=== PATIENT | male | born 1960 | race African-American/Black ===

== ENCOUNTER 2018-10-20 19:57 | Inpatient (IN) | payer MEDICAID ==
[~2018-10-20] VITALS: Ht 185.4 cm; Wt 70.3 kg
--- NOTE | 2018-10-20 20:02 | NUR ---
ED Nurse Note: Patient presents with complaints of left foot pain and swelling. Edema of the left foot apparent, patient reports feeling like he had recent fever. States leg/foot has been swollen for a month. Patient was BIBA from the streets, has no place to stay.
[2018-10-20 20:03] VITALS: BP 122/70
[2018-10-20] MEDS ORDERED: Morphine Sulfate 4mg/ml Inj (IV USE ONLY) IVP ONE (20:15)
[2018-10-20] MEDS ORDERED: Piperacillin/Tazobactam 3.375 GM in NS 110 ML IVPB ONE (20:15)
[2018-10-20] MEDS ORDERED: Vancomycin 1.5 GM in NS 275 ML IVPB ONE (20:15)
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
[2018-10-20 20:41] LABS: HEMATOCRIT 36.6 % (42.0-52.0); HEMOGLOBIN 12.3 G/DL (14.2-18.0); MEAN CORPUSCULAR VOLUME 90 FL (80-99); PLATELET COUNT 191 K/UL (150-450); RED BLOOD COUNT 4.07 M/UL (4.70-6.10); RED CELL DISTRIBUTION WIDTH 11.4 % (11.6-14.8); WHITE BLOOD COUNT 18.8 K/UL (4.8-10.8)
[2018-10-20 20:43] LABS: ANION GAP 11 mmol/L (5-15); BLOOD UREA NITROGEN 17 mg/dL (7-18); CALCIUM 9.1 MG/DL (8.5-10.1); CARBON DIOXIDE 27 MMOL/L (21-32); CHLORIDE 93 MMOL/L (98-107); POTASSIUM 3.1 MMOL/L (3.5-5.1); SODIUM 131 MMOL/L (136-145)
[2018-10-20 20:47] LABS: ALANINE AMINOTRANSFERASE 16 U/L (12-78); ALBUMIN/GLOBULIN RATIO 0.7 (1.0-2.7); ALKALINE PHOSPHATASE 92 U/L (46-116); ASPARTATE AMINO TRANSFERASE 22 U/L (15-37); BILIRUBIN,TOTAL 0.9 MG/DL (0.2-1.0)
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
--- NOTE | 2018-10-20 20:58 | NUR ---
ED Nurse Note: Patient tolerated medication well. 1/2 antibiotics hung post cultures.
[2018-10-20] MEDS ORDERED: Clindamycin 600mg 50 ML IVPB ONE (21:30)
--- NOTE | 2018-10-20 23:20 | NUR ---
ED Nurse Note: called and gave report to Sofía FORREST.
[2018-10-20] MEDS ORDERED: HYDROcodone/Acetamin 5/325 tab ORAL ONE (23:30)
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
[2018-10-21] VITALS: BP 126/73
--- NOTE | 2018-10-21 | NUR ---
NURSE NOTES: RECEIVED PATIENT FROM ER VIA GURNEY. ADM DX CELLULITES OF L FOOT, UNDER PRIMARY DR CAMACHO. A/O X3, ON RA, NO SOB, NO ACUTE DISTRESS. BELONGINGS CHECKED. ORIENTED PATIENT TO SURROUNDINGS. RAC SALINE LOCK IV INTACT, PATENT. BED IN LOWEST POSITION, LOCKED, ALARMS ON. CALL LIGHT IN REACH. LEFT MSG TO DR CAMACHO AND DR MEYERS FOR ADM ORDER.
--- NOTE | 2018-10-21 00:10 | NUR ---
NURSE NOTES: LEFT MSG TO DR CAMACHO'S EXCHANGE. AWAITING FOR CALL BACK.
--- NOTE | 2018-10-21 00:15 | NUR ---
NURSE NOTES: LEFT MSG TO DR MEYERS FOR ADM ORDER, AWAITING FOR CALL BACK.
[2018-10-21 04:00] VITALS: BP 107/70
--- NOTE | 2018-10-21 06:00 | NUR ---
NURSE NOTES: LEFT 2ND MSG TO DR MEYERS FOR ADM ORDER.
--- NOTE | 2018-10-21 06:19 | NUR ---
NURSE NOTES: LEFT MSG TO DR CAMACHO'S EXCHANGE FOR ADM ORDER AGAIN, AWAITING FOR CALL BACK.
--- NOTE | 2018-10-21 06:45 | NUR ---
NURSE NOTES: CHANGE NURSE LEFT MSG TO DR CAMACHO'S EXCHANGE FOR 3RD ATTEMPT REGARDING ADM ORDER.
--- NOTE | 2018-10-21 06:55 | NUR ---
NURSE NOTES: NOTIFIED HALF BACKER REGARDING NO ORDER FOR BREAKFAST.
--- NOTE | 2018-10-21 07:30 | NUR ---
HAND-OFF: Report given to SARAH FORREST. ENDORSE TO AM RN FOR ADM ORDERS.
--- NOTE | 2018-10-21 07:59 | NUR ---
NURSE NOTES: Received report from LON Francois. Pt in bed, awake, talkative, no admission orders for pt, physicians have been called multiple times for orders, RN will contact to follow up. Pt states has pain in left leg, discussed plan of care for pt and need for admission orders. Pt is not in respiratory distress, bed in lowest position, call light within reach.
[2018-10-21 08:00] VITALS: BP 102/65
[2018-10-21] MEDS ORDERED: Albuterol/Ipratropium 3ml neb HHN PRN (08:15)
[2018-10-21] MEDS ORDERED: Nitroglycerin Subl 0.4mg tab SL PRN (08:15)
[2018-10-21] MEDS ORDERED: Miralax 17gm pkt ORAL PRN (08:15)
[2018-10-21] MEDS ORDERED: Dextrose 50% 25ml Syringe IV PRN (08:30)
[2018-10-21] MEDS: Morphine Sulfate 2mg/ml Inj(IV/IM USE ONLY) IVP PRN ×4 (09:38→22:11)
[2018-10-21] MEDS: Heparin 5000 units/ml inj SUBQ SCH ×2 (09:39→20:57)
[2018-10-21] MEDS: Cefepime HCl 2 GM in D5W 110 ML IV SCH (09:39)
--- NOTE | 2018-10-21 10:07 | NUR ---
NURSE NOTES: Dr. Gu evaluated pt, notified MD regarding WBC 18.[address] Dumont ordered Cefepime and Vanco IV. Dr. Gu ordered MRI of foot, ankle, and leg, WCx and Wound care. Orders entered and carried out. WC: NS and Xeroform RN performed WCx and WC according to order.
--- NOTE | 2018-10-21 10:30 | NUR ---
NURSE NOTES: Notified Dr. Tim Martinez 131, K3.1, Cl 93, CRP 61.1, Lactic acid 2.50. asked about replacing K
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
[2018-10-21 12:00] VITALS: BP 101/69
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
--- NOTE | 2018-10-21 14:15 | History and Physical Report ---
DATE OF ADMISSION: 10/20/2018 TIME SEEN: At 9 a.m. CONSULTANTS: 1. Alberto Dumont M.D. 2. Nic Woody D.P.M. 3. Bernardino Wallace M.D. CHIEF COMPLAINT: Left foot cellulitis, sepsis, leukocytosis. BRIEF HISTORY: This is a 58-year-old male, who lives at home, presents with three days of increased left foot cellulitis and he had a wound on the dorsum of his left foot about three days ago and it got worse and redness, swelling occurred. The patient came to [place], diagnosed with the above, and leukocytosis of 18, admitted to medical floor for further treatment. Currently, calm in bed, slight general pain. No complaint otherwise. REVIEW OF SYSTEMS: No chest pain. No shortness of breath. No nausea, vomiting, or diarrhea. PAST MEDICAL HISTORY: Nothing. PAST SURGICAL HISTORY: Left hip. MEDICATIONS: Include vancomycin, cefepime, IV fluid, nitroglycerin, temazepam, Zofran, morphine, albuterol, Tylenol, and clindamycin. ALLERGIES: Denies. SOCIAL HISTORY: Positive smoking. Positive alcohol. No intravenous drug abuse. FAMILY HISTORY: Noncontributory. PHYSICAL EXAMINATION: GENERAL: Calm in bed, oriented x3, no acute distress. VITAL SIGNS: Temperature is 99, pulse 95, respirations 18, blood pressure 102/65. CARDIOVASCULAR: No murmur. LUNGS: Distant and clear. ABDOMEN: Bowel sounds positive. Soft, nontender, nondistended. EXTREMITIES: No cyanosis, clubbing. A 1+ edema left foot dorsum, slight calf swelling up to mid sagastume, redness noted, slightly warm. NEUROLOGIC: The patient moves all extremities, slightly weak. LABORATORY AND DIAGNOSTIC DATA: White count 18, hemoglobin and hematocrit 12/36, platelets 191. Sodium 131, potassium 3.1, chloride 93, glucose 128. Lactic acid 2.9. Albumin 3.0. INR is 1.0, PTT is 36. ASSESSMENT: Left foot cellulitis, edema, leukocytosis, anemia, malnutrition, hyponatremia, and hypokalemia. PLAN: 1. Wound care. 2. Antibiotic per Infectious Disease. 3. Blood pressure and pain control. 4. Dietary followup. 5. Nephrology evaluation. 6. Podiatry evaluation. 7. CBC and BMP in the morning. Shaun Trejo D.O. DR: TANIA JOB#: [id number] CC:
--- NOTE | 2018-10-21 14:30 | Diagnostic Imaging Report ---
Indication: Foot pain Comparison: None Findings: 3 views of the left foot were obtained. There is no acute fracture identified. There is truncation of the distal phalangeal tuft of the hallux which may be postsurgical defect. There is generalized soft tissue swelling present. There is loss of the plantar arch. There is slight diastases of the talonavicular joint. There is arthrosis of the first MTP joint. IMPRESSION: No acute injury identified. Soft tissue swelling. Multiple incidental findings as described
[2018-10-21] MEDS ORDERED: Tubing IV Secondary IV ONE (15:05)
[2018-10-21] MEDS ORDERED: NS 500ML ONE (15:05)
[2018-10-21 15:21] LABS: APPEARANCE,URINE CLEAR; BILIRUBIN, URINE NEGATIVE (NEGATIVE); GLUCOSE, URINE (UA) NEGATIVE (NEGATIVE); KETONES,URINE NEGATIVE (NEGATIVE); LEUKOCYTE ESTERASE ,URINE NEGATIVE (NEGATIVE); NITRITE,URINE NEGATIVE (NEGATIVE); PH,URINE 7 (4.5-8.0); PROTEIN,URINE 2+ (NEGATIVE); UROBILINOGEN,URINE 12 MG/DL (0.0-1.0)
[2018-10-21 15:30] LABS: COLOR,URINE YELLOW
--- NOTE | 2018-10-21 15:42 | NUR ---
NURSE NOTES: Paged Dr. Conde regarding Drug Screen positive for Opiates and Amphetamines Addendum: 10/21/18 at 1647 by SARAH CAPONE RN NURSE NOTES: Left message for Dr. Conde regarding drug screen results
[2018-10-21 16:00] VITALS: BP 109/70
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
[2018-10-21] MEDS: Docusate 100mg cap ORAL SCH (17:36)
--- NOTE | 2018-10-21 19:09 | NUR ---
HAND-OFF: Report given to LON Gore and LON Fox.
--- NOTE | 2018-10-21 19:15 | NUR ---
NURSE NOTES: Received report from LON Guzman. Patient alert, awake, and verbally responsive to let his needs known. Patient is breathing unlabored and evenly without signs of distress, discomfort, or SOB noted at this time. Patient verbalized mild pain on the left calf and food after the pain medication given on the previous shift at 1737. Patient was provided non-pharmacological measures such as rest, repositioning, elevating left leg, and distraction to alleviate the pain at this time. Patient's swollen left leg noted and left leg cellulitis noted. Patient's 20g IV on the RAC noted running fluid as ordered. Bed is placed at the lowest with brakes on and side rails up x 2 for safety measures. Call light placed within reach. Will continue to monitor for pain management and provide care as ordered.
[2018-10-21 20:00] VITALS: BP 129/76
[2018-10-21] MEDS: Vancomycin 1 GM in D5W 275 ML IVPB SCH (20:48)
[2018-10-22] VITALS: BP 130/77
[2018-10-22] MEDS: Morphine Sulfate 2mg/ml Inj(IV/IM USE ONLY) IVP PRN ×5 (02:16→20:13)
--- NOTE | 2018-10-22 02:58 | NUR ---
NURSE NOTES: Patient had mild fever of 100.6 at midnight vitals. Tylenol was given at 0052 and cooling measures been applied such as light blanket, encouraging hydration, and ice packs. Patient's temperature at 0122 was 100.1. Patient's current temperature at 0258 is 98.6. Will continue to monitor and provide care as ordered.
--- NOTE | 2018-10-22 03:04 | NUR ---
NURSE NOTES: Provided dressing change on the left leg as ordered due to previous dressing being soiled. Cleansed with NS and placed a xerofoam. Patient explained procedure before and during performance. Patient verbalized understanding. Patient tolerated the procedure well. Will continue to monitor.
[2018-10-22 04:00] VITALS: BP 112/75
[2018-10-22 06:34] LABS: BASOPHILS % (AUTO) 0.5 % (0.0-2.0); EOSINOPHILS % (AUTO) 0.1 % (0.0-3.0); HEMATOCRIT 35.5 % (42.0-52.0); HEMOGLOBIN 11.6 G/DL (14.2-18.0); LYMPHOCYTES % (AUTO) 12.5 % (20.0-45.0); MEAN CORPUSCULAR VOLUME 93 FL (80-99); MONOCYTES % (AUTO) 14.3 % (1.0-10.0); NEUTROPHILS % (AUTO) 72.7 % (45.0-75.0); PLATELET COUNT 204 K/UL (150-450); RED BLOOD COUNT 3.84 M/UL (4.70-6.10); RED CELL DISTRIBUTION WIDTH 12.2 % (11.6-14.8); WHITE BLOOD COUNT 12.6 K/UL (4.8-10.8)
[2018-10-22 07:02] LABS: ALANINE AMINOTRANSFERASE 15 U/L (12-78); ALBUMIN 2.2 G/DL (3.4-5.0); ALBUMIN/GLOBULIN RATIO 0.6 (1.0-2.7); ALKALINE PHOSPHATASE 80 U/L (46-116); ANION GAP 7 mmol/L (5-15); ASPARTATE AMINO TRANSFERASE 23 U/L (15-37); BILIRUBIN,TOTAL 0.7 MG/DL (0.2-1.0); BLOOD UREA NITROGEN 9 mg/dL (7-18); CALCIUM 8.7 MG/DL (8.5-10.1); CARBON DIOXIDE 28 MMOL/L (21-32); CHLORIDE 101 MMOL/L (98-107); CHOLESTEROL 78 MG/DL (< 200); CREATININE 0.9 MG/DL (0.55-1.30); HDL CHOLESTEROL 12 MG/DL (40-60); POTASSIUM 3.6 MMOL/L (3.5-5.1); SODIUM 136 MMOL/L (136-145); TRIGLYCERIDES 80 MG/DL (30-150)
--- NOTE | 2018-10-22 07:38 | NUR ---
HAND-OFF: Report given to LON Clemente. Patient in stable condition, eating breakfast.
[2018-10-22 07:41] LABS: % IRON SATURATION 19 % (15-50); IRON 25 ug/dL (50-175); TOTAL IRON BINDING CAPACITY 135 ug/dL (250-450)
--- NOTE | 2018-10-22 07:41 | NUR ---
NURSE NOTES: Pt resting in bed. Denies pain, no SOB. Dressing LLE , swelling, redness, elevated on pillow. call light within reach, bed in low position, fall precaution maintained. Will continue to monitor.
[2018-10-22 08:00] VITALS: BP 104/67
[2018-10-22] MEDS: Docusate 100mg cap ORAL SCH ×3 (08:29→17:15)
[2018-10-22] MEDS: Heparin 5000 units/ml inj SUBQ SCH ×2 (08:30→19:57)
--- NOTE | 2018-10-22 09:11 | General Progress Note ---
Assessment/Plan Problem List: (1) Sepsis ICD Codes: A41.9 - Sepsis, unspecified organism SNOMED: 04546764 (2) Cellulitis of left foot ICD Codes: L03.116 - Cellulitis of left lower limb SNOMED: 578475732 Status: stable, progressing Assessment/Plan: wound care abx pain control cbc bmp am Subjective Constitutional: Reports: weakness Allergies: Coded Allergies: No Known Allergies (Unverified , 10/20/18) All Systems: reviewed and negative except above Subjective sleepy calm Objective Last 24 Hour Vital Signs Date Time Temp Pulse Resp B/P (MAP) Pulse Ox O2 Delivery O2 Flow Rate FiO2 10/22/18 09:00 Room Air 10/22/18 08:00 98.1 93 19 104/67 (79) 98 10/22/18 07:30 83 17 93 Room Air 21 10/22/18 04:00 99.4 79 19 112/75 (87) 97 10/22/18 01:22 100.1 10/22/18 00:00 100.6 96 19 130/77 (94) 96 10/21/18 21:00 Room Air 10/21/18 20:00 100.8 104 19 129/76 (93) 96 10/21/18 16:00 98.6 17 109/70 (83) 96 10/21/18 14:16 98.2 10/21/18 12:00 98.2 93 26 101/69 (80) 98 Intake and Output 10/21/18 10/22/18 19:00 07:00 Intake Total 1630 ml 2395.0 ml Output Total 1200 ml 1300 ml Balance 430 ml 1095.0 ml Intake Oral 1520 ml 1520 ml IV Total 110 ml 875.0 ml Output Urine Total 1200 ml 1300 ml # Voids 5 2 Laboratory Tests 10/21/18 15:00: Urine Color Yellow, Urine Appearance Clear, Urine pH 7, Urine Specific [place] 1.015, Urine Protein 2+H, Urine Glucose (UA) Negative, Urine Ketones Negative, Urine Blood Negative, Urine Nitrite Negative, Urine Bilirubin Negative, Urine Urobilinogen 12H, Urine Leukocyte Esterase Negative, Urine RBC 0-2H, Urine WBC 0 -2, Urine Squamous Epithelial Cells None, Urine Bacteria Occasional, Urine Opiates Screen PositiveH, Urine Barbiturates Screen Negative, Phencyclidine (PCP ) Screen Negative, Urine Amphetamines Screen PositiveH, Urine Benzodiazepines Screen Negative, Urine Cocaine Screen Negative, Urine Marijuana (THC) Screen Negative 10/22/18 05:40: White Blood Count 12.6H, Red Blood Count 3.84L, Hemoglobin 11.6L, Hematocrit 35.5L, Mean Corpuscular Volume 93, Mean Corpuscular Hemoglobin 30.3, Mean Corpuscular Hemoglobin Concent 32.7, Red Cell Distribution Width 12.2, Platelet Count 204, Mean Platelet Volume 5.6L, Neutrophils (%) (Auto) 72.7, Lymphocytes ( %) (Auto) 12.5L, Monocytes (%) (Auto) 14.3H, Eosinophils (%) (Auto) 0.1, Basophils (%) (Auto) 0.5, Sodium Level 136, Potassium Level 3.6, Chloride Level 101, Carbon Dioxide Level 28, Anion Gap 7, Blood Urea Nitrogen 9, Creatinine 0.9 , Estimat Glomerular Filtration Rate > 60, Glucose Level 95, Hemoglobin A1c 6.4H , Uric Acid 3.5, Calcium Level 8.7, Phosphorus Level 3.0, Magnesium Level 2.0, Iron Level 25L, Total Iron Binding Capacity 135L, Percent Iron Saturation 19, Unsaturated Iron Binding 110L, Ferritin 324, Total Bilirubin 0.7, Aspartate Amino Transf (AST/SGOT) 23, Alanine Aminotransferase (ALT/SGPT) 15, Alkaline Phosphatase 80, Ammonia 39H, C-Reactive Protein, Quantitative 19.3H, Pro-B-Type Natriuretic Peptide 773H, Total Protein 6.2L, Albumin 2.2L, Globulin 4.0, Albumin/Globulin Ratio 0.6L, Triglycerides Level 80, Cholesterol Level 78, LDL Cholesterol 47, HDL Cholesterol 12L, Cholesterol/HDL Ratio 6.5H, Vitamin B12 Level 427, Folate 8.4L, Thyroid Stimulating Hormone (TSH) 0.516 Height (Feet): 6 Height (Inches): 1.00 Weight (Pounds): 98 General Appearance: lethargic EENT: normal ENT inspection Neck: normal alignment Cardiovascular: normal peripheral pulses, normal rate, regular rhythm Respiratory/Chest: chest wall non-tender, lungs clear, normal breath sounds Abdomen: normal bowel sounds, non tender, soft Extremities: normal inspection Edema: 1+ Arm (L), 1+ Arm (R), 1+ Leg (L), 1+ Leg (R), 1+ Pedal (L), 1+ Pedal ( R), 1+ Generalized Neurologic: motor weakness Skin: normal pigmentation, warm/dry Shaun Trejo DO Oct 22, 2018 09:11
[2018-10-22] MEDS: Cefepime HCl 2 GM in D5W 110 ML IV SCH (09:42)
--- NOTE | 2018-10-22 11:00 | NUR ---
Social Service Note SW met with patient to assess for homelessness. Patient is alert, oriented and verbally responsive. Patient states he has been homeless for about two years. Patient states he is able to live on the side of a friend's apartment located at [address] [place] [address] as long as he keeps it clean and he is quite at night. Patient states he receives SSI of almost a $1,000 a month. Patient states he has poor money management and usually owe people money by the following month which makes housing options difficult. Patient states he is out of money for the month. Patient admits to substance abuse use, opiates and meth. Patient states he only smokes meth a few times a month when he is cold and in pain. Patient states he had a prescription for pain medication. Patient last since at his clinic [facility], [address] [place] [address], [id number], January 2018. Pending MRI to rule out Osteo. If patient requires IV antibiotics he will require SNF placement. Patient is open to sober/independent living however states he can't commit to paying each month. Patient denies mental health disorder. Patient provided his brother Keyshanw Zuniga [phone] as an emergency contact. Will continue to monitor and assess patient needs upon discharge.
[2018-10-22 12:00] VITALS: BP 109/72
--- NOTE | 2018-10-22 12:42 | Consultation ---
History of Present Illness General Date patient seen: Oct 22, 2018 Chief Complaint: Skin Rash/Abscess Reason for Consultation: cellulitis Present Illness HPI 58 year old male, homeless, no major medical problems presented to [place] ER with selling and redness of his left foot. he was diagnosed to have cellulitis and sepsis and admitted for further management. Allergies: Coded Allergies: No Known Allergies (Unverified , 10/20/18) Patient History Healthcare decision maker Resuscitation status Full Code Advanced Directive on File Review of Systems All Other Systems: negative except mentioned in HPI Physical Exam General Appearance: no apparent distress, alert Lines, tubes and drains: peripheral HEENT: normocephalic, atraumatic Neck: non-tender, normal alignment Respiratory/Chest: chest wall non-tender Cardiovascular/Chest: normal peripheral pulses, normal rate Abdomen: normal bowel sounds Genitourinary/Rectal: normal genital exam Skin Exam: rash Last 24 Hour Vital Signs Date Time Temp Pulse Resp B/P (MAP) Pulse Ox O2 Delivery O2 Flow Rate FiO2 10/22/18 12:00 98.1 64 19 109/72 (84) 97 10/22/18 09:00 Room Air 10/22/18 08:00 98.1 93 19 104/67 (79) 98 10/22/18 07:30 83 17 93 Room Air 21 10/22/18 04:00 99.4 79 19 112/75 (87) 97 10/22/18 01:22 100.1 10/22/18 00:00 100.6 96 19 130/77 (94) 96 10/21/18 21:00 Room Air 10/21/18 20:00 100.8 104 19 129/76 (93) 96 10/21/18 16:00 98.6 17 109/70 (83) 96 10/21/18 14:16 98.2 Intake and Output 10/21/18 10/22/18 18:59 06:59 Intake Total 1630 ml 2395.0 ml Output Total 1200 ml 1300 ml Balance 430 ml 1095.0 ml Intake Oral 1520 ml 1520 ml IV Total 110 ml 875.0 ml Output Urine Total 1200 ml 1300 ml # Voids 5 2 Laboratory Tests Test 10/21/18 15:00 10/22/18 05:40 Urine Color Yellow Urine Appearance Clear Urine pH 7 (4.5-8.0) Urine Specific [place] 1.015 (1.005-1.035) Urine Protein 2+ (NEGATIVE) H Urine Glucose (UA) Negative (NEGATIVE) Urine Ketones Negative (NEGATIVE) Urine Blood Negative (NEGATIVE) Urine Nitrite Negative (NEGATIVE) Urine Bilirubin Negative (NEGATIVE) Urine Urobilinogen 12 MG/DL (0.0-1.0) H Urine Leukocyte Esterase Negative (NEGATIVE) Urine RBC 0-2 /HPF (0 - 0) H Urine WBC 0-2 /HPF (0 - 0) Urine Squamous Epithelial Cells None /LPF (NONE/OCC) Urine Bacteria Occasional /HPF (NONE) Urine Opiates Screen Positive (NEGATIVE) H Urine Barbiturates Screen Negative (NEGATIVE) Phencyclidine (PCP) Screen Negative (NEGATIVE) Urine Amphetamines Screen Positive (NEGATIVE) H Urine Benzodiazepines Screen Negative (NEGATIVE) Urine Cocaine Screen Negative (NEGATIVE) Urine Marijuana (THC) Screen Negative (NEGATIVE) White Blood Count 12.6 K/UL (4.8-10.8) H Red Blood Count 3.84 M/UL (4.70-6.10) L Hemoglobin 11.6 G/DL (14.2-18.0) L Hematocrit 35.5 % (42.0-52.0) L Mean Corpuscular Volume 93 FL (80-99) Mean Corpuscular Hemoglobin 30.3 PG (27.0-31.0) Mean Corpuscular Hemoglobin Concent 32.7 G/DL (32.0-36.0) Red Cell Distribution Width 12.2 % (11.6-14.8) Platelet Count 204 K/UL (150-450) Mean Platelet Volume 5.6 FL (6.5-10.1) L Neutrophils (%) (Auto) 72.7 % (45.0-75.0) Lymphocytes (%) (Auto) 12.5 % (20.0-45.0) L Monocytes (%) (Auto) 14.3 % (1.0-10.0) H Eosinophils (%) (Auto) 0.1 % (0.0-3.0) Basophils (%) (Auto) 0.5 % (0.0-2.0) Sodium Level 136 MMOL/L (136-145) Potassium Level 3.6 MMOL/L (3.5-5.1) Chloride Level 101 MMOL/L (98-107) Carbon Dioxide Level 28 MMOL/L (21-32) Anion Gap 7 mmol/L (5-15) Blood Urea Nitrogen 9 mg/dL (7-18) Creatinine 0.9 MG/DL (0.55-1.30) Estimat Glomerular Filtration Rate > 60 mL/min (>60) Glucose Level 95 MG/DL (74-106) Hemoglobin A1c 6.4 % (4.3-6.0) H Uric Acid 3.5 MG/DL (2.6-7.2) Calcium Level 8.7 MG/DL (8.5-10.1) Phosphorus Level 3.0 MG/DL (2.5-4.9) Magnesium Level 2.0 MG/DL (1.8-2.4) Iron Level 25 ug/dL (50-175) L Total Iron Binding Capacity 135 ug/dL (250-450) L Percent Iron Saturation 19 % (15-50) Unsaturated Iron Binding 110 ug/dL (112-346) L Ferritin 324 NG/ML (8-388) Total Bilirubin 0.7 MG/DL (0.2-1.0) Aspartate Amino Transf (AST/SGOT) 23 U/L (15-37) Alanine Aminotransferase (ALT/SGPT) 15 U/L (12-78) Alkaline Phosphatase 80 U/L (46-116) Ammonia 39 umol/L (11-32) H C-Reactive Protein, Quantitative 19.3 mg/dL (0.00-0.90) H Pro-B-Type Natriuretic Peptide 773 pg/mL (0-125) H Total Protein 6.2 G/DL (6.4-8.2) L Albumin 2.2 G/DL (3.4-5.0) L Globulin 4.0 g/dL Albumin/Globulin Ratio 0.6 (1.0-2.7) L Triglycerides Level 80 MG/DL (30-150) Cholesterol Level 78 MG/DL (< 200) LDL Cholesterol 47 mg/dL (<100) HDL Cholesterol 12 MG/DL (40-60) L Cholesterol/HDL Ratio 6.5 (3.3-4.4) H Vitamin B12 Level 427 PG/ML (193-986) Folate 8.4 NG/ML (8.6-58.9) L Thyroid Stimulating Hormone (TSH) 0.516 uiU/mL (0.358-3.740) Height (Feet): 6 Height (Inches): 1.00 Weight (Pounds): 98 Medications Current Medications Medications (Trade) Dose Ordered Sig/Juan Route PRN Reason Start Time Stop Time Status Last Admin Dose Admin Acetaminophen (Tylenol) 650 mg Q4H PRN ORAL fever 10/21/18 08:15 11/20/18 08:14 10/22/18 00:52 Albuterol/ Ipratropium (Albuterol/ Ipratropium) 3 ml Q4H PRN HHN Shortness of Breath 10/21/18 08:15 10/26/18 08:14 Cefepime HCl 2 gm/ Dextrose 110 ml @ 220 mls/hr Q24H IV 10/21/18 10:00 10/28/18 09:59 10/22/18 09:42 Dextrose (Dextrose 50%) 25 ml Q30M PRN IV Hypoglycemia 10/21/18 08:30 11/20/18 08:16 Dextrose (Dextrose 50%) 50 ml Q30M PRN IV hypoglycemia 10/21/18 08:30 11/20/18 08:29 Dextrose/ Electrolytes 1,000 ml @ 50 mls/hr Q20H IV 10/22/18 10:00 11/20/18 09:59 10/22/18 09:39 Docusate Sodium (Colace) 100 mg THREE TIMES A DAY ORAL 10/21/18 18:00 11/20/18 17:59 10/22/18 12:09 Folic Acid (Folate) 3 mg DAILY ORAL 10/22/18 09:15 11/21/18 09:14 10/22/18 09:41 Heparin Sodium (Porcine) (Heparin 5000 units/ml) 5,000 units EVERY 12 HOURS SUBQ 10/21/18 09:00 11/20/18 08:59 10/22/18 08:30 Morphine Sulfate (Morphine Sulfate) 2 mg Q4H PRN IVP Moderate Pain (Pain Scale 4-6) 10/21/18 08:15 10/28/18 08:14 10/22/18 12:09 Nitroglycerin (Ntg) 0.4 mg Q5M PRN SL Prn Chest Pain 10/21/18 08:15 11/20/18 08:14 Ondansetron HCl (Zofran) 4 mg Q6H PRN IVP Nausea & Vomiting 10/21/18 08:15 11/20/18 08:14 Pantoprazole (Protonix) 40 mg EVERY 12 HOURS ORAL 10/21/18 21:00 11/20/18 20:59 10/22/18 08:29 Polyethylene Glycol (Miralax) 17 gm DAILYPRN PRN ORAL Constipation 10/21/18 08:15 11/20/18 08:14 10/21/18 11:32 Temazepam (Restoril) 15 mg HSPRN PRN ORAL Insomnia 10/21/18 08:15 10/28/18 08:14 Vancomycin HCl (Vanco rx to dose) 1 ea DAILY PRN MISC . 10/21/18 08:30 11/20/18 08:29 Vancomycin HCl 1 gm/Dextrose 275 ml @ 183.3 mls/ hr Q24H IVPB 10/21/18 20:00 10/26/18 19:59 10/21/18 20:48 Assessment/Plan Problem List: (1) Sepsis ICD Codes: A41.9 - Sepsis, unspecified organism SNOMED: 21310928 (2) Cellulitis of left foot ICD Codes: L03.116 - Cellulitis of left lower limb SNOMED: 143684096 Assessment/Plan: iv abx wound care dvt prophylaxis symptomatic treatment. Alberto Dumont MD Oct 22, 2018 12:42
--- NOTE | 2018-10-22 12:44 | Nephrology Progress Note ---
Assessment/Plan Problem List: (1) Cellulitis of left foot (2) Sepsis (3) Hyponatremia (4) Hypoalbuminemia Assessment Left foot cellulitis / Leukocytosis / No fever Low Na Low K Anemia High Lactic Low Albumin Plan recheck BMI Isotonic solution K supplement monitor lytes avoid nephrotoxics urine tox screen positive for Amphetamines and Opiates per orders Objective Objective Last 24 Hour Vital Signs Date Time Temp Pulse Resp B/P (MAP) Pulse Ox O2 Delivery O2 Flow Rate FiO2 10/22/18 12:00 98.1 64 19 109/72 (84) 97 10/22/18 09:00 Room Air 10/22/18 08:00 98.1 93 19 104/67 (79) 98 10/22/18 07:30 83 17 93 Room Air 21 10/22/18 04:00 99.4 79 19 112/75 (87) 97 10/22/18 01:22 100.1 10/22/18 00:00 100.6 96 19 130/77 (94) 96 10/21/18 21:00 Room Air 10/21/18 20:00 100.8 104 19 129/76 (93) 96 10/21/18 16:00 98.6 17 109/70 (83) 96 10/21/18 14:16 98.2 Intake and Output 10/21/18 10/22/18 18:59 06:59 Intake Total 1630 ml 2395.0 ml Output Total 1200 ml 1300 ml Balance 430 ml 1095.0 ml Intake Oral 1520 ml 1520 ml IV Total 110 ml 875.0 ml Output Urine Total 1200 ml 1300 ml # Voids 5 2 Laboratory Tests 10/21/18 15:00: Urine Color Yellow, Urine Appearance Clear, Urine pH 7, Urine Specific [place] 1.015, Urine Protein 2+H, Urine Glucose (UA) Negative, Urine Ketones Negative, Urine Blood Negative, Urine Nitrite Negative, Urine Bilirubin Negative, Urine Urobilinogen 12H, Urine Leukocyte Esterase Negative, Urine RBC 0-2H, Urine WBC 0 -2, Urine Squamous Epithelial Cells None, Urine Bacteria Occasional, Urine Opiates Screen PositiveH, Urine Barbiturates Screen Negative, Phencyclidine (PCP ) Screen Negative, Urine Amphetamines Screen PositiveH, Urine Benzodiazepines Screen Negative, Urine Cocaine Screen Negative, Urine Marijuana (THC) Screen Negative 10/22/18 05:40: White Blood Count 12.6H, Red Blood Count 3.84L, Hemoglobin 11.6L, Hematocrit 35.5L, Mean Corpuscular Volume 93, Mean Corpuscular Hemoglobin 30.3, Mean Corpuscular Hemoglobin Concent 32.7, Red Cell Distribution Width 12.2, Platelet Count 204, Mean Platelet Volume 5.6L, Neutrophils (%) (Auto) 72.7, Lymphocytes ( %) (Auto) 12.5L, Monocytes (%) (Auto) 14.3H, Eosinophils (%) (Auto) 0.1, Basophils (%) (Auto) 0.5, Sodium Level 136, Potassium Level 3.6, Chloride Level 101, Carbon Dioxide Level 28, Anion Gap 7, Blood Urea Nitrogen 9, Creatinine 0.9 , Estimat Glomerular Filtration Rate > 60, Glucose Level 95, Hemoglobin A1c 6.4H , Uric Acid 3.5, Calcium Level 8.7, Phosphorus Level 3.0, Magnesium Level 2.0, Iron Level 25L, Total Iron Binding Capacity 135L, Percent Iron Saturation 19, Unsaturated Iron Binding 110L, Ferritin 324, Total Bilirubin 0.7, Aspartate Amino Transf (AST/SGOT) 23, Alanine Aminotransferase (ALT/SGPT) 15, Alkaline Phosphatase 80, Ammonia 39H, C-Reactive Protein, Quantitative 19.3H, Pro-B-Type Natriuretic Peptide 773H, Total Protein 6.2L, Albumin 2.2L, Globulin 4.0, Albumin/Globulin Ratio 0.6L, Triglycerides Level 80, Cholesterol Level 78, LDL Cholesterol 47, HDL Cholesterol 12L, Cholesterol/HDL Ratio 6.5H, Vitamin B12 Level 427, Folate 8.4L, Thyroid Stimulating Hormone (TSH) 0.516 Height (Feet): 6 Height (Inches): 1.00 Weight (Pounds): 98 Levar Conde MD Oct 22, 2018 12:44
--- NOTE | 2018-10-22 13:04 | NUR ---
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 ABSCESS SI:LEFT FOOT CELLULITIS . SEPSIS VS: BP 122/70, P 99, T 98.6, RR 18, SpO2 96 WBC 18.8, RBC 4.07, H&H 12.3/36.6, Na 131, K 3.1, Glucose 128 IS:NORCO 5/325 1tab NS x1L IV CLINDAMYCIN 50ml IVPB MORPHINE 4mg IVP ZOSYN 110ml IVPB VANCOMYCIN 275ml IVPB ZOFRAN 4mg IVP ADMITTED TO MED/SURG DCP: TO BE DETERMINED BASED ON CARE NEEDED Addendum: 10/22/18 at 1500 by Susan Mauricio CM INTERQUAL MET
[2018-10-22] MEDS ORDERED: Iron Sucrose 200 MG in NS 110 ML IV ONE (14:00)
[2018-10-22 16:00] VITALS: BP 112/74
--- NOTE | 2018-10-22 18:31 | Infectious Diseases Prog Note ---
Assessment/Plan Assessment/Plan Assessment/Plan: 58 yo male who presnted to the ED on 10/19/18 with left leg cellulitis. Left foot cellulitis Leukocytosis ;improving Low grade fevers -Foot xray: No acute injury identified. Soft tissue swelling. Multiple incidental findings as described PLAN: - Continue Cefepime #2 and Vancomycin #2 - f/u wound cx - Monitor CBC and Temps - f/u MRI to R/O OM Thank you for this consult. We will continue to follow the patient during this hospitalization. Subjective Allergies: Coded Allergies: No Known Allergies (Unverified , 10/20/18) Subjective Tm 100.8 WBC improving BCx NTD Objective Vital Signs Last 24 Hour Vital Signs Date Time Temp Pulse Resp B/P (MAP) Pulse Ox O2 Delivery O2 Flow Rate FiO2 10/22/18 16:37 98.1 10/22/18 16:00 98.5 76 19 112/74 (87) 96 10/22/18 12:00 98.1 64 19 109/72 (84) 97 10/22/18 09:00 Room Air 10/22/18 08:00 98.1 93 19 104/67 (79) 98 10/22/18 07:30 83 17 93 Room Air 21 10/22/18 04:00 99.4 79 19 112/75 (87) 97 10/22/18 01:22 100.1 10/22/18 00:00 100.6 96 19 130/77 (94) 96 10/21/18 21:00 Room Air 10/21/18 20:00 100.8 104 19 129/76 (93) 96 Height (Feet): 6 Height (Inches): 1.00 Weight (Pounds): 98 Objective Gen: NAD HEENT: NCAT, MMM, EOMI, PERRL, No Oral lesion, no scleral icterus NECK: full range of motion, supple, no meningismus, No LAD, No JVD LUNGS: CTAB, No W/C, No Accessory muscle use CARDS: RRR, S1, S2, No M/R/G, ABD: Soft, NT, ND, No R/G, + BS, No HSM, No Masses : Deferred Ext: C/C/E, Pulses 2+ B/L (DP, Rad): LLE swelling with erythema and pain, Ulceration present with purulence. NEURO: A/O x 4, Strength and Sensation Grossly intact PSYCH: Normal mood and affect SKIN: Warm/dry, No rashes Microbiology Date/Time Source Procedure Growth Status 10/20/18 20:27 Blood Blood Culture - Preliminary NO GROWTH AFTER 24 HOURS Resulted 10/20/18 20:19 Blood Blood Culture - Preliminary NO GROWTH AFTER 24 HOURS Resulted 10/21/18 11:30 Leg Left Gram Stain - Final Resulted 10/21/18 11:30 Leg Left Wound Culture Pending Resulted 10/20/18 20:25 Rectum Received Laboratory Tests Test 10/22/18 05:40 White Blood Count 12.6 K/UL (4.8-10.8) H Red Blood Count 3.84 M/UL (4.70-6.10) L Hemoglobin 11.6 G/DL (14.2-18.0) L Hematocrit 35.5 % (42.0-52.0) L Mean Corpuscular Volume 93 FL (80-99) Mean Corpuscular Hemoglobin 30.3 PG (27.0-31.0) Mean Corpuscular Hemoglobin Concent 32.7 G/DL (32.0-36.0) Red Cell Distribution Width 12.2 % (11.6-14.8) Platelet Count 204 K/UL (150-450) Mean Platelet Volume 5.6 FL (6.5-10.1) L Neutrophils (%) (Auto) 72.7 % (45.0-75.0) Lymphocytes (%) (Auto) 12.5 % (20.0-45.0) L Monocytes (%) (Auto) 14.3 % (1.0-10.0) H Eosinophils (%) (Auto) 0.1 % (0.0-3.0) Basophils (%) (Auto) 0.5 % (0.0-2.0) Sodium Level 136 MMOL/L (136-145) Potassium Level 3.6 MMOL/L (3.5-5.1) Chloride Level 101 MMOL/L (98-107) Carbon Dioxide Level 28 MMOL/L (21-32) Anion Gap 7 mmol/L (5-15) Blood Urea Nitrogen 9 mg/dL (7-18) Creatinine 0.9 MG/DL (0.55-1.30) Estimat Glomerular Filtration Rate > 60 mL/min (>60) Glucose Level 95 MG/DL (74-106) Hemoglobin A1c 6.4 % (4.3-6.0) H Uric Acid 3.5 MG/DL (2.6-7.2) Calcium Level 8.7 MG/DL (8.5-10.1) Phosphorus Level 3.0 MG/DL (2.5-4.9) Magnesium Level 2.0 MG/DL (1.8-2.4) Iron Level 25 ug/dL (50-175) L Total Iron Binding Capacity 135 ug/dL (250-450) L Percent Iron Saturation 19 % (15-50) Unsaturated Iron Binding 110 ug/dL (112-346) L Ferritin 324 NG/ML (8-388) Total Bilirubin 0.7 MG/DL (0.2-1.0) Aspartate Amino Transf (AST/SGOT) 23 U/L (15-37) Alanine Aminotransferase (ALT/SGPT) 15 U/L (12-78) Alkaline Phosphatase 80 U/L (46-116) Ammonia 39 umol/L (11-32) H C-Reactive Protein, Quantitative 19.3 mg/dL (0.00-0.90) H Pro-B-Type Natriuretic Peptide 773 pg/mL (0-125) H Total Protein 6.2 G/DL (6.4-8.2) L Albumin 2.2 G/DL (3.4-5.0) L Globulin 4.0 g/dL Albumin/Globulin Ratio 0.6 (1.0-2.7) L Triglycerides Level 80 MG/DL (30-150) Cholesterol Level 78 MG/DL (< 200) LDL Cholesterol 47 mg/dL (<100) HDL Cholesterol 12 MG/DL (40-60) L Cholesterol/HDL Ratio 6.5 (3.3-4.4) H Vitamin B12 Level 427 PG/ML (193-986) Folate 8.4 NG/ML (8.6-58.9) L Thyroid Stimulating Hormone (TSH) 0.516 uiU/mL (0.358-3.740) Current Medications Medications (Trade) Dose Ordered Sig/Juan Route PRN Reason Start Time Stop Time Status Last Admin Dose Admin Acetaminophen (Tylenol) 650 mg Q4H PRN ORAL fever 10/21/18 08:15 11/20/18 08:14 10/22/18 00:52 Albuterol/ Ipratropium (Albuterol/ Ipratropium) 3 ml Q4H PRN HHN Shortness of Breath 10/21/18 08:15 10/26/18 08:14 Cefepime HCl 1 gm/ Dextrose 55 ml @ 110 mls/hr EVERY 12 HOURS IVPB 10/23/18 09:00 10/28/18 10:00 Dextrose (Dextrose 50%) 25 ml Q30M PRN IV Hypoglycemia 10/21/18 08:30 11/20/18 08:16 Dextrose (Dextrose 50%) 50 ml Q30M PRN IV hypoglycemia 10/21/18 08:30 11/20/18 08:29 Dextrose/ Electrolytes 1,000 ml @ 50 mls/hr Q20H IV 10/22/18 10:00 11/20/18 09:59 10/22/18 09:39 Docusate Sodium (Colace) 100 mg THREE TIMES A DAY ORAL 10/21/18 18:00 11/20/18 17:59 10/22/18 12:09 Folic Acid (Folate) 3 mg DAILY ORAL 10/22/18 09:15 11/21/18 09:14 10/22/18 09:41 Heparin Sodium (Porcine) (Heparin 5000 units/ml) 5,000 units EVERY 12 HOURS SUBQ 10/21/18 09:00 11/20/18 08:59 10/22/18 08:30 Morphine Sulfate (Morphine Sulfate) 2 mg Q4H PRN IVP Moderate Pain (Pain Scale 4-6) 10/21/18 08:15 10/28/18 08:14 10/22/18 16:07 Nitroglycerin (Ntg) 0.4 mg Q5M PRN SL Prn Chest Pain 10/21/18 08:15 11/20/18 08:14 Ondansetron HCl (Zofran) 4 mg Q6H PRN IVP Nausea & Vomiting 10/21/18 08:15 11/20/18 08:14 Pantoprazole (Protonix) 40 mg EVERY 12 HOURS ORAL 10/21/18 21:00 11/20/18 20:59 10/22/18 08:29 Polyethylene Glycol (Miralax) 17 gm DAILYPRN PRN ORAL Constipation 10/21/18 08:15 11/20/18 08:14 10/21/18 11:32 Temazepam (Restoril) 15 mg HSPRN PRN ORAL Insomnia 10/21/18 08:15 10/28/18 08:14 Vancomycin HCl (Vanco rx to dose) 1 ea DAILY PRN MISC . 10/21/18 08:30 11/20/18 08:29 Vancomycin HCl 1 gm/Dextrose 275 ml @ 183.3 mls/ hr Q24H IVPB 10/21/18 20:00 10/26/18 19:59 10/21/18 20:48 Fernanda Davison M.D. Oct 22, 2018 18:30
--- NOTE | 2018-10-22 19:42 | NUR ---
NURSE NOTES: Received patient comfortable,asleep,left lower extremity elevated.
[2018-10-22] MEDS: Vancomycin 1 GM in D5W 275 ML IVPB SCH (19:56)
[2018-10-22 20:00] VITALS: BP 117/71
[2018-10-23] VITALS: BP 141/82
[2018-10-23] MEDS: HYDROmorphone 1mg/ml Carpuject IVP PRN ×6 (00:07→21:33)
[2018-10-23 04:00] VITALS: BP 123/77
[2018-10-23] MEDS ORDERED: Tubing IV Secondary IV ONE (06:51)
[2018-10-23 07:05] LABS: BASOPHILS % (AUTO) 0.8 % (0.0-2.0); EOSINOPHILS % (AUTO) 0.2 % (0.0-3.0); HEMATOCRIT 34.8 % (42.0-52.0); HEMOGLOBIN 11.5 G/DL (14.2-18.0); LYMPHOCYTES % (AUTO) 13.1 % (20.0-45.0); MEAN CORPUSCULAR VOLUME 92 FL (80-99); MONOCYTES % (AUTO) 14.9 % (1.0-10.0); NEUTROPHILS % (AUTO) 70.9 % (45.0-75.0); PLATELET COUNT 255 K/UL (150-450); RED BLOOD COUNT 3.78 M/UL (4.70-6.10); WHITE BLOOD COUNT 12.4 K/UL (4.8-10.8)
[2018-10-23 07:06] LABS: PHOSPHORUS 3.2 MG/DL (2.5-4.9)
[2018-10-23 07:08] LABS: ALANINE AMINOTRANSFERASE 20 U/L (12-78); ALBUMIN 2.2 G/DL (3.4-5.0); ALBUMIN/GLOBULIN RATIO 0.5 (1.0-2.7); ALKALINE PHOSPHATASE 88 U/L (46-116); ANION GAP 7 mmol/L (5-15); ASPARTATE AMINO TRANSFERASE 30 U/L (15-37); BILIRUBIN,TOTAL 0.5 MG/DL (0.2-1.0); BLOOD UREA NITROGEN 8 mg/dL (7-18); CALCIUM 8.6 MG/DL (8.5-10.1); CARBON DIOXIDE 28 MMOL/L (21-32); CHLORIDE 98 MMOL/L (98-107); POTASSIUM 3.5 MMOL/L (3.5-5.1); SODIUM 133 MMOL/L (136-145)
--- NOTE | 2018-10-23 07:18 | NUR ---
HAND-OFF: Report given to Aline Faye RN.
--- NOTE | 2018-10-23 07:20 | NUR ---
NURSE NOTES: received patient resting in bed.patient awake, alert oriented, no sign of distress, denies pain, dressing on LLE dry and intact, elevated on pillow. call light within reach, on fall precaution, bed in low position, Will continue to monitor. kaitlin reynolds
[2018-10-23 07:40] LABS: CREATININE 0.7 MG/DL (0.55-1.30)
[2018-10-23 08:00] VITALS: BP_SYST 129; BP_DIAS 75; BP_DIAS 76
[2018-10-23] MEDS: Heparin 5000 units/ml inj SUBQ SCH ×2 (08:58→21:05)
[2018-10-23] MEDS: Docusate 100mg cap ORAL SCH ×3 (08:58→17:11)
[2018-10-23] MEDS: Cefepime 1gm in D5W 55ml IVPB SCH ×2 (08:59→21:06)
--- NOTE | 2018-10-23 10:56 | NUR ---
MRI left ankle completed
--- NOTE | 2018-10-23 11:13 | Diagnostic Imaging Report ---
Indication: Dorsal left foot ulcer/blister, with cellulitis Technique: Sagittal, coronal, and axial T1 FSE and FSE STIR images of the left forefoot Comparison: Foot radiograph dated 10/20/2018 Findings: . Superficial fluid collection in the dorsum of the right foot likely relates to stated clinical history of a blister. Multiple other similar areas are noted throughout the dorsum of the right foot. There is diffuse edema of the subcutaneous fat, particularly dorsally and extending into the digits circumferentially. There is also some deep compartment edema as well. No discrete collection to suggest abscess demonstrated. No marrow signal abnormality to suggest acute osteomyelitis is demonstrated Impression: Extensive soft tissue edema, as described. This is in keeping with stated clinical history of cellulitis. No findings to suggest abscess Very superficial fluid collections likely relate to stated clinical history of dorsal blisters. No marrow abnormality to suggest acute osteomyelitis demonstrated.
[2018-10-23 12:00] VITALS: BP 129/82
--- NOTE | 2018-10-23 13:09 | Nephrology Progress Note ---
Assessment/Plan Problem List: (1) Cellulitis of left foot (2) Sepsis (3) Hyponatremia (4) Hypoalbuminemia Assessment Left foot cellulitis / Leukocytosis / No fever Low Na Low K Anemia High Lactic Low Albumin Plan recheck BMI Isotonic solution K supplement monitor lytes avoid nephrotoxics urine tox screen positive for Amphetamines and Opiates per orders Subjective ROS Limited/Unobtainable: No Constitutional: Reports: malaise Objective Objective Last 24 Hour Vital Signs Date Time Temp Pulse Resp B/P (MAP) Pulse Ox O2 Delivery O2 Flow Rate FiO2 10/23/18 12:00 97.4 53 19 129/82 (98) 98 10/23/18 09:00 Room Air 10/23/18 08:00 99.0 90 18 129/75 (93) 98 10/23/18 07:05 86 15 95 Room Air 21 10/23/18 05:05 98.1 10/23/18 04:00 99.1 89 20 123/77 (92) 95 10/23/18 00:00 98.6 80 20 141/82 (101) 95 10/22/18 20:55 Room Air 10/22/18 20:47 90 16 96 Room Air 21 10/22/18 20:43 98.1 10/22/18 20:00 99.0 91 20 117/71 (86) 96 10/22/18 16:00 98.5 76 19 112/74 (87) 96 Intake and Output 10/22/18 10/23/18 19:00 07:00 Intake Total 650 ml 1195.0 ml Output Total 2500 ml Balance 650 ml -1305.0 ml Intake Oral 420 ml IV Total 50 ml 775.0 ml Other 600 ml Output Urine Total 2500 ml # Voids 4 Laboratory Tests 10/23/18 05:35: White Blood Count 12.4H, Red Blood Count 3.78L, Hemoglobin 11.5L, Hematocrit 34.8L, Mean Corpuscular Volume 92, Mean Corpuscular Hemoglobin 30.4, Mean Corpuscular Hemoglobin Concent 33.0, Red Cell Distribution Width 12.0, Platelet Count 255, Mean Platelet Volume 5.5L, Neutrophils (%) (Auto) 70.9, Lymphocytes ( %) (Auto) 13.1L, Monocytes (%) (Auto) 14.9H, Eosinophils (%) (Auto) 0.2, Basophils (%) (Auto) 0.8, Erythrocyte Sedimentation Rate 47H, Sodium Level 133L , Potassium Level 3.5, Chloride Level 98, Carbon Dioxide Level 28, Anion Gap 7, Blood Urea Nitrogen 8, Creatinine 0.7, Estimat Glomerular Filtration Rate > 60, Glucose Level 96, Uric Acid 3.2, Calcium Level 8.6, Phosphorus Level 3.2, Magnesium Level 1.9, Total Bilirubin 0.5, Aspartate Amino Transf (AST/SGOT) 30, Alanine Aminotransferase (ALT/SGPT) 20, Alkaline Phosphatase 88, C-Reactive Protein, Quantitative 16.4H, Total Protein 6.6, Albumin 2.2L, Globulin 4.4, Albumin/Globulin Ratio 0.5L Height (Feet): 6 Height (Inches): 1.00 Weight (Pounds): 98 General Appearance: no apparent distress Cardiovascular: normal rate Respiratory/Chest: lungs clear Abdomen: soft Extremities: other - unchanged Objective no change Levar Conde MD Oct 23, 2018 13:09
--- NOTE | 2018-10-23 13:36 | Pulmonology Progress Note ---
Assessment/Plan Problems: (1) Sepsis (2) Cellulitis of left foot Assessment/Plan on abx check cultures wound care dvt prophylaxis. Subjective ROS Limited/Unobtainable: No Constitutional: Reports: no symptoms HEENT: Repors: no symptoms Allergies: Coded Allergies: No Known Allergies (Unverified , 10/20/18) Objective Last 24 Hour Vital Signs Date Time Temp Pulse Resp B/P (MAP) Pulse Ox O2 Delivery O2 Flow Rate FiO2 10/23/18 12:00 97.4 53 19 129/82 (98) 98 10/23/18 09:00 Room Air 10/23/18 08:00 99.0 90 18 129/75 (93) 98 10/23/18 07:05 86 15 95 Room Air 21 10/23/18 05:05 98.1 10/23/18 04:00 99.1 89 20 123/77 (92) 95 10/23/18 00:00 98.6 80 20 141/82 (101) 95 10/22/18 20:55 Room Air 10/22/18 20:47 90 16 96 Room Air 21 10/22/18 20:43 98.1 10/22/18 20:00 99.0 91 20 117/71 (86) 96 10/22/18 16:00 98.5 76 19 112/74 (87) 96 Intake and Output 10/22/18 10/23/18 19:00 07:00 Intake Total 650 ml 1195.0 ml Output Total 2500 ml Balance 650 ml -1305.0 ml Intake Oral 420 ml IV Total 50 ml 775.0 ml Other 600 ml Output Urine Total 2500 ml # Voids 4 General Appearance: WD/WN HEENT: normocephalic Respiratory/Chest: chest wall non-tender, normal breath sounds Cardiovascular: normal rate Abdomen: normal bowel sounds, no organomegaly Extremities: no cyanosis Microbiology Date/Time Source Procedure Growth Status 10/20/18 20:27 Blood Blood Culture - Preliminary NO GROWTH AFTER 48 HOURS Resulted 10/20/18 20:19 Blood Blood Culture - Preliminary NO GROWTH AFTER 48 HOURS Resulted 10/21/18 11:30 Leg Left Gram Stain - Final Resulted 10/21/18 11:30 Wound Culture - Preliminary Gram Negative Bart Resulted 10/20/18 20:25 Rectum VRE Culture - Final NO VANCOMYCIN RESISTANT ENTEROCOCCUS ... Complete 10/20/18 20:25 Rectum Received Laboratory Tests 10/23/18 05:35: White Blood Count 12.4H, Red Blood Count 3.78L, Hemoglobin 11.5L, Hematocrit 34.8L, Mean Corpuscular Volume 92, Mean Corpuscular Hemoglobin 30.4, Mean Corpuscular Hemoglobin Concent 33.0, Red Cell Distribution Width 12.0, Platelet Count 255, Mean Platelet Volume 5.5L, Neutrophils (%) (Auto) 70.9, Lymphocytes ( %) (Auto) 13.1L, Monocytes (%) (Auto) 14.9H, Eosinophils (%) (Auto) 0.2, Basophils (%) (Auto) 0.8, Erythrocyte Sedimentation Rate 47H, Sodium Level 133L , Potassium Level 3.5, Chloride Level 98, Carbon Dioxide Level 28, Anion Gap 7, Blood Urea Nitrogen 8, Creatinine 0.7, Estimat Glomerular Filtration Rate > 60, Glucose Level 96, Uric Acid 3.2, Calcium Level 8.6, Phosphorus Level 3.2, Magnesium Level 1.9, Total Bilirubin 0.5, Aspartate Amino Transf (AST/SGOT) 30, Alanine Aminotransferase (ALT/SGPT) 20, Alkaline Phosphatase 88, C-Reactive Protein, Quantitative 16.4H, Total Protein 6.6, Albumin 2.2L, Globulin 4.4, Albumin/Globulin Ratio 0.5L Current Medications Medications (Trade) Dose Ordered Sig/Juan Route PRN Reason Start Time Stop Time Status Last Admin Dose Admin Acetaminophen (Tylenol) 650 mg Q4H PRN ORAL fever 10/21/18 08:15 11/20/18 08:14 10/22/18 00:52 Albuterol/ Ipratropium (Albuterol/ Ipratropium) 3 ml Q4H PRN HHN Shortness of Breath 10/21/18 08:15 10/26/18 08:14 Cefepime HCl 1 gm/ Dextrose 55 ml @ 110 mls/hr EVERY 12 HOURS IVPB 10/23/18 09:00 10/28/18 10:00 10/23/18 08:59 Dextrose (Dextrose 50%) 25 ml Q30M PRN IV Hypoglycemia 10/21/18 08:30 11/20/18 08:16 Dextrose (Dextrose 50%) 50 ml Q30M PRN IV hypoglycemia 10/21/18 08:30 11/20/18 08:29 Dextrose/ Electrolytes 1,000 ml @ 50 mls/hr Q20H IV 10/22/18 10:00 11/20/18 09:59 10/22/18 09:39 Docusate Sodium (Colace) 100 mg THREE TIMES A DAY ORAL 10/21/18 18:00 11/20/18 17:59 10/23/18 13:09 Folic Acid (Folate) 3 mg DAILY ORAL 10/22/18 09:15 11/21/18 09:14 10/23/18 08:58 Heparin Sodium (Porcine) (Heparin 5000 units/ml) 5,000 units EVERY 12 HOURS SUBQ 10/21/18 09:00 11/20/18 08:59 10/23/18 08:58 Hydromorphone HCl (Dilaudid) 1 mg Q4H PRN IVP Severe Pain (Pain Scale 7-10) 10/22/18 22:15 10/29/18 22:14 10/23/18 13:09 Nitroglycerin (Ntg) 0.4 mg Q5M PRN SL Prn Chest Pain 10/21/18 08:15 11/20/18 08:14 Ondansetron HCl (Zofran) 4 mg Q6H PRN IVP Nausea & Vomiting 10/21/18 08:15 11/20/18 08:14 Pantoprazole (Protonix) 40 mg EVERY 12 HOURS ORAL 10/21/18 21:00 11/20/18 20:59 10/23/18 08:58 Polyethylene Glycol (Miralax) 17 gm DAILYPRN PRN ORAL Constipation 10/21/18 08:15 11/20/18 08:14 10/21/18 11:32 Temazepam (Restoril) 15 mg HSPRN PRN ORAL Insomnia 10/21/18 08:15 10/28/18 08:14 Vancomycin HCl (Vanco rx to dose) 1 ea DAILY PRN MISC . 10/21/18 08:30 11/20/18 08:29 Vancomycin HCl 1 gm/Dextrose 275 ml @ 183.3 mls/ hr Q24H IVPB 10/21/18 20:00 10/26/18 19:59 10/22/18 19:56 Alberto Dumont MD Oct 23, 2018 13:36
--- NOTE | 2018-10-23 14:25 | General Progress Note ---
Assessment/Plan Problem List: (1) Sepsis ICD Codes: A41.9 - Sepsis, unspecified organism SNOMED: 02812695 (2) Cellulitis of left foot ICD Codes: L03.116 - Cellulitis of left lower limb SNOMED: 237298628 Status: stable, progressing Assessment/Plan: wound care abx pain control cbc bmp am Subjective Constitutional: Reports: weakness Allergies: Coded Allergies: No Known Allergies (Unverified , 10/20/18) All Systems: reviewed and negative except above Subjective sleepy calm Objective Last 24 Hour Vital Signs Date Time Temp Pulse Resp B/P (MAP) Pulse Ox O2 Delivery O2 Flow Rate FiO2 10/23/18 12:00 97.4 53 19 129/82 (98) 98 10/23/18 09:00 Room Air 10/23/18 08:00 99.0 90 18 129/75 (93) 98 10/23/18 07:05 86 15 95 Room Air 21 10/23/18 05:05 98.1 10/23/18 04:00 99.1 89 20 123/77 (92) 95 10/23/18 00:00 98.6 80 20 141/82 (101) 95 10/22/18 20:55 Room Air 10/22/18 20:47 90 16 96 Room Air 21 10/22/18 20:43 98.1 10/22/18 20:00 99.0 91 20 117/71 (86) 96 10/22/18 16:00 98.5 76 19 112/74 (87) 96 Intake and Output 10/22/18 10/23/18 19:00 07:00 Intake Total 650 ml 1195.0 ml Output Total 2500 ml Balance 650 ml -1305.0 ml Intake Oral 420 ml IV Total 50 ml 775.0 ml Other 600 ml Output Urine Total 2500 ml # Voids 4 Laboratory Tests 10/23/18 05:35: White Blood Count 12.4H, Red Blood Count 3.78L, Hemoglobin 11.5L, Hematocrit 34.8L, Mean Corpuscular Volume 92, Mean Corpuscular Hemoglobin 30.4, Mean Corpuscular Hemoglobin Concent 33.0, Red Cell Distribution Width 12.0, Platelet Count 255, Mean Platelet Volume 5.5L, Neutrophils (%) (Auto) 70.9, Lymphocytes ( %) (Auto) 13.1L, Monocytes (%) (Auto) 14.9H, Eosinophils (%) (Auto) 0.2, Basophils (%) (Auto) 0.8, Erythrocyte Sedimentation Rate 47H, Sodium Level 133L , Potassium Level 3.5, Chloride Level 98, Carbon Dioxide Level 28, Anion Gap 7, Blood Urea Nitrogen 8, Creatinine 0.7, Estimat Glomerular Filtration Rate > 60, Glucose Level 96, Uric Acid 3.2, Calcium Level 8.6, Phosphorus Level 3.2, Magnesium Level 1.9, Total Bilirubin 0.5, Aspartate Amino Transf (AST/SGOT) 30, Alanine Aminotransferase (ALT/SGPT) 20, Alkaline Phosphatase 88, C-Reactive Protein, Quantitative 16.4H, Total Protein 6.6, Albumin 2.2L, Globulin 4.4, Albumin/Globulin Ratio 0.5L Height (Feet): 6 Height (Inches): 1.00 Weight (Pounds): 169 General Appearance: lethargic EENT: normal ENT inspection Neck: normal alignment Cardiovascular: normal peripheral pulses, normal rate, regular rhythm Respiratory/Chest: chest wall non-tender, lungs clear, normal breath sounds Abdomen: normal bowel sounds, non tender, soft Extremities: normal inspection Edema: 1+ Arm (L), 1+ Arm (R), 1+ Leg (L), 1+ Leg (R), 1+ Pedal (L), 1+ Pedal ( R), 1+ Generalized Neurologic: responsive, motor weakness Skin: normal pigmentation, warm/dry Objective l foor sl red and swollen up to ankle Shaun Trejo DO Oct 23, 2018 14:25
--- NOTE | 2018-10-23 14:59 | NUR ---
[employer] SI:SEPSIS . CELLULITIS OF LEFT FOOT VS: BP 129/82, P 53, T 97.4, RR 19, SpO2 98 WBC 12.4, RBC 3.78, H&H 11.5/34.8, Na 133 IS:DILAUDID 1mg IVP CEFEPIME 55ml IVPB HEPARIN SUBQ PROTONIX 40mg FOLATE 3mg PLAN: WOUND CARE ABX DVT PROPHYLAXIS MED/SURG STATUS
--- NOTE | 2018-10-23 15:46 | Diagnostic Imaging Report ---
Indication: Wound on left leg, with discharge, redness and swelling around the ankle, pain Technique: Sagittal, coronal, and axial T1 FSE and FSE STIR images of the distal leg Comparison: none Findings: A marker barrett an ulcer located anteromedial to the tibial shaft. At the marker, there is some slight superficial edema of the skin surface and slight surface irregularity, but the edema in this location is not extensive. There is more extensive edema of the subcutaneous fat anteriorly and anterolaterally, becoming more circumferential approaching the ankle. No abnormal bone marrow signal is demonstrated. No localized fluid collection to suggest abscess is demonstrated. The calcaneus tendon is intact. Impression: Negative for evidence of osteomyelitis Evidence of superficial soft tissue ulcer, marked by a marker at the anteromedial sagastume region Considerable subcutaneous fat edema. Given stated clinical history, probably on the basis of cellulitis. Correlate with clinical findings. No evidence of drainable abscess.
--- NOTE | 2018-10-23 15:51 | NUR ---
INSURANCE UPDATED CLINICALS and REVIEW HAVE BEEN FAXED TO: PLEASE FAX THE REVIEW AND CLINICAL TO F/S FAXED TO [facility]: BRANT P- [phone] X [phone] F [phone]............REVIEW/CLINICAL
--- NOTE | 2018-10-23 15:54 | Diagnostic Imaging Report ---
Indication: Left ankle cellulitis Technique: Sagittal, axial, and coronal T1 FSE and FSE STIR images obtained of the ankle and hindfoot Comparison: none Findings: Patchy areas of increased STIR and decreased T1 signal are seen within the anterior talus, anterior calcaneus, posterior navicular bones, with minimal involvement of the cuboid. The cuneiforms appear unremarkable. There is considerable edema of the fat of the dorsum of the foot and circumferentially surrounding the ankle. No definite discrete fluid collection demonstrated. Impression: Patchy areas of marrow edema, as described. Periarticular distribution of this is suggestive of arthropathy which may be degenerative, inflammatory, or, most likely, on the basis of Charcot-type changes. Per technologist, there are no ulcers in the area so osteomyelitis is deemed much less likely. Extensive edema of the subcutaneous fat. Given stated clinical history of cellulitis, most likely on the basis of such. Correlate with clinical findings. No drainable abscess collection demonstrated.
[2018-10-23 16:13] VITALS: BP 137/84
--- NOTE | 2018-10-23 18:16 | Infectious Diseases Prog Note ---
Assessment/Plan Assessment/Plan Assessment/Plan: 58 yo male who presnted to the ED on 10/19/18 with left leg cellulitis. Left foot cellulitis Leukocytosis ;improving Low grade fevers -Tibia/fibula MRI: Negative for evidence of osteomyelitis. Evidence of superficial soft tissue ulcer, marked by a marker at the anteromedial sagastume region.Considerable subcutaneous fat edema. Given stated clinical history, probably on the basis of cellulitis. Correlate with clinical findings. No evidence of drainable abscess. -foot MRI: Extensive soft tissue edema, as described. This is in keeping with stated clinical history of cellulitis. No findings to suggest abscess Very superficial fluid collections likely relate to stated clinical history of dorsal blisters. No marrow abnormality to suggest acute osteomyelitis demonstrated. -ANkle MRI: Patchy areas of marrow edema, as described. Periarticular distribution of this is suggestive of arthropathy which may be degenerative, inflammatory, or, most likely, on the basis of Charcot-type changes. Per technologist, there are no ulcers in the area so osteomyelitis is deemed much less likely. Extensive edema of the subcutaneous fat. Given stated clinical history of cellulitis most likely on the basis of such. Correlate with clinical findings. No drainable abscess collection demonstrated. -Foot xray: No acute injury identified. Soft tissue swelling. Multiple incidental findings as described PLAN: - Continue Cefepime #3 and Vancomycin #3 - f/u wound cx - Monitor CBC and Temps -Podiatry f/u Thank you for this consult. We will continue to follow the patient during this hospitalization. Subjective Allergies: Coded Allergies: No Known Allergies (Unverified , 10/20/18) Subjective Tm 100.8 WBC improving BCx NTD Objective Vital Signs Last 24 Hour Vital Signs Date Time Temp Pulse Resp B/P (MAP) Pulse Ox O2 Delivery O2 Flow Rate FiO2 10/23/18 16:13 100.9 90 19 137/84 (101) 98 10/23/18 12:00 97.4 53 19 129/82 (98) 98 10/23/18 09:00 Room Air 10/23/18 08:00 99.0 90 18 129/75 (93) 98 10/23/18 07:05 86 15 95 Room Air 21 10/23/18 05:05 98.1 10/23/18 04:00 99.1 89 20 123/77 (92) 95 10/23/18 00:00 98.6 80 20 141/82 (101) 95 10/22/18 20:55 Room Air 10/22/18 20:47 90 16 96 Room Air 21 10/22/18 20:43 98.1 10/22/18 20:00 99.0 91 20 117/71 (86) 96 Height (Feet): 6 Height (Inches): 1.00 Weight (Pounds): 169 Objective Gen: NAD HEENT: NCAT, MMM, EOMI, PERRL, No Oral lesion, no scleral icterus NECK: full range of motion, supple, no meningismus, No LAD, No JVD LUNGS: CTAB, No W/C, No Accessory muscle use CARDS: RRR, S1, S2, No M/R/G, ABD: Soft, NT, ND, No R/G, + BS, No HSM, No Masses : Deferred Ext: C/C/E, Pulses 2+ B/L (DP, Rad): LLE swelling with erythema and pain, Ulceration present with purulence. NEURO: A/O x 4, Strength and Sensation Grossly intact PSYCH: Normal mood and affect SKIN: Warm/dry, No rashes Microbiology Date/Time Source Procedure Growth Status 10/20/18 20:27 Blood Blood Culture - Preliminary NO GROWTH AFTER 48 HOURS Resulted 10/20/18 20:19 Blood Blood Culture - Preliminary NO GROWTH AFTER 48 HOURS Resulted 10/21/18 11:30 Leg Left Gram Stain - Final Resulted 10/21/18 11:30 Wound Culture - Preliminary Gram Negative Bart Resulted 10/20/18 20:25 Rectum VRE Culture - Final NO VANCOMYCIN RESISTANT ENTEROCOCCUS ... Complete 10/20/18 20:25 Rectum Received Laboratory Tests Test 10/23/18 05:35 White Blood Count 12.4 K/UL (4.8-10.8) H Red Blood Count 3.78 M/UL (4.70-6.10) L Hemoglobin 11.5 G/DL (14.2-18.0) L Hematocrit 34.8 % (42.0-52.0) L Mean Corpuscular Volume 92 FL (80-99) Mean Corpuscular Hemoglobin 30.4 PG (27.0-31.0) Mean Corpuscular Hemoglobin Concent 33.0 G/DL (32.0-36.0) Red Cell Distribution Width 12.0 % (11.6-14.8) Platelet Count 255 K/UL (150-450) Mean Platelet Volume 5.5 FL (6.5-10.1) L Neutrophils (%) (Auto) 70.9 % (45.0-75.0) Lymphocytes (%) (Auto) 13.1 % (20.0-45.0) L Monocytes (%) (Auto) 14.9 % (1.0-10.0) H Eosinophils (%) (Auto) 0.2 % (0.0-3.0) Basophils (%) (Auto) 0.8 % (0.0-2.0) Erythrocyte Sedimentation Rate 47 MM/HR (0-20) H Sodium Level 133 MMOL/L (136-145) L Potassium Level 3.5 MMOL/L (3.5-5.1) Chloride Level 98 MMOL/L (98-107) Carbon Dioxide Level 28 MMOL/L (21-32) Anion Gap 7 mmol/L (5-15) Blood Urea Nitrogen 8 mg/dL (7-18) Creatinine 0.7 MG/DL (0.55-1.30) Estimat Glomerular Filtration Rate > 60 mL/min (>60) Glucose Level 96 MG/DL (74-106) Uric Acid 3.2 MG/DL (2.6-7.2) Calcium Level 8.6 MG/DL (8.5-10.1) Phosphorus Level 3.2 MG/DL (2.5-4.9) Magnesium Level 1.9 MG/DL (1.8-2.4) Total Bilirubin 0.5 MG/DL (0.2-1.0) Aspartate Amino Transf (AST/SGOT) 30 U/L (15-37) Alanine Aminotransferase (ALT/SGPT) 20 U/L (12-78) Alkaline Phosphatase 88 U/L (46-116) C-Reactive Protein, Quantitative 16.4 mg/dL (0.00-0.90) H Total Protein 6.6 G/DL (6.4-8.2) Albumin 2.2 G/DL (3.4-5.0) L Globulin 4.4 g/dL Albumin/Globulin Ratio 0.5 (1.0-2.7) L Current Medications Medications (Trade) Dose Ordered Sig/Juan Route PRN Reason Start Time Stop Time Status Last Admin Dose Admin Acetaminophen (Tylenol) 650 mg Q4H PRN ORAL fever 10/21/18 08:15 11/20/18 08:14 10/22/18 00:52 Albuterol/ Ipratropium (Albuterol/ Ipratropium) 3 ml Q4H PRN HHN Shortness of Breath 10/21/18 08:15 10/26/18 08:14 Cefepime HCl 1 gm/ Dextrose 55 ml @ 110 mls/hr EVERY 12 HOURS IVPB 10/23/18 09:00 10/28/18 10:00 10/23/18 08:59 Dextrose (Dextrose 50%) 25 ml Q30M PRN IV Hypoglycemia 10/21/18 08:30 11/20/18 08:16 Dextrose (Dextrose 50%) 50 ml Q30M PRN IV hypoglycemia 10/21/18 08:30 11/20/18 08:29 Dextrose/ Electrolytes 1,000 ml @ 50 mls/hr Q20H IV 10/22/18 10:00 11/20/18 09:59 10/22/18 09:39 Docusate Sodium (Colace) 100 mg THREE TIMES A DAY ORAL 10/21/18 18:00 11/20/18 17:59 10/23/18 17:11 Folic Acid (Folate) 3 mg DAILY ORAL 10/22/18 09:15 11/21/18 09:14 10/23/18 08:58 Heparin Sodium (Porcine) (Heparin 5000 units/ml) 5,000 units EVERY 12 HOURS SUBQ 10/21/18 09:00 11/20/18 08:59 10/23/18 08:58 Hydromorphone HCl (Dilaudid) 1 mg Q4H PRN IVP Severe Pain (Pain Scale 7-10) 10/22/18 22:15 10/29/18 22:14 10/23/18 17:12 Nitroglycerin (Ntg) 0.4 mg Q5M PRN SL Prn Chest Pain 10/21/18 08:15 11/20/18 08:14 Ondansetron HCl (Zofran) 4 mg Q6H PRN IVP Nausea & Vomiting 10/21/18 08:15 11/20/18 08:14 Pantoprazole (Protonix) 40 mg EVERY 12 HOURS ORAL 10/21/18 21:00 11/20/18 20:59 10/23/18 08:58 Polyethylene Glycol (Miralax) 17 gm DAILYPRN PRN ORAL Constipation 10/21/18 08:15 11/20/18 08:14 10/21/18 11:32 Temazepam (Restoril) 15 mg HSPRN PRN ORAL Insomnia 10/21/18 08:15 10/28/18 08:14 Vancomycin HCl (Vanco rx to dose) 1 ea DAILY PRN MISC . 10/21/18 08:30 11/20/18 08:29 Vancomycin HCl 1 gm/Dextrose 275 ml @ 183.3 mls/ hr Q24H IVPB 10/21/18 20:00 10/26/18 19:59 10/22/18 19:56 Fernanda Davison M.D. Oct 23, 2018 18:16
--- NOTE | 2018-10-23 19:21 | NUR ---
NURSE NOTES:Patient received from MARGE Pearce. Patient denies any pain at this time . no s/s of distress rac g#20 ivf infusing well . left foot dressing C/D/I/and elevated with two pillows . call light within reach . bed in low position at all times .will continue to monitor .
--- NOTE | 2018-10-23 19:24 | NUR ---
HAND-OFF: Report given to Ms Mary RN patient resting comfortably no sign of distress kaitlin reynolds
[2018-10-23 20:00] VITALS: BP 146/93
[2018-10-23] MEDS: Vancomycin 1 GM in D5W 275 ML IVPB SCH ×2 (20:00→21:56)
[2018-10-24] VITALS: BP 139/85
[2018-10-24] MEDS: HYDROmorphone 1mg/ml Carpuject IVP PRN ×5 (01:34→20:22)
[2018-10-24 04:00] VITALS: BP 124/52
[2018-10-24] MEDS: Vancomycin 1 GM in D5W 275 ML IVPB SCH ×3 (05:32→22:17)
[2018-10-24 06:54] LABS: ALANINE AMINOTRANSFERASE 19 U/L (12-78); ALBUMIN 2.1 G/DL (3.4-5.0); ALBUMIN/GLOBULIN RATIO 0.5 (1.0-2.7); ALKALINE PHOSPHATASE 89 U/L (46-116); ANION GAP 6 mmol/L (5-15); ASPARTATE AMINO TRANSFERASE 28 U/L (15-37); BILIRUBIN,TOTAL 0.5 MG/DL (0.2-1.0); BLOOD UREA NITROGEN 8 mg/dL (7-18); CALCIUM 8.7 MG/DL (8.5-10.1); CARBON DIOXIDE 28 MMOL/L (21-32); CHLORIDE 99 MMOL/L (98-107); CREATININE 0.8 MG/DL (0.55-1.30); PHOSPHORUS 3.3 MG/DL (2.5-4.9); POTASSIUM 3.5 MMOL/L (3.5-5.1); SODIUM 133 MMOL/L (136-145)
[2018-10-24 06:59] LABS: BASOPHILS % (AUTO) 0.6 % (0.0-2.0); EOSINOPHILS % (AUTO) 0.5 % (0.0-3.0); HEMATOCRIT 34.8 % (42.0-52.0); HEMOGLOBIN 11.6 G/DL (14.2-18.0); LYMPHOCYTES % (AUTO) 18.3 % (20.0-45.0); MEAN CORPUSCULAR VOLUME 92 FL (80-99); NEUTROPHILS % (AUTO) 65.6 % (45.0-75.0); PLATELET COUNT 296 K/UL (150-450); RED BLOOD COUNT 3.79 M/UL (4.70-6.10); RED CELL DISTRIBUTION WIDTH 12.3 % (11.6-14.8); WHITE BLOOD COUNT 11.4 K/UL (4.8-10.8)
--- NOTE | 2018-10-24 07:02 | General Progress Note ---
Assessment/Plan Problem List: (1) Sepsis ICD Codes: A41.9 - Sepsis, unspecified organism SNOMED: 73476582 (2) Cellulitis of left foot ICD Codes: L03.116 - Cellulitis of left lower limb SNOMED: 207025417 Status: stable, progressing Assessment/Plan: wound care abx pain control cbc bmp am dc plan snf Subjective Constitutional: Reports: weakness Allergies: Coded Allergies: No Known Allergies (Unverified , 10/20/18) All Systems: reviewed and negative except above Subjective sleepy calm Objective Last 24 Hour Vital Signs Date Time Temp Pulse Resp B/P (MAP) Pulse Ox O2 Delivery O2 Flow Rate FiO2 10/24/18 06:04 98.2 10/24/18 00:00 98.2 95 17 139/85 (103) 97 10/23/18 21:00 Room Air 10/23/18 20:03 88 18 97 Room Air 21 10/23/18 20:00 98.3 96 17 146/93 (110) 97 10/23/18 16:13 100.9 90 19 137/84 (101) 98 10/23/18 12:00 97.4 53 19 129/82 (98) 98 10/23/18 09:00 Room Air 10/23/18 08:00 99.0 90 18 129/75 (93) 98 10/23/18 07:05 86 15 95 Room Air 21 Intake and Output 10/23/18 10/24/18 19:00 07:00 Intake Total 1177 ml 1530.0 ml Output Total 900 ml 600 ml Balance 277 ml 930.0 ml Intake Oral 772 ml 1100 ml IV Total 405 ml 430.0 ml Output Urine Total 900 ml 600 ml # Voids 3 7 # Bowel Movements 1 2 Laboratory Tests 10/23/18 19:15: Vancomycin Level Trough 0.8L 10/24/18 04:40: White Blood Count 11.4H, Red Blood Count 3.79L, Hemoglobin 11.6L, Hematocrit 34.8L, Mean Corpuscular Volume 92, Mean Corpuscular Hemoglobin 30.5, Mean Corpuscular Hemoglobin Concent 33.3, Red Cell Distribution Width 12.3, Platelet Count 296, Mean Platelet Volume 5.1L, Neutrophils (%) (Auto) 65.6, Lymphocytes ( %) (Auto) 18.3L, Monocytes (%) (Auto) 15.0H, Eosinophils (%) (Auto) 0.5, Basophils (%) (Auto) 0.6, Sodium Level 133L, Potassium Level 3.5, Chloride Level 99, Carbon Dioxide Level 28, Anion Gap 6, Blood Urea Nitrogen 8, Creatinine 0.8, Estimat Glomerular Filtration Rate > 60, Glucose Level 103, Calcium Level 8.7, Phosphorus Level 3.3, Magnesium Level 1.9, Total Bilirubin 0.5, Aspartate Amino Transf (AST/SGOT) 28, Alanine Aminotransferase (ALT/SGPT) 19, Alkaline Phosphatase 89, C-Reactive Protein, Quantitative 12.6H, Pro-B-Type Natriuretic Peptide 742H, Total Protein 6.6, Albumin 2.1L, Globulin 4.5, Albumin /Globulin Ratio 0.5L Height (Feet): 6 Height (Inches): 1.00 Weight (Pounds): 169 General Appearance: lethargic EENT: normal ENT inspection Neck: non-tender Cardiovascular: normal peripheral pulses, normal rate, regular rhythm Respiratory/Chest: chest wall non-tender, lungs clear, normal breath sounds Abdomen: normal bowel sounds, non tender, soft Extremities: normal inspection Edema: no edema noted Arm (L), no edema noted Arm (R), no edema noted Leg (L), no edema noted Leg (R), no edema noted Pedal (L), no edema noted Pedal (R), no edema noted Generalized Neurologic: motor weakness Skin: normal pigmentation, warm/dry Objective l foor sl red and swollen up to ankle Shaun Trejo DO Oct 24, 2018 07:02
--- NOTE | 2018-10-24 07:25 | NUR ---
NURSE NOTES:HAND-OFF: Report given to ESTEBAN Pearce
--- NOTE | 2018-10-24 07:25 | NUR ---
NURSE NOTES: Pt resting in bed. A/O x 4, calm, pain level 3/10 on left ankle. LLE elevated on pillows, dressing on, no drainage, redness and swelling noted, able to move toes, N/V intact. Voiding. IVF infusing. call light within reach, bed in low position, bed alarm on . fall precaution maintained. will continue to monitor.
[2018-10-24 08:00] VITALS: BP 134/77
[2018-10-24] MEDS: Cefepime 1gm in D5W 55ml IVPB SCH ×2 (08:26→20:22)
[2018-10-24] MEDS: Docusate 100mg cap ORAL SCH ×3 (08:26→17:11)
[2018-10-24] MEDS: Heparin 5000 units/ml inj SUBQ SCH ×2 (08:32→20:28)
[2018-10-24 11:51] VITALS: BP 127/79
--- NOTE | 2018-10-24 12:25 | Pulmonology Progress Note ---
Assessment/Plan Problems: (1) Sepsis (2) Cellulitis of left foot Assessment/Plan improving MRI of ankle reviewed on abx check cultures wound care dvt prophylaxis. Subjective ROS Limited/Unobtainable: No Constitutional: Reports: no symptoms HEENT: Repors: no symptoms Respiratory: Reports: no symptoms Allergies: Coded Allergies: No Known Allergies (Unverified , 10/20/18) Objective Last 24 Hour Vital Signs Date Time Temp Pulse Resp B/P (MAP) Pulse Ox O2 Delivery O2 Flow Rate FiO2 10/24/18 11:51 98.4 83 18 127/79 (95) 96 10/24/18 11:10 97.9 10/24/18 09:00 Room Air 10/24/18 08:00 97.9 89 18 134/77 (96) 97 10/24/18 04:00 98.5 83 18 124/52 (76) 97 10/24/18 00:00 98.2 95 17 139/85 (103) 97 10/23/18 21:00 Room Air 10/23/18 20:03 88 18 97 Room Air 21 10/23/18 20:00 98.3 96 17 146/93 (110) 97 10/23/18 16:13 100.9 90 19 137/84 (101) 98 Intake and Output 10/23/18 10/24/18 19:00 07:00 Intake Total 1177 ml 1913.0 ml Output Total 900 ml 600 ml Balance 277 ml 1313.0 ml Intake Oral 772 ml 1100 ml IV Total 405 ml 813.0 ml Output Urine Total 900 ml 600 ml # Voids 3 7 # Bowel Movements 1 2 General Appearance: WD/WN HEENT: normocephalic, anicteric Respiratory/Chest: lungs clear, no accessory muscle use Cardiovascular: normal rate, regular rhythm Abdomen: soft, non tender, no organomegaly Extremities: no cyanosis Skin: other - getting better Laboratory Tests 10/23/18 19:15: Vancomycin Level Trough 0.8L 10/24/18 04:40: White Blood Count 11.4H, Red Blood Count 3.79L, Hemoglobin 11.6L, Hematocrit 34.8L, Mean Corpuscular Volume 92, Mean Corpuscular Hemoglobin 30.5, Mean Corpuscular Hemoglobin Concent 33.3, Red Cell Distribution Width 12.3, Platelet Count 296, Mean Platelet Volume 5.1L, Neutrophils (%) (Auto) 65.6, Lymphocytes ( %) (Auto) 18.3L, Monocytes (%) (Auto) 15.0H, Eosinophils (%) (Auto) 0.5, Basophils (%) (Auto) 0.6, Sodium Level 133L, Potassium Level 3.5, Chloride Level 99, Carbon Dioxide Level 28, Anion Gap 6, Blood Urea Nitrogen 8, Creatinine 0.8, Estimat Glomerular Filtration Rate > 60, Glucose Level 103, Calcium Level 8.7, Phosphorus Level 3.3, Magnesium Level 1.9, Total Bilirubin 0.5, Aspartate Amino Transf (AST/SGOT) 28, Alanine Aminotransferase (ALT/SGPT) 19, Alkaline Phosphatase 89, C-Reactive Protein, Quantitative 12.6H, Pro-B-Type Natriuretic Peptide 742H, Total Protein 6.6, Albumin 2.1L, Globulin 4.5, Albumin /Globulin Ratio 0.5L Current Medications Medications (Trade) Dose Ordered Sig/Juan Route PRN Reason Start Time Stop Time Status Last Admin Dose Admin Acetaminophen (Tylenol) 650 mg Q4H PRN ORAL fever 10/21/18 08:15 11/20/18 08:14 10/22/18 00:52 Albuterol/ Ipratropium (Albuterol/ Ipratropium) 3 ml Q4H PRN HHN Shortness of Breath 10/21/18 08:15 10/26/18 08:14 Cefepime HCl 1 gm/ Dextrose 55 ml @ 110 mls/hr EVERY 12 HOURS IVPB 10/23/18 09:00 10/28/18 10:00 10/24/18 08:26 Dextrose (Dextrose 50%) 25 ml Q30M PRN IV Hypoglycemia 10/21/18 08:30 11/20/18 08:16 Dextrose (Dextrose 50%) 50 ml Q30M PRN IV hypoglycemia 10/21/18 08:30 11/20/18 08:29 Dextrose/ Electrolytes 1,000 ml @ 50 mls/hr Q20H IV 10/22/18 10:00 11/20/18 09:59 10/24/18 01:23 Docusate Sodium (Colace) 100 mg THREE TIMES A DAY ORAL 10/21/18 18:00 11/20/18 17:59 10/24/18 12:19 Folic Acid (Folate) 3 mg DAILY ORAL 10/22/18 09:15 11/21/18 09:14 10/24/18 08:27 Heparin Sodium (Porcine) (Heparin 5000 units/ml) 5,000 units EVERY 12 HOURS SUBQ 10/21/18 09:00 11/20/18 08:59 10/24/18 08:32 Hydromorphone HCl (Dilaudid) 1 mg Q4H PRN IVP Severe Pain (Pain Scale 7-10) 10/22/18 22:15 10/29/18 22:14 10/24/18 10:40 Nitroglycerin (Ntg) 0.4 mg Q5M PRN SL Prn Chest Pain 10/21/18 08:15 11/20/18 08:14 Ondansetron HCl (Zofran) 4 mg Q6H PRN IVP Nausea & Vomiting 10/21/18 08:15 11/20/18 08:14 Pantoprazole (Protonix) 40 mg EVERY 12 HOURS ORAL 10/21/18 21:00 11/20/18 20:59 10/24/18 08:26 Polyethylene Glycol (Miralax) 17 gm DAILYPRN PRN ORAL Constipation 10/21/18 08:15 11/20/18 08:14 10/21/18 11:32 Temazepam (Restoril) 15 mg HSPRN PRN ORAL Insomnia 10/21/18 08:15 10/28/18 08:14 Vancomycin HCl (Vanco rx to dose) 1 ea DAILY PRN MISC . 10/21/18 08:30 11/20/18 08:29 Vancomycin HCl 1 gm/Dextrose 275 ml @ 183.3 mls/ hr Q8H IVPB 10/23/18 21:00 10/28/18 20:59 10/24/18 12:17 Alberto Dumont MD Oct 24, 2018 12:25
--- NOTE | 2018-10-24 13:20 | NUR ---
NURSE NOTES: left msg for dr Davison re ID dc clearance, per md she will review first
--- NOTE | 2018-10-24 13:26 | Podiatric Progress Note ---
Assessment/Plan Patient Bhavik Tran is a 58 year old male who was admitted on Oct 20, 2018 at 22: 56 with Assessment/Plan A/ 1) Cellulitis LLE 2) Chronic pain P/ 1) MRI reviewed, no surgical indication. Leukocytosis improved and trending down. Cont abx per ID. Agree with SNF placement for continued care and abx management. 2) Patient wishes to have his pain management help him with his chronic pain when he is sent to SNF 3) Clear to d/c from my standpoint 4) Started Ibuprofen 600mg TID with food to help with pain Subjective Allergies: Coded Allergies: No Known Allergies (Unverified , 10/20/18) Subjective Patient states that pain is improved but does have pain that prevents him from walking. He denies f/c/n/v. He needs to get in touch with his pain management doctor to help with managing his chronic pain in his back and right LE Objective Exam Last 24 Hour Vital Signs Date Time Temp Pulse Resp B/P (MAP) Pulse Ox O2 Delivery O2 Flow Rate FiO2 10/24/18 11:51 98.4 83 18 127/79 (95) 96 10/24/18 11:10 97.9 10/24/18 09:00 Room Air 10/24/18 08:00 97.9 89 18 134/77 (96) 97 10/24/18 04:00 98.5 83 18 124/52 (76) 97 10/24/18 00:00 98.2 95 17 139/85 (103) 97 10/23/18 21:00 Room Air 10/23/18 20:03 88 18 97 Room Air 21 10/23/18 20:00 98.3 96 17 146/93 (110) 97 10/23/18 16:13 100.9 90 19 137/84 (101) 98 Laboratory Tests Test 10/23/18 19:15 10/24/18 04:40 Vancomycin Level Trough 0.8 ug/mL (5.0-12.0) L White Blood Count 11.4 K/UL (4.8-10.8) H Red Blood Count 3.79 M/UL (4.70-6.10) L Hemoglobin 11.6 G/DL (14.2-18.0) L Hematocrit 34.8 % (42.0-52.0) L Mean Corpuscular Volume 92 FL (80-99) Mean Corpuscular Hemoglobin 30.5 PG (27.0-31.0) Mean Corpuscular Hemoglobin Concent 33.3 G/DL (32.0-36.0) Red Cell Distribution Width 12.3 % (11.6-14.8) Platelet Count 296 K/UL (150-450) Mean Platelet Volume 5.1 FL (6.5-10.1) L Neutrophils (%) (Auto) 65.6 % (45.0-75.0) Lymphocytes (%) (Auto) 18.3 % (20.0-45.0) L Monocytes (%) (Auto) 15.0 % (1.0-10.0) H Eosinophils (%) (Auto) 0.5 % (0.0-3.0) Basophils (%) (Auto) 0.6 % (0.0-2.0) Sodium Level 133 MMOL/L (136-145) L Potassium Level 3.5 MMOL/L (3.5-5.1) Chloride Level 99 MMOL/L (98-107) Carbon Dioxide Level 28 MMOL/L (21-32) Anion Gap 6 mmol/L (5-15) Blood Urea Nitrogen 8 mg/dL (7-18) Creatinine 0.8 MG/DL (0.55-1.30) Estimat Glomerular Filtration Rate > 60 mL/min (>60) Glucose Level 103 MG/DL (74-106) Calcium Level 8.7 MG/DL (8.5-10.1) Phosphorus Level 3.3 MG/DL (2.5-4.9) Magnesium Level 1.9 MG/DL (1.8-2.4) Total Bilirubin 0.5 MG/DL (0.2-1.0) Aspartate Amino Transf (AST/SGOT) 28 U/L (15-37) Alanine Aminotransferase (ALT/SGPT) 19 U/L (12-78) Alkaline Phosphatase 89 U/L (46-116) C-Reactive Protein, Quantitative 12.6 mg/dL (0.00-0.90) H Pro-B-Type Natriuretic Peptide 742 pg/mL (0-125) H Total Protein 6.6 G/DL (6.4-8.2) Albumin 2.1 G/DL (3.4-5.0) L Globulin 4.5 g/dL Albumin/Globulin Ratio 0.5 (1.0-2.7) L Microbiology Date/Time Source Procedure Growth Status 10/20/18 20:27 Blood Blood Culture - Preliminary NO GROWTH AFTER 72 HOURS Resulted 10/20/18 20:25 Nasal Nares MRSA Culture - Final NO METHICILLIN RESISTANT STAPH AUREUS... Complete 10/21/18 11:30 Leg Left Gram Stain - Final Resulted 10/21/18 11:30 Wound Culture - Preliminary Klebsiella Oxytoca Citrobacter Freundii Proteus Mirabilis Streptococcus Group A Staphylococcus Aureus Resulted Dermatological Dermatological Narrative Right foot unremarkable for wounds or signs of acute bacterial infection Left foot dry scab noted on dorsal left foot, no drainage, edema resolving and skin lines apparent. Much improved as compared to admission pictures. No fluctuance appreciated Nic Woody DPM Oct 24, 2018 13:26
--- NOTE | 2018-10-24 14:35 | NUR ---
RD ASSESSMENT & RECOMMENDATIONS SEE CARE ACTIVITY FOR COMPLETE ASSESSMENT DAILY ESTIMATED NEEDS: Needs based on Wound/ 75.5kg 25-30 kcals/kg 8670-6542 total kcals 1.25-1.5 g protein/kg 95-113 g total protein 25-30 mL/kg 3257-3904 total fluid mLs NUTRITION DIAGNOSIS: Increased protein intake needs R/T wound healing as evidenced by pt admitted w/ traumatic ulceration to the left sagastume. CURRENT DIET:CCHO MED PO DIET RECOMMENDATIONS: Maintain CCHO Med diet ADDITIONAL RECOMMENDATIONS: * Standing wt for accurate CBW * Wound healing: add MVI x 1, Vit C 250mg QD : add Martin 1pkt BID * Monitor BGs closely, need for hypoglycemics: A1C of 6.4 -> maintain carb controlled diet
--- NOTE | 2018-10-24 14:47 | Infectious Diseases Prog Note ---
Assessment/Plan Assessment/Plan Assessment/Plan: 58 yo male who presnted to the ED on 10/19/18 with left leg cellulitis. Left foot cellulitis -wound cx: S. aureus (sensi p), GAS, P. mirabilsi (Bassett S), C. freundi (R ancef, otherwise S), K. oxytoca (R amp, otherwise S) Leukocytosis ;improving Low grade fevers; improving -Tibia/fibula MRI: Negative for evidence of osteomyelitis. Evidence of superficial soft tissue ulcer, marked by a marker at the anteromedial sagastume region.Considerable subcutaneous fat edema. Given stated clinical history, probably on the basis of cellulitis. Correlate with clinical findings. No evidence of drainable abscess. -foot MRI: Extensive soft tissue edema, as described. This is in keeping with stated clinical history of cellulitis. No findings to suggest abscess Very superficial fluid collections likely relate to stated clinical history of dorsal blisters. No marrow abnormality to suggest acute osteomyelitis demonstrated. -ANkle MRI: Patchy areas of marrow edema, as described. Periarticular distribution of this is suggestive of arthropathy which may be degenerative, inflammatory, or, most likely, on the basis of Charcot-type changes. Per technologist, there are no ulcers in the area so osteomyelitis is deemed much less likely. Extensive edema of the subcutaneous fat. Given stated clinical history of cellulitis most likely on the basis of such. Correlate with clinical findings. No drainable abscess collection demonstrated. -Foot xray: No acute injury identified. Soft tissue swelling. Multiple incidental findings as described PLAN: - Continue Cefepime #4 and Vancomycin #4 -ok to discharge on PO Bactrim DS 1 tab bid and Augmentin 875/125mg PO bid for 10 more days - f/u wound cx - Monitor CBC and Temps -Podiatry f/u Thank you for this consult. We will continue to follow the patient during this hospitalization. Subjective Allergies: Coded Allergies: No Known Allergies (Unverified , 10/20/18) Subjective Tm 100.8 WBC improving BCx NTD Objective Vital Signs Last 24 Hour Vital Signs Date Time Temp Pulse Resp B/P (MAP) Pulse Ox O2 Delivery O2 Flow Rate FiO2 10/24/18 11:51 98.4 83 18 127/79 (95) 96 10/24/18 11:10 97.9 10/24/18 09:00 Room Air 10/24/18 08:00 97.9 89 18 134/77 (96) 97 10/24/18 04:00 98.5 83 18 124/52 (76) 97 10/24/18 00:00 98.2 95 17 139/85 (103) 97 10/23/18 21:00 Room Air 10/23/18 20:03 88 18 97 Room Air 21 10/23/18 20:00 98.3 96 17 146/93 (110) 97 10/23/18 16:13 100.9 90 19 137/84 (101) 98 Height (Feet): 6 Height (Inches): 1.00 Weight (Pounds): 169 Objective Gen: NAD HEENT: NCAT, MMM, EOMI, PERRL, No Oral lesion, no scleral icterus NECK: full range of motion, supple, no meningismus, No LAD, No JVD LUNGS: CTAB, No W/C, No Accessory muscle use CARDS: RRR, S1, S2, No M/R/G, ABD: Soft, NT, ND, No R/G, + BS, No HSM, No Masses : Deferred Ext: C/C/E, Pulses 2+ B/L (DP, Rad): LLE swelling with erythema and pain, Ulceration present with purulence. NEURO: A/O x 4, Strength and Sensation Grossly intact PSYCH: Normal mood and affect SKIN: Warm/dry, No rashes Laboratory Tests Test 10/23/18 19:15 10/24/18 04:40 Vancomycin Level Trough 0.8 ug/mL (5.0-12.0) L White Blood Count 11.4 K/UL (4.8-10.8) H Red Blood Count 3.79 M/UL (4.70-6.10) L Hemoglobin 11.6 G/DL (14.2-18.0) L Hematocrit 34.8 % (42.0-52.0) L Mean Corpuscular Volume 92 FL (80-99) Mean Corpuscular Hemoglobin 30.5 PG (27.0-31.0) Mean Corpuscular Hemoglobin Concent 33.3 G/DL (32.0-36.0) Red Cell Distribution Width 12.3 % (11.6-14.8) Platelet Count 296 K/UL (150-450) Mean Platelet Volume 5.1 FL (6.5-10.1) L Neutrophils (%) (Auto) 65.6 % (45.0-75.0) Lymphocytes (%) (Auto) 18.3 % (20.0-45.0) L Monocytes (%) (Auto) 15.0 % (1.0-10.0) H Eosinophils (%) (Auto) 0.5 % (0.0-3.0) Basophils (%) (Auto) 0.6 % (0.0-2.0) Sodium Level 133 MMOL/L (136-145) L Potassium Level 3.5 MMOL/L (3.5-5.1) Chloride Level 99 MMOL/L (98-107) Carbon Dioxide Level 28 MMOL/L (21-32) Anion Gap 6 mmol/L (5-15) Blood Urea Nitrogen 8 mg/dL (7-18) Creatinine 0.8 MG/DL (0.55-1.30) Estimat Glomerular Filtration Rate > 60 mL/min (>60) Glucose Level 103 MG/DL (74-106) Calcium Level 8.7 MG/DL (8.5-10.1) Phosphorus Level 3.3 MG/DL (2.5-4.9) Magnesium Level 1.9 MG/DL (1.8-2.4) Total Bilirubin 0.5 MG/DL (0.2-1.0) Aspartate Amino Transf (AST/SGOT) 28 U/L (15-37) Alanine Aminotransferase (ALT/SGPT) 19 U/L (12-78) Alkaline Phosphatase 89 U/L (46-116) C-Reactive Protein, Quantitative 12.6 mg/dL (0.00-0.90) H Pro-B-Type Natriuretic Peptide 742 pg/mL (0-125) H Total Protein 6.6 G/DL (6.4-8.2) Albumin 2.1 G/DL (3.4-5.0) L Globulin 4.5 g/dL Albumin/Globulin Ratio 0.5 (1.0-2.7) L Current Medications Medications (Trade) Dose Ordered Sig/Juan Route PRN Reason Start Time Stop Time Status Last Admin Dose Admin Acetaminophen (Tylenol) 650 mg Q4H PRN ORAL fever 10/21/18 08:15 11/20/18 08:14 10/22/18 00:52 Albuterol/ Ipratropium (Albuterol/ Ipratropium) 3 ml Q4H PRN HHN Shortness of Breath 10/21/18 08:15 10/26/18 08:14 Cefepime HCl 1 gm/ Dextrose 55 ml @ 110 mls/hr EVERY 12 HOURS IVPB 10/23/18 09:00 10/28/18 10:00 10/24/18 08:26 Dextrose (Dextrose 50%) 25 ml Q30M PRN IV Hypoglycemia 10/21/18 08:30 11/20/18 08:16 Dextrose (Dextrose 50%) 50 ml Q30M PRN IV hypoglycemia 10/21/18 08:30 11/20/18 08:29 Docusate Sodium (Colace) 100 mg THREE TIMES A DAY ORAL 10/21/18 18:00 11/20/18 17:59 10/24/18 12:19 Folic Acid (Folate) 3 mg DAILY ORAL 10/22/18 09:15 11/21/18 09:14 10/24/18 08:27 Heparin Sodium (Porcine) (Heparin 5000 units/ml) 5,000 units EVERY 12 HOURS SUBQ 10/21/18 09:00 11/20/18 08:59 10/24/18 08:32 Hydromorphone HCl (Dilaudid) 1 mg Q4H PRN IVP Severe Pain (Pain Scale 7-10) 10/22/18 22:15 10/29/18 22:14 10/24/18 10:40 Ibuprofen (Motrin) 600 mg ONCE ORAL 10/24/18 13:42 10/24/18 15:00 10/24/18 13:51 Ibuprofen (Motrin) 600 mg TID ORAL 10/24/18 18:00 11/23/18 17:59 Nitroglycerin (Ntg) 0.4 mg Q5M PRN SL Prn Chest Pain 10/21/18 08:15 11/20/18 08:14 Ondansetron HCl (Zofran) 4 mg Q6H PRN IVP Nausea & Vomiting 10/21/18 08:15 11/20/18 08:14 Pantoprazole (Protonix) 40 mg EVERY 12 HOURS ORAL 10/21/18 21:00 11/20/18 20:59 10/24/18 08:26 Polyethylene Glycol (Miralax) 17 gm DAILYPRN PRN ORAL Constipation 10/21/18 08:15 11/20/18 08:14 10/21/18 11:32 Potassium Chloride (K-Dur) 40 meq DAILY ORAL 10/25/18 09:00 11/24/18 08:59 Temazepam (Restoril) 15 mg HSPRN PRN ORAL Insomnia 10/21/18 08:15 10/28/18 08:14 Vancomycin HCl (Vanco rx to dose) 1 ea DAILY PRN MISC . 10/21/18 08:30 11/20/18 08:29 Vancomycin HCl 1 gm/Dextrose 275 ml @ 183.3 mls/ hr Q8H IVPB 10/23/18 21:00 10/28/18 20:59 10/24/18 12:17 Fernanda Davison M.D. Oct 24, 2018 14:47
--- NOTE | 2018-10-24 14:55 | NUR ---
HOMELESS COORDINATOR HC spoke with patient and patient is alert and oriented. Patient does not have a contact number. Patient states he is chronically homeless and does want resources for fdc. Patient contributes his homelessness to his mail being mixed up and unable to pay rent. Patient states he has been homeless for 2 years. Patient has a contact center rep, Keyshawn (cousin) [phone]. Patient states his cousin is aware of his whereabouts and there's no need to contact him. Patient states he receives 1,000 in SSI a month. patient states he is not using any Substance Abuse but tested positive for meth. patient refuses resources for Substance Abuse. Patient denied any mental health disorders and refuses resources. Patient does state he suffers from depression and is currently only taking medication for back pain. Patient states he does not want to return to pervious living condition. HC will try to find placement options and provided fdc resources. Patient is scheduled for an appointment Nov 13 @ 10:45 [facility] Address: [address] [place] [address] [address], [id number] Patient continues to require medical intervention. Will continue to monitor and assist as needed.
--- NOTE | 2018-10-24 15:27 | NUR ---
*-* INSURANCE *-* ALL CLINICALS AND REVIEWS HAVE BEEN FAXED TO: ROEB MARREROM: BRANT P- [phone]............REVIEW/CLINICAL
[2018-10-24 15:39] VITALS: BP 120/72
--- NOTE | 2018-10-24 16:42 | NUR ---
BUS ESCORTEVENT SET UP SPECIALIST SI:LEFT FOOT CELLULITIS VS: BP 134/77, P 80, T 98.0, RR 18, SpO2 96 WBC 11.4, RBC 3.79, H&H 11.6/34.8, Na 133 IS:DILAUDID 1mg IVP MOTRIN 600mg VANCOMYCIN 275ml IVPB HEPARIN SUBQ CEFEPIME 55ml IVPB D5/ELECTROLYTES x1L IV PLAN: CONT. CEFEPIME & VANCO MED/SURG STATUS
--- NOTE | 2018-10-24 19:27 | NUR ---
HAND-OFF: Report given to Lux CHILDS.
[2018-10-24 20:00] VITALS: BP 105/68
--- NOTE | 2018-10-24 21:00 | NUR ---
NURSE NOTES: Pt is in bed, awake and verbal. No acute distress noted. Left foot appears swollen and red. Vitals stable. Pain medication given as ordered PRN. Bed locked low in position side rails up and call light within reach. Pt will be monitored.
[2018-10-25] VITALS: BP 117/72
[2018-10-25] MEDS: HYDROmorphone 1mg/ml Carpuject IVP PRN ×5 (00:52→20:46)
[2018-10-25 04:00] VITALS: BP 122/76
--- NOTE | 2018-10-25 04:22 | NUR ---
NURSE NOTES: Pt is in bed awake. Microbiology lab called to inform that pt is positive for MRSA wounds. Pi is in contact isolation now.
[2018-10-25 05:01] LABS: BASOPHILS % (AUTO) 0.8 % (0.0-2.0); EOSINOPHILS % (AUTO) 1.5 % (0.0-3.0); HEMATOCRIT 37.3 % (42.0-52.0); HEMOGLOBIN 12.1 G/DL (14.2-18.0); LYMPHOCYTES % (AUTO) 21.6 % (20.0-45.0); MEAN CORPUSCULAR VOLUME 94 FL (80-99); MONOCYTES % (AUTO) 14.6 % (1.0-10.0); NEUTROPHILS % (AUTO) 61.6 % (45.0-75.0); PLATELET COUNT 369 K/UL (150-450); RED BLOOD COUNT 3.98 M/UL (4.70-6.10); RED CELL DISTRIBUTION WIDTH 12.5 % (11.6-14.8); WHITE BLOOD COUNT 8.3 K/UL (4.8-10.8)
[2018-10-25 05:03] LABS: ANION GAP 6 mmol/L (5-15); BLOOD UREA NITROGEN 13 mg/dL (7-18); CALCIUM 8.8 MG/DL (8.5-10.1); CARBON DIOXIDE 32 MMOL/L (21-32); CHLORIDE 103 MMOL/L (98-107); CREATININE 0.8 MG/DL (0.55-1.30); SODIUM 140 MMOL/L (136-145)
[2018-10-25] MEDS: Vancomycin 1 GM in D5W 275 ML IVPB SCH ×3 (06:13→23:34)
--- NOTE | 2018-10-25 07:15 | NUR ---
NURSE NOTES: Dr. Davison's office is callewd left message with foster to inform that pt is positive for MRSA wound.
--- NOTE | 2018-10-25 07:16 | NUR ---
HAND-OFF: Report given to LON becker.
--- NOTE | 2018-10-25 07:18 | NUR ---
NURSE NOTES: pts awake, A/O x 4, calm, denies pain at this time. no SOB noted. redness/swelling left foot, dressing CDI. call light within reach, bed alarm on . will continue to monitor.
[2018-10-25 07:39] VITALS: BP 114/73
[2018-10-25] MEDS: Docusate 100mg cap ORAL SCH ×3 (08:00→17:07)
[2018-10-25] MEDS: Heparin 5000 units/ml inj SUBQ SCH ×2 (08:02→20:56)
[2018-10-25] MEDS: Cefepime 1gm in D5W 55ml IVPB SCH ×2 (08:10→20:45)
[2018-10-25 12:00] VITALS: BP 114/69
--- NOTE | 2018-10-25 12:27 | Infectious Diseases Prog Note ---
Assessment/Plan Assessment/Plan Assessment/Plan: 58 yo male who presnted to the ED on 10/19/18 with left leg cellulitis. Left foot cellulitis -wound cx: MRSA, GAS, P. mirabilsi ([place] S), C. freundi (R ancef, otherwise S), K. oxytoca (R amp, otherwise S) Leukocytosis ;SP Low grade fevers; improving -Tibia/fibula MRI: Negative for evidence of osteomyelitis. Evidence of superficial soft tissue ulcer, marked by a marker at the anteromedial sagastume region.Considerable subcutaneous fat edema. Given stated clinical history, probably on the basis of cellulitis. Correlate with clinical findings. No evidence of drainable abscess. -foot MRI: Extensive soft tissue edema, as described. This is in keeping with stated clinical history of cellulitis. No findings to suggest abscess Very superficial fluid collections likely relate to stated clinical history of dorsal blisters. No marrow abnormality to suggest acute osteomyelitis demonstrated. -ANkle MRI: Patchy areas of marrow edema, as described. Periarticular distribution of this is suggestive of arthropathy which may be degenerative, inflammatory, or, most likely, on the basis of Charcot-type changes. Per technologist, there are no ulcers in the area so osteomyelitis is deemed much less likely. Extensive edema of the subcutaneous fat. Given stated clinical history of cellulitis most likely on the basis of such. Correlate with clinical findings. No drainable abscess collection demonstrated. -Foot xray: No acute injury identified. Soft tissue swelling. Multiple incidental findings as described PLAN: - Continue Cefepime #5and Vancomycin #5 -ok to discharge on PO Bactrim DS 1 tab bid and Augmentin 875/125mg PO bid for 9 more days - f/u wound cx - Monitor CBC and Temps -Podiatry f/u Thank you for this consult. We will continue to follow the patient during this hospitalization. Subjective Allergies: Coded Allergies: No Known Allergies (Unverified , 10/20/18) Subjective afebrile >36hrs WBC improving BCx NTD Objective Vital Signs Last 24 Hour Vital Signs Date Time Temp Pulse Resp B/P (MAP) Pulse Ox O2 Delivery O2 Flow Rate FiO2 10/25/18 12:00 98.0 80 18 114/69 (84) 98 10/25/18 10:59 98.1 10/25/18 09:00 Room Air 10/25/18 08:30 98.1 10/25/18 07:39 98.1 81 18 114/73 (87) 99 10/25/18 04:00 98.2 82 18 122/76 (91) 98 10/25/18 00:00 98.1 82 18 117/72 (87) 98 10/24/18 21:00 Room Air 10/24/18 20:00 97.9 79 18 105/68 (80) 98 10/24/18 20:00 80 18 95 Room Air 21 10/24/18 15:39 98.0 80 18 120/72 (88) 96 10/24/18 14:21 98.4 Height (Feet): 6 Height (Inches): 1.00 Weight (Pounds): 169 Objective Gen: NAD HEENT: NCAT, MMM, EOMI, PERRL, No Oral lesion, no scleral icterus NECK: full range of motion, supple, no meningismus, No LAD, No JVD LUNGS: CTAB, No W/C, No Accessory muscle use CARDS: RRR, S1, S2, No M/R/G, ABD: Soft, NT, ND, No R/G, + BS, No HSM, No Masses : Deferred Ext: C/C/E, Pulses 2+ B/L (DP, Rad): LLE swelling with erythema and pain, Ulceration present with purulence. NEURO: A/O x 4, Strength and Sensation Grossly intact PSYCH: Normal mood and affect SKIN: Warm/dry, No rashes Laboratory Tests Test 10/25/18 04:02 White Blood Count 8.3 K/UL (4.8-10.8) Red Blood Count 3.98 M/UL (4.70-6.10) L Hemoglobin 12.1 G/DL (14.2-18.0) L Hematocrit 37.3 % (42.0-52.0) L Mean Corpuscular Volume 94 FL (80-99) Mean Corpuscular Hemoglobin 30.5 PG (27.0-31.0) Mean Corpuscular Hemoglobin Concent 32.6 G/DL (32.0-36.0) Red Cell Distribution Width 12.5 % (11.6-14.8) Platelet Count 369 K/UL (150-450) Mean Platelet Volume 5.6 FL (6.5-10.1) L Neutrophils (%) (Auto) 61.6 % (45.0-75.0) Lymphocytes (%) (Auto) 21.6 % (20.0-45.0) Monocytes (%) (Auto) 14.6 % (1.0-10.0) H Eosinophils (%) (Auto) 1.5 % (0.0-3.0) Basophils (%) (Auto) 0.8 % (0.0-2.0) Sodium Level 140 MMOL/L (136-145) Potassium Level 4.0 MMOL/L (3.5-5.1) Chloride Level 103 MMOL/L (98-107) Carbon Dioxide Level 32 MMOL/L (21-32) Anion Gap 6 mmol/L (5-15) Blood Urea Nitrogen 13 mg/dL (7-18) Creatinine 0.8 MG/DL (0.55-1.30) Estimat Glomerular Filtration Rate > 60 mL/min (>60) Glucose Level 81 MG/DL (74-106) Calcium Level 8.8 MG/DL (8.5-10.1) Vancomycin Level Trough 12.2 ug/mL (5.0-12.0) H Current Medications Medications (Trade) Dose Ordered Sig/Juan Route PRN Reason Start Time Stop Time Status Last Admin Dose Admin Acetaminophen (Tylenol) 650 mg Q4H PRN ORAL fever 10/21/18 08:15 11/20/18 08:14 10/22/18 00:52 Albuterol/ Ipratropium (Albuterol/ Ipratropium) 3 ml Q4H PRN HHN Shortness of Breath 10/21/18 08:15 10/26/18 08:14 Cefepime HCl 1 gm/ Dextrose 55 ml @ 110 mls/hr EVERY 12 HOURS IVPB 10/23/18 09:00 10/28/18 10:00 10/25/18 08:10 Dextrose (Dextrose 50%) 25 ml Q30M PRN IV Hypoglycemia 10/21/18 08:30 11/20/18 08:16 Dextrose (Dextrose 50%) 50 ml Q30M PRN IV hypoglycemia 10/21/18 08:30 11/20/18 08:29 Docusate Sodium (Colace) 100 mg THREE TIMES A DAY ORAL 10/21/18 18:00 11/20/18 17:59 10/25/18 12:13 Folic Acid (Folate) 3 mg DAILY ORAL 10/22/18 09:15 11/21/18 09:14 10/25/18 08:01 Heparin Sodium (Porcine) (Heparin 5000 units/ml) 5,000 units EVERY 12 HOURS SUBQ 10/21/18 09:00 11/20/18 08:59 10/25/18 08:02 Hydromorphone HCl (Dilaudid) 1 mg Q4H PRN IVP Severe Pain (Pain Scale 7-10) 10/22/18 22:15 10/29/18 22:14 10/25/18 10:29 Ibuprofen (Motrin) 600 mg TID ORAL 10/24/18 18:00 11/23/18 17:59 10/25/18 12:13 Nitroglycerin (Ntg) 0.4 mg Q5M PRN SL Prn Chest Pain 10/21/18 08:15 11/20/18 08:14 Ondansetron HCl (Zofran) 4 mg Q6H PRN IVP Nausea & Vomiting 10/21/18 08:15 11/20/18 08:14 Pantoprazole (Protonix) 40 mg EVERY 12 HOURS ORAL 10/21/18 21:00 11/20/18 20:59 10/25/18 08:00 Polyethylene Glycol (Miralax) 17 gm DAILYPRN PRN ORAL Constipation 10/21/18 08:15 11/20/18 08:14 10/21/18 11:32 Potassium Chloride (K-Dur) 40 meq DAILY ORAL 10/25/18 09:00 11/24/18 08:59 10/25/18 08:13 Temazepam (Restoril) 15 mg HSPRN PRN ORAL Insomnia 10/21/18 08:15 10/28/18 08:14 10/24/18 20:21 Vancomycin HCl (Vanco rx to dose) 1 ea DAILY PRN MISC . 10/21/18 08:30 11/20/18 08:29 Vancomycin HCl 1 gm/Dextrose 275 ml @ 183.3 mls/ hr Q8H IVPB 10/23/18 21:00 10/28/18 20:59 10/25/18 12:15 Fernanda Davison M.D. Oct 25, 2018 12:27
--- NOTE | 2018-10-25 14:27 | General Progress Note ---
Assessment/Plan Problem List: (1) Sepsis ICD Codes: A41.9 - Sepsis, unspecified organism SNOMED: 85993423 (2) Cellulitis of left foot ICD Codes: L03.116 - Cellulitis of left lower limb SNOMED: 512841109 Status: stable, progressing Assessment/Plan: wound care abx pain control cbc bmp am dc plan snf Subjective Constitutional: Reports: weakness Allergies: Coded Allergies: No Known Allergies (Unverified , 10/20/18) All Systems: reviewed and negative except above Subjective sleepy calm Objective Last 24 Hour Vital Signs Date Time Temp Pulse Resp B/P (MAP) Pulse Ox O2 Delivery O2 Flow Rate FiO2 10/25/18 13:56 84 18 96 Room Air 21 10/25/18 12:43 98.1 10/25/18 12:00 98.0 80 18 114/69 (84) 98 10/25/18 10:59 98.1 10/25/18 09:00 Room Air 10/25/18 07:39 98.1 81 18 114/73 (87) 99 10/25/18 04:00 98.2 82 18 122/76 (91) 98 10/25/18 00:00 98.1 82 18 117/72 (87) 98 10/24/18 21:00 Room Air 10/24/18 20:00 97.9 79 18 105/68 (80) 98 10/24/18 20:00 80 18 95 Room Air 21 10/24/18 15:39 98.0 80 18 120/72 (88) 96 Intake and Output 10/24/18 10/25/18 19:00 07:00 Intake Total 662.00 ml 1130.0 ml Output Total 500 ml 1000 ml Balance 162.00 ml 130.0 ml Intake Oral 240 ml 800 ml IV Total 422.00 ml 330.0 ml Output Urine Total 500 ml 1000 ml # Voids 2 3 Laboratory Tests 10/25/18 04:02: White Blood Count 8.3, Red Blood Count 3.98L, Hemoglobin 12.1L, Hematocrit 37.3L , Mean Corpuscular Volume 94, Mean Corpuscular Hemoglobin 30.5, Mean Corpuscular Hemoglobin Concent 32.6, Red Cell Distribution Width 12.5, Platelet Count 369, Mean Platelet Volume 5.6L, Neutrophils (%) (Auto) 61.6, Lymphocytes ( %) (Auto) 21.6, Monocytes (%) (Auto) 14.6H, Eosinophils (%) (Auto) 1.5, Basophils (%) (Auto) 0.8, Sodium Level 140, Potassium Level 4.0, Chloride Level 103, Carbon Dioxide Level 32, Anion Gap 6, Blood Urea Nitrogen 13, Creatinine 0.8, Estimat Glomerular Filtration Rate > 60, Glucose Level 81, Calcium Level 8.8, Vancomycin Level Trough 12.2H Height (Feet): 6 Height (Inches): 1.00 Weight (Pounds): 169 General Appearance: lethargic EENT: normal ENT inspection Neck: normal alignment Cardiovascular: normal peripheral pulses, normal rate, regular rhythm Respiratory/Chest: chest wall non-tender, lungs clear, normal breath sounds Abdomen: normal bowel sounds, non tender, soft Extremities: normal inspection Edema: no edema noted Arm (L), no edema noted Arm (R), no edema noted Leg (L), no edema noted Leg (R), no edema noted Pedal (L), no edema noted Pedal (R), no edema noted Generalized Neurologic: motor weakness Skin: normal pigmentation, warm/dry Objective l foor sl red and swollen up to ankle Shaun Trejo DO Oct 25, 2018 14:27
--- NOTE | 2018-10-25 15:30 | Nephrology Progress Note ---
Assessment/Plan Problem List: (1) Cellulitis of left foot (2) Sepsis (3) Hyponatremia (4) Hypoalbuminemia Assessment Left foot cellulitis / Leukocytosis / No fever Low Na Low K Anemia High Lactic Low Albumin Plan recheck BMI now 22.03 Isotonic solution K supplement DC IV fluids monitor lytes avoid nephrotoxics urine tox screen positive for Amphetamines and Opiates per orders stable from renal stand if discharged Subjective ROS Limited/Unobtainable: No Objective Objective Last 24 Hour Vital Signs Date Time Temp Pulse Resp B/P (MAP) Pulse Ox O2 Delivery O2 Flow Rate FiO2 10/25/18 15:18 98.1 10/25/18 13:56 84 18 96 Room Air 21 10/25/18 12:43 98.1 10/25/18 12:00 98.0 80 18 114/69 (84) 98 10/25/18 09:00 Room Air 10/25/18 07:39 98.1 81 18 114/73 (87) 99 10/25/18 04:00 98.2 82 18 122/76 (91) 98 10/25/18 00:00 98.1 82 18 117/72 (87) 98 10/24/18 21:00 Room Air 10/24/18 20:00 97.9 79 18 105/68 (80) 98 10/24/18 20:00 80 18 95 Room Air 21 10/24/18 15:39 98.0 80 18 120/72 (88) 96 Intake and Output 10/24/18 10/25/18 19:00 07:00 Intake Total 662.00 ml 1130.0 ml Output Total 500 ml 1000 ml Balance 162.00 ml 130.0 ml Intake Oral 240 ml 800 ml IV Total 422.00 ml 330.0 ml Output Urine Total 500 ml 1000 ml # Voids 2 3 Laboratory Tests 10/25/18 04:02: White Blood Count 8.3, Red Blood Count 3.98L, Hemoglobin 12.1L, Hematocrit 37.3L , Mean Corpuscular Volume 94, Mean Corpuscular Hemoglobin 30.5, Mean Corpuscular Hemoglobin Concent 32.6, Red Cell Distribution Width 12.5, Platelet Count 369, Mean Platelet Volume 5.6L, Neutrophils (%) (Auto) 61.6, Lymphocytes ( %) (Auto) 21.6, Monocytes (%) (Auto) 14.6H, Eosinophils (%) (Auto) 1.5, Basophils (%) (Auto) 0.8, Sodium Level 140, Potassium Level 4.0, Chloride Level 103, Carbon Dioxide Level 32, Anion Gap 6, Blood Urea Nitrogen 13, Creatinine 0.8, Estimat Glomerular Filtration Rate > 60, Glucose Level 81, Calcium Level 8.8, Vancomycin Level Trough 12.2H Height (Feet): 6 Height (Inches): 1.00 Weight (Pounds): 169 General Appearance: no apparent distress Objective no change Levar Conde MD Oct 25, 2018 15:30
--- NOTE | 2018-10-25 15:49 | NUR ---
*-* INSURANCE *-* ALL CLINICALS AND REVIEWS HAVE BEEN FAXED TO: [facility]: [facility]ANT P- [phone] X [phone] F [phone]............REVIEW/CLINICAL
[2018-10-25 16:00] VITALS: BP 120/70
--- NOTE | 2018-10-25 16:54 | Pulmonology Progress Note ---
Assessment/Plan Problems: (1) Sepsis (2) Cellulitis of left foot Assessment/Plan improving MRI of ankle reviewed on abx check cultures wound care dvt prophylaxis. Subjective ROS Limited/Unobtainable: No Allergies: Coded Allergies: No Known Allergies (Unverified , 10/20/18) Objective Last 24 Hour Vital Signs Date Time Temp Pulse Resp B/P (MAP) Pulse Ox O2 Delivery O2 Flow Rate FiO2 10/25/18 16:00 98.2 78 18 120/70 (87) 96 10/25/18 15:18 98.1 10/25/18 13:56 84 18 96 Room Air 21 10/25/18 12:43 98.1 10/25/18 12:00 98.0 80 18 114/69 (84) 98 10/25/18 09:00 Room Air 10/25/18 07:39 98.1 81 18 114/73 (87) 99 10/25/18 04:00 98.2 82 18 122/76 (91) 98 10/25/18 00:00 98.1 82 18 117/72 (87) 98 10/24/18 21:00 Room Air 10/24/18 20:00 97.9 79 18 105/68 (80) 98 10/24/18 20:00 80 18 95 Room Air 21 Intake and Output 10/24/18 10/25/18 19:00 07:00 Intake Total 662.00 ml 1130.0 ml Output Total 500 ml 1000 ml Balance 162.00 ml 130.0 ml Intake Oral 240 ml 800 ml IV Total 422.00 ml 330.0 ml Output Urine Total 500 ml 1000 ml # Voids 2 3 Objective General Appearance: WD/WN HEENT: normocephalic, atraumatic Respiratory/Chest: chest wall non-tender, lungs clear, normal breath sounds Breasts: no masses Cardiovascular: normal peripheral pulses, normal rate Abdomen: normal bowel sounds, soft, non tender Genitourinary: normal external genitalia Extremities: no cyanosis, less edema Laboratory Tests 10/25/18 04:02: White Blood Count 8.3, Red Blood Count 3.98L, Hemoglobin 12.1L, Hematocrit 37.3L , Mean Corpuscular Volume 94, Mean Corpuscular Hemoglobin 30.5, Mean Corpuscular Hemoglobin Concent 32.6, Red Cell Distribution Width 12.5, Platelet Count 369, Mean Platelet Volume 5.6L, Neutrophils (%) (Auto) 61.6, Lymphocytes ( %) (Auto) 21.6, Monocytes (%) (Auto) 14.6H, Eosinophils (%) (Auto) 1.5, Basophils (%) (Auto) 0.8, Sodium Level 140, Potassium Level 4.0, Chloride Level 103, Carbon Dioxide Level 32, Anion Gap 6, Blood Urea Nitrogen 13, Creatinine 0.8, Estimat Glomerular Filtration Rate > 60, Glucose Level 81, Calcium Level 8.8, Vancomycin Level Trough 12.2H Current Medications Medications (Trade) Dose Ordered Sig/Juan Route PRN Reason Start Time Stop Time Status Last Admin Dose Admin Acetaminophen (Tylenol) 650 mg Q4H PRN ORAL fever 10/21/18 08:15 11/20/18 08:14 10/22/18 00:52 Albuterol/ Ipratropium (Albuterol/ Ipratropium) 3 ml Q4H PRN HHN Shortness of Breath 10/21/18 08:15 10/26/18 08:14 Cefepime HCl 1 gm/ Dextrose 55 ml @ 110 mls/hr EVERY 12 HOURS IVPB 10/23/18 09:00 10/28/18 10:00 10/25/18 08:10 Dextrose (Dextrose 50%) 25 ml Q30M PRN IV Hypoglycemia 10/21/18 08:30 11/20/18 08:16 Dextrose (Dextrose 50%) 50 ml Q30M PRN IV hypoglycemia 10/21/18 08:30 11/20/18 08:29 Docusate Sodium (Colace) 100 mg THREE TIMES A DAY ORAL 10/21/18 18:00 11/20/18 17:59 10/25/18 12:13 Folic Acid (Folate) 3 mg DAILY ORAL 10/22/18 09:15 11/21/18 09:14 10/25/18 08:01 Heparin Sodium (Porcine) (Heparin 5000 units/ml) 5,000 units EVERY 12 HOURS SUBQ 10/21/18 09:00 11/20/18 08:59 10/25/18 08:02 Hydromorphone HCl (Dilaudid) 1 mg Q4H PRN IVP Severe Pain (Pain Scale 7-10) 10/22/18 22:15 10/29/18 22:14 10/25/18 14:48 Ibuprofen (Motrin) 600 mg TID ORAL 10/24/18 18:00 11/23/18 17:59 10/25/18 12:13 Nitroglycerin (Ntg) 0.4 mg Q5M PRN SL Prn Chest Pain 10/21/18 08:15 11/20/18 08:14 Ondansetron HCl (Zofran) 4 mg Q6H PRN IVP Nausea & Vomiting 10/21/18 08:15 11/20/18 08:14 Pantoprazole (Protonix) 40 mg EVERY 12 HOURS ORAL 10/21/18 21:00 11/20/18 20:59 10/25/18 08:00 Polyethylene Glycol (Miralax) 17 gm DAILYPRN PRN ORAL Constipation 10/21/18 08:15 11/20/18 08:14 10/21/18 11:32 Potassium Chloride (K-Dur) 40 meq DAILY ORAL 10/25/18 09:00 11/24/18 08:59 10/25/18 08:13 Temazepam (Restoril) 15 mg HSPRN PRN ORAL Insomnia 10/21/18 08:15 10/28/18 08:14 10/24/18 20:21 Vancomycin HCl (Vanco rx to dose) 1 ea DAILY PRN MISC . 10/21/18 08:30 11/20/18 08:29 Vancomycin HCl 1 gm/Dextrose 275 ml @ 183.3 mls/ hr Q8H IVPB 10/23/18 21:00 10/28/18 20:59 10/25/18 12:15 Alberto Dumont MD Oct 25, 2018 16:54
--- NOTE | 2018-10-25 17:10 | NUR ---
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 CELLULITIS VS: BP 120/70, P 96, T 98.2, RR 18, SpO2 96 RBC 3.98, H&H 12.1/37.3, IS:K-DUR 40meq MOTRIN 600mg VANCOMYCIN 275ml IVPB CEFEPIME 55ml IVPB DILAUDID 1mg IVP HEPARIN SUBQ MED/SURG STATUS
[2018-10-25 20:00] VITALS: BP 105/63
--- NOTE | 2018-10-25 20:30 | NUR ---
NURSE NOTES: Pt is in bed, awake and verbal. No acute distress noted. Left foot appears swollen and red. Dressing changed.Vitals stable. Pain medication given as ordered PRN. Bed locked low in position side rails up and call light within reach. Pt will be monitored.
[2018-10-26] VITALS: BP 103/64
--- NOTE | 2018-10-26 00:18 | NUR ---
NURSE NOTES: Pt's wound dressing changed. Pt tolerated well.
[2018-10-26] MEDS: HYDROmorphone 1mg/ml Carpuject IVP PRN ×6 (00:42→21:53)
[2018-10-26 04:00] VITALS: BP 117/76
[2018-10-26] MEDS: Vancomycin 1 GM in D5W 275 ML IVPB SCH ×3 (05:24→21:56)
[2018-10-26 06:56] LABS: BASOPHILS % (AUTO) 0.6 % (0.0-2.0); EOSINOPHILS % (AUTO) 1.4 % (0.0-3.0); HEMATOCRIT 37.3 % (42.0-52.0); HEMOGLOBIN 11.9 G/DL (14.2-18.0); LYMPHOCYTES % (AUTO) 16.9 % (20.0-45.0); MEAN CORPUSCULAR VOLUME 94 FL (80-99); MONOCYTES % (AUTO) 9.9 % (1.0-10.0); NEUTROPHILS % (AUTO) 71.1 % (45.0-75.0); PLATELET COUNT 423 K/UL (150-450); RED BLOOD COUNT 3.97 M/UL (4.70-6.10); RED CELL DISTRIBUTION WIDTH 12.7 % (11.6-14.8); WHITE BLOOD COUNT 10.3 K/UL (4.8-10.8)
[2018-10-26 07:17] LABS: ANION GAP 5 mmol/L (5-15); BLOOD UREA NITROGEN 14 mg/dL (7-18); CALCIUM 8.6 MG/DL (8.5-10.1); CARBON DIOXIDE 30 MMOL/L (21-32); CHLORIDE 103 MMOL/L (98-107); CREATININE 0.8 MG/DL (0.55-1.30); POTASSIUM 3.9 MMOL/L (3.5-5.1); SODIUM 138 MMOL/L (136-145)
[2018-10-26 08:00] VITALS: BP 109/68
--- NOTE | 2018-10-26 08:25 | General Progress Note ---
Assessment/Plan Problem List: (1) Sepsis ICD Codes: A41.9 - Sepsis, unspecified organism SNOMED: 73857190 (2) Cellulitis of left foot ICD Codes: L03.116 - Cellulitis of left lower limb SNOMED: 460878560 Status: stable, progressing Assessment/Plan: wound care abx pain control cbc bmp am dc snf if clear Subjective Constitutional: Reports: weakness Allergies: Coded Allergies: No Known Allergies (Unverified , 10/20/18) All Systems: reviewed and negative except above Subjective sleepy calm Objective Last 24 Hour Vital Signs Date Time Temp Pulse Resp B/P (MAP) Pulse Ox O2 Delivery O2 Flow Rate FiO2 10/26/18 08:18 80 16 96 Nasal Cannula 28 10/26/18 04:00 97.8 78 18 117/76 (90) 100 10/26/18 00:00 98.4 63 17 103/64 (77) 98 10/25/18 21:00 Room Air 10/25/18 20:50 83 18 95 Room Air 21 10/25/18 20:00 97.7 83 18 105/63 (77) 98 10/25/18 17:38 98.2 10/25/18 16:00 98.2 78 18 120/70 (87) 96 10/25/18 15:18 98.1 10/25/18 13:56 84 18 96 Room Air 21 10/25/18 12:00 98.0 80 18 114/69 (84) 98 10/25/18 09:00 Room Air Intake and Output 10/25/18 10/26/18 19:00 07:00 Intake Total 903.3 ml 275.0 ml Output Total 1300 ml 450 ml Balance -396.7 ml -175.0 ml Intake Oral 720 ml IV Total 183.3 ml 275.0 ml Output Urine Total 1300 ml 450 ml # Voids 3 Laboratory Tests 10/26/18 05:10: White Blood Count 10.3, Red Blood Count 3.97L, Hemoglobin 11.9L, Hematocrit 37.3L, Mean Corpuscular Volume 94, Mean Corpuscular Hemoglobin 30.1, Mean Corpuscular Hemoglobin Concent 32.0, Red Cell Distribution Width 12.7, Platelet Count 423, Mean Platelet Volume 4.8L, Neutrophils (%) (Auto) 71.1, Lymphocytes ( %) (Auto) 16.9L, Monocytes (%) (Auto) 9.9, Eosinophils (%) (Auto) 1.4, Basophils (%) (Auto) 0.6, Sodium Level 138, Potassium Level 3.9, Chloride Level 103, Carbon Dioxide Level 30, Anion Gap 5, Blood Urea Nitrogen 14, Creatinine 0.8, Estimat Glomerular Filtration Rate > 60, Glucose Level 98, Calcium Level 8.6 Height (Feet): 6 Height (Inches): 1.00 Weight (Pounds): 169 General Appearance: lethargic EENT: normal ENT inspection Neck: normal alignment Cardiovascular: normal peripheral pulses, normal rate, regular rhythm Respiratory/Chest: chest wall non-tender, lungs clear, normal breath sounds Abdomen: normal bowel sounds, non tender, soft Extremities: normal inspection Edema: 1+ Arm (L), 1+ Arm (R), 1+ Leg (L), 1+ Leg (R), 1+ Pedal (L), 1+ Pedal ( R), 1+ Generalized Edema: trace edema Neurologic: motor weakness Skin: normal pigmentation, warm/dry Objective l foor sl red and swollen up to ankle Shaun Trejo DO Oct 26, 2018 08:25
[2018-10-26] MEDS: Docusate 100mg cap ORAL SCH ×3 (08:41→17:48)
[2018-10-26] MEDS: Cefepime 1gm in D5W 55ml IVPB SCH ×2 (08:41→20:57)
[2018-10-26] MEDS: Heparin 5000 units/ml inj SUBQ SCH ×2 (08:44→20:59)
--- NOTE | 2018-10-26 09:40 | NUR ---
*-* INSURANCE *-* ALL CLINICALS AND REVIEWS HAVE BEEN FAXED TO: [facility]: [facility] P- [phone] X [phone] F [phone]............REVIEW/CLINICAL
--- NOTE | 2018-10-26 11:07 | Nephrology Progress Note ---
Assessment/Plan Problem List: (1) Cellulitis of left foot (2) Sepsis (3) Hyponatremia (4) Hypoalbuminemia Assessment Left foot cellulitis / Leukocytosis / No fever Low Na Low K Anemia High Lactic Low Albumin Plan recheck BMI now 22.03 Isotonic solution K supplement DC IV fluids monitor lytes avoid nephrotoxics urine tox screen positive for Amphetamines and Opiates per orders stable from renal stand if discharged Subjective ROS Limited/Unobtainable: No Constitutional: Reports: malaise Objective Objective Last 24 Hour Vital Signs Date Time Temp Pulse Resp B/P (MAP) Pulse Ox O2 Delivery O2 Flow Rate FiO2 10/26/18 10:11 97.8 10/26/18 09:11 97.8 10/26/18 09:00 Room Air 10/26/18 08:18 80 16 96 Nasal Cannula 28 10/26/18 08:00 98.0 75 19 109/68 (82) 100 10/26/18 04:00 97.8 78 18 117/76 (90) 100 10/26/18 00:00 98.4 63 17 103/64 (77) 98 10/25/18 21:00 Room Air 10/25/18 20:50 83 18 95 Room Air 21 10/25/18 20:00 97.7 83 18 105/63 (77) 98 10/25/18 16:00 98.2 78 18 120/70 (87) 96 10/25/18 13:56 84 18 96 Room Air 21 10/25/18 12:00 98.0 80 18 114/69 (84) 98 Intake and Output 10/25/18 10/26/18 19:00 07:00 Intake Total 903.3 ml 275.0 ml Output Total 1300 ml 450 ml Balance -396.7 ml -175.0 ml Intake Oral 720 ml IV Total 183.3 ml 275.0 ml Output Urine Total 1300 ml 450 ml # Voids 3 Current Medications Medications (Trade) Dose Ordered Sig/Juan Route PRN Reason Start Time Stop Time Status Last Admin Dose Admin Acetaminophen (Tylenol) 650 mg Q4H PRN ORAL fever 10/21/18 08:15 11/20/18 08:14 10/22/18 00:52 Cefepime HCl 1 gm/ Dextrose 55 ml @ 110 mls/hr EVERY 12 HOURS IVPB 10/23/18 09:00 10/28/18 10:00 7/19/19 08:41 Dextrose (Dextrose 50%) 25 ml Q30M PRN IV Hypoglycemia 10/21/18 08:30 11/20/18 08:16 Dextrose (Dextrose 50%) 50 ml Q30M PRN IV hypoglycemia 10/21/18 08:30 11/20/18 08:29 Docusate Sodium (Colace) 100 mg THREE TIMES A DAY ORAL 10/21/18 18:00 11/20/18 17:59 10/26/18 08:41 Folic Acid (Folate) 3 mg DAILY ORAL 10/22/18 09:15 11/21/18 09:14 10/26/18 08:40 Heparin Sodium (Porcine) (Heparin 5000 units/ml) 5,000 units EVERY 12 HOURS SUBQ 10/21/18 09:00 11/20/18 08:59 10/26/18 08:44 Hydromorphone HCl (Dilaudid) 1 mg Q4H PRN IVP Severe Pain (Pain Scale 7-10) 10/22/18 22:15 10/29/18 22:14 10/26/18 09:41 Ibuprofen (Motrin) 600 mg TID ORAL 10/24/18 18:00 11/23/18 17:59 10/26/18 08:41 Nitroglycerin (Ntg) 0.4 mg Q5M PRN SL Prn Chest Pain 10/21/18 08:15 11/20/18 08:14 Ondansetron HCl (Zofran) 4 mg Q6H PRN IVP Nausea & Vomiting 10/21/18 08:15 11/20/18 08:14 Pantoprazole (Protonix) 40 mg EVERY 12 HOURS ORAL 10/21/18 21:00 11/20/18 20:59 10/26/18 08:41 Polyethylene Glycol (Miralax) 17 gm DAILYPRN PRN ORAL Constipation 10/21/18 08:15 11/20/18 08:14 10/21/18 11:32 Potassium Chloride (K-Dur) 40 meq DAILY ORAL 10/25/18 09:00 11/24/18 08:59 10/26/18 08:40 Temazepam (Restoril) 15 mg HSPRN PRN ORAL Insomnia 10/21/18 08:15 10/28/18 08:14 10/25/18 20:45 Vancomycin HCl (Vanco rx to dose) 1 ea DAILY PRN MISC . 10/21/18 08:30 11/20/18 08:29 Vancomycin HCl 1 gm/Dextrose 275 ml @ 183.3 mls/ hr Q8H IVPB 10/23/18 21:00 10/28/18 20:59 10/26/18 05:24 Laboratory Tests 10/26/18 05:10: White Blood Count 10.3, Red Blood Count 3.97L, Hemoglobin 11.9L, Hematocrit 37.3L, Mean Corpuscular Volume 94, Mean Corpuscular Hemoglobin 30.1, Mean Corpuscular Hemoglobin Concent 32.0, Red Cell Distribution Width 12.7, Platelet Count 423, Mean Platelet Volume 4.8L, Neutrophils (%) (Auto) 71.1, Lymphocytes ( %) (Auto) 16.9L, Monocytes (%) (Auto) 9.9, Eosinophils (%) (Auto) 1.4, Basophils (%) (Auto) 0.6, Sodium Level 138, Potassium Level 3.9, Chloride Level 103, Carbon Dioxide Level 30, Anion Gap 5, Blood Urea Nitrogen 14, Creatinine 0.8, Estimat Glomerular Filtration Rate > 60, Glucose Level 98, Calcium Level 8.6 Height (Feet): 6 Height (Inches): 1.00 Weight (Pounds): 169 General Appearance: no apparent distress Cardiovascular: normal rate Respiratory/Chest: lungs clear Abdomen: soft Objective no change Levar Conde MD Oct 26, 2018 11:07
--- NOTE | 2018-10-26 11:13 | NUR ---
NURSE NOTES: pt in bed with no sob nor in any form of distress noted. breathing regular and unlabored. prn pain meds given as needed with effectiveness. kept wound clean and dry. will continue to monitor
[2018-10-26 12:00] VITALS: BP 119/79
[2018-10-26] MEDS ORDERED: AUGMENTIN 875-1 EAC1 ORAL (14:08)
[2018-10-26] MEDS ORDERED: BACTRIM-DS1 EA ORAL (14:08)
--- NOTE | 2018-10-26 14:08 | Pulmonology Progress Note ---
Assessment/Plan Problems: (1) Sepsis (2) Cellulitis of left foot Assessment/Plan improving MRI of ankle reviewed on abx check cultures wound care dvt prophylaxis. Subjective ROS Limited/Unobtainable: No Constitutional: Reports: no symptoms HEENT: Repors: no symptoms Allergies: Coded Allergies: No Known Allergies (Unverified , 10/20/18) Objective Last 24 Hour Vital Signs Date Time Temp Pulse Resp B/P (MAP) Pulse Ox O2 Delivery O2 Flow Rate FiO2 10/26/18 12:57 97.8 10/26/18 12:00 97.1 81 18 119/79 (92) 98 10/26/18 10:11 97.8 10/26/18 09:00 Room Air 10/26/18 08:18 80 16 96 Nasal Cannula 28 10/26/18 08:00 98.0 75 19 109/68 (82) 100 10/26/18 04:00 97.8 78 18 117/76 (90) 100 10/26/18 00:00 98.4 63 17 103/64 (77) 98 10/25/18 21:00 Room Air 10/25/18 20:50 83 18 95 Room Air 21 10/25/18 20:00 97.7 83 18 105/63 (77) 98 10/25/18 16:00 98.2 78 18 120/70 (87) 96 Intake and Output 10/25/18 10/26/18 19:00 07:00 Intake Total 903.3 ml 275.0 ml Output Total 1300 ml 450 ml Balance -396.7 ml -175.0 ml Intake Oral 720 ml IV Total 183.3 ml 275.0 ml Output Urine Total 1300 ml 450 ml # Voids 3 Objective General Appearance: WD/WN HEENT: normocephalic, atraumatic Respiratory/Chest: chest wall non-tender, lungs clear, normal breath sounds Breasts: no masses Cardiovascular: normal peripheral pulses, normal rate Abdomen: normal bowel sounds, soft, non tender Genitourinary: normal external genitalia Extremities: no cyanosis, less edema Laboratory Tests 10/26/18 05:10: White Blood Count 10.3, Red Blood Count 3.97L, Hemoglobin 11.9L, Hematocrit 37.3L, Mean Corpuscular Volume 94, Mean Corpuscular Hemoglobin 30.1, Mean Corpuscular Hemoglobin Concent 32.0, Red Cell Distribution Width 12.7, Platelet Count 423, Mean Platelet Volume 4.8L, Neutrophils (%) (Auto) 71.1, Lymphocytes ( %) (Auto) 16.9L, Monocytes (%) (Auto) 9.9, Eosinophils (%) (Auto) 1.4, Basophils (%) (Auto) 0.6, Sodium Level 138, Potassium Level 3.9, Chloride Level 103, Carbon Dioxide Level 30, Anion Gap 5, Blood Urea Nitrogen 14, Creatinine 0.8, Estimat Glomerular Filtration Rate > 60, Glucose Level 98, Calcium Level 8.6 Current Medications Medications (Trade) Dose Ordered Sig/Juan Route PRN Reason Start Time Stop Time Status Last Admin Dose Admin Acetaminophen (Tylenol) 650 mg Q4H PRN ORAL fever 10/21/18 08:15 11/20/18 08:14 10/22/18 00:52 Cefepime HCl 1 gm/ Dextrose 55 ml @ 110 mls/hr EVERY 12 HOURS IVPB 10/23/18 09:00 10/28/18 10:00 10/26/18 08:41 Dextrose (Dextrose 50%) 25 ml Q30M PRN IV Hypoglycemia 10/21/18 08:30 11/20/18 08:16 Dextrose (Dextrose 50%) 50 ml Q30M PRN IV hypoglycemia 10/21/18 08:30 11/20/18 08:29 Docusate Sodium (Colace) 100 mg THREE TIMES A DAY ORAL 10/21/18 18:00 11/20/18 17:59 10/26/18 12:27 Folic Acid (Folate) 3 mg DAILY ORAL 10/22/18 09:15 11/21/18 09:14 10/26/18 08:40 Heparin Sodium (Porcine) (Heparin 5000 units/ml) 5,000 units EVERY 12 HOURS SUBQ 10/21/18 09:00 11/20/18 08:59 10/26/18 08:44 Hydromorphone HCl (Dilaudid) 1 mg Q4H PRN IVP Severe Pain (Pain Scale 7-10) 10/22/18 22:15 10/29/18 22:14 10/26/18 13:51 Ibuprofen (Motrin) 600 mg TID ORAL 10/24/18 18:00 11/23/18 17:59 10/26/18 12:27 Nitroglycerin (Ntg) 0.4 mg Q5M PRN SL Prn Chest Pain 10/21/18 08:15 11/20/18 08:14 Ondansetron HCl (Zofran) 4 mg Q6H PRN IVP Nausea & Vomiting 10/21/18 08:15 11/20/18 08:14 Pantoprazole (Protonix) 40 mg EVERY 12 HOURS ORAL 10/21/18 21:00 11/20/18 20:59 10/26/18 08:41 Polyethylene Glycol (Miralax) 17 gm DAILYPRN PRN ORAL Constipation 10/21/18 08:15 11/20/18 08:14 10/21/18 11:32 Potassium Chloride (K-Dur) 40 meq DAILY ORAL 10/25/18 09:00 11/24/18 08:59 10/26/18 08:40 Temazepam (Restoril) 15 mg HSPRN PRN ORAL Insomnia 10/21/18 08:15 10/28/18 08:14 10/25/18 20:45 Vancomycin HCl (Vanco rx to dose) 1 ea DAILY PRN MISC . 10/21/18 08:30 11/20/18 08:29 Vancomycin HCl 1 gm/Dextrose 275 ml @ 183.3 mls/ hr Q8H IVPB 10/23/18 21:00 10/28/18 20:59 10/26/18 12:27 Alberto Dumont MD Oct 26, 2018 14:08
--- NOTE | 2018-10-26 15:22 | Infectious Diseases Prog Note ---
Assessment/Plan Assessment/Plan Assessment/Plan: 58 yo male who presnted to the ED on 10/19/18 with left leg cellulitis. Left foot cellulitis -wound cx: MRSA, GAS, P. mirabilsi (Bassett S), C. freundi (R ancef, otherwise S), K. oxytoca (R amp, otherwise S) Leukocytosis ;SP Low grade fevers; improving -Tibia/fibula MRI: Negative for evidence of osteomyelitis. Evidence of superficial soft tissue ulcer, marked by a marker at the anteromedial sagastume region.Considerable subcutaneous fat edema. Given stated clinical history, probably on the basis of cellulitis. Correlate with clinical findings. No evidence of drainable abscess. -foot MRI: Extensive soft tissue edema, as described. This is in keeping with stated clinical history of cellulitis. No findings to suggest abscess Very superficial fluid collections likely relate to stated clinical history of dorsal blisters. No marrow abnormality to suggest acute osteomyelitis demonstrated. -ANkle MRI: Patchy areas of marrow edema, as described. Periarticular distribution of this is suggestive of arthropathy which may be degenerative, inflammatory, or, most likely, on the basis of Charcot-type changes. Per technologist, there are no ulcers in the area so osteomyelitis is deemed much less likely. Extensive edema of the subcutaneous fat. Given stated clinical history of cellulitis most likely on the basis of such. Correlate with clinical findings. No drainable abscess collection demonstrated. -Foot xray: No acute injury identified. Soft tissue swelling. Multiple incidental findings as described PLAN: - Continue Cefepime #6 and Vancomycin #6 -ok to discharge on PO Bactrim DS 1 tab bid and Augmentin 875/125mg PO bid for 8 more days - f/u wound cx - Monitor CBC and Temps -Podiatry f/u Thank you for this consult. We will continue to follow the patient during this hospitalization. Subjective Allergies: Coded Allergies: No Known Allergies (Unverified , 10/20/18) Subjective afebrile >48hrs leukocytosis resolved BCx NTD Objective Vital Signs Last 24 Hour Vital Signs Date Time Temp Pulse Resp B/P (MAP) Pulse Ox O2 Delivery O2 Flow Rate FiO2 10/26/18 14:21 97.8 10/26/18 12:57 97.8 10/26/18 12:00 97.1 81 18 119/79 (92) 98 10/26/18 09:00 Room Air 10/26/18 08:18 80 16 96 Nasal Cannula 28 10/26/18 08:00 98.0 75 19 109/68 (82) 100 10/26/18 04:00 97.8 78 18 117/76 (90) 100 10/26/18 00:00 98.4 63 17 103/64 (77) 98 10/25/18 21:00 Room Air 10/25/18 20:50 83 18 95 Room Air 21 10/25/18 20:00 97.7 83 18 105/63 (77) 98 10/25/18 16:00 98.2 78 18 120/70 (87) 96 Height (Feet): 6 Height (Inches): 1.00 Weight (Pounds): 169 Objective Gen: NAD HEENT: NCAT, MMM, EOMI, PERRL, No Oral lesion, no scleral icterus NECK: full range of motion, supple, no meningismus, No LAD, No JVD LUNGS: CTAB, No W/C, No Accessory muscle use CARDS: RRR, S1, S2, No M/R/G, ABD: Soft, NT, ND, No R/G, + BS, No HSM, No Masses : Deferred Ext: C/C/E, Pulses 2+ B/L (DP, Rad): LLE swelling with erythema and pain, Ulceration present with purulence. NEURO: A/O x 4, Strength and Sensation Grossly intact PSYCH: Normal mood and affect SKIN: Warm/dry, No rashes Laboratory Tests Test 10/26/18 05:10 White Blood Count 10.3 K/UL (4.8-10.8) Red Blood Count 3.97 M/UL (4.70-6.10) L Hemoglobin 11.9 G/DL (14.2-18.0) L Hematocrit 37.3 % (42.0-52.0) L Mean Corpuscular Volume 94 FL (80-99) Mean Corpuscular Hemoglobin 30.1 PG (27.0-31.0) Mean Corpuscular Hemoglobin Concent 32.0 G/DL (32.0-36.0) Red Cell Distribution Width 12.7 % (11.6-14.8) Platelet Count 423 K/UL (150-450) Mean Platelet Volume 4.8 FL (6.5-10.1) L Neutrophils (%) (Auto) 71.1 % (45.0-75.0) Lymphocytes (%) (Auto) 16.9 % (20.0-45.0) L Monocytes (%) (Auto) 9.9 % (1.0-10.0) Eosinophils (%) (Auto) 1.4 % (0.0-3.0) Basophils (%) (Auto) 0.6 % (0.0-2.0) Sodium Level 138 MMOL/L (136-145) Potassium Level 3.9 MMOL/L (3.5-5.1) Chloride Level 103 MMOL/L (98-107) Carbon Dioxide Level 30 MMOL/L (21-32) Anion Gap 5 mmol/L (5-15) Blood Urea Nitrogen 14 mg/dL (7-18) Creatinine 0.8 MG/DL (0.55-1.30) Estimat Glomerular Filtration Rate > 60 mL/min (>60) Glucose Level 98 MG/DL (74-106) Calcium Level 8.6 MG/DL (8.5-10.1) Current Medications Medications (Trade) Dose Ordered Sig/Juan Route PRN Reason Start Time Stop Time Status Last Admin Dose Admin Acetaminophen (Tylenol) 650 mg Q4H PRN ORAL fever 10/21/18 08:15 11/20/18 08:14 10/22/18 00:52 Cefepime HCl 1 gm/ Dextrose 55 ml @ 110 mls/hr EVERY 12 HOURS IVPB 10/23/18 09:00 10/28/18 10:00 10/26/18 08:41 Dextrose (Dextrose 50%) 25 ml Q30M PRN IV Hypoglycemia 10/21/18 08:30 11/20/18 08:16 Dextrose (Dextrose 50%) 50 ml Q30M PRN IV hypoglycemia 10/21/18 08:30 11/20/18 08:29 Docusate Sodium (Colace) 100 mg THREE TIMES A DAY ORAL 10/21/18 18:00 11/20/18 17:59 10/26/18 12:27 Folic Acid (Folate) 3 mg DAILY ORAL 10/22/18 09:15 11/21/18 09:14 10/26/18 08:40 Heparin Sodium (Porcine) (Heparin 5000 units/ml) 5,000 units EVERY 12 HOURS SUBQ 10/21/18 09:00 11/20/18 08:59 10/26/18 08:44 Hydromorphone HCl (Dilaudid) 1 mg Q4H PRN IVP Severe Pain (Pain Scale 7-10) 10/22/18 22:15 10/29/18 22:14 10/26/18 13:51 Ibuprofen (Motrin) 600 mg TID ORAL 10/24/18 18:00 11/23/18 17:59 10/26/18 12:27 Nitroglycerin (Ntg) 0.4 mg Q5M PRN SL Prn Chest Pain 10/21/18 08:15 11/20/18 08:14 Ondansetron HCl (Zofran) 4 mg Q6H PRN IVP Nausea & Vomiting 10/21/18 08:15 11/20/18 08:14 Pantoprazole (Protonix) 40 mg EVERY 12 HOURS ORAL 10/21/18 21:00 11/20/18 20:59 10/26/18 08:41 Polyethylene Glycol (Miralax) 17 gm DAILYPRN PRN ORAL Constipation 10/21/18 08:15 11/20/18 08:14 10/21/18 11:32 Potassium Chloride (K-Dur) 40 meq DAILY ORAL 10/25/18 09:00 11/24/18 08:59 10/26/18 08:40 Temazepam (Restoril) 15 mg HSPRN PRN ORAL Insomnia 10/21/18 08:15 10/28/18 08:14 10/25/18 20:45 Vancomycin HCl (Vanco rx to dose) 1 ea DAILY PRN MISC . 10/21/18 08:30 11/20/18 08:29 Vancomycin HCl 1 gm/Dextrose 275 ml @ 183.3 mls/ hr Q8H IVPB 10/23/18 21:00 10/28/18 20:59 10/26/18 12:27 Fernanda Davison M.D. Oct 26, 2018 15:22
[2018-10-26 16:00] VITALS: BP 124/75
--- NOTE | 2018-10-26 16:21 | NUR ---
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 CELLULITIS VS: BP 119/79, P 81, T 97.1, RR 18, SpO2 95 RBC 3.94, H&H 11.9/36.4, IS: VANCOMYCIN 275ml IVPB K-DUR 40meq MOTRIN 600mg CEFEPIME 55ml IVPB HEPARIN SUBQ MED/SURG STATUS
--- NOTE | 2018-10-26 17:35 | NUR ---
HAND-OFF: Report given to LON Saenz.
--- NOTE | 2018-10-26 18:00 | NUR ---
NURSE NOTES: PT AXOX4, CALM, RESTING IN BED. IN NO APPARENT DISTRESS AT THIS TIME. PT EDUCATED ON PRN SCHEDULE OF DILAUDID. PT VERBALIZED UNDERSTANDING. CALL LIGHT WITHIN REACH. WILL CONTINUE TO MONITOR.
--- NOTE | 2018-10-26 19:20 | NUR ---
NURSE NOTES: Received patient resting in bed. AAO x 4. On room air. Dressing is intact on L foot. IV on R FA is intact. No acute distress noted at this time. Bed locked, lowest position, side rails up x 2, bed alarm on, call light within reach. Will continue to monitor.
--- NOTE | 2018-10-26 19:29 | NUR ---
HAND-OFF: Report given to Renee LLANES RN.
[2018-10-26 20:00] VITALS: BP 111/73
[2018-10-27] VITALS: BP 119/70
[2018-10-27] MEDS: HYDROmorphone 1mg/ml Carpuject IVP PRN ×5 (01:58→21:21)
[2018-10-27 04:00] VITALS: BP 109/71
[2018-10-27] MEDS: Vancomycin 1 GM in D5W 275 ML IVPB SCH ×3 (05:53→20:49)
[2018-10-27 06:23] LABS: BASOPHILS % (AUTO) 0.7 % (0.0-2.0); EOSINOPHILS % (AUTO) 1.3 % (0.0-3.0); HEMATOCRIT 36.4 % (42.0-52.0); HEMOGLOBIN 11.9 G/DL (14.2-18.0); MEAN CORPUSCULAR VOLUME 93 FL (80-99); MONOCYTES % (AUTO) 9.1 % (1.0-10.0); NEUTROPHILS % (AUTO) 74.9 % (45.0-75.0); PLATELET COUNT 486 K/UL (150-450); RED BLOOD COUNT 3.94 M/UL (4.70-6.10); RED CELL DISTRIBUTION WIDTH 12.3 % (11.6-14.8); WHITE BLOOD COUNT 10.2 K/UL (4.8-10.8)
[2018-10-27 06:51] LABS: ANION GAP 4 mmol/L (5-15); BLOOD UREA NITROGEN 16 mg/dL (7-18); CALCIUM 9.1 MG/DL (8.5-10.1); CARBON DIOXIDE 30 MMOL/L (21-32); CHLORIDE 101 MMOL/L (98-107); CREATININE 0.8 MG/DL (0.55-1.30); POTASSIUM 4.5 MMOL/L (3.5-5.1); SODIUM 135 MMOL/L (136-145)
--- NOTE | 2018-10-27 07:20 | NUR ---
HAND-OFF: Report given to LON Restrepo.
[2018-10-27 08:00] VITALS: BP 119/74
--- NOTE | 2018-10-27 08:14 | NUR ---
NURSE NOTES: received pt in bed, in room air, complains of 8/10 level of pain, medication given. Patient left lower leg dressing is dry and intact. Bed locked at the lowest position possible, call light within easy reach, siderails up x2. Will continue to monitor patient and follow up with the plan of care.
[2018-10-27] MEDS: Docusate 100mg cap ORAL SCH ×3 (08:59→17:03)
[2018-10-27] MEDS: Cefepime 1gm in D5W 55ml IVPB SCH ×2 (09:00→23:38)
[2018-10-27] MEDS: Heparin 5000 units/ml inj SUBQ SCH ×2 (09:01→20:57)
[2018-10-27 12:00] VITALS: BP 117/80
--- NOTE | 2018-10-27 12:18 | General Progress Note ---
Assessment/Plan Problem List: (1) Sepsis ICD Codes: A41.9 - Sepsis, unspecified organism SNOMED: 73682856 (2) Cellulitis of left foot ICD Codes: L03.116 - Cellulitis of left lower limb SNOMED: 219500511 Status: stable, progressing Assessment/Plan: wound care abx pain control cbc bmp am dc snf if clear Subjective Constitutional: Reports: weakness Allergies: Coded Allergies: No Known Allergies (Unverified , 10/20/18) All Systems: reviewed and negative except above Subjective sleepy calm Objective Last 24 Hour Vital Signs Date Time Temp Pulse Resp B/P (MAP) Pulse Ox O2 Delivery O2 Flow Rate FiO2 10/27/18 09:29 96.5 10/27/18 08:48 96.5 10/27/18 08:00 97.8 83 19 119/74 (89) 98 10/27/18 04:00 96.5 83 19 109/71 (84) 99 10/27/18 00:00 97.8 82 19 119/70 (86) 97 10/26/18 21:00 Room Air 10/26/18 20:00 97.9 85 20 111/73 (86) 97 10/26/18 16:00 97.9 73 20 124/75 (91) 95 Intake and Output 10/26/18 10/27/18 19:00 07:00 Intake Total 1530.0 ml 2130 ml Output Total 950 ml Balance 1530.0 ml 1180 ml Intake Oral 1200 ml 1200 ml IV Total 330.0 ml 330 ml Other 600 ml Output Urine Total 950 ml # Voids 4 2 # Bowel Movements 1 Laboratory Tests 10/27/18 06:12: White Blood Count 10.2, Red Blood Count 3.94L, Hemoglobin 11.9L, Hematocrit 36.4L, Mean Corpuscular Volume 93, Mean Corpuscular Hemoglobin 30.3, Mean Corpuscular Hemoglobin Concent 32.7, Red Cell Distribution Width 12.3, Platelet Count 486H, Mean Platelet Volume 4.9L, Neutrophils (%) (Auto) 74.9, Lymphocytes (%) (Auto) 14.0L, Monocytes (%) (Auto) 9.1, Eosinophils (%) (Auto) 1.3, Basophils (%) (Auto) 0.7, Sodium Level 135L, Potassium Level 4.5, Chloride Level 101, Carbon Dioxide Level 30, Anion Gap 4L, Blood Urea Nitrogen 16, Creatinine 0.8, Estimat Glomerular Filtration Rate > 60, Glucose Level 107H, Calcium Level 9.1 Height (Feet): 6 Height (Inches): 1.00 Weight (Pounds): 169 General Appearance: lethargic EENT: normal ENT inspection Neck: normal alignment Cardiovascular: normal peripheral pulses, normal rate, regular rhythm Respiratory/Chest: chest wall non-tender, lungs clear, normal breath sounds Abdomen: normal bowel sounds, non tender, soft Extremities: normal inspection Edema: no edema noted Arm (L), no edema noted Arm (R), no edema noted Leg (L), no edema noted Leg (R), no edema noted Pedal (L), no edema noted Pedal (R), no edema noted Generalized Neurologic: motor weakness Skin: normal pigmentation, warm/dry Objective l foor sl red and swollen up to ankle Shaun Trejo DO Oct 27, 2018 12:18
--- NOTE | 2018-10-27 15:38 | Nephrology Progress Note ---
Assessment/Plan Problem List: (1) Cellulitis of left foot (2) Sepsis (3) Hyponatremia (4) Hypoalbuminemia Assessment Left foot cellulitis / Leukocytosis / No fever Low Na Low K Anemia High Lactic Low Albumin Plan recheck BMI now 22.03 Isotonic solution K supplement DC IV fluids monitor lytes avoid nephrotoxics urine tox screen positive for Amphetamines and Opiates per orders stable from renal stand if discharged Subjective ROS Limited/Unobtainable: No Objective Objective Last 24 Hour Vital Signs Date Time Temp Pulse Resp B/P (MAP) Pulse Ox O2 Delivery O2 Flow Rate FiO2 10/27/18 12:00 97.4 72 22 117/80 (92) 99 10/27/18 09:29 96.5 10/27/18 09:00 Room Air 10/27/18 08:48 96.5 10/27/18 08:00 97.8 83 19 119/74 (89) 98 10/27/18 04:00 96.5 83 19 109/71 (84) 99 10/27/18 00:00 97.8 82 19 119/70 (86) 97 10/26/18 21:00 Room Air 10/26/18 20:00 97.9 85 20 111/73 (86) 97 10/26/18 16:00 97.9 73 20 124/75 (91) 95 Intake and Output 10/26/18 10/27/18 19:00 07:00 Intake Total 1530.0 ml 2130 ml Output Total 950 ml Balance 1530.0 ml 1180 ml Intake Oral 1200 ml 1200 ml IV Total 330.0 ml 330 ml Other 600 ml Output Urine Total 950 ml # Voids 4 2 # Bowel Movements 1 Laboratory Tests 10/27/18 06:12: White Blood Count 10.2, Red Blood Count 3.94L, Hemoglobin 11.9L, Hematocrit 36.4L, Mean Corpuscular Volume 93, Mean Corpuscular Hemoglobin 30.3, Mean Corpuscular Hemoglobin Concent 32.7, Red Cell Distribution Width 12.3, Platelet Count 486H, Mean Platelet Volume 4.9L, Neutrophils (%) (Auto) 74.9, Lymphocytes (%) (Auto) 14.0L, Monocytes (%) (Auto) 9.1, Eosinophils (%) (Auto) 1.3, Basophils (%) (Auto) 0.7, Sodium Level 135L, Potassium Level 4.5, Chloride Level 101, Carbon Dioxide Level 30, Anion Gap 4L, Blood Urea Nitrogen 16, Creatinine 0.8, Estimat Glomerular Filtration Rate > 60, Glucose Level 107H, Calcium Level 9.1 Height (Feet): 6 Height (Inches): 1.00 Weight (Pounds): 169 General Appearance: no apparent distress Objective no change Levar Conde MD Oct 27, 2018 15:38
[2018-10-27 16:00] VITALS: BP 109/71
--- NOTE | 2018-10-27 16:33 | NUR ---
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 CELLULITIS VS: BP 122/63, P 115, T 100.1, RR 20, SpO2 96 RBC 3.94, H&H 11.9/36.4, Na 135 IS:VANCOMYCIN 275ml IVPB K-DUR 40meq FOLATE 3mg HEPARIN SUBQ MOTRIN 600mg DILAUDID 1mg IVP MED/SURG STATUS
--- NOTE | 2018-10-27 18:00 | NUR ---
NURSE NOTES: changed left lower leg wound: cleansed with NS, applied therahoney, secured with Optifoam.
--- NOTE | 2018-10-27 19:16 | NUR ---
6HAND-OFF: Report given to LON Gaspar.
[2018-10-27 20:00] VITALS: BP 106/64
--- NOTE | 2018-10-27 22:15 | Infectious Diseases Prog Note ---
Assessment/Plan Assessment/Plan Assessment/Plan: 58 yo male who presnted to the ED on 10/19/18 with left leg cellulitis. Left foot cellulitis -wound cx: MRSA, GAS, P. mirabilsi (Bassett S), C. freundi (R ancef, otherwise S), K. oxytoca (R amp, otherwise S) Leukocytosis ;SP Low grade fevers; SP -Tibia/fibula MRI: Negative for evidence of osteomyelitis. Evidence of superficial soft tissue ulcer, marked by a marker at the anteromedial sagastume region.Considerable subcutaneous fat edema. Given stated clinical history, probably on the basis of cellulitis. Correlate with clinical findings. No evidence of drainable abscess. -foot MRI: Extensive soft tissue edema, as described. This is in keeping with stated clinical history of cellulitis. No findings to suggest abscess Very superficial fluid collections likely relate to stated clinical history of dorsal blisters. No marrow abnormality to suggest acute osteomyelitis demonstrated. -ANkle MRI: Patchy areas of marrow edema, as described. Periarticular distribution of this is suggestive of arthropathy which may be degenerative, inflammatory, or, most likely, on the basis of Charcot-type changes. Per technologist, there are no ulcers in the area so osteomyelitis is deemed much less likely. Extensive edema of the subcutaneous fat. Given stated clinical history of cellulitis most likely on the basis of such. Correlate with clinical findings. No drainable abscess collection demonstrated. -Foot xray: No acute injury identified. Soft tissue swelling. Multiple incidental findings as described PLAN: - Continue Cefepime #7 and Vancomycin #7 -ok to discharge on PO Bactrim DS 1 tab bid and Augmentin 875/125mg PO bid for 7 more days - f/u wound cx - Monitor CBC and Temps -Podiatry f/u Thank you for this consult. We will continue to follow the patient during this hospitalization. Subjective Allergies: Coded Allergies: No Known Allergies (Unverified , 10/20/18) Subjective afebrile leukocytosis resolved BCx Neg Objective Vital Signs Last 24 Hour Vital Signs Date Time Temp Pulse Resp B/P (MAP) Pulse Ox O2 Delivery O2 Flow Rate FiO2 10/27/18 20:00 97.9 75 20 106/64 (78) 98 10/27/18 17:33 97.3 10/27/18 17:33 97.3 10/27/18 16:00 97.3 99 20 109/71 (84) 97 10/27/18 12:00 97.4 72 22 117/80 (92) 99 10/27/18 09:00 Room Air 10/27/18 08:00 97.8 83 19 119/74 (89) 98 10/27/18 04:00 96.5 83 19 109/71 (84) 99 10/27/18 00:00 97.8 82 19 119/70 (86) 97 Height (Feet): 6 Height (Inches): 1.00 Weight (Pounds): 169 Objective Gen: NAD HEENT: NCAT, MMM, EOMI, PERRL, No Oral lesion, no scleral icterus NECK: full range of motion, supple, no meningismus, No LAD, No JVD LUNGS: CTAB, No W/C, No Accessory muscle use CARDS: RRR, S1, S2, No M/R/G, ABD: Soft, NT, ND, No R/G, + BS, No HSM, No Masses : Deferred Ext: C/C/E, Pulses 2+ B/L (DP, Rad): LLE swelling with erythema and pain, Ulceration present with purulence. NEURO: A/O x 4, Strength and Sensation Grossly intact PSYCH: Normal mood and affect SKIN: Warm/dry, No rashes Laboratory Tests Test 10/27/18 06:12 White Blood Count 10.2 K/UL (4.8-10.8) Red Blood Count 3.94 M/UL (4.70-6.10) L Hemoglobin 11.9 G/DL (14.2-18.0) L Hematocrit 36.4 % (42.0-52.0) L Mean Corpuscular Volume 93 FL (80-99) Mean Corpuscular Hemoglobin 30.3 PG (27.0-31.0) Mean Corpuscular Hemoglobin Concent 32.7 G/DL (32.0-36.0) Red Cell Distribution Width 12.3 % (11.6-14.8) Platelet Count 486 K/UL (150-450) H Mean Platelet Volume 4.9 FL (6.5-10.1) L Neutrophils (%) (Auto) 74.9 % (45.0-75.0) Lymphocytes (%) (Auto) 14.0 % (20.0-45.0) L Monocytes (%) (Auto) 9.1 % (1.0-10.0) Eosinophils (%) (Auto) 1.3 % (0.0-3.0) Basophils (%) (Auto) 0.7 % (0.0-2.0) Sodium Level 135 MMOL/L (136-145) L Potassium Level 4.5 MMOL/L (3.5-5.1) Chloride Level 101 MMOL/L (98-107) Carbon Dioxide Level 30 MMOL/L (21-32) Anion Gap 4 mmol/L (5-15) L Blood Urea Nitrogen 16 mg/dL (7-18) Creatinine 0.8 MG/DL (0.55-1.30) Estimat Glomerular Filtration Rate > 60 mL/min (>60) Glucose Level 107 MG/DL (74-106) H Calcium Level 9.1 MG/DL (8.5-10.1) Current Medications Medications (Trade) Dose Ordered Sig/Juan Route PRN Reason Start Time Stop Time Status Last Admin Dose Admin Acetaminophen (Tylenol) 650 mg Q4H PRN ORAL fever 10/21/18 08:15 11/20/18 08:14 10/22/18 00:52 Cefepime HCl 1 gm/ Dextrose 55 ml @ 110 mls/hr EVERY 12 HOURS IVPB 10/23/18 09:00 10/28/18 10:00 10/27/18 09:00 Dextrose (Dextrose 50%) 25 ml Q30M PRN IV Hypoglycemia 10/21/18 08:30 11/20/18 08:16 Dextrose (Dextrose 50%) 50 ml Q30M PRN IV hypoglycemia 10/21/18 08:30 11/20/18 08:29 Docusate Sodium (Colace) 100 mg THREE TIMES A DAY ORAL 10/21/18 18:00 11/20/18 17:59 10/27/18 17:03 Folic Acid (Folate) 3 mg DAILY ORAL 10/22/18 09:15 11/21/18 09:14 10/27/18 09:00 Heparin Sodium (Porcine) (Heparin 5000 units/ml) 5,000 units EVERY 12 HOURS SUBQ 10/21/18 09:00 11/20/18 08:59 10/27/18 20:57 Hydromorphone HCl (Dilaudid) 1 mg Q4H PRN IVP Severe Pain (Pain Scale 7-10) 10/22/18 22:15 10/29/18 22:14 10/27/18 21:21 Ibuprofen (Motrin) 600 mg TID ORAL 10/24/18 18:00 11/23/18 17:59 10/27/18 17:03 Nitroglycerin (Ntg) 0.4 mg Q5M PRN SL Prn Chest Pain 10/21/18 08:15 11/20/18 08:14 Ondansetron HCl (Zofran) 4 mg Q6H PRN IVP Nausea & Vomiting 10/21/18 08:15 11/20/18 08:14 Pantoprazole (Protonix) 40 mg EVERY 12 HOURS ORAL 10/21/18 21:00 11/20/18 20:59 10/27/18 20:48 Polyethylene Glycol (Miralax) 17 gm DAILYPRN PRN ORAL Constipation 10/21/18 08:15 11/20/18 08:14 10/21/18 11:32 Potassium Chloride (K-Dur) 40 meq DAILY ORAL 10/25/18 09:00 11/24/18 08:59 10/27/18 08:59 Temazepam (Restoril) 15 mg HSPRN PRN ORAL Insomnia 10/21/18 08:15 10/28/18 08:14 10/25/18 20:45 Vancomycin HCl (Vanco rx to dose) 1 ea DAILY PRN MISC . 10/21/18 08:30 11/20/18 08:29 Vancomycin HCl 1 gm/Dextrose 275 ml @ 183.3 mls/ hr Q8H IVPB 10/23/18 21:00 10/28/18 20:59 10/27/18 20:49 Fernanda Davison M.D. Oct 27, 2018 22:15
[2018-10-28] VITALS: BP 116/80
[2018-10-28] MEDS: HYDROmorphone 1mg/ml Carpuject IVP PRN ×5 (01:50→20:18)
[2018-10-28 04:00] VITALS: BP 104/64
[2018-10-28] MEDS: Vancomycin 1 GM in D5W 275 ML IVPB SCH ×2 (04:26→12:08)
[2018-10-28 06:23] LABS: BASOPHILS % (AUTO) 0.5 % (0.0-2.0); EOSINOPHILS % (AUTO) 0.4 % (0.0-3.0); HEMATOCRIT 39.1 % (42.0-52.0); HEMOGLOBIN 12.5 G/DL (14.2-18.0); LYMPHOCYTES % (AUTO) 14.3 % (20.0-45.0); MEAN CORPUSCULAR VOLUME 94 FL (80-99); MONOCYTES % (AUTO) 4.9 % (1.0-10.0); NEUTROPHILS % (AUTO) 80.1 % (45.0-75.0); PLATELET COUNT 548 K/UL (150-450); RED BLOOD COUNT 4.17 M/UL (4.70-6.10); RED CELL DISTRIBUTION WIDTH 12.4 % (11.6-14.8); WHITE BLOOD COUNT 12.6 K/UL (4.8-10.8)
[2018-10-28 07:07] LABS: ANION GAP 6 mmol/L (5-15); BLOOD UREA NITROGEN 12 mg/dL (7-18); CALCIUM 9.5 MG/DL (8.5-10.1); CARBON DIOXIDE 31 MMOL/L (21-32); CHLORIDE 100 MMOL/L (98-107); CREATININE 0.9 MG/DL (0.55-1.30); POTASSIUM 4.3 MMOL/L (3.5-5.1); SODIUM 136 MMOL/L (136-145)
[2018-10-28 07:10] LABS: ALANINE AMINOTRANSFERASE 30 U/L (12-78); ALBUMIN 2.6 G/DL (3.4-5.0); ALKALINE PHOSPHATASE 100 U/L (46-116); ASPARTATE AMINO TRANSFERASE 25 U/L (15-37); BILIRUBIN,DIRECT < 0.1 MG/DL (0.0-0.3); BILIRUBIN,TOTAL 0.4 MG/DL (0.2-1.0); GAMMA GLUTAMYL TRANSPEPTIDASE 36 U/L (5-85); PHOSPHORUS 4.1 MG/DL (2.5-4.9)
--- NOTE | 2018-10-28 07:30 | NUR ---
NURSE NOTES: received patient resting in bed.patient awake, alert oriented, no sign of distress, denies pain, left foot elevated on pillow. call light within reach, on fall precaution, bed in low position, Will continue to monitor. kaitlin reynolds
--- NOTE | 2018-10-28 07:31 | NUR ---
HAND-OFF: Report given to LON Kamara.
[2018-10-28 08:00] VITALS: BP 122/63
[2018-10-28] MEDS: Docusate 100mg cap ORAL SCH ×3 (08:11→17:18)
[2018-10-28] MEDS: Cefepime 1gm in D5W 55ml IVPB SCH (08:15)
[2018-10-28] MEDS: Heparin 5000 units/ml inj SUBQ SCH ×2 (08:15→20:26)
--- NOTE | 2018-10-28 09:05 | General Progress Note ---
Assessment/Plan Problem List: (1) Sepsis ICD Codes: A41.9 - Sepsis, unspecified organism SNOMED: 69850790 (2) Cellulitis of left foot ICD Codes: L03.116 - Cellulitis of left lower limb SNOMED: 536967072 Status: stable, progressing Assessment/Plan: wound care abx pain control cbc bmp am dc snf if clear Subjective Constitutional: Reports: weakness Allergies: Coded Allergies: No Known Allergies (Unverified , 10/20/18) All Systems: reviewed and negative except above Subjective sleepy calm Objective Last 24 Hour Vital Signs Date Time Temp Pulse Resp B/P (MAP) Pulse Ox O2 Delivery O2 Flow Rate FiO2 10/28/18 08:00 97.7 115 16 122/63 (82) 96 10/28/18 05:49 97.7 10/28/18 04:00 100.1 98 18 104/64 (77) 96 10/28/18 00:00 99.3 100 20 116/80 (92) 96 10/27/18 21:00 Room Air 10/27/18 20:00 97.9 75 20 106/64 (78) 98 10/27/18 17:33 97.3 10/27/18 17:33 97.3 10/27/18 16:00 97.3 99 20 109/71 (84) 97 10/27/18 12:00 97.4 72 22 117/80 (92) 99 Intake and Output 10/27/18 10/28/18 18:59 06:59 Intake Total 1000 ml 1905.0 ml Output Total 1600 ml Balance 1000 ml 305.0 ml Intake Oral 1000 ml 1300 ml IV Total 605.0 ml Output Urine Total 1600 ml # Voids 4 5 Laboratory Tests 10/28/18 04:51: White Blood Count 12.6H, Red Blood Count 4.17L, Hemoglobin 12.5L, Hematocrit 39.1L, Mean Corpuscular Volume 94, Mean Corpuscular Hemoglobin 30.1, Mean Corpuscular Hemoglobin Concent 32.1, Red Cell Distribution Width 12.4, Platelet Count 548H, Mean Platelet Volume 4.5L, Neutrophils (%) (Auto) 80.1H, Lymphocytes (%) (Auto) 14.3L, Monocytes (%) (Auto) 4.9, Eosinophils (%) (Auto) 0.4, Basophils (%) (Auto) 0.5, Sodium Level 136, Potassium Level 4.3, Chloride Level 100, Carbon Dioxide Level 31, Anion Gap 6, Blood Urea Nitrogen 12, Creatinine 0.9, Estimat Glomerular Filtration Rate > 60, Glucose Level 115H, Calcium Level 9.5, Phosphorus Level 4.1, Magnesium Level 2.1, Total Bilirubin 0.4, Direct Bilirubin < 0.1, Gamma Glutamyl Transpeptidase 36, Aspartate Amino Transf (AST/SGOT) 25, Alanine Aminotransferase (ALT/SGPT) 30, Alkaline Phosphatase 100, Total Protein 7.5, Albumin 2.6L Height (Feet): 6 Height (Inches): 1.00 Weight (Pounds): 169 General Appearance: lethargic EENT: normal ENT inspection Neck: normal alignment Cardiovascular: normal peripheral pulses, normal rate, regular rhythm Respiratory/Chest: chest wall non-tender, lungs clear, normal breath sounds Abdomen: normal bowel sounds, non tender, soft Extremities: normal inspection Edema: 1+ Arm (L), 1+ Arm (R), 1+ Leg (L), 1+ Leg (R), 1+ Pedal (L), 1+ Pedal ( R), 1+ Generalized Edema: trace edema Neurologic: motor weakness Skin: normal pigmentation, warm/dry Objective l foor sl red and swollen up to ankle Shaun Trejo DO Oct 28, 2018 09:05
[2018-10-28 12:02] VITALS: BP 120/63
--- NOTE | 2018-10-28 12:33 | Cardiology Report ---
APPROVED REPORT EXAM: Two-dimensional and M-mode echocardiogram with Doppler and color Doppler. INDICATION Congestive Heart Failure M-Mode DIMENSIONS IVSd1.2 (0.7-1.1cm)Left Atrium (MM)3.2 (1.6-4.0cm) LVDd4.4 (3.5-5.6cm)Aortic Root3.4 (2.0-3.7cm) PWd1.1 (0.7-1.1cm)Aortic Cusp Exc.2.0 (1.5-2.0cm) LVDs2.9 (2.5-4.0cm) PWs1.8 cm Normal left ventricular chamber size, systolic function and wall motion. Left ventricular ejection fraction estimated to be 55 %. Mild left ventricular hypertrophy. No evidence of pericardial effusion. All other cardiac chamber sizes are within normal limits. Focal aortic valve sclerosis with adequate cusp excursion. Thickened mitral valve leaflets with normal excursion. Mild mitral annulus and aortic root calcification. Pulmonic valve not well visualized. Normal tricuspid valve structure. IVC dilated at 2.7 cm with physiological collapse, suggestive of increased RA pressure. A color flow and spectral Doppler study was performed and revealed: No aortic insufficiency. No mitral regurgitation. Mitral diastolic velocities suggest moderate left ventricular diastolic dysfunction (Grade II)- pseudonormal LV physiology. Mild tricuspid regurgitation. Tricuspid systolic velocities suggests peak right ventricular systolic pressure of 47 mmHg, consistent with moderate pulmonary hypertension. No pulmonic regurgitation present.
[2018-10-28 16:11] VITALS: BP 110/60
--- NOTE | 2018-10-28 16:39 | NUR ---
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 CELLULITIS VS: BP 120/63, P 115, T 97.0, RR 19, SpO2 96 WBC 12.6, RBC 4.17, H&h 12.5/39.1 IS:TYLENOL 650mg VANCOMYCIN 275ml IVPB K-DUR AUGMENTIN 875mg BACTRIM DS 1tab MOTRIN 600mg DILAUDID 1mg IVP MED/SURG STATUS
--- NOTE | 2018-10-28 17:21 | Nephrology Progress Note ---
Assessment/Plan Problem List: (1) Cellulitis of left foot (2) Sepsis (3) Hyponatremia (4) Hypoalbuminemia Assessment Left foot cellulitis / Leukocytosis / No fever Low Na Low K Anemia High Lactic Low Albumin Plan recheck BMI now 22.03 Isotonic solution K supplement DC IV fluids monitor lytes avoid nephrotoxics urine tox screen positive for Amphetamines and Opiates per orders stable from renal stand if discharged Subjective ROS Limited/Unobtainable: No Constitutional: Reports: malaise Objective Objective Last 24 Hour Vital Signs Date Time Temp Pulse Resp B/P (MAP) Pulse Ox O2 Delivery O2 Flow Rate FiO2 10/28/18 16:11 99.0 103 19 110/60 (77) 96 10/28/18 12:02 98.8 115 19 120/63 (82) 96 10/28/18 08:50 Room Air 10/28/18 08:00 97.7 115 16 122/63 (82) 96 10/28/18 05:49 97.7 10/28/18 04:00 100.1 98 18 104/64 (77) 96 10/28/18 00:00 99.3 100 20 116/80 (92) 96 10/27/18 21:00 Room Air 10/27/18 20:00 97.9 75 20 106/64 (78) 98 10/27/18 17:33 97.3 10/27/18 17:33 97.3 Intake and Output 10/27/18 10/28/18 19:00 07:00 Intake Total 1000 ml 1905.0 ml Output Total 1600 ml Balance 1000 ml 305.0 ml Intake Oral 1000 ml 1300 ml IV Total 605.0 ml Output Urine Total 1600 ml # Voids 4 5 Laboratory Tests 10/28/18 04:51: White Blood Count 12.6H, Red Blood Count 4.17L, Hemoglobin 12.5L, Hematocrit 39.1L, Mean Corpuscular Volume 94, Mean Corpuscular Hemoglobin 30.1, Mean Corpuscular Hemoglobin Concent 32.1, Red Cell Distribution Width 12.4, Platelet Count 548H, Mean Platelet Volume 4.5L, Neutrophils (%) (Auto) 80.1H, Lymphocytes (%) (Auto) 14.3L, Monocytes (%) (Auto) 4.9, Eosinophils (%) (Auto) 0.4, Basophils (%) (Auto) 0.5, Sodium Level 136, Potassium Level 4.3, Chloride Level 100, Carbon Dioxide Level 31, Anion Gap 6, Blood Urea Nitrogen 12, Creatinine 0.9, Estimat Glomerular Filtration Rate > 60, Glucose Level 115H, Calcium Level 9.5, Phosphorus Level 4.1, Magnesium Level 2.1, Total Bilirubin 0.4, Direct Bilirubin < 0.1, Gamma Glutamyl Transpeptidase 36, Aspartate Amino Transf (AST/SGOT) 25, Alanine Aminotransferase (ALT/SGPT) 30, Alkaline Phosphatase 100, Total Protein 7.5, Albumin 2.6L Height (Feet): 6 Height (Inches): 1.00 Weight (Pounds): 169 General Appearance: no apparent distress Objective no change Levar Conde MD Oct 28, 2018 17:21
--- NOTE | 2018-10-28 19:28 | NUR ---
HAND-OFF: Report given to LON Selby Resting comfortably in bed, patient stable and free from injury lon reynolds.
[2018-10-28 20:00] VITALS: BP 109/64
--- NOTE | 2018-10-28 20:00 | NUR ---
NURSE NOTES: Patient received in bed, awake and alert. Left leg with optifoam, elevated on pillow. IV site intact and patent. Call light and urinal within reach. C/o of pain, will medicate as prescribed. Will continue plan of care.
[2018-10-28] MEDS: Bactrim-DS 1 tab ORAL SCH (20:16)
[2018-10-28] MEDS: Augmentin 875mg Tab ORAL SCH (20:16)
[2018-10-29 00:11] VITALS: BP 112/68
[2018-10-29] MEDS: HYDROmorphone 1mg/ml Carpuject IVP PRN ×6 (00:18→22:02)
--- NOTE | 2018-10-29 00:42 | NUR ---
NURSE NOTES: Left leg wound is cleaned with NS and covered with optifoam. No slough noted. Wound is clean and red. Patient tolerated dressing change.
[2018-10-29 04:00] VITALS: BP 104/63
[2018-10-29 06:36] LABS: BASOPHILS % (AUTO) 0.6 % (0.0-2.0); EOSINOPHILS % (AUTO) 1.2 % (0.0-3.0); HEMATOCRIT 37.3 % (42.0-52.0); MEAN CORPUSCULAR VOLUME 94 FL (80-99); MONOCYTES % (AUTO) 9.9 % (1.0-10.0); NEUTROPHILS % (AUTO) 65.2 % (45.0-75.0); PLATELET COUNT 561 K/UL (150-450); RED BLOOD COUNT 3.99 M/UL (4.70-6.10); RED CELL DISTRIBUTION WIDTH 12.4 % (11.6-14.8); WHITE BLOOD COUNT 9.5 K/UL (4.8-10.8)
[2018-10-29 07:07] LABS: ANION GAP 7 mmol/L (5-15); BLOOD UREA NITROGEN 18 mg/dL (7-18); CALCIUM 9.2 MG/DL (8.5-10.1); CARBON DIOXIDE 28 MMOL/L (21-32); CHLORIDE 100 MMOL/L (98-107); POTASSIUM 4.5 MMOL/L (3.5-5.1); SODIUM 135 MMOL/L (136-145)
--- NOTE | 2018-10-29 07:30 | NUR ---
NURSE NOTES: Received pt from RN RAN. Pt is alert and orient x4. pt is in RA, No SOB or acute respiratory distress noted. pt has intact iv access LFA 20G SL. Pt is eating breakfast independently. all needs attended, bed is locked and is in the lowest position. call light within easy reach. will continue to monitor.
--- NOTE | 2018-10-29 07:37 | NUR ---
HAND-OFF: Report given to Phan FORREST.
[2018-10-29 08:00] VITALS: BP 111/69
--- NOTE | 2018-10-29 09:17 | General Progress Note ---
Assessment/Plan Problem List: (1) Sepsis ICD Codes: A41.9 - Sepsis, unspecified organism SNOMED: 18844968 (2) Cellulitis of left foot ICD Codes: L03.116 - Cellulitis of left lower limb SNOMED: 488343688 Status: stable, progressing Assessment/Plan: wound care abx pain control cbc bmp am dc snf if clear Subjective Constitutional: Reports: weakness Allergies: Coded Allergies: No Known Allergies (Unverified , 10/20/18) All Systems: reviewed and negative except above Subjective sleepy calm Objective Last 24 Hour Vital Signs Date Time Temp Pulse Resp B/P (MAP) Pulse Ox O2 Delivery O2 Flow Rate FiO2 10/29/18 04:00 97.8 83 19 104/63 (77) 97 10/29/18 00:48 97.8 10/29/18 00:11 97.8 86 19 112/68 (83) 97 10/28/18 21:00 Room Air 10/28/18 20:00 97.0 83 19 109/64 (79) 97 10/28/18 16:11 99.0 103 19 110/60 (77) 96 10/28/18 12:02 98.8 115 19 120/63 (82) 96 Intake and Output 10/28/18 10/29/18 19:00 07:00 Intake Total 1630.0 ml 600 ml Output Total 1200 ml 1700 ml Balance 430.0 ml -1100 ml Intake Oral 1300 ml 600 ml IV Total 330.0 ml Output Urine Total 1200 ml 1700 ml # Voids 4 Laboratory Tests 10/29/18 05:15: White Blood Count 9.5, Red Blood Count 3.99L, Hemoglobin 12.0L, Hematocrit 37.3L , Mean Corpuscular Volume 94, Mean Corpuscular Hemoglobin 30.0, Mean Corpuscular Hemoglobin Concent 32.1, Red Cell Distribution Width 12.4, Platelet Count 561H, Mean Platelet Volume 4.7L, Neutrophils (%) (Auto) 65.2, Lymphocytes (%) (Auto) 23.0, Monocytes (%) (Auto) 9.9, Eosinophils (%) (Auto) 1.2, Basophils (%) (Auto) 0.6, Sodium Level 135L, Potassium Level 4.5, Chloride Level 100, Carbon Dioxide Level 28, Anion Gap 7, Blood Urea Nitrogen 18, Creatinine 1.0, Estimat Glomerular Filtration Rate > 60, Glucose Level 115H, Calcium Level 9.2 Height (Feet): 6 Height (Inches): 1.00 Weight (Pounds): 169 General Appearance: lethargic EENT: normal ENT inspection Neck: normal alignment Cardiovascular: normal peripheral pulses, normal rate, regular rhythm Respiratory/Chest: chest wall non-tender, lungs clear, normal breath sounds Abdomen: normal bowel sounds, non tender, soft Extremities: normal inspection Edema: no edema noted Arm (L), no edema noted Arm (R), no edema noted Leg (L), no edema noted Leg (R), no edema noted Pedal (L), no edema noted Pedal (R), no edema noted Generalized Neurologic: motor weakness Skin: normal pigmentation, warm/dry Objective l foor sl red and swollen up to ankle Shaun Trejo DO Oct 29, 2018 09:17
[2018-10-29] MEDS: Docusate 100mg cap ORAL SCH ×3 (09:32→17:50)
[2018-10-29] MEDS: Augmentin 875mg Tab ORAL SCH ×2 (09:33→20:57)
[2018-10-29] MEDS: Bactrim-DS 1 tab ORAL SCH ×2 (09:33→17:50)
[2018-10-29] MEDS: Heparin 5000 units/ml inj SUBQ SCH ×2 (09:40→20:57)
[2018-10-29 12:00] VITALS: BP 101/67
--- NOTE | 2018-10-29 12:40 | Nephrology Progress Note ---
Assessment/Plan Problem List: (1) Cellulitis of left foot (2) Sepsis (3) Hyponatremia (4) Hypoalbuminemia Assessment Left foot cellulitis / Leukocytosis / No fever Low Na Low K Anemia High Lactic Low Albumin Plan Isotonic solution K supplement DC IV fluids monitor lytes avoid nephrotoxics urine tox screen positive for Amphetamines and Opiates per orders stable from renal stand if discharged Subjective ROS Limited/Unobtainable: No Constitutional: Reports: malaise Objective Objective Last 24 Hour Vital Signs Date Time Temp Pulse Resp B/P (MAP) Pulse Ox O2 Delivery O2 Flow Rate FiO2 10/29/18 12:00 97.0 75 18 101/67 (78) 98 10/29/18 10:02 97.8 10/29/18 09:59 97.8 10/29/18 08:00 97.8 73 18 111/69 (83) 100 10/29/18 04:00 97.8 83 19 104/63 (77) 97 10/29/18 00:11 97.8 86 19 112/68 (83) 97 10/28/18 21:00 Room Air 10/28/18 20:00 97.0 83 19 109/64 (79) 97 10/28/18 16:11 99.0 103 19 110/60 (77) 96 Intake and Output 10/28/18 10/29/18 19:00 07:00 Intake Total 1630.0 ml 600 ml Output Total 1200 ml 1700 ml Balance 430.0 ml -1100 ml Intake Oral 1300 ml 600 ml IV Total 330.0 ml Output Urine Total 1200 ml 1700 ml # Voids 4 Laboratory Tests 10/29/18 05:15: White Blood Count 9.5, Red Blood Count 3.99L, Hemoglobin 12.0L, Hematocrit 37.3L , Mean Corpuscular Volume 94, Mean Corpuscular Hemoglobin 30.0, Mean Corpuscular Hemoglobin Concent 32.1, Red Cell Distribution Width 12.4, Platelet Count 561H, Mean Platelet Volume 4.7L, Neutrophils (%) (Auto) 65.2, Lymphocytes (%) (Auto) 23.0, Monocytes (%) (Auto) 9.9, Eosinophils (%) (Auto) 1.2, Basophils (%) (Auto) 0.6, Sodium Level 135L, Potassium Level 4.5, Chloride Level 100, Carbon Dioxide Level 28, Anion Gap 7, Blood Urea Nitrogen 18, Creatinine 1.0, Estimat Glomerular Filtration Rate > 60, Glucose Level 115H, Calcium Level 9.2 Height (Feet): 6 Height (Inches): 1.00 Weight (Pounds): 169 General Appearance: no apparent distress Objective no change Levar Conde MD Oct 29, 2018 12:40
--- NOTE | 2018-10-29 12:58 | Infectious Diseases Prog Note ---
Assessment/Plan Assessment/Plan Assessment/Plan: 58 yo male who presnted to the ED on 10/19/18 with left leg cellulitis. Left foot cellulitis -wound cx: MRSA, GAS, P. mirabilsi ([place] S), C. freundi (R ancef, otherwise S), K. oxytoca (R amp, otherwise S) Leukocytosis ;SP Low grade fevers; SP -Tibia/fibula MRI: Negative for evidence of osteomyelitis. Evidence of superficial soft tissue ulcer, marked by a marker at the anteromedial sagastume region.Considerable subcutaneous fat edema. Given stated clinical history, probably on the basis of cellulitis. Correlate with clinical findings. No evidence of drainable abscess. -foot MRI: Extensive soft tissue edema, as described. This is in keeping with stated clinical history of cellulitis. No findings to suggest abscess Very superficial fluid collections likely relate to stated clinical history of dorsal blisters. No marrow abnormality to suggest acute osteomyelitis demonstrated. -ANkle MRI: Patchy areas of marrow edema, as described. Periarticular distribution of this is suggestive of arthropathy which may be degenerative, inflammatory, or, most likely, on the basis of Charcot-type changes. Per technologist, there are no ulcers in the area so osteomyelitis is deemed much less likely. Extensive edema of the subcutaneous fat. Given stated clinical history of cellulitis most likely on the basis of such. Correlate with clinical findings. No drainable abscess collection demonstrated. -Foot xray: No acute injury identified. Soft tissue swelling. Multiple incidental findings as described PLAN: - Continue PO Bactrim DS 1 tab bid and Augmentin 875/125mg PO bid #2 (abx d # ) --ok to discharge on above regimen -10/28 SP Cefepime #8, IV Vancomycin #8 - f/u wound cx - Monitor CBC and Temps -Podiatry f/u Thank you for this consult. We will continue to follow the patient during this hospitalization. Subjective Allergies: Coded Allergies: No Known Allergies (Unverified , 10/20/18) Subjective afebrile >24hrs leukocytosis resolved BCx Neg Objective Vital Signs Last 24 Hour Vital Signs Date Time Temp Pulse Resp B/P (MAP) Pulse Ox O2 Delivery O2 Flow Rate FiO2 10/29/18 12:49 97.8 10/29/18 12:00 97.0 75 18 101/67 (78) 98 10/29/18 09:59 97.8 10/29/18 09:00 Room Air 10/29/18 08:00 97.8 73 18 111/69 (83) 100 10/29/18 04:00 97.8 83 19 104/63 (77) 97 10/29/18 00:11 97.8 86 19 112/68 (83) 97 10/28/18 21:00 Room Air 10/28/18 20:00 97.0 83 19 109/64 (79) 97 10/28/18 16:11 99.0 103 19 110/60 (77) 96 Height (Feet): 6 Height (Inches): 1.00 Weight (Pounds): 169 Objective Gen: NAD HEENT: NCAT, MMM, EOMI, PERRL, No Oral lesion, no scleral icterus NECK: full range of motion, supple, no meningismus, No LAD, No JVD LUNGS: CTAB, No W/C, No Accessory muscle use CARDS: RRR, S1, S2, No M/R/G, ABD: Soft, NT, ND, No R/G, + BS, No HSM, No Masses : Deferred Ext: C/C/E, Pulses 2+ B/L (DP, Rad): LLE swelling with erythema and pain, Ulceration present with purulence. NEURO: A/O x 4, Strength and Sensation Grossly intact PSYCH: Normal mood and affect SKIN: Warm/dry, No rashes Laboratory Tests Test 10/29/18 05:15 White Blood Count 9.5 K/UL (4.8-10.8) Red Blood Count 3.99 M/UL (4.70-6.10) L Hemoglobin 12.0 G/DL (14.2-18.0) L Hematocrit 37.3 % (42.0-52.0) L Mean Corpuscular Volume 94 FL (80-99) Mean Corpuscular Hemoglobin 30.0 PG (27.0-31.0) Mean Corpuscular Hemoglobin Concent 32.1 G/DL (32.0-36.0) Red Cell Distribution Width 12.4 % (11.6-14.8) Platelet Count 561 K/UL (150-450) H Mean Platelet Volume 4.7 FL (6.5-10.1) L Neutrophils (%) (Auto) 65.2 % (45.0-75.0) Lymphocytes (%) (Auto) 23.0 % (20.0-45.0) Monocytes (%) (Auto) 9.9 % (1.0-10.0) Eosinophils (%) (Auto) 1.2 % (0.0-3.0) Basophils (%) (Auto) 0.6 % (0.0-2.0) Sodium Level 135 MMOL/L (136-145) L Potassium Level 4.5 MMOL/L (3.5-5.1) Chloride Level 100 MMOL/L (98-107) Carbon Dioxide Level 28 MMOL/L (21-32) Anion Gap 7 mmol/L (5-15) Blood Urea Nitrogen 18 mg/dL (7-18) Creatinine 1.0 MG/DL (0.55-1.30) Estimat Glomerular Filtration Rate > 60 mL/min (>60) Glucose Level 115 MG/DL (74-106) H Calcium Level 9.2 MG/DL (8.5-10.1) Current Medications Medications (Trade) Dose Ordered Sig/Juan Route PRN Reason Start Time Stop Time Status Last Admin Dose Admin Acetaminophen (Tylenol) 650 mg Q4H PRN ORAL fever 10/21/18 08:15 11/20/18 08:14 10/28/18 05:19 Amoxicillin/ Clavulanate Potassium (Augmentin) 875 mg EVERY 12 HOURS ORAL 10/28/18 21:00 11/04/18 20:59 10/29/18 09:33 Dextrose (Dextrose 50%) 25 ml Q30M PRN IV Hypoglycemia 10/21/18 08:30 11/20/18 08:16 Dextrose (Dextrose 50%) 50 ml Q30M PRN IV hypoglycemia 10/21/18 08:30 11/20/18 08:29 Docusate Sodium (Colace) 100 mg THREE TIMES A DAY ORAL 10/21/18 18:00 11/20/18 17:59 10/29/18 12:18 Folic Acid (Folate) 3 mg DAILY ORAL 10/22/18 09:15 11/21/18 09:14 10/29/18 09:32 Heparin Sodium (Porcine) (Heparin 5000 units/ml) 5,000 units EVERY 12 HOURS SUBQ 10/21/18 09:00 11/20/18 08:59 10/29/18 09:40 Hydromorphone HCl (Dilaudid) 1 mg Q4H PRN IVP Severe Pain (Pain Scale 7-10) 10/22/18 22:15 10/29/18 22:14 10/29/18 09:29 Ibuprofen (Motrin) 600 mg TID ORAL 10/24/18 18:00 11/23/18 17:59 10/29/18 12:19 Nitroglycerin (Ntg) 0.4 mg Q5M PRN SL Prn Chest Pain 10/21/18 08:15 11/20/18 08:14 Ondansetron HCl (Zofran) 4 mg Q6H PRN IVP Nausea & Vomiting 10/21/18 08:15 11/20/18 08:14 Pantoprazole (Protonix) 40 mg EVERY 12 HOURS ORAL 10/21/18 21:00 11/20/18 20:59 10/29/18 09:33 Polyethylene Glycol (Miralax) 17 gm DAILYPRN PRN ORAL Constipation 10/21/18 08:15 11/20/18 08:14 10/21/18 11:32 Potassium Chloride (K-Dur) 40 meq DAILY ORAL 10/25/18 09:00 11/24/18 08:59 10/29/18 09:32 Trimethoprim/ Sulfamethoxazole (Bactrim-DS) 1 tab TWICE A DAY ORAL 10/28/18 21:00 11/04/18 20:59 10/29/18 09:33 Fernanda Davison M.D. Oct 29, 2018 12:58
--- NOTE | 2018-10-29 14:28 | Pulmonology Progress Note ---
Assessment/Plan Problems: (1) Sepsis (2) Cellulitis of left foot Assessment/Plan improving doing better on abx check cultures wound care dvt prophylaxis. Subjective ROS Limited/Unobtainable: No Constitutional: Reports: no symptoms HEENT: Repors: no symptoms Respiratory: Reports: no symptoms Allergies: Coded Allergies: No Known Allergies (Unverified , 10/20/18) Objective Last 24 Hour Vital Signs Date Time Temp Pulse Resp B/P (MAP) Pulse Ox O2 Delivery O2 Flow Rate FiO2 10/29/18 14:14 97.8 10/29/18 12:49 97.8 10/29/18 12:00 97.0 75 18 101/67 (78) 98 10/29/18 09:00 Room Air 10/29/18 08:00 97.8 73 18 111/69 (83) 100 10/29/18 04:00 97.8 83 19 104/63 (77) 97 10/29/18 00:11 97.8 86 19 112/68 (83) 97 10/28/18 21:00 Room Air 10/28/18 20:00 97.0 83 19 109/64 (79) 97 10/28/18 16:11 99.0 103 19 110/60 (77) 96 Intake and Output 10/28/18 10/29/18 19:00 07:00 Intake Total 1630.0 ml 600 ml Output Total 1200 ml 1700 ml Balance 430.0 ml -1100 ml Intake Oral 1300 ml 600 ml IV Total 330.0 ml Output Urine Total 1200 ml 1700 ml # Voids 4 Objective General Appearance: WD/WN HEENT: normocephalic, atraumatic Respiratory/Chest: chest wall non-tender, lungs clear, normal breath sounds Breasts: no masses Cardiovascular: normal peripheral pulses, normal rate Abdomen: normal bowel sounds, soft, non tender Genitourinary: normal external genitalia Extremities: no cyanosis, less edema Laboratory Tests 10/29/18 05:15: White Blood Count 9.5, Red Blood Count 3.99L, Hemoglobin 12.0L, Hematocrit 37.3L , Mean Corpuscular Volume 94, Mean Corpuscular Hemoglobin 30.0, Mean Corpuscular Hemoglobin Concent 32.1, Red Cell Distribution Width 12.4, Platelet Count 561H, Mean Platelet Volume 4.7L, Neutrophils (%) (Auto) 65.2, Lymphocytes (%) (Auto) 23.0, Monocytes (%) (Auto) 9.9, Eosinophils (%) (Auto) 1.2, Basophils (%) (Auto) 0.6, Sodium Level 135L, Potassium Level 4.5, Chloride Level 100, Carbon Dioxide Level 28, Anion Gap 7, Blood Urea Nitrogen 18, Creatinine 1.0, Estimat Glomerular Filtration Rate > 60, Glucose Level 115H, Calcium Level 9.2 Current Medications Medications (Trade) Dose Ordered Sig/Juan Route PRN Reason Start Time Stop Time Status Last Admin Dose Admin Acetaminophen (Tylenol) 650 mg Q4H PRN ORAL fever 10/21/18 08:15 11/20/18 08:14 10/28/18 05:19 Amoxicillin/ Clavulanate Potassium (Augmentin) 875 mg EVERY 12 HOURS ORAL 10/28/18 21:00 11/04/18 20:59 10/29/18 09:33 Dextrose (Dextrose 50%) 25 ml Q30M PRN IV Hypoglycemia 10/21/18 08:30 11/20/18 08:16 Dextrose (Dextrose 50%) 50 ml Q30M PRN IV hypoglycemia 10/21/18 08:30 11/20/18 08:29 Docusate Sodium (Colace) 100 mg THREE TIMES A DAY ORAL 10/21/18 18:00 11/20/18 17:59 10/29/18 12:18 Folic Acid (Folate) 3 mg DAILY ORAL 10/22/18 09:15 11/21/18 09:14 10/29/18 09:32 Heparin Sodium (Porcine) (Heparin 5000 units/ml) 5,000 units EVERY 12 HOURS SUBQ 10/21/18 09:00 11/20/18 08:59 10/29/18 09:40 Hydromorphone HCl (Dilaudid) 1 mg Q4H PRN IVP Severe Pain (Pain Scale 7-10) 10/22/18 22:15 10/29/18 22:14 10/29/18 13:44 Ibuprofen (Motrin) 600 mg TID ORAL 10/24/18 18:00 11/23/18 17:59 10/29/18 12:19 Nitroglycerin (Ntg) 0.4 mg Q5M PRN SL Prn Chest Pain 10/21/18 08:15 11/20/18 08:14 Ondansetron HCl (Zofran) 4 mg Q6H PRN IVP Nausea & Vomiting 10/21/18 08:15 11/20/18 08:14 Pantoprazole (Protonix) 40 mg EVERY 12 HOURS ORAL 10/21/18 21:00 11/20/18 20:59 10/29/18 09:33 Polyethylene Glycol (Miralax) 17 gm DAILYPRN PRN ORAL Constipation 10/21/18 08:15 11/20/18 08:14 10/21/18 11:32 Potassium Chloride (K-Dur) 40 meq DAILY ORAL 10/25/18 09:00 11/24/18 08:59 10/29/18 09:32 Trimethoprim/ Sulfamethoxazole (Bactrim-DS) 1 tab TWICE A DAY ORAL 10/28/18 21:00 11/04/18 20:59 10/29/18 09:33 Alberto Dumont MD Oct 29, 2018 14:28
[2018-10-29 16:00] VITALS: BP 97/68
--- NOTE | 2018-10-29 16:27 | NUR ---
*-* INSURANCE *-* UPDATED CLINICALS HAVE BEEN FAXED TO: [facility]: [facility]ANT [phone]............REVIEW/CLINICAL
--- NOTE | 2018-10-29 16:45 | NUR ---
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 CELLULITIS VS: BP 97/68, P 78, T 97.5, RR 18, SpO2 100 RBC 3.99, H&h 12.0/37.3, Na 135 IS:DILAUDID 1mg IVP MOTRIN 600mg HEPARIN SUBQ BACTRIM-DS AUGMENTIN 875mg K-DUR 40meq MED/SURG STATUS
--- NOTE | 2018-10-29 19:32 | NUR ---
HAND-OFF: Report given to LON SHANNON.
--- NOTE | 2018-10-29 20:04 | NUR ---
NURSE NOTES: Received patient comfortably sleeping.Wound dressing clean,dry and intact.
[2018-10-29 20:09] VITALS: BP 103/74
--- NOTE | 2018-10-29 20:58 | Cardiology Report ---
APPROVED REPORT EKG Measurement Heart [id number] Sinus tachycardia with premature atrial complexes Biatrial enlargement Abnormal ECG
[2018-10-30] VITALS (8 sets, daily range): BP systolic 102–130; BP diastolic 58–75
[2018-10-30] MEDS: Hydromorphone 0.5mg/0.5ml inj IVP PRN ×6 (02:07→23:41)
[2018-10-30 07:21] LABS: BASOPHILS % (AUTO) 0.5 % (0.0-2.0); EOSINOPHILS % (AUTO) 1.5 % (0.0-3.0); HEMATOCRIT 39.2 % (42.0-52.0); HEMOGLOBIN 12.7 G/DL (14.2-18.0); LYMPHOCYTES % (AUTO) 23.6 % (20.0-45.0); MEAN CORPUSCULAR VOLUME 93 FL (80-99); MONOCYTES % (AUTO) 10.6 % (1.0-10.0); NEUTROPHILS % (AUTO) 63.9 % (45.0-75.0); PLATELET COUNT 577 K/UL (150-450); RED BLOOD COUNT 4.21 M/UL (4.70-6.10); RED CELL DISTRIBUTION WIDTH 12.7 % (11.6-14.8); WHITE BLOOD COUNT 9.2 K/UL (4.8-10.8)
--- NOTE | 2018-10-30 07:22 | NUR ---
HAND-OFF: Report given to Phan Mesa RN.
[2018-10-30 07:24] LABS: ANION GAP 8 mmol/L (5-15); BLOOD UREA NITROGEN 17 mg/dL (7-18); CALCIUM 9.7 MG/DL (8.5-10.1); CARBON DIOXIDE 27 MMOL/L (21-32); CHLORIDE 99 MMOL/L (98-107); POTASSIUM 4.8 MMOL/L (3.5-5.1); SODIUM 134 MMOL/L (136-145)
--- NOTE | 2018-10-30 07:26 | NUR ---
NURSE NOTES: Received pt from LON SHANNON. Pt is alert and orient x4. pt is in RA, No SOB or acute respiratory distress noted. pt has intact iv access LFA 20G SL. Pt is eating breakfast independently. all needs attended, bed is locked and is in the lowest position. call light within easy reach. will continue to monitor.
[2018-10-30] MEDS: Docusate 100mg cap ORAL SCH ×3 (09:51→17:31)
[2018-10-30] MEDS: Augmentin 875mg Tab ORAL SCH ×2 (09:51→20:39)
[2018-10-30] MEDS: Bactrim-DS 1 tab ORAL SCH ×2 (09:52→20:40)
[2018-10-30] MEDS: Heparin 5000 units/ml inj SUBQ SCH ×2 (09:54→20:44)
--- NOTE | 2018-10-30 12:41 | Pulmonology Progress Note ---
Assessment/Plan Problems: (1) Sepsis (2) Cellulitis of left foot Assessment/Plan improving doing better on abx check cultures wound care dvt prophylaxis. dc planning Subjective ROS Limited/Unobtainable: No Constitutional: Reports: no symptoms HEENT: Repors: no symptoms Respiratory: Reports: no symptoms Allergies: Coded Allergies: No Known Allergies (Unverified , 10/20/18) Objective Last 24 Hour Vital Signs Date Time Temp Pulse Resp B/P (MAP) Pulse Ox O2 Delivery O2 Flow Rate FiO2 10/30/18 10:33 97.5 10/30/18 10:22 97.5 10/30/18 09:00 Room Air 10/30/18 08:00 97.5 84 17 116/75 (89) 98 10/30/18 04:08 98.8 80 20 108/73 (85) 98 10/30/18 04:05 98.8 80 20 108/73 (85) 98 10/30/18 00:10 98.0 80 18 112/71 (85) 92 10/29/18 20:17 Room Air 10/29/18 20:09 97.8 80 18 103/74 (84) 98 10/29/18 18:20 97.5 10/29/18 16:00 97.5 78 18 97/68 (78) 97 Intake and Output 10/29/18 10/30/18 19:00 07:00 Intake Total 600 ml 1000 ml Output Total 2000 ml 1900 ml Balance -1400 ml -900 ml Intake Oral 600 ml Other 1000 ml Output Urine Total 2000 ml 1900 ml # Voids 2 Objective General Appearance: WD/WN HEENT: normocephalic, atraumatic Respiratory/Chest: chest wall non-tender, lungs clear, normal breath sounds Breasts: no masses Cardiovascular: normal peripheral pulses, normal rate Abdomen: normal bowel sounds, soft, non tender Genitourinary: normal external genitalia Extremities: no cyanosis, less edema Laboratory Tests 10/30/18 05:29: White Blood Count 9.2, Red Blood Count 4.21L, Hemoglobin 12.7L, Hematocrit 39.2L , Mean Corpuscular Volume 93, Mean Corpuscular Hemoglobin 30.2, Mean Corpuscular Hemoglobin Concent 32.5, Red Cell Distribution Width 12.7, Platelet Count 577H, Mean Platelet Volume 4.6L, Neutrophils (%) (Auto) 63.9, Lymphocytes (%) (Auto) 23.6, Monocytes (%) (Auto) 10.6H, Eosinophils (%) (Auto) 1.5, Basophils (%) (Auto) 0.5, Sodium Level 134L, Potassium Level 4.8, Chloride Level 99, Carbon Dioxide Level 27, Anion Gap 8, Blood Urea Nitrogen 17, Creatinine 1.0, Estimat Glomerular Filtration Rate > 60, Glucose Level 93, Calcium Level 9.7 Current Medications Medications (Trade) Dose Ordered Sig/Juan Route PRN Reason Start Time Stop Time Status Last Admin Dose Admin Acetaminophen (Tylenol) 650 mg Q4H PRN ORAL fever 10/21/18 08:15 11/20/18 08:14 10/28/18 05:19 Amoxicillin/ Clavulanate Potassium (Augmentin) 875 mg EVERY 12 HOURS ORAL 10/28/18 21:00 11/04/18 20:59 10/30/18 09:51 Dextrose (Dextrose 50%) 25 ml Q30M PRN IV Hypoglycemia 10/21/18 08:30 11/20/18 08:16 Dextrose (Dextrose 50%) 50 ml Q30M PRN IV hypoglycemia 10/21/18 08:30 11/20/18 08:29 Docusate Sodium (Colace) 100 mg THREE TIMES A DAY ORAL 10/21/18 18:00 11/20/18 17:59 10/30/18 12:36 Folic Acid (Folate) 3 mg DAILY ORAL 10/22/18 09:15 11/21/18 09:14 10/30/18 09:51 Heparin Sodium (Porcine) (Heparin 5000 units/ml) 5,000 units EVERY 12 HOURS SUBQ 10/21/18 09:00 11/20/18 08:59 10/30/18 09:54 Hydromorphone HCl (Dilaudid) 0.5 mg Q4H PRN IVP For Pain 10/29/18 22:45 11/05/18 22:44 10/30/18 10:03 Ibuprofen (Motrin) 600 mg TID ORAL 10/24/18 18:00 11/23/18 17:59 10/30/18 12:36 Nitroglycerin (Ntg) 0.4 mg Q5M PRN SL Prn Chest Pain 10/21/18 08:15 11/20/18 08:14 Ondansetron HCl (Zofran) 4 mg Q6H PRN IVP Nausea & Vomiting 10/21/18 08:15 11/20/18 08:14 Pantoprazole (Protonix) 40 mg EVERY 12 HOURS ORAL 10/21/18 21:00 11/20/18 20:59 10/30/18 09:51 Polyethylene Glycol (Miralax) 17 gm DAILYPRN PRN ORAL Constipation 10/21/18 08:15 11/20/18 08:14 10/21/18 11:32 Potassium Chloride (K-Dur) 40 meq DAILY ORAL 10/25/18 09:00 11/24/18 08:59 10/30/18 09:52 Trimethoprim/ Sulfamethoxazole (Bactrim-DS) 1 tab TWICE A DAY ORAL 10/28/18 21:00 11/04/18 20:59 10/30/18 09:52 Alberto Dumont MD Oct 30, 2018 12:41
--- NOTE | 2018-10-30 13:10 | Infectious Diseases Prog Note ---
Assessment/Plan Assessment/Plan Assessment/Plan: 58 yo male who presnted to the ED on 10/19/18 with left leg cellulitis. Left foot cellulitis -wound cx: MRSA, GAS, P. mirabilsi ([place] S), C. freundi (R ancef, otherwise S), K. oxytoca (R amp, otherwise S) Leukocytosis ;SP Low grade fevers; SP -Tibia/fibula MRI: Negative for evidence of osteomyelitis. Evidence of superficial soft tissue ulcer, marked by a marker at the anteromedial sagastume region.Considerable subcutaneous fat edema. Given stated clinical history, probably on the basis of cellulitis. Correlate with clinical findings. No evidence of drainable abscess. -foot MRI: Extensive soft tissue edema, as described. This is in keeping with stated clinical history of cellulitis. No findings to suggest abscess Very superficial fluid collections likely relate to stated clinical history of dorsal blisters. No marrow abnormality to suggest acute osteomyelitis demonstrated. -ANkle MRI: Patchy areas of marrow edema, as described. Periarticular distribution of this is suggestive of arthropathy which may be degenerative, inflammatory, or, most likely, on the basis of Charcot-type changes. Per technologist, there are no ulcers in the area so osteomyelitis is deemed much less likely. Extensive edema of the subcutaneous fat. Given stated clinical history of cellulitis most likely on the basis of such. Correlate with clinical findings. No drainable abscess collection demonstrated. -Foot xray: No acute injury identified. Soft tissue swelling. Multiple incidental findings as described PLAN: - Continue PO Bactrim DS 1 tab bid and Augmentin 875/125mg PO bid #3 (abx d # 01/21) --ok to discharge on above regimen -10/28 SP Cefepime #8, IV Vancomycin #8 - f/u wound cx - Monitor CBC and Temps -Podiatry f/u Thank you for this consult. We will continue to follow the patient during this hospitalization. Subjective Allergies: Coded Allergies: No Known Allergies (Unverified , 10/20/18) Subjective afebrile >48hrs no leukocytosis Objective Vital Signs Last 24 Hour Vital Signs Date Time Temp Pulse Resp B/P (MAP) Pulse Ox O2 Delivery O2 Flow Rate FiO2 10/30/18 12:00 98.0 64 17 117/63 (81) 98 10/30/18 10:33 97.5 10/30/18 10:22 97.5 10/30/18 09:00 Room Air 10/30/18 08:00 97.5 84 17 116/75 (89) 98 10/30/18 04:08 98.8 80 20 108/73 (85) 98 10/30/18 04:05 98.8 80 20 108/73 (85) 98 10/30/18 00:10 98.0 80 18 112/71 (85) 92 10/29/18 20:17 Room Air 10/29/18 20:09 97.8 80 18 103/74 (84) 98 10/29/18 18:20 97.5 10/29/18 16:00 97.5 78 18 97/68 (78) 97 Height (Feet): 6 Height (Inches): 1.00 Weight (Pounds): 169 Objective Gen: NAD HEENT: NCAT, MMM, EOMI, PERRL, No Oral lesion, no scleral icterus NECK: full range of motion, supple, no meningismus, No LAD, No JVD LUNGS: CTAB, No W/C, No Accessory muscle use CARDS: RRR, S1, S2, No M/R/G, ABD: Soft, NT, ND, No R/G, + BS, No HSM, No Masses : Deferred Ext: C/C/E, Pulses 2+ B/L (DP, Rad): LLE swelling with erythema and pain, Ulceration present with purulence. NEURO: A/O x 4, Strength and Sensation Grossly intact PSYCH: Normal mood and affect SKIN: Warm/dry, No rashes Laboratory Tests Test 10/30/18 05:29 White Blood Count 9.2 K/UL (4.8-10.8) Red Blood Count 4.21 M/UL (4.70-6.10) L Hemoglobin 12.7 G/DL (14.2-18.0) L Hematocrit 39.2 % (42.0-52.0) L Mean Corpuscular Volume 93 FL (80-99) Mean Corpuscular Hemoglobin 30.2 PG (27.0-31.0) Mean Corpuscular Hemoglobin Concent 32.5 G/DL (32.0-36.0) Red Cell Distribution Width 12.7 % (11.6-14.8) Platelet Count 577 K/UL (150-450) H Mean Platelet Volume 4.6 FL (6.5-10.1) L Neutrophils (%) (Auto) 63.9 % (45.0-75.0) Lymphocytes (%) (Auto) 23.6 % (20.0-45.0) Monocytes (%) (Auto) 10.6 % (1.0-10.0) H Eosinophils (%) (Auto) 1.5 % (0.0-3.0) Basophils (%) (Auto) 0.5 % (0.0-2.0) Sodium Level 134 MMOL/L (136-145) L Potassium Level 4.8 MMOL/L (3.5-5.1) Chloride Level 99 MMOL/L (98-107) Carbon Dioxide Level 27 MMOL/L (21-32) Anion Gap 8 mmol/L (5-15) Blood Urea Nitrogen 17 mg/dL (7-18) Creatinine 1.0 MG/DL (0.55-1.30) Estimat Glomerular Filtration Rate > 60 mL/min (>60) Glucose Level 93 MG/DL (74-106) Calcium Level 9.7 MG/DL (8.5-10.1) Current Medications Medications (Trade) Dose Ordered Sig/Juan Route PRN Reason Start Time Stop Time Status Last Admin Dose Admin Acetaminophen (Tylenol) 650 mg Q4H PRN ORAL fever 10/21/18 08:15 11/20/18 08:14 10/28/18 05:19 Amoxicillin/ Clavulanate Potassium (Augmentin) 875 mg EVERY 12 HOURS ORAL 10/28/18 21:00 11/04/18 20:59 10/30/18 09:51 Dextrose (Dextrose 50%) 25 ml Q30M PRN IV Hypoglycemia 10/21/18 08:30 11/20/18 08:16 Dextrose (Dextrose 50%) 50 ml Q30M PRN IV hypoglycemia 10/21/18 08:30 11/20/18 08:29 Docusate Sodium (Colace) 100 mg THREE TIMES A DAY ORAL 10/21/18 18:00 11/20/18 17:59 10/30/18 12:36 Folic Acid (Folate) 3 mg DAILY ORAL 10/22/18 09:15 11/21/18 09:14 10/30/18 09:51 Heparin Sodium (Porcine) (Heparin 5000 units/ml) 5,000 units EVERY 12 HOURS SUBQ 10/21/18 09:00 11/20/18 08:59 10/30/18 09:54 Hydromorphone HCl (Dilaudid) 0.5 mg Q4H PRN IVP For Pain 10/29/18 22:45 11/05/18 22:44 10/30/18 10:03 Ibuprofen (Motrin) 600 mg TID ORAL 10/24/18 18:00 11/23/18 17:59 10/30/18 12:36 Nitroglycerin (Ntg) 0.4 mg Q5M PRN SL Prn Chest Pain 10/21/18 08:15 11/20/18 08:14 Ondansetron HCl (Zofran) 4 mg Q6H PRN IVP Nausea & Vomiting 10/21/18 08:15 11/20/18 08:14 Pantoprazole (Protonix) 40 mg EVERY 12 HOURS ORAL 10/21/18 21:00 11/20/18 20:59 10/30/18 09:51 Polyethylene Glycol (Miralax) 17 gm DAILYPRN PRN ORAL Constipation 10/21/18 08:15 11/20/18 08:14 10/21/18 11:32 Potassium Chloride (K-Dur) 40 meq DAILY ORAL 10/25/18 09:00 11/24/18 08:59 10/30/18 09:52 Trimethoprim/ Sulfamethoxazole (Bactrim-DS) 1 tab TWICE A DAY ORAL 10/28/18 21:00 11/04/18 20:59 10/30/18 09:52 Fernanda Davison M.D. Oct 30, 2018 13:10
--- NOTE | 2018-10-30 13:17 | Nephrology Progress Note ---
Assessment/Plan Problem List: (1) Cellulitis of left foot (2) Sepsis (3) Hyponatremia (4) Hypoalbuminemia Assessment Left foot cellulitis / Leukocytosis / No fever Low Na Low K Anemia High Lactic Low Albumin Plan Isotonic solution K supplement DC IV fluids monitor lytes avoid nephrotoxics urine tox screen positive for Amphetamines and Opiates per orders stable from renal stand if discharged Subjective ROS Limited/Unobtainable: No Objective Objective Last 24 Hour Vital Signs Date Time Temp Pulse Resp B/P (MAP) Pulse Ox O2 Delivery O2 Flow Rate FiO2 10/30/18 12:00 98.0 64 17 117/63 (81) 98 10/30/18 10:33 97.5 10/30/18 10:22 97.5 10/30/18 09:00 Room Air 10/30/18 08:00 97.5 84 17 116/75 (89) 98 10/30/18 04:08 98.8 80 20 108/73 (85) 98 10/30/18 04:05 98.8 80 20 108/73 (85) 98 10/30/18 00:10 98.0 80 18 112/71 (85) 92 10/29/18 20:17 Room Air 10/29/18 20:09 97.8 80 18 103/74 (84) 98 10/29/18 18:20 97.5 10/29/18 16:00 97.5 78 18 97/68 (78) 97 Intake and Output 10/29/18 10/30/18 19:00 07:00 Intake Total 600 ml 1000 ml Output Total 2000 ml 1900 ml Balance -1400 ml -900 ml Intake Oral 600 ml Other 1000 ml Output Urine Total 2000 ml 1900 ml # Voids 2 Laboratory Tests 10/30/18 05:29: White Blood Count 9.2, Red Blood Count 4.21L, Hemoglobin 12.7L, Hematocrit 39.2L , Mean Corpuscular Volume 93, Mean Corpuscular Hemoglobin 30.2, Mean Corpuscular Hemoglobin Concent 32.5, Red Cell Distribution Width 12.7, Platelet Count 577H, Mean Platelet Volume 4.6L, Neutrophils (%) (Auto) 63.9, Lymphocytes (%) (Auto) 23.6, Monocytes (%) (Auto) 10.6H, Eosinophils (%) (Auto) 1.5, Basophils (%) (Auto) 0.5, Sodium Level 134L, Potassium Level 4.8, Chloride Level 99, Carbon Dioxide Level 27, Anion Gap 8, Blood Urea Nitrogen 17, Creatinine 1.0, Estimat Glomerular Filtration Rate > 60, Glucose Level 93, Calcium Level 9.7 Height (Feet): 6 Height (Inches): 1.00 Weight (Pounds): 169 General Appearance: no apparent distress Cardiovascular: normal rate Respiratory/Chest: decreased breath sounds Abdomen: soft Objective no change Levar Conde MD Oct 30, 2018 13:17
--- NOTE | 2018-10-30 14:52 | NUR ---
*-* INSURANCE *-* UPDATED CLINICALS & Review HAVE BEEN FAXED TO: [facility]: BRANT P- [id number] X [phone] F [phone]............REVIEW/CLINICAL
--- NOTE | 2018-10-30 15:58 | NUR ---
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 CELLULITIS VS: BP 127/65, P 61, T 98.2, RR 18, SpO2 94 RBC 4.21, H&H 12.7/39.2, Na 134 IS:DILAUDID 0.5mg IVP HEPARIN SUBQ K-DUR 40meq AUGMENTIN 875mg BACTRIM-DS 1tab PLAN: DVT PROPHYLAXIS WOUND CARE PENDING PLACEMENT MED/SURG STATUS
--- NOTE | 2018-10-30 16:02 | General Progress Note ---
Assessment/Plan Problem List: (1) Sepsis ICD Codes: A41.9 - Sepsis, unspecified organism SNOMED: 62179767 (2) Cellulitis of left foot ICD Codes: L03.116 - Cellulitis of left lower limb SNOMED: 033552440 Status: stable, progressing Assessment/Plan: wound care abx pain control cbc bmp am dc snf if clear Subjective Constitutional: Reports: weakness Allergies: Coded Allergies: No Known Allergies (Unverified , 10/20/18) All Systems: reviewed and negative except above Subjective sleepy calm Objective Last 24 Hour Vital Signs Date Time Temp Pulse Resp B/P (MAP) Pulse Ox O2 Delivery O2 Flow Rate FiO2 10/30/18 14:59 97.5 10/30/18 13:06 97.5 10/30/18 12:00 98.0 64 17 117/63 (81) 98 10/30/18 09:00 Room Air 10/30/18 08:00 97.5 84 17 116/75 (89) 98 10/30/18 04:08 98.8 80 20 108/73 (85) 98 10/30/18 04:05 98.8 80 20 108/73 (85) 98 10/30/18 00:10 98.0 80 18 112/71 (85) 92 10/29/18 20:17 Room Air 10/29/18 20:09 97.8 80 18 103/74 (84) 98 10/29/18 18:20 97.5 Intake and Output 10/29/18 10/30/18 19:00 07:00 Intake Total 600 ml 1000 ml Output Total 2000 ml 1900 ml Balance -1400 ml -900 ml Intake Oral 600 ml Other 1000 ml Output Urine Total 2000 ml 1900 ml # Voids 2 Laboratory Tests 10/30/18 05:29: White Blood Count 9.2, Red Blood Count 4.21L, Hemoglobin 12.7L, Hematocrit 39.2L , Mean Corpuscular Volume 93, Mean Corpuscular Hemoglobin 30.2, Mean Corpuscular Hemoglobin Concent 32.5, Red Cell Distribution Width 12.7, Platelet Count 577H, Mean Platelet Volume 4.6L, Neutrophils (%) (Auto) 63.9, Lymphocytes (%) (Auto) 23.6, Monocytes (%) (Auto) 10.6H, Eosinophils (%) (Auto) 1.5, Basophils (%) (Auto) 0.5, Sodium Level 134L, Potassium Level 4.8, Chloride Level 99, Carbon Dioxide Level 27, Anion Gap 8, Blood Urea Nitrogen 17, Creatinine 1.0, Estimat Glomerular Filtration Rate > 60, Glucose Level 93, Calcium Level 9.7 Height (Feet): 6 Height (Inches): 1.00 Weight (Pounds): 169 General Appearance: lethargic EENT: normal ENT inspection Neck: normal alignment Cardiovascular: normal peripheral pulses, normal rate, regular rhythm Respiratory/Chest: chest wall non-tender, lungs clear, normal breath sounds Abdomen: normal bowel sounds, non tender, soft Extremities: normal inspection Edema: 1+ Arm (L), 1+ Arm (R), 1+ Leg (L), 1+ Leg (R), 1+ Pedal (L), 1+ Pedal ( R), 1+ Generalized Edema: trace edema Neurologic: motor weakness Skin: normal pigmentation, warm/dry Objective l foor sl red and swollen up to ankle Shaun Trejo DO Oct 30, 2018 16:02
--- NOTE | 2018-10-30 19:34 | NUR ---
HAND-OFF: Report given to LON POSADAS.
--- NOTE | 2018-10-30 20:13 | NUR ---
NURSE NOTES: Patient in bed, awake, alert, verbally responsive. IV in place, patent. Had complaints of pain. Dilaudid 0.5 mg PRN was given as ordered. No s/s distress noted. Bed in lowest position, call light within reach, bed alarm on. Will continue to monitor.
[2018-10-31 00:59] VITALS: BP 127/65
[2018-10-31] MEDS: Hydromorphone 0.5mg/0.5ml inj IVP PRN ×6 (03:44→20:37)
[2018-10-31 04:00] VITALS: BP 113/61
--- NOTE | 2018-10-31 04:03 | NUR ---
NURSE NOTES: WHEN NURSE WAS DOING ROUNDS, PATIENT NOTED TO HAVE NEW OPEN WOUND ON LEFT ANKLE. PATIENT DENIES TOUCHING ANKLE. WOUND BLEEDING. WOUND PHOTO TAKEN AND UPLOADED. CHARGE NURSE AWARE.
--- NOTE | 2018-10-31 04:05 | NUR ---
NURSE NOTES: CHANGE LEFT LOWER LEG WOUND DRESSING, PATIENT TOLERATED.
--- NOTE | 2018-10-31 07:04 | NUR ---
HAND-OFF: Report given to VALENCIA SAUCEDO RN.
--- NOTE | 2018-10-31 07:05 | NUR ---
NURSE NOTES: received report from LON Babin. patient in bed. eating breakfast. A&Ox4. no respiratory distress noted on room air. no c/o pain at this time. cleared by all consults for discharge. planning on for placement. IV on LFA 20 hep lock intact. fall risk. the bed in the lowest position. call light within reach. alarm on. will continue to provide plan of care.
[2018-10-31 07:06] LABS: BASOPHILS % (AUTO) 0.7 % (0.0-2.0); EOSINOPHILS % (AUTO) 1.2 % (0.0-3.0); HEMATOCRIT 39.7 % (42.0-52.0); HEMOGLOBIN 12.7 G/DL (14.2-18.0); LYMPHOCYTES % (AUTO) 21.6 % (20.0-45.0); MEAN CORPUSCULAR VOLUME 93 FL (80-99); MONOCYTES % (AUTO) 12.6 % (1.0-10.0); NEUTROPHILS % (AUTO) 63.9 % (45.0-75.0); PLATELET COUNT 566 K/UL (150-450); RED BLOOD COUNT 4.25 M/UL (4.70-6.10); RED CELL DISTRIBUTION WIDTH 12.8 % (11.6-14.8); WHITE BLOOD COUNT 8.3 K/UL (4.8-10.8)
[2018-10-31 07:14] LABS: ANION GAP 9 mmol/L (5-15); BLOOD UREA NITROGEN 21 mg/dL (7-18); CALCIUM 9.8 MG/DL (8.5-10.1); CARBON DIOXIDE 28 MMOL/L (21-32); CHLORIDE 99 MMOL/L (98-107); CREATININE 1.1 MG/DL (0.55-1.30); POTASSIUM 4.5 MMOL/L (3.5-5.1); SODIUM 136 MMOL/L (136-145)
--- NOTE | 2018-10-31 07:57 | NUR ---
NURSE NOTES: wasted dilaudid 0.5mg d/t broken syringe. got sameera Michel RN, charge nurse.
[2018-10-31 08:00] VITALS: BP 115/69
[2018-10-31] MEDS: Augmentin 875mg Tab ORAL SCH ×2 (08:34→21:20)
[2018-10-31] MEDS: Docusate 100mg cap ORAL SCH ×3 (08:34→17:20)
[2018-10-31] MEDS: Bactrim-DS 1 tab ORAL SCH ×2 (08:34→21:20)
[2018-10-31] MEDS: Heparin 5000 units/ml inj SUBQ SCH ×2 (08:36→21:20)
--- NOTE | 2018-10-31 09:15 | General Progress Note ---
Assessment/Plan Problem List: (1) Sepsis ICD Codes: A41.9 - Sepsis, unspecified organism SNOMED: 14151527 (2) Cellulitis of left foot ICD Codes: L03.116 - Cellulitis of left lower limb SNOMED: 484755320 Status: stable, progressing Assessment/Plan: wound care abx pain control cbc bmp am dc snf if clear Subjective Constitutional: Reports: weakness Allergies: Coded Allergies: No Known Allergies (Unverified , 10/20/18) All Systems: reviewed and negative except above Subjective sleepy calm Objective Last 24 Hour Vital Signs Date Time Temp Pulse Resp B/P (MAP) Pulse Ox O2 Delivery O2 Flow Rate FiO2 10/31/18 04:14 98.1 10/31/18 04:00 98.1 61 18 113/61 (78) 96 10/31/18 00:59 98.1 84 18 127/65 (85) 97 10/30/18 22:18 Room Air 10/30/18 20:00 98.4 83 18 103/58 (73) 98 10/30/18 18:02 98.2 10/30/18 16:00 98.2 79 16 102/69 (80) 96 10/30/18 12:00 98.0 64 17 117/63 (81) 98 Intake and Output 10/30/18 10/31/18 19:00 07:00 Intake Total 600 ml 320 ml Output Total 1500 ml Balance 600 ml -1180 ml Intake Oral 600 ml 320 ml Output Urine Total 1500 ml Laboratory Tests 10/31/18 06:00: White Blood Count 8.3, Red Blood Count 4.25L, Hemoglobin 12.7L, Hematocrit 39.7L , Mean Corpuscular Volume 93, Mean Corpuscular Hemoglobin 29.9, Mean Corpuscular Hemoglobin Concent 32.0, Red Cell Distribution Width 12.8, Platelet Count 566H, Mean Platelet Volume 4.8L, Neutrophils (%) (Auto) 63.9, Lymphocytes (%) (Auto) 21.6, Monocytes (%) (Auto) 12.6H, Eosinophils (%) (Auto) 1.2, Basophils (%) (Auto) 0.7, Sodium Level 136, Potassium Level 4.5, Chloride Level 99, Carbon Dioxide Level 28, Anion Gap 9, Blood Urea Nitrogen 21H, Creatinine 1.1, Estimat Glomerular Filtration Rate > 60, Glucose Level 104, Calcium Level 9.8 Height (Feet): 6 Height (Inches): 1.00 Weight (Pounds): 155 General Appearance: lethargic EENT: normal ENT inspection Neck: normal alignment Cardiovascular: normal peripheral pulses, normal rate, regular rhythm Respiratory/Chest: chest wall non-tender, lungs clear, normal breath sounds Abdomen: normal bowel sounds, non tender, soft Extremities: normal inspection Edema: 1+ Arm (L), 1+ Arm (R), 1+ Leg (L), 1+ Leg (R), 1+ Pedal (L), 1+ Pedal ( R), 1+ Generalized Edema: trace edema Neurologic: motor weakness Skin: normal pigmentation, warm/dry Objective l foor sl red and swollen up to ankle Shaun Trejo DO Oct 31, 2018 09:15
--- NOTE | 2018-10-31 11:31 | Pulmonology Progress Note ---
Assessment/Plan Problems: (1) Sepsis (2) Cellulitis of left foot Assessment/Plan improving doing better on abx check cultures wound care dvt prophylaxis. dc planning Subjective ROS Limited/Unobtainable: No Constitutional: Reports: no symptoms HEENT: Repors: no symptoms Respiratory: Reports: no symptoms Allergies: Coded Allergies: No Known Allergies (Unverified , 10/20/18) Objective Last 24 Hour Vital Signs Date Time Temp Pulse Resp B/P (MAP) Pulse Ox O2 Delivery O2 Flow Rate FiO2 10/31/18 09:00 Room Air 10/31/18 08:00 97.8 89 18 115/69 (84) 94 10/31/18 04:14 98.1 10/31/18 04:00 98.1 61 18 113/61 (78) 96 10/31/18 00:59 98.1 84 18 127/65 (85) 97 10/30/18 22:18 Room Air 10/30/18 20:00 98.4 83 18 103/58 (73) 98 10/30/18 18:02 98.2 10/30/18 16:00 98.2 79 16 102/69 (80) 96 10/30/18 12:00 98.0 64 17 117/63 (81) 98 Intake and Output 10/30/18 10/31/18 19:00 07:00 Intake Total 600 ml 320 ml Output Total 1500 ml Balance 600 ml -1180 ml Intake Oral 600 ml 320 ml Output Urine Total 1500 ml Objective General Appearance: WD/WN HEENT: normocephalic, atraumatic Respiratory/Chest: chest wall non-tender, lungs clear, normal breath sounds Breasts: no masses Cardiovascular: normal peripheral pulses, normal rate Abdomen: normal bowel sounds, soft, non tender Genitourinary: normal external genitalia Extremities: no cyanosis, less edema Laboratory Tests 10/31/18 06:00: White Blood Count 8.3, Red Blood Count 4.25L, Hemoglobin 12.7L, Hematocrit 39.7L , Mean Corpuscular Volume 93, Mean Corpuscular Hemoglobin 29.9, Mean Corpuscular Hemoglobin Concent 32.0, Red Cell Distribution Width 12.8, Platelet Count 566H, Mean Platelet Volume 4.8L, Neutrophils (%) (Auto) 63.9, Lymphocytes (%) (Auto) 21.6, Monocytes (%) (Auto) 12.6H, Eosinophils (%) (Auto) 1.2, Basophils (%) (Auto) 0.7, Sodium Level 136, Potassium Level 4.5, Chloride Level 99, Carbon Dioxide Level 28, Anion Gap 9, Blood Urea Nitrogen 21H, Creatinine 1.1, Estimat Glomerular Filtration Rate > 60, Glucose Level 104, Calcium Level 9.8 Current Medications Medications (Trade) Dose Ordered Sig/Juan Route PRN Reason Start Time Stop Time Status Last Admin Dose Admin Acetaminophen (Tylenol) 650 mg Q4H PRN ORAL fever 10/21/18 08:15 11/20/18 08:14 10/28/18 05:19 Amoxicillin/ Clavulanate Potassium (Augmentin) 875 mg EVERY 12 HOURS ORAL 10/28/18 21:00 11/04/18 20:59 10/31/18 08:34 Dextrose (Dextrose 50%) 25 ml Q30M PRN IV Hypoglycemia 10/21/18 08:30 11/20/18 08:16 Dextrose (Dextrose 50%) 50 ml Q30M PRN IV hypoglycemia 10/21/18 08:30 11/20/18 08:29 Docusate Sodium (Colace) 100 mg THREE TIMES A DAY ORAL 10/21/18 18:00 11/20/18 17:59 10/31/18 08:34 Folic Acid (Folate) 3 mg DAILY ORAL 10/22/18 09:15 11/21/18 09:14 10/31/18 08:34 Heparin Sodium (Porcine) (Heparin 5000 units/ml) 5,000 units EVERY 12 HOURS SUBQ 10/21/18 09:00 11/20/18 08:59 10/31/18 08:36 Hydromorphone HCl (Dilaudid) 0.5 mg Q4H PRN IVP For Pain 10/29/18 22:45 11/05/18 22:44 10/31/18 07:54 Ibuprofen (Motrin) 600 mg TID ORAL 10/24/18 18:00 11/23/18 17:59 10/31/18 08:35 Nitroglycerin (Ntg) 0.4 mg Q5M PRN SL Prn Chest Pain 10/21/18 08:15 11/20/18 08:14 Ondansetron HCl (Zofran) 4 mg Q6H PRN IVP Nausea & Vomiting 10/21/18 08:15 11/20/18 08:14 Pantoprazole (Protonix) 40 mg EVERY 12 HOURS ORAL 10/21/18 21:00 11/20/18 20:59 10/31/18 08:34 Polyethylene Glycol (Miralax) 17 gm DAILYPRN PRN ORAL Constipation 10/21/18 08:15 11/20/18 08:14 10/21/18 11:32 Potassium Chloride (K-Dur) 40 meq DAILY ORAL 10/25/18 09:00 11/24/18 08:59 10/31/18 08:34 Trimethoprim/ Sulfamethoxazole (Bactrim-DS) 1 tab Q12HR ORAL 10/30/18 21:00 11/04/18 20:59 10/31/18 08:34 Alberto Dumont MD Oct 31, 2018 11:31
[2018-10-31 12:00] VITALS: BP 106/71
--- NOTE | 2018-10-31 13:41 | Infectious Diseases Prog Note ---
Assessment/Plan Assessment/Plan Assessment/Plan: 58 yo male who presnted to the ED on 10/19/18 with left leg cellulitis. Left foot cellulitis -wound cx: MRSA, GAS, P. mirabilsi (Bassett S), C. freundi (R ancef, otherwise S), K. oxytoca (R amp, otherwise S) Leukocytosis ;SP Low grade fevers; SP -Tibia/fibula MRI: Negative for evidence of osteomyelitis. Evidence of superficial soft tissue ulcer, marked by a marker at the anteromedial sagastume region.Considerable subcutaneous fat edema. Given stated clinical history, probably on the basis of cellulitis. Correlate with clinical findings. No evidence of drainable abscess. -foot MRI: Extensive soft tissue edema, as described. This is in keeping with stated clinical history of cellulitis. No findings to suggest abscess Very superficial fluid collections likely relate to stated clinical history of dorsal blisters. No marrow abnormality to suggest acute osteomyelitis demonstrated. -ANkle MRI: Patchy areas of marrow edema, as described. Periarticular distribution of this is suggestive of arthropathy which may be degenerative, inflammatory, or, most likely, on the basis of Charcot-type changes. Per technologist, there are no ulcers in the area so osteomyelitis is deemed much less likely. Extensive edema of the subcutaneous fat. Given stated clinical history of cellulitis most likely on the basis of such. Correlate with clinical findings. No drainable abscess collection demonstrated. -Foot xray: No acute injury identified. Soft tissue swelling. Multiple incidental findings as described PLAN: - Continue PO Bactrim DS 1 tab bid and Augmentin 875/125mg PO bid #4 (abx d # 02/21) --ok to discharge on above regimen -10/28 SP Cefepime #8, IV Vancomycin #8 - f/u wound cx - Monitor CBC and Temps -Podiatry f/u Thank you for this consult. We will continue to follow the patient during this hospitalization. Subjective Allergies: Coded Allergies: No Known Allergies (Unverified , 10/20/18) Subjective afebrile >72hrs no leukocytosis Objective Vital Signs Last 24 Hour Vital Signs Date Time Temp Pulse Resp B/P (MAP) Pulse Ox O2 Delivery O2 Flow Rate FiO2 10/31/18 12:00 98.2 78 17 106/71 (83) 97 10/31/18 09:00 Room Air 10/31/18 08:00 97.8 89 18 115/69 (84) 94 10/31/18 04:14 98.1 10/31/18 04:00 98.1 61 18 113/61 (78) 96 10/31/18 00:59 98.1 84 18 127/65 (85) 97 10/30/18 22:18 Room Air 10/30/18 20:00 98.4 83 18 103/58 (73) 98 10/30/18 18:02 98.2 10/30/18 16:00 98.2 79 16 102/69 (80) 96 Height (Feet): 6 Height (Inches): 1.00 Weight (Pounds): 155 Objective Gen: NAD HEENT: NCAT, MMM, EOMI, PERRL, No Oral lesion, no scleral icterus NECK: full range of motion, supple, no meningismus, No LAD, No JVD LUNGS: CTAB, No W/C, No Accessory muscle use CARDS: RRR, S1, S2, No M/R/G, ABD: Soft, NT, ND, No R/G, + BS, No HSM, No Masses : Deferred Ext: C/C/E, Pulses 2+ B/L (DP, Rad): LLE swelling with erythema and pain, Ulceration present with purulence. NEURO: A/O x 4, Strength and Sensation Grossly intact PSYCH: Normal mood and affect SKIN: Warm/dry, No rashes Laboratory Tests Test 10/31/18 06:00 White Blood Count 8.3 K/UL (4.8-10.8) Red Blood Count 4.25 M/UL (4.70-6.10) L Hemoglobin 12.7 G/DL (14.2-18.0) L Hematocrit 39.7 % (42.0-52.0) L Mean Corpuscular Volume 93 FL (80-99) Mean Corpuscular Hemoglobin 29.9 PG (27.0-31.0) Mean Corpuscular Hemoglobin Concent 32.0 G/DL (32.0-36.0) Red Cell Distribution Width 12.8 % (11.6-14.8) Platelet Count 566 K/UL (150-450) H Mean Platelet Volume 4.8 FL (6.5-10.1) L Neutrophils (%) (Auto) 63.9 % (45.0-75.0) Lymphocytes (%) (Auto) 21.6 % (20.0-45.0) Monocytes (%) (Auto) 12.6 % (1.0-10.0) H Eosinophils (%) (Auto) 1.2 % (0.0-3.0) Basophils (%) (Auto) 0.7 % (0.0-2.0) Sodium Level 136 MMOL/L (136-145) Potassium Level 4.5 MMOL/L (3.5-5.1) Chloride Level 99 MMOL/L (98-107) Carbon Dioxide Level 28 MMOL/L (21-32) Anion Gap 9 mmol/L (5-15) Blood Urea Nitrogen 21 mg/dL (7-18) H Creatinine 1.1 MG/DL (0.55-1.30) Estimat Glomerular Filtration Rate > 60 mL/min (>60) Glucose Level 104 MG/DL (74-106) Calcium Level 9.8 MG/DL (8.5-10.1) Current Medications Medications (Trade) Dose Ordered Sig/Juan Route PRN Reason Start Time Stop Time Status Last Admin Dose Admin Acetaminophen (Tylenol) 650 mg Q4H PRN ORAL fever 10/21/18 08:15 11/20/18 08:14 10/28/18 05:19 Amoxicillin/ Clavulanate Potassium (Augmentin) 875 mg EVERY 12 HOURS ORAL 10/28/18 21:00 11/04/18 20:59 10/31/18 08:34 Dextrose (Dextrose 50%) 25 ml Q30M PRN IV Hypoglycemia 10/21/18 08:30 11/20/18 08:16 Dextrose (Dextrose 50%) 50 ml Q30M PRN IV hypoglycemia 10/21/18 08:30 11/20/18 08:29 Docusate Sodium (Colace) 100 mg THREE TIMES A DAY ORAL 10/21/18 18:00 11/20/18 17:59 10/31/18 12:18 Folic Acid (Folate) 3 mg DAILY ORAL 10/22/18 09:15 11/21/18 09:14 10/31/18 08:34 Heparin Sodium (Porcine) (Heparin 5000 units/ml) 5,000 units EVERY 12 HOURS SUBQ 10/21/18 09:00 11/20/18 08:59 10/31/18 08:36 Hydromorphone HCl (Dilaudid) 0.5 mg Q4H PRN IVP For Pain 10/29/18 22:45 11/05/18 22:44 10/31/18 12:19 Ibuprofen (Motrin) 600 mg TID ORAL 10/24/18 18:00 11/23/18 17:59 10/31/18 12:19 Nitroglycerin (Ntg) 0.4 mg Q5M PRN SL Prn Chest Pain 10/21/18 08:15 11/20/18 08:14 Ondansetron HCl (Zofran) 4 mg Q6H PRN IVP Nausea & Vomiting 10/21/18 08:15 11/20/18 08:14 Pantoprazole (Protonix) 40 mg EVERY 12 HOURS ORAL 10/21/18 21:00 11/20/18 20:59 10/31/18 08:34 Polyethylene Glycol (Miralax) 17 gm DAILYPRN PRN ORAL Constipation 10/21/18 08:15 11/20/18 08:14 10/21/18 11:32 Potassium Chloride (K-Dur) 40 meq DAILY ORAL 10/25/18 09:00 11/24/18 08:59 10/31/18 08:34 Trimethoprim/ Sulfamethoxazole (Bactrim-DS) 1 tab Q12HR ORAL 10/30/18 21:00 11/04/18 20:59 10/31/18 08:34 Fernanda Davison M.D. Oct 31, 2018 13:41
--- NOTE | 2018-10-31 14:01 | NUR ---
*-* INSURANCE *-* UPDATED CLINICALS HAVE BEEN FAXED TO: [facility]: BRANT P- [phone] F [phone]............REVIEW/CLINICAL
--- NOTE | 2018-10-31 15:07 | Nephrology Progress Note ---
Assessment/Plan Problem List: (1) Cellulitis of left foot (2) Sepsis (3) Hyponatremia (4) Hypoalbuminemia Assessment Left foot cellulitis / Leukocytosis / No fever Low Na Low K Anemia High Lactic Low Albumin Plan Isotonic solution K supplement DC IV fluids monitor lytes avoid nephrotoxics urine tox screen positive for Amphetamines and Opiates per orders stable from renal stand if discharged Subjective ROS Limited/Unobtainable: No Objective Objective Last 24 Hour Vital Signs Date Time Temp Pulse Resp B/P (MAP) Pulse Ox O2 Delivery O2 Flow Rate FiO2 10/31/18 12:00 98.2 78 17 106/71 (83) 97 10/31/18 09:00 Room Air 10/31/18 08:00 97.8 89 18 115/69 (84) 94 10/31/18 04:14 98.1 10/31/18 04:00 98.1 61 18 113/61 (78) 96 10/31/18 00:59 98.1 84 18 127/65 (85) 97 10/30/18 22:18 Room Air 10/30/18 20:00 98.4 83 18 103/58 (73) 98 10/30/18 18:02 98.2 10/30/18 16:00 98.2 79 16 102/69 (80) 96 Intake and Output 10/30/18 10/31/18 19:00 07:00 Intake Total 600 ml 320 ml Output Total 1500 ml Balance 600 ml -1180 ml Intake Oral 600 ml 320 ml Output Urine Total 1500 ml Laboratory Tests 10/31/18 06:00: White Blood Count 8.3, Red Blood Count 4.25L, Hemoglobin 12.7L, Hematocrit 39.7L , Mean Corpuscular Volume 93, Mean Corpuscular Hemoglobin 29.9, Mean Corpuscular Hemoglobin Concent 32.0, Red Cell Distribution Width 12.8, Platelet Count 566H, Mean Platelet Volume 4.8L, Neutrophils (%) (Auto) 63.9, Lymphocytes (%) (Auto) 21.6, Monocytes (%) (Auto) 12.6H, Eosinophils (%) (Auto) 1.2, Basophils (%) (Auto) 0.7, Sodium Level 136, Potassium Level 4.5, Chloride Level 99, Carbon Dioxide Level 28, Anion Gap 9, Blood Urea Nitrogen 21H, Creatinine 1.1, Estimat Glomerular Filtration Rate > 60, Glucose Level 104, Calcium Level 9.8 Height (Feet): 6 Height (Inches): 1.00 Weight (Pounds): 155 General Appearance: no apparent distress Objective no change Levar Conde MD Oct 31, 2018 15:07
[2018-10-31 16:00] VITALS: BP 131/68
--- NOTE | 2018-10-31 19:26 | NUR ---
HAND-OFF: Report given to [place] Bush.
--- NOTE | 2018-10-31 19:30 | NUR ---
NURSE NOTES: RECEIVED PATIENT LYING IN BED, AWAKE, ALERT/ORIENTED X4, VERBALLY RESPONSIVE, NO SIGNS AND SYMPTOMS OF ACUTE CARDIO RESPIRATORY DISTRESS/SHORTNESS OF BREATH, DENIES CHEST PAIN, NO PERIPHERAL EDEMA NOTED. NO COMPLAINTS OF GI DISCOMFORT, NO N/V/D, CONTINENT OF B/B, URINAL/BSC AT BEDSIDE. DRESSINGS DRY AND INTACT TO LEFT LOWER EXTREMITY. SIDE RAILS UP X3/BED IN LOWEST POSITION FOR SAFETY. ENCOURAGED PATIENT TO UTILIZE CALL LIGHT FOR ASSISTANCE, VERBALIZED UNDERSTANDING. CONTINUE WITH CURRENT PLAN OF CARE. NAD.
[2018-10-31 20:00] VITALS: BP 99/66
--- NOTE | 2018-10-31 22:46 | NUR ---
NURSE NOTES: PATIENT STATED THAT DILAUDID 0.5MG IS NOT EFFECTIVE AFTER 2 HOURS, REQUESTING INCREASE IN DOSE; TELEPHONE CALL PLACED TO DR. Bonita CAMACHO, LEFT MESSAGE WITH [facility] AND BEDDING INSPECTOR, WILL AWAIT RETURN CALL. PATIENT MADE AWARE. NAD.
[2018-11-01] VITALS: BP 100/59
[2018-11-01] MEDS: Hydromorphone 0.5mg/0.5ml inj IVP PRN ×3 (00:45→09:24)
[2018-11-01 04:00] VITALS: BP 102/75
--- NOTE | 2018-11-01 06:29 | NUR ---
NURSE NOTES: NO SIGNIFICANT CHANGE OF CONDITION NOTED THROUGHOUT THE NIGHT. SAFETY MAINTAINED. NAD.
--- NOTE | 2018-11-01 07:15 | NUR ---
NURSE NOTES: received report from LON Bush. patient in bed. alert. oriented. no respiratory distress noted. c/o discomfort on lt lower leg. dressing intact and dry. IV LFA 20 hep lock intact. contact isolation from active mrsa wound. fall risk. bed in the lowest position and locked. call light within reach. alarm on. will continue to provide plan of care.
[2018-11-01 07:19] LABS: BASOPHILS % (AUTO) 0.7 % (0.0-2.0); EOSINOPHILS % (AUTO) 0.9 % (0.0-3.0); HEMATOCRIT 41.7 % (42.0-52.0); HEMOGLOBIN 13.2 G/DL (14.2-18.0); LYMPHOCYTES % (AUTO) 32.8 % (20.0-45.0); MEAN CORPUSCULAR VOLUME 95 FL (80-99); MONOCYTES % (AUTO) 5.6 % (1.0-10.0); PLATELET COUNT 560 K/UL (150-450); RED BLOOD COUNT 4.41 M/UL (4.70-6.10); RED CELL DISTRIBUTION WIDTH 13.3 % (11.6-14.8); WHITE BLOOD COUNT 6.6 K/UL (4.8-10.8)
--- NOTE | 2018-11-01 07:30 | NUR ---
HAND-OFF: Report given to LON SAUCEDO.
[2018-11-01 07:31] LABS: ANION GAP 8 mmol/L (5-15); BLOOD UREA NITROGEN 20 mg/dL (7-18); CALCIUM 9.8 MG/DL (8.5-10.1); CARBON DIOXIDE 29 MMOL/L (21-32); CHLORIDE 100 MMOL/L (98-107); CREATININE 1.1 MG/DL (0.55-1.30); POTASSIUM 4.7 MMOL/L (3.5-5.1); SODIUM 136 MMOL/L (136-145)
[2018-11-01 08:00] VITALS: BP 117/69
[2018-11-01] MEDS: Bactrim-DS 1 tab ORAL SCH ×2 (08:55→20:41)
[2018-11-01] MEDS: Augmentin 875mg Tab ORAL SCH ×2 (08:56→20:40)
[2018-11-01] MEDS: Docusate 100mg cap ORAL SCH ×3 (08:56→17:10)
[2018-11-01] MEDS: Heparin 5000 units/ml inj SUBQ SCH ×2 (08:57→20:44)
--- NOTE | 2018-11-01 09:27 | Nephrology Progress Note ---
Assessment/Plan Problem List: (1) Cellulitis of left foot (2) Sepsis (3) Hyponatremia (4) Hypoalbuminemia Assessment Left foot cellulitis / Leukocytosis / No fever Low Na Low K Anemia High Lactic Low Albumin Plan Isotonic solution K supplement DC IV fluids monitor lytes avoid nephrotoxics urine tox screen positive for Amphetamines and Opiates per orders stable from renal stand if discharged Subjective ROS Limited/Unobtainable: No Objective Objective Last 24 Hour Vital Signs Date Time Temp Pulse Resp B/P (MAP) Pulse Ox O2 Delivery O2 Flow Rate FiO2 11/01/18 08:00 98.5 82 19 117/69 (85) 97 11/01/18 05:52 98.3 11/01/18 04:00 98.3 88 18 102/75 (84) 96 11/01/18 00:00 97.5 77 18 100/59 (73) 98 10/31/18 21:00 Room Air 10/31/18 20:00 97.7 83 18 99/66 (77) 97 10/31/18 16:00 98.5 95 16 131/68 (89) 96 10/31/18 12:00 98.2 78 17 106/71 (83) 97 Intake and Output 10/31/18 11/01/18 19:00 07:00 Intake Total 600 ml Output Total 1200 ml Balance -600 ml Intake Oral 600 ml Output Urine Total 1200 ml Laboratory Tests 11/01/18 05:44: White Blood Count 6.6, Red Blood Count 4.41L, Hemoglobin 13.2L, Hematocrit 41.7L , Mean Corpuscular Volume 95, Mean Corpuscular Hemoglobin 29.9, Mean Corpuscular Hemoglobin Concent 31.7L, Red Cell Distribution Width 13.3, Platelet Count 560H, Mean Platelet Volume 4.7L, Neutrophils (%) (Auto) 60.0, Lymphocytes (%) (Auto) 32.8, Monocytes (%) (Auto) 5.6, Eosinophils (%) (Auto) 0.9, Basophils (%) (Auto) 0.7, Sodium Level 136, Potassium Level 4.7, Chloride Level 100, Carbon Dioxide Level 29, Anion Gap 8, Blood Urea Nitrogen 20H, Creatinine 1.1, Estimat Glomerular Filtration Rate > 60, Glucose Level 98, Calcium Level 9.8 Height (Feet): 6 Height (Inches): 1.00 Weight (Pounds): 155 General Appearance: no apparent distress Objective no change Levar Conde MD Nov 01, 2018 09:27
--- NOTE | 2018-11-01 10:39 | Infectious Diseases Prog Note ---
Assessment/Plan Assessment/Plan Assessment/Plan: 58 yo male who presnted to the ED on 10/19/18 with left leg cellulitis. Left foot cellulitis -wound cx: MRSA, GAS, P. mirabilsi (Bassett S), C. freundi (R ancef, otherwise S), K. oxytoca (R amp, otherwise S) Leukocytosis ;SP Low grade fevers; SP -Tibia/fibula MRI: Negative for evidence of osteomyelitis. Evidence of superficial soft tissue ulcer, marked by a marker at the anteromedial sagastume region.Considerable subcutaneous fat edema. Given stated clinical history, probably on the basis of cellulitis. Correlate with clinical findings. No evidence of drainable abscess. -foot MRI: Extensive soft tissue edema, as described. This is in keeping with stated clinical history of cellulitis. No findings to suggest abscess Very superficial fluid collections likely relate to stated clinical history of dorsal blisters. No marrow abnormality to suggest acute osteomyelitis demonstrated. -ANkle MRI: Patchy areas of marrow edema, as described. Periarticular distribution of this is suggestive of arthropathy which may be degenerative, inflammatory, or, most likely, on the basis of Charcot-type changes. Per technologist, there are no ulcers in the area so osteomyelitis is deemed much less likely. Extensive edema of the subcutaneous fat. Given stated clinical history of cellulitis most likely on the basis of such. Correlate with clinical findings. No drainable abscess collection demonstrated. -Foot xray: No acute injury identified. Soft tissue swelling. Multiple incidental findings as described PLAN: - Continue PO Bactrim DS 1 tab bid and Augmentin 875/125mg PO bid #5 (abx d # 03/23) --ok to discharge on above regimen -10/28 SP Cefepime #8, IV Vancomycin #8 - f/u wound cx - Monitor CBC and Temps -Podiatry f/u Thank you for this consult. We will continue to follow the patient during this hospitalization. Subjective Allergies: Coded Allergies: No Known Allergies (Unverified , 10/20/18) Subjective afebrile no leukocytosis awaiting placement Objective Vital Signs Last 24 Hour Vital Signs Date Time Temp Pulse Resp B/P (MAP) Pulse Ox O2 Delivery O2 Flow Rate FiO2 11/01/18 09:00 Room Air 11/01/18 08:00 98.5 82 19 117/69 (85) 97 11/01/18 05:52 98.3 11/01/18 04:00 98.3 88 18 102/75 (84) 96 11/01/18 00:00 97.5 77 18 100/59 (73) 98 10/31/18 21:00 Room Air 10/31/18 20:00 97.7 83 18 99/66 (77) 97 10/31/18 16:00 98.5 95 16 131/68 (89) 96 10/31/18 12:00 98.2 78 17 106/71 (83) 97 Height (Feet): 6 Height (Inches): 1.00 Weight (Pounds): 155 Objective Gen: NAD HEENT: NCAT, MMM, EOMI, PERRL, No Oral lesion, no scleral icterus NECK: full range of motion, supple, no meningismus, No LAD, No JVD LUNGS: CTAB, No W/C, No Accessory muscle use CARDS: RRR, S1, S2, No M/R/G, ABD: Soft, NT, ND, No R/G, + BS, No HSM, No Masses : Deferred Ext: C/C/E, Pulses 2+ B/L (DP, Rad): LLE swelling with erythema and pain, Ulceration present with purulence. NEURO: A/O x 4, Strength and Sensation Grossly intact PSYCH: Normal mood and affect SKIN: Warm/dry, No rashes Laboratory Tests Test 11/01/18 05:44 White Blood Count 6.6 K/UL (4.8-10.8) Red Blood Count 4.41 M/UL (4.70-6.10) L Hemoglobin 13.2 G/DL (14.2-18.0) L Hematocrit 41.7 % (42.0-52.0) L Mean Corpuscular Volume 95 FL (80-99) Mean Corpuscular Hemoglobin 29.9 PG (27.0-31.0) Mean Corpuscular Hemoglobin Concent 31.7 G/DL (32.0-36.0) L Red Cell Distribution Width 13.3 % (11.6-14.8) Platelet Count 560 K/UL (150-450) H Mean Platelet Volume 4.7 FL (6.5-10.1) L Neutrophils (%) (Auto) 60.0 % (45.0-75.0) Lymphocytes (%) (Auto) 32.8 % (20.0-45.0) Monocytes (%) (Auto) 5.6 % (1.0-10.0) Eosinophils (%) (Auto) 0.9 % (0.0-3.0) Basophils (%) (Auto) 0.7 % (0.0-2.0) Sodium Level 136 MMOL/L (136-145) Potassium Level 4.7 MMOL/L (3.5-5.1) Chloride Level 100 MMOL/L (98-107) Carbon Dioxide Level 29 MMOL/L (21-32) Anion Gap 8 mmol/L (5-15) Blood Urea Nitrogen 20 mg/dL (7-18) H Creatinine 1.1 MG/DL (0.55-1.30) Estimat Glomerular Filtration Rate > 60 mL/min (>60) Glucose Level 98 MG/DL (74-106) Calcium Level 9.8 MG/DL (8.5-10.1) Current Medications Medications (Trade) Dose Ordered Sig/Juan Route PRN Reason Start Time Stop Time Status Last Admin Dose Admin Acetaminophen (Tylenol) 650 mg Q4H PRN ORAL fever 10/21/18 08:15 11/20/18 08:14 10/28/18 05:19 Amoxicillin/ Clavulanate Potassium (Augmentin) 875 mg EVERY 12 HOURS ORAL 10/28/18 21:00 11/04/18 20:59 11/01/18 08:56 Dextrose (Dextrose 50%) 25 ml Q30M PRN IV Hypoglycemia 10/21/18 08:30 11/20/18 08:16 Dextrose (Dextrose 50%) 50 ml Q30M PRN IV hypoglycemia 10/21/18 08:30 11/20/18 08:29 Docusate Sodium (Colace) 100 mg THREE TIMES A DAY ORAL 10/21/18 18:00 11/20/18 17:59 11/01/18 08:56 Folic Acid (Folate) 3 mg DAILY ORAL 10/22/18 09:15 11/21/18 09:14 11/01/18 10:33 Heparin Sodium (Porcine) (Heparin 5000 units/ml) 5,000 units EVERY 12 HOURS SUBQ 10/21/18 09:00 11/20/18 08:59 11/01/18 08:57 Hydromorphone HCl (Dilaudid) 0.5 mg Q4H PRN IVP For Pain 10/29/18 22:45 11/05/18 22:44 11/01/18 09:24 Ibuprofen (Motrin) 600 mg TID ORAL 10/24/18 18:00 11/23/18 17:59 10/31/18 17:20 Nitroglycerin (Ntg) 0.4 mg Q5M PRN SL Prn Chest Pain 10/21/18 08:15 11/20/18 08:14 Ondansetron HCl (Zofran) 4 mg Q6H PRN IVP Nausea & Vomiting 10/21/18 08:15 11/20/18 08:14 Pantoprazole (Protonix) 40 mg EVERY 12 HOURS ORAL 10/21/18 21:00 11/20/18 20:59 11/01/18 08:56 Polyethylene Glycol (Miralax) 17 gm DAILYPRN PRN ORAL Constipation 10/21/18 08:15 11/20/18 08:14 10/21/18 11:32 Potassium Chloride (K-Dur) 40 meq DAILY ORAL 10/25/18 09:00 11/24/18 08:59 11/01/18 08:55 Trimethoprim/ Sulfamethoxazole (Bactrim-DS) 1 tab Q12HR ORAL 10/30/18 21:00 11/04/18 20:59 11/01/18 08:55 Fernanda Davison M.D. Nov 01, 2018 10:39
--- NOTE | 2018-11-01 11:38 | Pulmonology Progress Note ---
Assessment/Plan Problems: (1) Sepsis (2) Cellulitis of left foot Assessment/Plan improving doing better on abx check cultures wound care dvt prophylaxis. dc planning Subjective ROS Limited/Unobtainable: No Constitutional: Reports: no symptoms HEENT: Repors: no symptoms Allergies: Coded Allergies: No Known Allergies (Unverified , 10/20/18) Objective Last 24 Hour Vital Signs Date Time Temp Pulse Resp B/P (MAP) Pulse Ox O2 Delivery O2 Flow Rate FiO2 11/01/18 09:00 Room Air 11/01/18 08:00 98.5 82 19 117/69 (85) 97 11/01/18 05:52 98.3 11/01/18 04:00 98.3 88 18 102/75 (84) 96 11/01/18 00:00 97.5 77 18 100/59 (73) 98 10/31/18 21:00 Room Air 10/31/18 20:00 97.7 83 18 99/66 (77) 97 10/31/18 16:00 98.5 95 16 131/68 (89) 96 10/31/18 12:00 98.2 78 17 106/71 (83) 97 Intake and Output 10/31/18 11/01/18 19:00 07:00 Intake Total 600 ml Output Total 1200 ml Balance -600 ml Intake Oral 600 ml Output Urine Total 1200 ml Objective General Appearance: WD/WN HEENT: normocephalic, atraumatic Respiratory/Chest: chest wall non-tender, lungs clear, normal breath sounds Breasts: no masses Cardiovascular: normal peripheral pulses, normal rate Abdomen: normal bowel sounds, soft, non tender Genitourinary: normal external genitalia Extremities: no cyanosis, less edema Laboratory Tests 11/01/18 05:44: White Blood Count 6.6, Red Blood Count 4.41L, Hemoglobin 13.2L, Hematocrit 41.7L , Mean Corpuscular Volume 95, Mean Corpuscular Hemoglobin 29.9, Mean Corpuscular Hemoglobin Concent 31.7L, Red Cell Distribution Width 13.3, Platelet Count 560H, Mean Platelet Volume 4.7L, Neutrophils (%) (Auto) 60.0, Lymphocytes (%) (Auto) 32.8, Monocytes (%) (Auto) 5.6, Eosinophils (%) (Auto) 0.9, Basophils (%) (Auto) 0.7, Sodium Level 136, Potassium Level 4.7, Chloride Level 100, Carbon Dioxide Level 29, Anion Gap 8, Blood Urea Nitrogen 20H, Creatinine 1.1, Estimat Glomerular Filtration Rate > 60, Glucose Level 98, Calcium Level 9.8 Current Medications Medications (Trade) Dose Ordered Sig/Juan Route PRN Reason Start Time Stop Time Status Last Admin Dose Admin Acetaminophen (Tylenol) 650 mg Q4H PRN ORAL fever 10/21/18 08:15 11/20/18 08:14 10/28/18 05:19 Amoxicillin/ Clavulanate Potassium (Augmentin) 875 mg EVERY 12 HOURS ORAL 10/28/18 21:00 11/04/18 20:59 11/01/18 08:56 Dextrose (Dextrose 50%) 25 ml Q30M PRN IV Hypoglycemia 10/21/18 08:30 11/20/18 08:16 Dextrose (Dextrose 50%) 50 ml Q30M PRN IV hypoglycemia 10/21/18 08:30 11/20/18 08:29 Docusate Sodium (Colace) 100 mg THREE TIMES A DAY ORAL 10/21/18 18:00 11/20/18 17:59 11/01/18 08:56 Folic Acid (Folate) 3 mg DAILY ORAL 10/22/18 09:15 11/21/18 09:14 11/01/18 10:33 Heparin Sodium (Porcine) (Heparin 5000 units/ml) 5,000 units EVERY 12 HOURS SUBQ 10/21/18 09:00 11/20/18 08:59 11/01/18 08:57 Hydromorphone HCl (Dilaudid) 0.5 mg Q4H PRN IVP For Pain 10/29/18 22:45 11/05/18 22:44 11/01/18 09:24 Ibuprofen (Motrin) 600 mg TID ORAL 10/24/18 18:00 11/23/18 17:59 10/31/18 17:20 Nitroglycerin (Ntg) 0.4 mg Q5M PRN SL Prn Chest Pain 10/21/18 08:15 11/20/18 08:14 Ondansetron HCl (Zofran) 4 mg Q6H PRN IVP Nausea & Vomiting 10/21/18 08:15 11/20/18 08:14 Pantoprazole (Protonix) 40 mg EVERY 12 HOURS ORAL 10/21/18 21:00 11/20/18 20:59 11/01/18 08:56 Polyethylene Glycol (Miralax) 17 gm DAILYPRN PRN ORAL Constipation 10/21/18 08:15 11/20/18 08:14 10/21/18 11:32 Potassium Chloride (K-Dur) 40 meq DAILY ORAL 10/25/18 09:00 11/24/18 08:59 11/01/18 08:55 Trimethoprim/ Sulfamethoxazole (Bactrim-DS) 1 tab Q12HR ORAL 10/30/18 21:00 11/04/18 20:59 11/01/18 08:55 Alberto Dumont MD Nov 01, 2018 11:38
[2018-11-01 12:00] VITALS: BP 111/63
--- NOTE | 2018-11-01 13:07 | NUR ---
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 CELLULITIS VS: BP 100/59, P 77, T 97.5, RR 18, SpO2 98 RBC 4.41, H&H 13.2/41.7, BUN 20 IS:FOLATE 3mg DILAUDID 0.5mg HEPARIN SUBQ AMOXICILLIN 875mg K-DUR 40meq BACTRIM-DS 1tab FINDING PLACEMENT FOR PATIENT MED/SURG STATUS
[2018-11-01] MEDS: HYDROcodone/Acetamin 10/325 tab ORAL PRN ×3 (13:26→22:11)
--- NOTE | 2018-11-01 13:31 | NUR ---
Social Service Note SW and Homeless Coordinator met with patient to address impending discharge and placement. Patient has been denied acceptance from multiple SNF. SW discussed correction placement or connecting with family. Patient states he has "people" in [place]. Patient states he will contact his "people" to determine if they will be in agreement for him to go to their home. Patient expressed concern that he isn't able to ambulate. SW will obtain order for PT to evaluate patient and possible DME needs. Patient is in agreement with correction placement. SW and homeless coordinator will continue to monitor and reassess as needed.
--- NOTE | 2018-11-01 13:48 | NUR ---
NURSE NOTES: protective services social worker asked pt eval order for DC to snf. notified DR. rush and received order of PT eval and TX. seen by NINA De La Paz and will evaluate the patient tomorrow morning.
--- NOTE | 2018-11-01 13:54 | NUR ---
*-* INSURANCE *-* UPDATED CLINICALS AND REVIEWS HAVE BEEN FAXED TO: [facility]: BRANT P- [phone]............REVIEW/CLINICAL
--- NOTE | 2018-11-01 14:30 | NUR ---
NURSE NOTES: patient c/o norco 10/325mg did not work for his pain. the patient asked back to IV dilaudid. Dr. stevenson said no more IV dilaudid.
--- NOTE | 2018-11-01 14:44 | General Progress Note ---
Assessment/Plan Status: stable, progressing Assessment/Plan: Problem List: (1) Sepsis ICD Codes: A41.9 - Sepsis, unspecified organism SNOMED: 05809765 (2) Cellulitis of left foot ICD Codes: L03.116 - Cellulitis of left lower limb SNOMED: 432095963 Status: stable, progressing --> seen by id is on bactrim and augmentin Subjective Constitutional: Denies: no symptoms, chills, diaphoresis, fever, malaise, weakness, other HEENT: Denies: no symptoms, eye pain, blurred vision, tearing, double vision, ear pain, ear discharge, nose pain, nose congestion, throat pain, throat swelling, mouth pain, mouth swelling, other Cardiovascular: Denies: no symptoms, chest pain, edema, irregular heart rate, lightheadedness, palpitations, syncope, other Respiratory: Denies: no symptoms, cough, orthopnea, shortness of breath, SOB with excertion, SOB at rest, sputum, stridor, wheezing, other Gastrointestinal/Abdominal: Denies: no symptoms, abdomen distended, abdominal pain, black stools, tarry stools, blood in stool, constipated, diarrhea, difficulty swallowing, nausea, poor appetite, poor fluid intake, rectal bleeding , vomiting, other Genitourinary: Denies: no symptoms, burning, discharge, frequency, flank pain, hematuria, incontinence, pain, urgency, other Neurologic/Psychiatric: Denies: no symptoms, anxiety, depressed, emotional problems, headache, numbness, paresthesia, pre-existing deficit, seizure, tingling, tremors, weakness, other Endocrine: Denies: no symptoms, excessive sweating, flushing, intolerance to cold, intolerance to heat, increased hunger, increased thirst, increased urine, unexplained weight gain, unexplained weight loss, other Hematologic/Lymphatic: Denies: no symptoms, anemia, easy bleeding, easy bruising, other Allergies: Coded Allergies: No Known Allergies (Unverified , 10/20/18) Subjective 11/01: left leg still draining clearish fluid, otherwise no f/c, no night sweats Objective Last 24 Hour Vital Signs Date Time Temp Pulse Resp B/P (MAP) Pulse Ox O2 Delivery O2 Flow Rate FiO2 11/01/18 12:00 98.9 77 18 111/63 (79) 97 11/01/18 09:00 Room Air 11/01/18 08:00 98.5 82 19 117/69 (85) 97 11/01/18 05:52 98.3 11/01/18 04:00 98.3 88 18 102/75 (84) 96 11/01/18 00:00 97.5 77 18 100/59 (73) 98 10/31/18 21:00 Room Air 10/31/18 20:00 97.7 83 18 99/66 (77) 97 10/31/18 16:00 98.5 95 16 131/68 (89) 96 Intake and Output 10/31/18 11/01/18 19:00 07:00 Intake Total 600 ml Output Total 1200 ml Balance -600 ml Intake Oral 600 ml Output Urine Total 1200 ml Laboratory Tests 11/01/18 05:44: White Blood Count 6.6, Red Blood Count 4.41L, Hemoglobin 13.2L, Hematocrit 41.7L , Mean Corpuscular Volume 95, Mean Corpuscular Hemoglobin 29.9, Mean Corpuscular Hemoglobin Concent 31.7L, Red Cell Distribution Width 13.3, Platelet Count 560H, Mean Platelet Volume 4.7L, Neutrophils (%) (Auto) 60.0, Lymphocytes (%) (Auto) 32.8, Monocytes (%) (Auto) 5.6, Eosinophils (%) (Auto) 0.9, Basophils (%) (Auto) 0.7, Sodium Level 136, Potassium Level 4.7, Chloride Level 100, Carbon Dioxide Level 29, Anion Gap 8, Blood Urea Nitrogen 20H, Creatinine 1.1, Estimat Glomerular Filtration Rate > 60, Glucose Level 98, Calcium Level 9.8 Height (Feet): 6 Height (Inches): 1.00 Weight (Pounds): 155 Objective EENT: normal ENT inspection Neck: normal alignment Cardiovascular: normal peripheral pulses, normal rate, regular rhythm Respiratory/Chest: chest wall non-tender, lungs clear, normal breath sounds Abdomen: normal bowel sounds, non tender, soft Extremities: normal inspection Edema: 1+ Arm (L), 1+ Arm (R), 1+ Leg (L), 1+ Leg (R), 1+ Pedal (L), 1+ Pedal ( R), 1+ Generalized Edema: trace edema Neurologic: motor weakness Skin: normal pigmentation, warm/dry, ++l foor sl red and swollen up to ankle Boogie Chirinos MD Nov 01, 2018 14:44
[2018-11-01 16:00] VITALS: BP 132/74
--- NOTE | 2018-11-01 18:36 | NUR ---
NURSE NOTES: reassessed pain noco . patient still c/o pain 10/17. asked IV dilaudid. Dr. stevenson said no more IV dilaudid.
--- NOTE | 2018-11-01 19:07 | NUR ---
HAND-OFF: Report given to [place] Bush.
--- NOTE | 2018-11-01 19:30 | NUR ---
NURSE NOTES: RECEIVED PATIENT LYING IN BED, AWAKE, ALERT/ORIENTED X4, ABLE TO VERBALIZE NEEDS, IV INTACT TO RIGHT FOREARM/GAUGE 22, WRAPPED WITH KERLEX TO PREVENT PATIENT FROM REMOVING DEVICE. NO SIGNS AND SYMPTOMS OF ACUTE CARDIO RESPIRATORY DISTRESS/SHORTNESS OF BREATH, DENIES CHEST PAIN, NO PERIPHERAL EDEMA NOTED. NO REPORT OF GI DISCOMFORT, ABDOMEN SOFT/NON DISTENDED/AUDIBLE BOWEL SOUNDS, NO N/V/D. SIDE RAILS UP X3/BED IN LOWEST POSITION FOR SAFETY. CALL LIGHT WITHIN REACH. FREQUENT ROUNDING FOR SAFETY/NEEDS. NAD.
[2018-11-01 20:00] VITALS: BP 108/58
[2018-11-02] VITALS: BP 111/62
[2018-11-02 04:00] VITALS: BP 115/60
[2018-11-02] MEDS: HYDROcodone/Acetamin 10/325 tab ORAL PRN ×5 (04:13→21:11)
--- NOTE | 2018-11-02 06:09 | NUR ---
NURSE NOTES: RESTED WELL, NO SIGNIFICANT CHANGE OF CONDITION NOTED THROUGHOUT THE NIGHT,. SAFETY MAINTAINED. WOUND CARE TO LEFT LOWER EXTREMITY, TOLERATED WELL. NAD.
--- NOTE | 2018-11-02 07:30 | NUR ---
HAND-OFF: Report given to LON SMITH.
--- NOTE | 2018-11-02 07:48 | NUR ---
NURSE NOTES: Received report from NY Fuller. Pt in bed asleep, respirations unlabored, no apparent distress noted, bed in lowest position, call light within reach.
[2018-11-02 08:00] VITALS: BP 104/61
[2018-11-02] MEDS: Docusate 100mg cap ORAL SCH ×3 (08:24→16:53)
[2018-11-02] MEDS: Bactrim-DS 1 tab ORAL SCH ×2 (08:25→21:05)
[2018-11-02] MEDS: Augmentin 875mg Tab ORAL SCH ×2 (08:26→21:05)
[2018-11-02] MEDS: Heparin 5000 units/ml inj SUBQ SCH ×2 (08:29→21:06)
--- NOTE | 2018-11-02 09:00 | NUR ---
PT EVALUATION NOTE Patient seen for initial evaluation, see complete evaluation for details. Patient presents with impaired balance, safety, transfers and ambulation due to painful L foot. Patient will benefit from skilled inpatient PT intervention to address strength, balance, safety and functional mobility. Recommend discharge to SNF for further rehab to improve level of functional mobility once medically cleared by MD. Patient will benefit from FWW for home use. Addendum: 11/02/18 at 1259 by MARIELA GE PT Amended: Links added.
--- NOTE | 2018-11-02 09:06 | General Progress Note ---
Assessment/Plan Status: stable, progressing Assessment/Plan: Ass/Recs: # Sepsis ICD Codes: A41.9 - Sepsis, unspecified organism # Cellulitis of left foot ICD Codes: L03.116 - Cellulitis of left lower limb Status: stable, progressing --> seen by id is on bactrim and augmentin # Hypokalemia --> KCl repleted Appreciate datastage consultant recs Subjective HEENT: Denies: no symptoms, eye pain, blurred vision, tearing, double vision, ear pain, ear discharge, nose pain, nose congestion, throat pain, throat swelling, mouth pain, mouth swelling, other Cardiovascular: Denies: no symptoms, chest pain, edema, irregular heart rate, lightheadedness, palpitations, syncope, other Respiratory: Denies: no symptoms, cough, orthopnea, shortness of breath, SOB with excertion, SOB at rest, sputum, stridor, wheezing, other Gastrointestinal/Abdominal: Denies: no symptoms, abdomen distended, abdominal pain, black stools, tarry stools, blood in stool, constipated, diarrhea, difficulty swallowing, nausea, poor appetite, poor fluid intake, rectal bleeding , vomiting, other Genitourinary: Denies: no symptoms, burning, discharge, frequency, flank pain, hematuria, incontinence, pain, urgency, other Neurologic/Psychiatric: Denies: no symptoms, anxiety, depressed, emotional problems, headache, numbness, paresthesia, pre-existing deficit, seizure, tingling, tremors, weakness, other Endocrine: Denies: no symptoms, excessive sweating, flushing, intolerance to cold, intolerance to heat, increased hunger, increased thirst, increased urine, unexplained weight gain, unexplained weight loss, other Allergies: Coded Allergies: No Known Allergies (Unverified , 10/20/18) Subjective 11/01: left leg still draining clearish fluid, otherwise no f/c, no night sweats 11/02: no issues reported, no fevers or chills, labs reviewed, lying in bed, a+o x4 Objective Last 24 Hour Vital Signs Date Time Temp Pulse Resp B/P (MAP) Pulse Ox O2 Delivery O2 Flow Rate FiO2 11/02/18 08:00 98.3 88 18 104/61 (75) 100 11/02/18 04:43 98.1 11/02/18 04:00 97.9 84 18 115/60 (78) 98 11/02/18 00:00 98.1 87 19 111/62 (78) 99 11/01/18 21:00 Room Air 11/01/18 20:00 98.9 89 19 108/58 (75) 99 11/01/18 16:00 98.7 84 19 132/74 (93) 97 11/01/18 12:00 98.9 77 18 111/63 (79) 97 Intake and Output 11/01/18 11/02/18 18:59 06:59 Intake Total 920 ml 960 ml Output Total 1300 ml 1600 ml Balance -380 ml -640 ml Intake Oral 920 ml 960 ml Output Urine Total 1300 ml 1600 ml Height (Feet): 6 Height (Inches): 1.00 Weight (Pounds): 155 Objective EENT: normal ENT inspection Neck: normal alignment Cardiovascular: normal peripheral pulses, normal rate, regular rhythm Respiratory/Chest: chest wall non-tender, lungs clear, normal breath sounds Abdomen: normal bowel sounds, non tender, soft Extremities: normal inspection Edema: 1+ Arm (L), 1+ Arm (R), 1+ Leg (L), 1+ Leg (R), 1+ Pedal (L), 1+ Pedal ( R), 1+ Generalized Edema: trace edema Neurologic: motor weakness Skin: normal pigmentation, warm/dry, ++l foor sl red and swollen up to ankle Boogie Chirinos MD Nov 02, 2018 09:06
--- NOTE | 2018-11-02 11:19 | Infectious Diseases Prog Note ---
Assessment/Plan Assessment/Plan Assessment/Plan: 58 yo male who presnted to the ED on 10/19/18 with left leg cellulitis. Left foot cellulitis; improving -wound cx: MRSA, GAS, P. mirabilsi ([place] S), C. freundi (R ancef, otherwise S), K. oxytoca (R amp, otherwise S) Leukocytosis ;SP Low grade fevers; SP -Tibia/fibula MRI: Negative for evidence of osteomyelitis. Evidence of superficial soft tissue ulcer, marked by a marker at the anteromedial sagastume region.Considerable subcutaneous fat edema. Given stated clinical history, probably on the basis of cellulitis. Correlate with clinical findings. No evidence of drainable abscess. -foot MRI: Extensive soft tissue edema, as described. This is in keeping with stated clinical history of cellulitis. No findings to suggest abscess Very superficial fluid collections likely relate to stated clinical history of dorsal blisters. No marrow abnormality to suggest acute osteomyelitis demonstrated. -ANkle MRI: Patchy areas of marrow edema, as described. Periarticular distribution of this is suggestive of arthropathy which may be degenerative, inflammatory, or, most likely, on the basis of Charcot-type changes. Per technologist, there are no ulcers in the area so osteomyelitis is deemed much less likely. Extensive edema of the subcutaneous fat. Given stated clinical history of cellulitis most likely on the basis of such. Correlate with clinical findings. No drainable abscess collection demonstrated. -Foot xray: No acute injury identified. Soft tissue swelling. Multiple incidental findings as described PLAN: - Continue PO Bactrim DS 1 tab bid and Augmentin 875/125mg PO bid #6 (abx d # /) --ok to discharge on above regimen -10/28 SP Cefepime #8, IV Vancomycin #8 - f/u wound cx - Monitor CBC and Temps -Podiatry f/u Thank you for this consult. We will continue to follow the patient during this hospitalization. Subjective Allergies: Coded Allergies: No Known Allergies (Unverified , 10/20/18) Subjective afebrile no leukocytosis awaiting placement Objective Vital Signs Last 24 Hour Vital Signs Date Time Temp Pulse Resp B/P (MAP) Pulse Ox O2 Delivery O2 Flow Rate FiO2 11/02/18 09:00 Room Air 11/02/18 08:57 98.1 11/02/18 08:56 98.1 11/02/18 08:00 98.3 88 18 104/61 (75) 100 11/02/18 04:00 97.9 84 18 115/60 (78) 98 11/02/18 00:00 98.1 87 19 111/62 (78) 99 11/01/18 21:00 Room Air 11/01/18 20:00 98.9 89 19 108/58 (75) 99 11/01/18 16:00 98.7 84 19 132/74 (93) 97 11/01/18 12:00 98.9 77 18 111/63 (79) 97 Height (Feet): 6 Height (Inches): 1.00 Weight (Pounds): 155 Objective Gen: NAD HEENT: NCAT, MMM, EOMI, PERRL, No Oral lesion, no scleral icterus NECK: full range of motion, supple, no meningismus, No LAD, No JVD LUNGS: CTAB, No W/C, No Accessory muscle use CARDS: RRR, S1, S2, No M/R/G, ABD: Soft, NT, ND, No R/G, + BS, No HSM, No Masses : Deferred Ext: C/C/E, Pulses 2+ B/L (DP, Rad): LLE swelling with erythema and pain, Ulceration present with purulence. NEURO: A/O x 4, Strength and Sensation Grossly intact PSYCH: Normal mood and affect SKIN: Warm/dry, No rashes Current Medications Medications (Trade) Dose Ordered Sig/Juan Route PRN Reason Start Time Stop Time Status Last Admin Dose Admin Acetaminophen (Tylenol) 650 mg Q4H PRN ORAL fever 10/21/18 08:15 11/20/18 08:14 10/28/18 05:19 Acetaminophen/ Hydrocodone Bitart ([place] 10/325) 1 tab Q4H PRN ORAL For breakthrough pain 11/01/18 11:45 11/08/18 11:44 11/02/18 08:26 Amoxicillin/ Clavulanate Potassium (Augmentin) 875 mg EVERY 12 HOURS ORAL 10/28/18 21:00 11/04/18 20:59 11/02/18 08:26 Dextrose (Dextrose 50%) 25 ml Q30M PRN IV Hypoglycemia 10/21/18 08:30 11/20/18 08:16 Dextrose (Dextrose 50%) 50 ml Q30M PRN IV hypoglycemia 10/21/18 08:30 11/20/18 08:29 Docusate Sodium (Colace) 100 mg THREE TIMES A DAY ORAL 10/21/18 18:00 11/20/18 17:59 11/02/18 08:24 Folic Acid (Folate) 3 mg DAILY ORAL 11/02/18 09:00 12/02/18 08:59 11/02/18 08:41 Heparin Sodium (Porcine) (Heparin 5000 units/ml) 5,000 units EVERY 12 HOURS SUBQ 10/21/18 09:00 11/20/18 08:59 11/02/18 08:29 Ibuprofen (Motrin) 600 mg TID ORAL 10/24/18 18:00 11/23/18 17:59 11/02/18 08:27 Nitroglycerin (Ntg) 0.4 mg Q5M PRN SL Prn Chest Pain 10/21/18 08:15 11/20/18 08:14 Ondansetron HCl (Zofran) 4 mg Q6H PRN IVP Nausea & Vomiting 10/21/18 08:15 11/20/18 08:14 Pantoprazole (Protonix) 40 mg EVERY 12 HOURS ORAL 10/21/18 21:00 11/20/18 20:59 11/02/18 08:25 Polyethylene Glycol (Miralax) 17 gm DAILYPRN PRN ORAL Constipation 10/21/18 08:15 11/20/18 08:14 10/21/18 11:32 Potassium Chloride (K-Dur) 40 meq DAILY ORAL 10/25/18 09:00 11/24/18 08:59 11/02/18 08:24 Trimethoprim/ Sulfamethoxazole (Bactrim-DS) 1 tab Q12HR ORAL 10/30/18 21:00 11/04/18 20:59 11/02/18 08:25 Fernanda Davison M.D. Nov 02, 2018 11:19
[2018-11-02 12:00] VITALS: BP 134/73
--- NOTE | 2018-11-02 12:10 | NUR ---
NURSE NOTES:WOUND CARE NOTES: Pt seen for multiple ulcerations LLE. Ulcer noted to elvin/medial L tibia. Base of wound is flower with small amt serous exudate. Borders are irregular and macerated. Ulcer noted to dorsal aspect of L foot. scattered dry scabs noted with open area which is flower at base .Small amt serous exudate noted. Small ulcer noted to Lateral L foot inferior to L malleolus. Wound oozing serous exudate.Resolving ulcer noted to medial L tibia inferior to Patella. Pt complained of pain dorsal L foot and lateral malleolus . Primary nurse aware and pt was medicated for pain. Dry peeling skin noted to LLE and L foot. Pt LLE and L foot washed . DRy skin areas moisturized with Lotion. Wounds LLE and L foot cleansed with Saline. Xeroform gauze placed over each wound,then Calcium Alginate,Covered with ABD pads and wrapped with Kerlix from base of toes. Recommendations: Please Follow -Up with Podiatry regarding Tx orders for Wounds. Elevate lower extremities with pillows. Moisturize dry skin daily.
--- NOTE | 2018-11-02 12:17 | Nephrology Progress Note ---
Assessment/Plan Problem List: (1) Cellulitis of left foot (2) Sepsis (3) Hyponatremia (4) Hypoalbuminemia Assessment Left foot cellulitis / Leukocytosis / No fever Low Na Low K Anemia High Lactic Low Albumin Plan Isotonic solution K supplement DC IV fluids monitor lytes avoid nephrotoxics urine tox screen positive for Amphetamines and Opiates per orders stable from renal stand if discharged Subjective ROS Limited/Unobtainable: No Constitutional: Reports: malaise Objective Objective Last 24 Hour Vital Signs Date Time Temp Pulse Resp B/P (MAP) Pulse Ox O2 Delivery O2 Flow Rate FiO2 11/02/18 09:00 Room Air 11/02/18 08:57 98.1 11/02/18 08:56 98.1 11/02/18 08:00 98.3 88 18 104/61 (75) 100 11/02/18 04:00 97.9 84 18 115/60 (78) 98 11/02/18 00:00 98.1 87 19 111/62 (78) 99 11/01/18 21:00 Room Air 11/01/18 20:00 98.9 89 19 108/58 (75) 99 11/01/18 16:00 98.7 84 19 132/74 (93) 97 Intake and Output 11/01/18 11/02/18 19:00 07:00 Intake Total 920 ml 960 ml Output Total 1300 ml 1600 ml Balance -380 ml -640 ml Intake Oral 920 ml 960 ml Output Urine Total 1300 ml 1600 ml Height (Feet): 6 Height (Inches): 1.00 Weight (Pounds): 155 General Appearance: no apparent distress Objective no change Levar Conde MD Nov 02, 2018 12:17
--- NOTE | 2018-11-02 13:47 | NUR ---
NURSE NOTES: Pt seen by Genna, Wound Care Nurse. Genna made recommendations for daily wound care for pt's cellulitis of left foot and leg. Rn notified Dr. Gu at 1302 asking for wound care orders.
--- NOTE | 2018-11-02 14:07 | Pulmonology Progress Note ---
Assessment/Plan Problems: (1) Sepsis (2) Cellulitis of left foot Assessment/Plan improving doing better on abx check cultures wound care dvt prophylaxis. dc planning Subjective ROS Limited/Unobtainable: No Constitutional: Reports: no symptoms HEENT: Repors: no symptoms Allergies: Coded Allergies: No Known Allergies (Unverified , 10/20/18) Objective Last 24 Hour Vital Signs Date Time Temp Pulse Resp B/P (MAP) Pulse Ox O2 Delivery O2 Flow Rate FiO2 11/02/18 13:02 98.1 11/02/18 13:02 98.1 11/02/18 12:00 98.1 87 18 134/73 (93) 100 11/02/18 09:00 Room Air 11/02/18 08:00 98.3 88 18 104/61 (75) 100 11/02/18 04:00 97.9 84 18 115/60 (78) 98 11/02/18 00:00 98.1 87 19 111/62 (78) 99 11/01/18 21:00 Room Air 11/01/18 20:00 98.9 89 19 108/58 (75) 99 11/01/18 16:00 98.7 84 19 132/74 (93) 97 Intake and Output 11/01/18 11/02/18 19:00 07:00 Intake Total 920 ml 960 ml Output Total 1300 ml 1600 ml Balance -380 ml -640 ml Intake Oral 920 ml 960 ml Output Urine Total 1300 ml 1600 ml Objective General Appearance: WD/WN HEENT: normocephalic, atraumatic Respiratory/Chest: chest wall non-tender, lungs clear, normal breath sounds Breasts: no masses Cardiovascular: normal peripheral pulses, normal rate Abdomen: normal bowel sounds, soft, non tender Genitourinary: normal external genitalia Extremities: no cyanosis, less edema Current Medications Medications (Trade) Dose Ordered Sig/Juan Route PRN Reason Start Time Stop Time Status Last Admin Dose Admin Acetaminophen (Tylenol) 650 mg Q4H PRN ORAL fever 10/21/18 08:15 11/20/18 08:14 10/28/18 05:19 Acetaminophen/ Hydrocodone Bitart ([place] 10/325) 1 tab Q4H PRN ORAL For breakthrough pain 11/01/18 11:45 11/08/18 11:44 11/02/18 12:23 Amoxicillin/ Clavulanate Potassium (Augmentin) 875 mg EVERY 12 HOURS ORAL 10/28/18 21:00 11/04/18 20:59 11/02/18 08:26 Dextrose (Dextrose 50%) 25 ml Q30M PRN IV Hypoglycemia 10/21/18 08:30 11/20/18 08:16 Dextrose (Dextrose 50%) 50 ml Q30M PRN IV hypoglycemia 10/21/18 08:30 11/20/18 08:29 Docusate Sodium (Colace) 100 mg THREE TIMES A DAY ORAL 10/21/18 18:00 11/20/18 17:59 11/02/18 12:22 Folic Acid (Folate) 3 mg DAILY ORAL 11/02/18 09:00 12/02/18 08:59 11/02/18 08:41 Heparin Sodium (Porcine) (Heparin 5000 units/ml) 5,000 units EVERY 12 HOURS SUBQ 10/21/18 09:00 11/20/18 08:59 11/02/18 08:29 Ibuprofen (Motrin) 600 mg TID ORAL 10/24/18 18:00 11/23/18 17:59 11/02/18 12:22 Nitroglycerin (Ntg) 0.4 mg Q5M PRN SL Prn Chest Pain 10/21/18 08:15 11/20/18 08:14 Ondansetron HCl (Zofran) 4 mg Q6H PRN IVP Nausea & Vomiting 10/21/18 08:15 11/20/18 08:14 Pantoprazole (Protonix) 40 mg EVERY 12 HOURS ORAL 10/21/18 21:00 11/20/18 20:59 11/02/18 08:25 Polyethylene Glycol (Miralax) 17 gm DAILYPRN PRN ORAL Constipation 10/21/18 08:15 11/20/18 08:14 10/21/18 11:32 Potassium Chloride (K-Dur) 40 meq DAILY ORAL 10/25/18 09:00 11/24/18 08:59 11/02/18 08:24 Trimethoprim/ Sulfamethoxazole (Bactrim-DS) 1 tab Q12HR ORAL 10/30/18 21:00 11/04/18 20:59 11/02/18 08:25 Alberto Dumont MD Nov 02, 2018 14:07
--- NOTE | 2018-11-02 14:50 | NUR ---
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 98.1 HR 88 RR 18 B/P 106/61 RA 98% BUN 20 IS: BACTRIM DS PO AUGMENTIN PO PROTONIX PO HEPARIN SUBC PLACEMENT PENDING MED/SURG STATUS
--- NOTE | 2018-11-02 15:17 | NUR ---
*-* INSURANCE *-* UPDATED CLINICALS AND REVIEWS HAVE BEEN FAXED TO: [facility]: BRANT P- [phone] X [phone] F [phone]............REVIEW/CLINICAL
--- NOTE | 2018-11-02 15:58 | NUR ---
DISCHARGE PLANNING Discharge order noted Patient has been referred: [facility] [phone] [facility] [phone] Await Acceptance and Room Number
[2018-11-02 16:00] VITALS: BP 112/58
--- NOTE | 2018-11-02 16:06 | NUR ---
DISCHARGE PLANNING Discharge order noted Patient has been referred: [facility] [phone] [facility] [phone] Await Acceptance and Room Number Addendum: 11/02/18 at 1715 by FRANKLIN HAMM CM [facility] ~ spoke with RIP system down, will follow-up Monday [facility] ~ spoke with Anh Ans[facility] male beds
[2018-11-02] MEDS ORDERED: Hydrogen Peroxide 473ml Bottle TOPIC SCH (17:15)
[2018-11-02] MEDS: Hydrogen Peroxide 473ml Bottle TOPIC SCH (17:15)
--- NOTE | 2018-11-02 17:15 | NUR ---
DISCHARGE PLANNING Discharge order noted Patient has been referred to; [facility] [phone] Await Acceptance and Room Number
--- NOTE | 2018-11-02 17:19 | Podiatric Progress Note ---
Assessment/Plan Patient Bhavik Tran is a 58 year old male who was admitted on Oct 20, 2018 at 22: 56 with Problems: (1) Foot ulcer due to secondary DM (2) Diabetes mellitus type 2 with neurological manifestations (3) Cellulitis, toe Assessment/Plan Continue oral abx cleanse ulcers with NS/H2O2 qd flush and apply Xeroform with dry dressings. patient will be followed. Subjective Allergies: Coded Allergies: No Known Allergies (Unverified , 10/20/18) Subjective Patient seen by bedside in NAD f/u L ankle cellulitis,. Objective Exam Last 24 Hour Vital Signs Date Time Temp Pulse Resp B/P (MAP) Pulse Ox O2 Delivery O2 Flow Rate FiO2 11/02/18 16:00 98.1 80 18 112/58 (76) 100 11/02/18 13:02 98.1 11/02/18 13:02 98.1 11/02/18 12:00 98.1 87 18 134/73 (93) 100 11/02/18 09:00 Room Air 11/02/18 08:00 98.3 88 18 104/61 (75) 100 11/02/18 04:00 97.9 84 18 115/60 (78) 98 11/02/18 00:00 98.1 87 19 111/62 (78) 99 11/01/18 21:00 Room Air 11/01/18 20:00 98.9 89 19 108/58 (75) 99 Microbiology Date/Time Source Procedure Growth Status 10/20/18 20:27 Blood Blood Culture - Final NO GROWTH AFTER 5 DAYS Complete 10/20/18 20:25 Nasal Nares MRSA Culture - Final NO METHICILLIN RESISTANT STAPH AUREUS... Complete 10/21/18 11:30 Leg Left Gram Stain - Final Complete 10/21/18 11:30 Wound Culture - Final Klebsiella Oxytoca Citrobacter Freundii Proteus Mirabilis Streptococcus Group A Staphylococcus Aureus - Mrsa Complete Dermatological Dermatological Narrative L foot noted healing with decrease edema and swelling. 3 ulcers were identified s/p blistering. 1. ulcer medial proximal leg granulating base, no drainage or discharge no pus no cellulitis. probs to muscle. 2. lateral ankle small ulcer probing to subq no pus or discharge no pus. no odor. no cellulitis. 3. dorsal L foot over the midfoot area. slight drainage noted. no pus no discharge drainage is bloody no odor. probs to tendon undermining distally about 1cm Edgardo Gu DPM Nov 02, 2018 17:18
[2018-11-02] MEDS ORDERED: Lacri-Lube Opth Oint 3.5gm BOTH EYES PRN ×2 (18:15→18:30)
--- NOTE | 2018-11-02 19:11 | NUR ---
HAND-OFF: Report given to NY Fuller.
--- NOTE | 2018-11-02 19:30 | NUR ---
NURSE NOTES: RECEIVED PATIENT LYING IN BED, AWAKE, ALERT/ORIENTED X4, NO SIGNS AND SYMPTOMS OF ACUTE CARDIO RESPIRATORY DISTRESS/SHORTNESS OF BREATH, DENIES CHEST PAIN. NO COMPLAINTS OF GI DISCOMFORT, BOWEL SOUNDS AUDIBLE IN ALL QUADRANTS, NO REPORT OF N/V. DRESSING DRY AND INTACT TO LEFT LOWER EXTREMITY OPEN WOUNDS, CHANGED TODAY BY MD. SIDE RAILS UP X2 FOR MOBILITY, BED IN LOWEST POSITION FOR SAFETY. ENCOURAGED PATIENT TO UTILIZE CALL LIGHT FOR ASSISTANCE, VERBALIZED UNDERSTANDING. CONTINUE WITH CURRENT PLAN OF CARE. NAD.
[2018-11-02 20:00] VITALS: BP 97/62
[2018-11-03] VITALS: BP 112/70
[2018-11-03] MEDS: HYDROcodone/Acetamin 10/325 tab ORAL PRN ×5 (01:57→18:49)
--- NOTE | 2018-11-03 01:57 | NUR ---
HAND-OFF: Report given to LON MOYER.
--- NOTE | 2018-11-03 02:03 | NUR ---
NURSE NOTES: Received report from LON Fuller. Patient alert, awake, and verbally responsive to let his needs known. Breathing unlabored and evenly without distress, discomfort, or SOB. Pain was verbalized, pharmacological measure was provided as ordered. Will reassess. IV site noted on LFA intact and currently saline locked. Left foot dressing noted intact and clean. Will follow wound care order. Bed placed at the lowest with brakes, alarm on, and side rails up x 2 for safety. Call light placed within reach. Will continue to monitor and provide care as ordered.
--- NOTE | 2018-11-03 02:33 | NUR ---
NURSE NOTES: Provided wet cloth to wash face and upper extremities. Patient able to perform independently with some assistance of providing a wet cloth. Encourage patient to take a rest. Will continue to monitor and provide care as ordered.
[2018-11-03 04:00] VITALS: BP 100/54
--- NOTE | 2018-11-03 07:26 | Pulmonology Progress Note ---
Assessment/Plan Problems: (1) Sepsis (2) Cellulitis of left foot Assessment/Plan improving doing better on abx check cultures wound care dvt prophylaxis. dc planning waiting for placement avoid IV narcotics Subjective ROS Limited/Unobtainable: No Constitutional: Reports: no symptoms HEENT: Repors: no symptoms Allergies: Coded Allergies: No Known Allergies (Unverified , 10/20/18) Objective Last 24 Hour Vital Signs Date Time Temp Pulse Resp B/P (MAP) Pulse Ox O2 Delivery O2 Flow Rate FiO2 11/03/18 04:00 96.8 81 19 100/54 (69) 99 11/03/18 00:00 97.8 80 19 112/70 (84) 99 11/02/18 21:41 98.1 11/02/18 21:00 Room Air 11/02/18 20:00 98.1 86 19 97/62 (74) 98 11/02/18 17:23 98.1 11/02/18 16:00 98.1 80 18 112/58 (76) 100 11/02/18 12:00 98.1 87 18 134/73 (93) 100 11/02/18 09:00 Room Air 11/02/18 08:00 98.3 88 18 104/61 (75) 100 Intake and Output 11/02/18 11/03/18 18:59 06:59 Intake Total 840 ml 1480 ml Output Total 1200 ml 1000 ml Balance -360 ml 480 ml Intake Oral 840 ml 480 ml Other 1000 ml Output Urine Total 1200 ml 1000 ml # Voids 2 # Bowel Movements 2 Objective General Appearance: WD/WN HEENT: normocephalic, atraumatic Respiratory/Chest: chest wall non-tender, lungs clear, normal breath sounds Breasts: no masses Cardiovascular: normal peripheral pulses, normal rate Abdomen: normal bowel sounds, soft, non tender Genitourinary: normal external genitalia Extremities: no cyanosis, less edema Current Medications Medications (Trade) Dose Ordered Sig/Juan Route PRN Reason Start Time Stop Time Status Last Admin Dose Admin Acetaminophen (Tylenol) 650 mg Q4H PRN ORAL fever 10/21/18 08:15 11/20/18 08:14 10/28/18 05:19 Acetaminophen/ Hydrocodone Bitart ([place] 10/325) 1 tab Q4H PRN ORAL For breakthrough pain 11/01/18 11:45 8//19 11:44 11/03/18 06:38 Amoxicillin/ Clavulanate Potassium (Augmentin) 875 mg EVERY 12 HOURS ORAL 10/28/18 21:00 11/04/18 20:59 11/02/18 21:05 Artificial Tears (Lacri-Lube) 1 applic QIDPRN PRN BOTH EYES Dry Eyes 11/02/18 18:30 12/02/18 18:14 Dextrose (Dextrose 50%) 25 ml Q30M PRN IV Hypoglycemia 10/21/18 08:30 11/20/18 08:16 Dextrose (Dextrose 50%) 50 ml Q30M PRN IV hypoglycemia 10/21/18 08:30 11/20/18 08:29 Docusate Sodium (Colace) 100 mg THREE TIMES A DAY ORAL 10/21/18 18:00 11/20/18 17:59 11/02/18 16:53 Folic Acid (Folate) 3 mg DAILY ORAL 11/02/18 09:00 12/02/18 08:59 11/02/18 08:41 Heparin Sodium (Porcine) (Heparin 5000 units/ml) 5,000 units EVERY 12 HOURS SUBQ 10/21/18 09:00 11/20/18 08:59 11/02/18 21:06 Hydrogen Peroxide (Hydrogen Peroxide) 1 applic DAILY TOPIC 11/02/18 17:15 12/02/18 17:14 11/02/18 17:15 Ibuprofen (Motrin) 600 mg TID ORAL 10/24/18 18:00 11/23/18 17:59 11/02/18 16:53 Nitroglycerin (Ntg) 0.4 mg Q5M PRN SL Prn Chest Pain 10/21/18 08:15 11/20/18 08:14 Ondansetron HCl (Zofran) 4 mg Q6H PRN IVP Nausea & Vomiting 10/21/18 08:15 11/20/18 08:14 Pantoprazole (Protonix) 40 mg EVERY 12 HOURS ORAL 10/21/18 21:00 11/20/18 20:59 11/02/18 21:05 Polyethylene Glycol (Miralax) 17 gm DAILYPRN PRN ORAL Constipation 10/21/18 08:15 11/20/18 08:14 10/21/18 11:32 Potassium Chloride (K-Dur) 40 meq DAILY ORAL 10/25/18 09:00 11/24/18 08:59 11/02/18 08:24 Trimethoprim/ Sulfamethoxazole (Bactrim-DS) 1 tab Q12HR ORAL 10/30/18 21:00 11/04/18 20:59 11/02/18 21:05 Alberto Dumont MD Nov 03, 2018 07:26
--- NOTE | 2018-11-03 07:38 | NUR ---
HAND-OFF: Report given to LON Allen. Patient in stable condition.
--- NOTE | 2018-11-03 07:40 | NUR ---
NURSE NOTES: Received report from LON Gilliland. Pt in bed, awake, talkative, no apparent respiratory distress noted, pt eating breakfast, pt reassessed for pain by LON Gilliland. Pt states pain is 6/10 after pain medication admin. Pt has schedule medications that can be given at 0800, Rn discussed plan of care with pt, bed in lowest position call light within reach, bed in lowest position, left foot and leg dressing noted intact.
[2018-11-03] MEDS: Augmentin 875mg Tab ORAL SCH (07:59)
[2018-11-03 08:00] VITALS: BP 100/63
[2018-11-03] MEDS: Bactrim-DS 1 tab ORAL SCH (08:01)
[2018-11-03] MEDS: Docusate 100mg cap ORAL SCH ×3 (08:02→17:12)
[2018-11-03] MEDS: Hydrogen Peroxide 473ml Bottle TOPIC SCH (08:04)
[2018-11-03] MEDS: Heparin 5000 units/ml inj SUBQ SCH ×2 (08:04→21:10)
--- NOTE | 2018-11-03 10:50 | Infectious Diseases Prog Note ---
Assessment/Plan Assessment/Plan A: 58 yo male who presnted to the ED on 10/19/18 with left leg cellulitis. Left foot cellulitis; improving -wound cx: MRSA, GAS, P. mirabilsi ([place] S), C. freundi (R ancef, otherwise S), K. oxytoca (R amp, otherwise S) Leukocytosis ;SP Low grade fevers; SP -Tibia/fibula MRI: Negative for evidence of osteomyelitis. Evidence of superficial soft tissue ulcer, marked by a marker at the anteromedial sagastume region.Considerable subcutaneous fat edema. Given stated clinical history, probably on the basis of cellulitis. Correlate with clinical findings. No evidence of drainable abscess. -foot MRI: Extensive soft tissue edema, as described. This is in keeping with stated clinical history of cellulitis. No findings to suggest abscess Very superficial fluid collections likely relate to stated clinical history of dorsal blisters. No marrow abnormality to suggest acute osteomyelitis demonstrated. -ANkle MRI: Patchy areas of marrow edema, as described. Periarticular distribution of this is suggestive of arthropathy which may be degenerative, inflammatory, or, most likely, on the basis of Charcot-type changes. Per technologist, there are no ulcers in the area so osteomyelitis is deemed much less likely. Extensive edema of the subcutaneous fat. Given stated clinical history of cellulitis most likely on the basis of such. Correlate with clinical findings. No drainable abscess collection demonstrated. -Foot xray: No acute injury identified. Soft tissue swelling. Multiple incidental findings as described PLAN: - DC PO Bactrim DS 1 tab bid and Augmentin 875/125mg PO bid #6 (abx d # 14/) -10/28 SP Cefepime #8, IV Vancomycin #8 - Monitor CBC and Temps -Podiatry f/u Subjective Constitutional: Denies: no symptoms, fever, chills, fatigue, anorexia, drenching sweats, other Allergies: Coded Allergies: No Known Allergies (Unverified , 10/20/18) Objective Vital Signs Last 24 Hour Vital Signs Date Time Temp Pulse Resp B/P (MAP) Pulse Ox O2 Delivery O2 Flow Rate FiO2 11/03/18 09:00 Room Air 11/03/18 08:31 96.8 11/03/18 08:00 96.3 78 18 100/63 (75) 98 11/03/18 04:00 96.8 81 19 100/54 (69) 99 11/03/18 00:00 97.8 80 19 112/70 (84) 99 11/02/18 21:41 98.1 11/02/18 21:00 Room Air 11/02/18 20:00 98.1 86 19 97/62 (74) 98 11/02/18 16:00 98.1 80 18 112/58 (76) 100 11/02/18 12:00 98.1 87 18 134/73 (93) 100 Height (Feet): 6 Height (Inches): 1.00 Weight (Pounds): 155 HEENT: anicteric Respiratory/Chest: normal breath sounds Cardiovascular: regular rhythm Abdomen: no organomegaly Current Medications Medications (Trade) Dose Ordered Sig/Juan Route PRN Reason Start Time Stop Time Status Last Admin Dose Admin Acetaminophen (Tylenol) 650 mg Q4H PRN ORAL fever 10/21/18 08:15 11/20/18 08:14 10/28/18 05:19 Acetaminophen/ Hydrocodone Bitart ([place] 10/325) 1 tab Q4H PRN ORAL For breakthrough pain 11/01/18 11:45 11/08/18 11:44 11/03/18 10:44 Amoxicillin/ Clavulanate Potassium (Augmentin) 875 mg EVERY 12 HOURS ORAL 10/28/18 21:00 11/04/18 20:59 11/03/18 07:59 Artificial Tears (Lacri-Lube) 1 applic QIDPRN PRN BOTH EYES Dry Eyes 11/02/18 18:30 12/02/18 18:14 Dextrose (Dextrose 50%) 25 ml Q30M PRN IV Hypoglycemia 10/21/18 08:30 11/20/18 08:16 Dextrose (Dextrose 50%) 50 ml Q30M PRN IV hypoglycemia 10/21/18 08:30 11/20/18 08:29 Docusate Sodium (Colace) 100 mg THREE TIMES A DAY ORAL 10/21/18 18:00 11/20/18 17:59 11/03/18 08:02 Folic Acid (Folate) 3 mg DAILY ORAL 11/02/18 09:00 12/02/18 08:59 11/03/18 08:02 Heparin Sodium (Porcine) (Heparin 5000 units/ml) 5,000 units EVERY 12 HOURS SUBQ 10/21/18 09:00 11/20/18 08:59 11/03/18 08:04 Hydrogen Peroxide (Hydrogen Peroxide) 1 applic DAILY TOPIC 11/02/18 17:15 12/02/18 17:14 11/03/18 08:04 Ibuprofen (Motrin) 600 mg TID ORAL 10/24/18 18:00 11/23/18 17:59 11/03/18 08:01 Nitroglycerin (Ntg) 0.4 mg Q5M PRN SL Prn Chest Pain 10/21/18 08:15 11/20/18 08:14 Ondansetron HCl (Zofran) 4 mg Q6H PRN IVP Nausea & Vomiting 10/21/18 08:15 11/20/18 08:14 Pantoprazole (Protonix) 40 mg EVERY 12 HOURS ORAL 10/21/18 21:00 11/20/18 20:59 11/03/18 08:01 Polyethylene Glycol (Miralax) 17 gm DAILYPRN PRN ORAL Constipation 10/21/18 08:15 11/20/18 08:14 10/21/18 11:32 Potassium Chloride (K-Dur) 40 meq DAILY ORAL 10/25/18 09:00 11/24/18 08:59 11/03/18 08:00 Trimethoprim/ Sulfamethoxazole (Bactrim-DS) 1 tab Q12HR ORAL 10/30/18 21:00 11/04/18 20:59 11/03/18 08:01 Bernardino Wallace MD Nov 03, 2018 10:50
--- NOTE | 2018-11-03 11:16 | Nephrology Progress Note ---
Assessment/Plan Problem List: (1) Cellulitis of left foot (2) Sepsis (3) Hyponatremia (4) Hypoalbuminemia Assessment Left foot cellulitis / Leukocytosis / No fever Low Na Low K Anemia High Lactic Low Albumin Plan Isotonic solution K supplement DC IV fluids monitor lytes avoid nephrotoxics urine tox screen positive for Amphetamines and Opiates per orders stable from renal stand if discharged Subjective ROS Limited/Unobtainable: No Objective Objective Last 24 Hour Vital Signs Date Time Temp Pulse Resp B/P (MAP) Pulse Ox O2 Delivery O2 Flow Rate FiO2 11/03/18 09:00 Room Air 11/03/18 08:31 96.8 11/03/18 08:00 96.3 78 18 100/63 (75) 98 11/03/18 04:00 96.8 81 19 100/54 (69) 99 11/03/18 00:00 97.8 80 19 112/70 (84) 99 11/02/18 21:41 98.1 11/02/18 21:00 Room Air 11/02/18 20:00 98.1 86 19 97/62 (74) 98 11/02/18 16:00 98.1 80 18 112/58 (76) 100 11/02/18 12:00 98.1 87 18 134/73 (93) 100 Intake and Output 11/02/18 11/03/18 18:59 06:59 Intake Total 840 ml 1480 ml Output Total 1200 ml 1000 ml Balance -360 ml 480 ml Intake Oral 840 ml 480 ml Other 1000 ml Output Urine Total 1200 ml 1000 ml # Voids 2 # Bowel Movements 2 Height (Feet): 6 Height (Inches): 1.00 Weight (Pounds): 155 General Appearance: no apparent distress Objective no change Levar Conde MD Nov 03, 2018 11:16
[2018-11-03 11:18] VITALS: BP 106/70
--- NOTE | 2018-11-03 14:45 | NUR ---
CASE MANAGEMENT: REVIEW 11/03/2018 SI:SEPSIS. T 97.8 HR 73 RR 18 B/P 106/70 SATS 97% ON RA NO LABS TODAY IS: PROTONIX PO Q12H K DUR PO QD FOLATE QD MOTRIN PO TID MED/SURG STATUS
[2018-11-03 16:00] VITALS: BP 108/61
--- NOTE | 2018-11-03 19:36 | NUR ---
HAND-OFF: Report given to LON Gaspar. Pt richa.
[2018-11-03 20:00] VITALS: BP 115/66
--- NOTE | 2018-11-03 20:11 | NUR ---
NURSE NOTES: Received patient in bed. AAO x 4. On room air. Dressing on L foot intact and dry. IV on L FA intact and asymptomatic. No acute distress noted at this time. Bed locked, lowest position, alarm on, side rails up x 2, call light within reach. Will continue to monitor.
--- NOTE | 2018-11-03 22:06 | General Progress Note ---
Assessment/Plan Status: stable, progressing Assessment/Plan: Assessment/Recs: # Sepsis with cellulitis of left foot --> on antibiotics --> stable, progressing --> seen by id is on bactrim and augmentin # Hypokalemia --> KCl repleted Appreciate content management consultant recs Subjective Constitutional: Denies: no symptoms, chills, diaphoresis, fever, malaise, weakness, other HEENT: Denies: no symptoms, eye pain, blurred vision, tearing, double vision, ear pain, ear discharge, nose pain, nose congestion, throat pain, throat swelling, mouth pain, mouth swelling, other Cardiovascular: Denies: no symptoms, chest pain, edema, irregular heart rate, lightheadedness, palpitations, syncope, other Respiratory: Denies: no symptoms, cough, orthopnea, shortness of breath, SOB with excertion, SOB at rest, sputum, stridor, wheezing, other Gastrointestinal/Abdominal: Denies: no symptoms, abdomen distended, abdominal pain, black stools, tarry stools, blood in stool, constipated, diarrhea, difficulty swallowing, nausea, poor appetite, poor fluid intake, rectal bleeding , vomiting, other Genitourinary: Denies: no symptoms, burning, discharge, frequency, flank pain, hematuria, incontinence, pain, urgency, other Neurologic/Psychiatric: Denies: no symptoms, anxiety, depressed, emotional problems, headache, numbness, paresthesia, pre-existing deficit, seizure, tingling, tremors, weakness, other Allergies: Coded Allergies: No Known Allergies (Unverified , 10/20/18) Subjective 11/01: left leg still draining clearish fluid, otherwise no f/c, no night sweats 11/02: no issues reported, no fevers or chills, labs reviewed, lying in bed, a+o x4 11/03: no bleeding, no f/c, no night sweats, left diabetic foot with dressing Objective Last 24 Hour Vital Signs Date Time Temp Pulse Resp B/P (MAP) Pulse Ox O2 Delivery O2 Flow Rate FiO2 11/03/18 19:19 98.4 11/03/18 17:42 98.4 11/03/18 16:00 98.4 74 20 108/61 (77) 94 11/03/18 11:18 97.8 73 18 106/70 (82) 97 11/03/18 09:00 Room Air 11/03/18 08:00 96.3 78 18 100/63 (75) 98 11/03/18 04:00 96.8 81 19 100/54 (69) 99 11/03/18 00:00 97.8 80 19 112/70 (84) 99 Intake and Output 11/02/18 11/03/18 19:00 07:00 Intake Total 840 ml 1600 ml Output Total 1200 ml 1000 ml Balance -360 ml 600 ml Intake Oral 840 ml 600 ml Other 1000 ml Output Urine Total 1200 ml 1000 ml # Voids 2 # Bowel Movements 2 Height (Feet): 6 Height (Inches): 1.00 Weight (Pounds): 155 Objective EENT: normal ENT inspection Neck: normal alignment Cardiovascular: normal peripheral pulses, normal rate, regular rhythm Respiratory/Chest: chest wall non-tender, lungs clear, normal breath sounds Abdomen: normal bowel sounds, non tender, soft Extremities: normal inspection Edema: 1+ Arm (L), 1+ Arm (R), 1+ Leg (L), 1+ Leg (R), 1+ Pedal (L), 1+ Pedal ( R), 1+ Generalized Edema: trace edema Neurologic: motor weakness Skin: normal pigmentation, warm/dry, ++l foor sl red and swollen up to ankle Boogie Chirinos MD Nov 03, 2018 22:06
[2018-11-04] VITALS: BP 130/80
[2018-11-04] MEDS: HYDROcodone/Acetamin 10/325 tab ORAL PRN ×6 (00:17→20:18)
[2018-11-04 04:00] VITALS: BP 139/59
[2018-11-04 06:10] LABS: EOSINOPHILS % (AUTO) 1.4 % (0.0-3.0); HEMATOCRIT 38.2 % (42.0-52.0); HEMOGLOBIN 12.3 G/DL (14.2-18.0); LYMPHOCYTES % (AUTO) 33.8 % (20.0-45.0); MEAN CORPUSCULAR VOLUME 93 FL (80-99); MONOCYTES % (AUTO) 14.5 % (1.0-10.0); NEUTROPHILS % (AUTO) 49.3 % (45.0-75.0); PLATELET COUNT 400 K/UL (150-450); RED CELL DISTRIBUTION WIDTH 12.5 % (11.6-14.8); WHITE BLOOD COUNT 4.7 K/UL (4.8-10.8)
[2018-11-04 06:28] LABS: ANION GAP 7 mmol/L (5-15); BLOOD UREA NITROGEN 14 mg/dL (7-18); CALCIUM 9.9 MG/DL (8.5-10.1); CARBON DIOXIDE 27 MMOL/L (21-32); CHLORIDE 101 MMOL/L (98-107); POTASSIUM 4.2 MMOL/L (3.5-5.1); SODIUM 135 MMOL/L (136-145)
--- NOTE | 2018-11-04 07:12 | NUR ---
NURSE NOTES: Report received from LON Gaspar. Pt in bed, awake, talkative, eating breakfast, left leg dressing dry and intact, will be changed today. Pt is A/Ox4, no apparent distress noted, discussed plan of care, bed in lowest position, call light within reach.
--- NOTE | 2018-11-04 07:13 | NUR ---
HAND-OFF: Report given to LON Allen.
--- NOTE | 2018-11-04 07:36 | Pulmonology Progress Note ---
Assessment/Plan Problems: (1) Sepsis (2) Cellulitis of left foot Assessment/Plan improving doing better on abx check cultures wound care dvt prophylaxis. dc planning waiting for placement avoid IV narcotics Subjective ROS Limited/Unobtainable: No Allergies: Coded Allergies: No Known Allergies (Unverified , 10/20/18) Objective Last 24 Hour Vital Signs Date Time Temp Pulse Resp B/P (MAP) Pulse Ox O2 Delivery O2 Flow Rate FiO2 11/04/18 04:00 97.8 84 18 139/59 (85) 97 11/04/18 00:00 98.6 98 20 130/80 (97) 94 11/03/18 21:00 Room Air 11/03/18 20:00 99.8 89 17 115/66 (82) 97 11/03/18 19:19 98.4 11/03/18 17:42 98.4 11/03/18 16:00 98.4 74 20 108/61 (77) 94 11/03/18 11:18 97.8 73 18 106/70 (82) 97 11/03/18 09:00 Room Air 11/03/18 08:00 96.3 78 18 100/63 (75) 98 Intake and Output 11/03/18 11/04/18 19:00 07:00 Intake Total 360 ml Output Total 1000 ml 1100 ml Balance -640 ml -1100 ml Intake Oral 360 ml Output Urine Total 1000 ml 1100 ml Objective General Appearance: WD/WN HEENT: normocephalic, atraumatic Respiratory/Chest: chest wall non-tender, lungs clear, normal breath sounds Breasts: no masses Cardiovascular: normal peripheral pulses, normal rate Abdomen: normal bowel sounds, soft, non tender Genitourinary: normal external genitalia Extremities: no cyanosis, less edema Laboratory Tests 11/04/18 05:30: White Blood Count 4.7L, Red Blood Count 4.10L, Hemoglobin 12.3L, Hematocrit 38.2L, Mean Corpuscular Volume 93, Mean Corpuscular Hemoglobin 30.1, Mean Corpuscular Hemoglobin Concent 32.3, Red Cell Distribution Width 12.5, Platelet Count 400, Mean Platelet Volume 5.0L, Neutrophils (%) (Auto) 49.3, Lymphocytes ( %) (Auto) 33.8, Monocytes (%) (Auto) 14.5H, Eosinophils (%) (Auto) 1.4, Basophils (%) (Auto) 1.0, Sodium Level 135L, Potassium Level 4.2, Chloride Level 101, Carbon Dioxide Level 27, Anion Gap 7, Blood Urea Nitrogen 14, Creatinine 1.0, Estimat Glomerular Filtration Rate > 60, Glucose Level 91, Calcium Level 9.9 Current Medications Medications (Trade) Dose Ordered Sig/Juan Route PRN Reason Start Time Stop Time Status Last Admin Dose Admin Acetaminophen (Tylenol) 650 mg Q4H PRN ORAL fever 10/21/18 08:15 11/20/18 08:14 10/28/18 05:19 Acetaminophen/ Hydrocodone Bitart ([place] 10/325) 1 tab Q4H PRN ORAL For breakthrough pain 11/01/18 11:45 11/08/18 11:44 11/04/18 04:17 Artificial Tears (Lacri-Lube) 1 applic QIDPRN PRN BOTH EYES Dry Eyes 11/02/18 18:30 12/02/18 18:14 Dextrose (Dextrose 50%) 25 ml Q30M PRN IV Hypoglycemia 10/21/18 08:30 11/20/18 08:16 Dextrose (Dextrose 50%) 50 ml Q30M PRN IV hypoglycemia 10/21/18 08:30 11/20/18 08:29 Docusate Sodium (Colace) 100 mg THREE TIMES A DAY ORAL 10/21/18 18:00 11/20/18 17:59 11/03/18 17:12 Folic Acid (Folate) 3 mg DAILY ORAL 11/02/18 09:00 12/02/18 08:59 11/03/18 08:02 Heparin Sodium (Porcine) (Heparin 5000 units/ml) 5,000 units EVERY 12 HOURS SUBQ 10/21/18 09:00 11/20/18 08:59 11/03/18 21:10 Hydrogen Peroxide (Hydrogen Peroxide) 1 applic DAILY TOPIC 11/02/18 17:15 12/02/18 17:14 11/03/18 08:04 Ibuprofen (Motrin) 600 mg TID ORAL 10/24/18 18:00 11/23/18 17:59 11/03/18 17:12 Nitroglycerin (Ntg) 0.4 mg Q5M PRN SL Prn Chest Pain 10/21/18 08:15 11/20/18 08:14 Ondansetron HCl (Zofran) 4 mg Q6H PRN IVP Nausea & Vomiting 10/21/18 08:15 11/20/18 08:14 Pantoprazole (Protonix) 40 mg EVERY 12 HOURS ORAL 10/21/18 21:00 11/20/18 20:59 11/03/18 21:09 Polyethylene Glycol (Miralax) 17 gm DAILYPRN PRN ORAL Constipation 10/21/18 08:15 11/20/18 08:14 10/21/18 11:32 Potassium Chloride (K-Dur) 40 meq DAILY ORAL 10/25/18 09:00 11/24/18 08:59 11/03/18 08:00 Alberto Dumont MD Nov 04, 2018 07:36
[2018-11-04 08:00] VITALS: BP 108/74
[2018-11-04] MEDS: Docusate 100mg cap ORAL SCH ×3 (08:17→17:03)
[2018-11-04] MEDS: Heparin 5000 units/ml inj SUBQ SCH ×2 (08:21→20:19)
[2018-11-04] MEDS: Hydrogen Peroxide 473ml Bottle TOPIC SCH (09:00)
[2018-11-04 11:37] VITALS: BP 129/87
--- NOTE | 2018-11-04 15:06 | Nephrology Progress Note ---
Assessment/Plan Problem List: (1) Cellulitis of left foot (2) Sepsis (3) Hyponatremia (4) Hypoalbuminemia Assessment Left foot cellulitis / Leukocytosis / No fever Low Na Low K Anemia High Lactic Low Albumin Plan Isotonic solution K supplement DC IV fluids monitor lytes avoid nephrotoxics urine tox screen positive for Amphetamines and Opiates per orders stable from renal stand if discharged Subjective ROS Limited/Unobtainable: No Objective Objective Last 24 Hour Vital Signs Date Time Temp Pulse Resp B/P (MAP) Pulse Ox O2 Delivery O2 Flow Rate FiO2 11/04/18 12:37 97.7 11/04/18 12:36 97.7 11/04/18 11:37 97.7 86 18 129/87 (101) 99 11/04/18 09:00 Room Air 11/04/18 08:00 97.8 83 20 108/74 (85) 98 11/04/18 04:00 97.8 84 18 139/59 (85) 97 11/04/18 00:00 98.6 98 20 130/80 (97) 94 11/03/18 21:00 Room Air 11/03/18 20:00 99.8 89 17 115/66 (82) 97 11/03/18 16:00 98.4 74 20 108/61 (77) 94 Intake and Output 11/03/18 11/04/18 18:59 06:59 Intake Total 480 ml Output Total 1000 ml 1100 ml Balance -520 ml -1100 ml Intake Oral 480 ml Output Urine Total 1000 ml 1100 ml Laboratory Tests 11/04/18 05:30: White Blood Count 4.7L, Red Blood Count 4.10L, Hemoglobin 12.3L, Hematocrit 38.2L, Mean Corpuscular Volume 93, Mean Corpuscular Hemoglobin 30.1, Mean Corpuscular Hemoglobin Concent 32.3, Red Cell Distribution Width 12.5, Platelet Count 400, Mean Platelet Volume 5.0L, Neutrophils (%) (Auto) 49.3, Lymphocytes ( %) (Auto) 33.8, Monocytes (%) (Auto) 14.5H, Eosinophils (%) (Auto) 1.4, Basophils (%) (Auto) 1.0, Sodium Level 135L, Potassium Level 4.2, Chloride Level 101, Carbon Dioxide Level 27, Anion Gap 7, Blood Urea Nitrogen 14, Creatinine 1.0, Estimat Glomerular Filtration Rate > 60, Glucose Level 91, Calcium Level 9.9 Height (Feet): 6 Height (Inches): 1.00 Weight (Pounds): 155 General Appearance: no apparent distress Objective no change Levar Conde MD Nov 04, 2018 15:06
[2018-11-04 15:41] VITALS: BP 110/74
--- NOTE | 2018-11-04 17:17 | NUR ---
CASE MANAGEMENT: REVIEW 11/04/2018 SI:SEPSIS. T 97.8 HR 83 RR 20 B/P 108/74 SATS 98% ON RA WBC 4.7 NA 135 IS: PROTONIX PO Q12H K DUR PO QD FOLATE QD MOTRIN PO TID MED/SURG STATUS
--- NOTE | 2018-11-04 19:12 | NUR ---
HAND-OFF: Report given to LON Gaspar.
--- NOTE | 2018-11-04 19:19 | NUR ---
NURSE NOTES: Received report from LON Allen. Patient is in bed. AAO x 4. On room air. Dressing on L foot intact and dry. IV on L FA intact and asymptomatic. No acute distress noted at this time. Bed locked, lowest position, alarm on, side rails up x 2, call light within reach. Will continue to monitor.
[2018-11-04 20:00] VITALS: BP 132/69
--- NOTE | 2018-11-04 20:31 | General Progress Note ---
Assessment/Plan Status: stable, progressing Assessment/Plan: Assessment/Recs: # Sepsis with cellulitis of left foot --> on antibiotics --> stable, progressing --> seen by id is on bactrim and augmentin # Hypokalemia --> KCl repleted # Hyponatremia --> ivf as needed --> per renal # IVDU --> recommend cessation Appreciate delivery consultant recs Subjective Constitutional: Denies: no symptoms, chills, diaphoresis, fever, malaise, weakness, other HEENT: Denies: no symptoms, eye pain, blurred vision, tearing, double vision, ear pain, ear discharge, nose pain, nose congestion, throat pain, throat swelling, mouth pain, mouth swelling, other Respiratory: Denies: no symptoms, cough, orthopnea, shortness of breath, SOB with excertion, SOB at rest, sputum, stridor, wheezing, other Gastrointestinal/Abdominal: Denies: no symptoms, abdomen distended, abdominal pain, black stools, tarry stools, blood in stool, constipated, diarrhea, difficulty swallowing, nausea, poor appetite, poor fluid intake, rectal bleeding , vomiting, other Neurologic/Psychiatric: Denies: no symptoms, anxiety, depressed, emotional problems, headache, numbness, paresthesia, pre-existing deficit, seizure, tingling, tremors, weakness, other Allergies: Coded Allergies: No Known Allergies (Unverified , 10/20/18) Subjective 11/01: left leg still draining clearish fluid, otherwise no f/c, no night sweats 11/02: no issues reported, no fevers or chills, labs reviewed, lying in bed, a+o x4 11/03: no bleeding, no f/c, no night sweats, left diabetic foot with dressing 11/04: Dressing on L foot intact and dry. asymptomatic, no events Objective Last 24 Hour Vital Signs Date Time Temp Pulse Resp B/P (MAP) Pulse Ox O2 Delivery O2 Flow Rate FiO2 11/04/18 17:33 98.4 11/04/18 16:43 98.4 11/04/18 15:41 98.4 86 16 110/74 (86) 96 11/04/18 11:37 97.7 86 18 129/87 (101) 99 11/04/18 09:00 Room Air 11/04/18 08:00 97.8 83 20 108/74 (85) 98 11/04/18 04:00 97.8 84 18 139/59 (85) 97 11/04/18 00:00 98.6 98 20 130/80 (97) 94 11/03/18 21:00 Room Air Intake and Output 11/03/18 11/04/18 19:00 07:00 Intake Total 360 ml Output Total 1000 ml 1100 ml Balance -640 ml -1100 ml Intake Oral 360 ml Output Urine Total 1000 ml 1100 ml Laboratory Tests 11/04/18 05:30: White Blood Count 4.7L, Red Blood Count 4.10L, Hemoglobin 12.3L, Hematocrit 38.2L, Mean Corpuscular Volume 93, Mean Corpuscular Hemoglobin 30.1, Mean Corpuscular Hemoglobin Concent 32.3, Red Cell Distribution Width 12.5, Platelet Count 400, Mean Platelet Volume 5.0L, Neutrophils (%) (Auto) 49.3, Lymphocytes ( %) (Auto) 33.8, Monocytes (%) (Auto) 14.5H, Eosinophils (%) (Auto) 1.4, Basophils (%) (Auto) 1.0, Sodium Level 135L, Potassium Level 4.2, Chloride Level 101, Carbon Dioxide Level 27, Anion Gap 7, Blood Urea Nitrogen 14, Creatinine 1.0, Estimat Glomerular Filtration Rate > 60, Glucose Level 91, Calcium Level 9.9 Height (Feet): 6 Height (Inches): 1.00 Weight (Pounds): 155 Objective EENT: normal ENT inspection Neck: normal alignment Cardiovascular: normal peripheral pulses, normal rate, regular rhythm Respiratory/Chest: chest wall non-tender, lungs clear, normal breath sounds Abdomen: normal bowel sounds, non tender, soft Extremities: normal inspection Edema: 1+ Arm (L), 1+ Arm (R), 1+ Leg (L), 1+ Leg (R), 1+ Pedal (L), 1+ Pedal ( R), 1+ Generalized Edema: trace edema Neurologic: motor weakness Skin: normal pigmentation, warm/dry, ++l foor sl red and swollen up to ankle Boogie Chirinos MD Nov 04, 2018 20:31
[2018-11-05] VITALS: BP 122/72
[2018-11-05] MEDS: HYDROcodone/Acetamin 10/325 tab ORAL PRN ×6 (00:21→20:50)
[2018-11-05 04:00] VITALS: BP 113/76
--- NOTE | 2018-11-05 07:03 | NUR ---
HAND-OFF: Report given to LON Kamara.
--- NOTE | 2018-11-05 07:05 | NUR ---
NURSE NOTES: Received patient in bed, patient awake,alert.no sign of distress, HL patent, on fall precaution , discussed plan of care with pt, bed in lowest position call light within reach, bed in lowest position, left foot and leg dressing noted intact, elevate foot on pillow, kept clean and comfortable in bed, kaitlin reynolds
[2018-11-05 07:10] LABS: EOSINOPHILS % (AUTO) 1.9 % (0.0-3.0); HEMATOCRIT 37.4 % (42.0-52.0); HEMOGLOBIN 12.1 G/DL (14.2-18.0); LYMPHOCYTES % (AUTO) 42.2 % (20.0-45.0); MEAN CORPUSCULAR VOLUME 93 FL (80-99); MONOCYTES % (AUTO) 12.1 % (1.0-10.0); NEUTROPHILS % (AUTO) 42.8 % (45.0-75.0); PLATELET COUNT 365 K/UL (150-450); RED BLOOD COUNT 4.01 M/UL (4.70-6.10); RED CELL DISTRIBUTION WIDTH 12.9 % (11.6-14.8)
[2018-11-05 07:27] LABS: ANION GAP 5 mmol/L (5-15); BLOOD UREA NITROGEN 18 mg/dL (7-18); CALCIUM 9.4 MG/DL (8.5-10.1); CARBON DIOXIDE 30 MMOL/L (21-32); CHLORIDE 102 MMOL/L (98-107); CREATININE 1.1 MG/DL (0.55-1.30); POTASSIUM 4.5 MMOL/L (3.5-5.1); SODIUM 137 MMOL/L (136-145)
[2018-11-05 08:10] VITALS: BP 128/75
[2018-11-05] MEDS: Docusate 100mg cap ORAL SCH ×3 (08:33→17:10)
[2018-11-05] MEDS: Heparin 5000 units/ml inj SUBQ SCH ×2 (08:36→20:55)
[2018-11-05] MEDS: Hydrogen Peroxide 473ml Bottle TOPIC SCH (08:43)
--- NOTE | 2018-11-05 09:15 | General Progress Note ---
Assessment/Plan Status: stable, progressing Assessment/Plan: Assessment/Recs: # Sepsis with cellulitis of left foot --> on antibiotics --> stable, progressing --> seen by id is on bactrim and augmentin --> slowly improving # Hypokalemia --> KCl repleted # Hyponatremia --> ivf as needed --> per renal # IVDU --> recommend cessation Appreciate oracle ascp consultant recs Subjective Constitutional: Denies: no symptoms, chills, diaphoresis, fever, malaise, weakness, other HEENT: Denies: no symptoms, eye pain, blurred vision, tearing, double vision, ear pain, ear discharge, nose pain, nose congestion, throat pain, throat swelling, mouth pain, mouth swelling, other Cardiovascular: Denies: no symptoms, chest pain, edema, irregular heart rate, lightheadedness, palpitations, syncope, other Respiratory: Denies: no symptoms, cough, orthopnea, shortness of breath, SOB with excertion, SOB at rest, sputum, stridor, wheezing, other Gastrointestinal/Abdominal: Denies: no symptoms, abdomen distended, abdominal pain, black stools, tarry stools, blood in stool, constipated, diarrhea, difficulty swallowing, nausea, poor appetite, poor fluid intake, rectal bleeding , vomiting, other Genitourinary: Denies: no symptoms, burning, discharge, frequency, flank pain, hematuria, incontinence, pain, urgency, other Neurologic/Psychiatric: Denies: no symptoms, anxiety, depressed, emotional problems, headache, numbness, paresthesia, pre-existing deficit, seizure, tingling, tremors, weakness, other Endocrine: Denies: no symptoms, excessive sweating, flushing, intolerance to cold, intolerance to heat, increased hunger, increased thirst, increased urine, unexplained weight gain, unexplained weight loss, other Hematologic/Lymphatic: Denies: no symptoms, anemia, easy bleeding, easy bruising, other Allergies: Coded Allergies: No Known Allergies (Unverified , 10/20/18) Subjective 11/01: left leg still draining clearish fluid, otherwise no f/c, no night sweats 11/02: no issues reported, no fevers or chills, labs reviewed, lying in bed, a+o x4 11/03: no bleeding, no f/c, no night sweats, left diabetic foot with dressing 11/04: Dressing on L foot intact and dry. asymptomatic, no events 11/05: no fevers or chills, on heparin sq, no bleeding noted Objective Last 24 Hour Vital Signs Date Time Temp Pulse Resp B/P (MAP) Pulse Ox O2 Delivery O2 Flow Rate FiO2 11/05/18 08:16 Room Air 11/05/18 08:10 98.0 73 18 128/75 (92) 98 11/05/18 04:00 97.5 70 18 113/76 (88) 100 11/05/18 00:00 97.9 71 18 122/72 (89) 98 11/04/18 21:00 Room Air 11/04/18 20:00 97.9 84 20 132/69 (90) 96 11/04/18 17:33 98.4 11/04/18 16:43 98.4 11/04/18 15:41 98.4 86 16 110/74 (86) 96 11/04/18 11:37 97.7 86 18 129/87 (101) 99 Intake and Output 11/04/18 11/05/18 19:00 07:00 Output Total 1400 ml 1200 ml Balance -1400 ml -1200 ml Output Urine Total 1400 ml 1200 ml Laboratory Tests 11/05/18 05:20: White Blood Count 5.0, Red Blood Count 4.01L, Hemoglobin 12.1L, Hematocrit 37.4L , Mean Corpuscular Volume 93, Mean Corpuscular Hemoglobin 30.2, Mean Corpuscular Hemoglobin Concent 32.4, Red Cell Distribution Width 12.9, Platelet Count 365, Mean Platelet Volume 5.2L, Neutrophils (%) (Auto) 42.8L, Lymphocytes (%) (Auto) 42.2, Monocytes (%) (Auto) 12.1H, Eosinophils (%) (Auto) 1.9, Basophils (%) (Auto) 1.0, Sodium Level 137, Potassium Level 4.5, Chloride Level 102, Carbon Dioxide Level 30, Anion Gap 5, Blood Urea Nitrogen 18, Creatinine 1.1, Estimat Glomerular Filtration Rate > 60, Glucose Level 105, Calcium Level 9.4 Height (Feet): 6 Height (Inches): 1.00 Weight (Pounds): 155 Objective EENT: normal ENT inspection Neck: normal alignment Cardiovascular: normal peripheral pulses, normal rate, regular rhythm Respiratory/Chest: chest wall non-tender, lungs clear, normal breath sounds Abdomen: normal bowel sounds, non tender, soft Extremities: normal inspection Edema: trace edema Neurologic: motor weakness Skin: normal pigmentation, warm/dry, ++l foor sl red and swollen up to ankle Boogie Chirinos MD Nov 05, 2018 09:15
--- NOTE | 2018-11-05 10:13 | Nephrology Progress Note ---
Assessment/Plan Problem List: (1) Cellulitis of left foot (2) Sepsis (3) Hyponatremia (4) Hypoalbuminemia Assessment Left foot cellulitis / Leukocytosis / No fever Low Na Low K Anemia High Lactic Low Albumin Plan Isotonic solution K supplement DC IV fluids monitor lytes avoid nephrotoxics urine tox screen positive for Amphetamines and Opiates per orders stable from renal stand if discharged Subjective ROS Limited/Unobtainable: No Objective Objective Last 24 Hour Vital Signs Date Time Temp Pulse Resp B/P (MAP) Pulse Ox O2 Delivery O2 Flow Rate FiO2 11/05/18 08:16 Room Air 11/05/18 08:10 98.0 73 18 128/75 (92) 98 11/05/18 04:00 97.5 70 18 113/76 (88) 100 11/05/18 00:00 97.9 71 18 122/72 (89) 98 11/04/18 21:00 Room Air 11/04/18 20:00 97.9 84 20 132/69 (90) 96 11/04/18 17:33 98.4 11/04/18 16:43 98.4 11/04/18 15:41 98.4 86 16 110/74 (86) 96 11/04/18 11:37 97.7 86 18 129/87 (101) 99 Intake and Output 11/04/18 11/05/18 19:00 07:00 Output Total 1400 ml 1200 ml Balance -1400 ml -1200 ml Output Urine Total 1400 ml 1200 ml Laboratory Tests 11/05/18 05:20: White Blood Count 5.0, Red Blood Count 4.01L, Hemoglobin 12.1L, Hematocrit 37.4L , Mean Corpuscular Volume 93, Mean Corpuscular Hemoglobin 30.2, Mean Corpuscular Hemoglobin Concent 32.4, Red Cell Distribution Width 12.9, Platelet Count 365, Mean Platelet Volume 5.2L, Neutrophils (%) (Auto) 42.8L, Lymphocytes (%) (Auto) 42.2, Monocytes (%) (Auto) 12.1H, Eosinophils (%) (Auto) 1.9, Basophils (%) (Auto) 1.0, Sodium Level 137, Potassium Level 4.5, Chloride Level 102, Carbon Dioxide Level 30, Anion Gap 5, Blood Urea Nitrogen 18, Creatinine 1.1, Estimat Glomerular Filtration Rate > 60, Glucose Level 105, Calcium Level 9.4 Height (Feet): 6 Height (Inches): 1.00 Weight (Pounds): 155 General Appearance: no apparent distress Objective no change Levar Conde MD Nov 05, 2018 10:13
--- NOTE | 2018-11-05 10:47 | Podiatric Progress Note ---
Assessment/Plan Patient Bhavik Tran is a 58 year old male who was admitted on Oct 20, 2018 at 22: 56 with Problems: (1) Diabetes mellitus type 2 with neurological manifestations (2) Foot ulcer due to secondary DM (3) Cellulitis of left foot Assessment/Plan Continue Xerform to the L leg and Lateral foot ulcer. Santyl to L dorsal foot ulcer. Subjective Allergies: Coded Allergies: No Known Allergies (Unverified , 10/20/18) Subjective patient seen by bedside in Nad f/u L foot ulcer Objective Exam Last 24 Hour Vital Signs Date Time Temp Pulse Resp B/P (MAP) Pulse Ox O2 Delivery O2 Flow Rate FiO2 11/05/18 08:16 Room Air 11/05/18 08:10 98.0 73 18 128/75 (92) 98 11/05/18 04:00 97.5 70 18 113/76 (88) 100 11/05/18 00:00 97.9 71 18 122/72 (89) 98 11/04/18 21:00 Room Air 11/04/18 20:00 97.9 84 20 132/69 (90) 96 11/04/18 17:33 98.4 11/04/18 16:43 98.4 11/04/18 15:41 98.4 86 16 110/74 (86) 96 11/04/18 11:37 97.7 86 18 129/87 (101) 99 Laboratory Tests Test 11/05/18 05:20 White Blood Count 5.0 K/UL (4.8-10.8) Red Blood Count 4.01 M/UL (4.70-6.10) L Hemoglobin 12.1 G/DL (14.2-18.0) L Hematocrit 37.4 % (42.0-52.0) L Mean Corpuscular Volume 93 FL (80-99) Mean Corpuscular Hemoglobin 30.2 PG (27.0-31.0) Mean Corpuscular Hemoglobin Concent 32.4 G/DL (32.0-36.0) Red Cell Distribution Width 12.9 % (11.6-14.8) Platelet Count 365 K/UL (150-450) Mean Platelet Volume 5.2 FL (6.5-10.1) L Neutrophils (%) (Auto) 42.8 % (45.0-75.0) L Lymphocytes (%) (Auto) 42.2 % (20.0-45.0) Monocytes (%) (Auto) 12.1 % (1.0-10.0) H Eosinophils (%) (Auto) 1.9 % (0.0-3.0) Basophils (%) (Auto) 1.0 % (0.0-2.0) Sodium Level 137 MMOL/L (136-145) Potassium Level 4.5 MMOL/L (3.5-5.1) Chloride Level 102 MMOL/L (98-107) Carbon Dioxide Level 30 MMOL/L (21-32) Anion Gap 5 mmol/L (5-15) Blood Urea Nitrogen 18 mg/dL (7-18) Creatinine 1.1 MG/DL (0.55-1.30) Estimat Glomerular Filtration Rate > 60 mL/min (>60) Glucose Level 105 MG/DL (74-106) Calcium Level 9.4 MG/DL (8.5-10.1) Microbiology Date/Time Source Procedure Growth Status 10/20/18 20:27 Blood Blood Culture - Final NO GROWTH AFTER 5 DAYS Complete 10/20/18 20:25 Nasal Nares MRSA Culture - Final NO METHICILLIN RESISTANT STAPH AUREUS... Complete 10/21/18 11:30 Leg Left Gram Stain - Final Complete 10/21/18 11:30 Wound Culture - Final Klebsiella Oxytoca Citrobacter Freundii Proteus Mirabilis Streptococcus Group A Staphylococcus Aureus - Mrsa Complete Dermatological Dermatological Narrative swelling is down to the left leg and foot. L lateral leg ulcer in granulating and clear of necrotic tissue. no drainage no discharge no pus no cellulitis. probs to subq/ tendon level. Left lateral ankle ulcer is healing. ulcer is smaller and closing. no discharge no pus. probs to subq. L dorsal foot ulcer is probing to tendon level + fibrotic base + clear drainage no pus no cellulites Edgardo Gu DPM Nov 05, 2018 10:47
--- NOTE | 2018-11-05 11:56 | Pulmonology Progress Note ---
Assessment/Plan Problems: (1) Sepsis (2) Cellulitis of left foot Assessment/Plan improving doing better on abx check cultures wound care dvt prophylaxis. dc planning waiting for placement avoid IV narcotics Subjective ROS Limited/Unobtainable: No Constitutional: Reports: no symptoms HEENT: Repors: no symptoms Allergies: Coded Allergies: No Known Allergies (Unverified , 10/20/18) Objective Last 24 Hour Vital Signs Date Time Temp Pulse Resp B/P (MAP) Pulse Ox O2 Delivery O2 Flow Rate FiO2 11/05/18 08:16 Room Air 11/05/18 08:10 98.0 73 18 128/75 (92) 98 11/05/18 04:00 97.5 70 18 113/76 (88) 100 11/05/18 00:00 97.9 71 18 122/72 (89) 98 11/04/18 21:00 Room Air 11/04/18 20:00 97.9 84 20 132/69 (90) 96 11/04/18 17:33 98.4 11/04/18 16:43 98.4 11/04/18 15:41 98.4 86 16 110/74 (86) 96 Intake and Output 11/04/18 11/05/18 18:59 06:59 Output Total 1400 ml 1200 ml Balance -1400 ml -1200 ml Output Urine Total 1400 ml 1200 ml Objective General Appearance: WD/WN HEENT: normocephalic, atraumatic Respiratory/Chest: chest wall non-tender, lungs clear, normal breath sounds Breasts: no masses Cardiovascular: normal peripheral pulses, normal rate Abdomen: normal bowel sounds, soft, non tender Genitourinary: normal external genitalia Extremities: no cyanosis, less edema Laboratory Tests 11/05/18 05:20: White Blood Count 5.0, Red Blood Count 4.01L, Hemoglobin 12.1L, Hematocrit 37.4L , Mean Corpuscular Volume 93, Mean Corpuscular Hemoglobin 30.2, Mean Corpuscular Hemoglobin Concent 32.4, Red Cell Distribution Width 12.9, Platelet Count 365, Mean Platelet Volume 5.2L, Neutrophils (%) (Auto) 42.8L, Lymphocytes (%) (Auto) 42.2, Monocytes (%) (Auto) 12.1H, Eosinophils (%) (Auto) 1.9, Basophils (%) (Auto) 1.0, Sodium Level 137, Potassium Level 4.5, Chloride Level 102, Carbon Dioxide Level 30, Anion Gap 5, Blood Urea Nitrogen 18, Creatinine 1.1, Estimat Glomerular Filtration Rate > 60, Glucose Level 105, Calcium Level 9.4 Current Medications Medications (Trade) Dose Ordered Sig/Juan Route PRN Reason Start Time Stop Time Status Last Admin Dose Admin Acetaminophen (Tylenol) 650 mg Q4H PRN ORAL fever 10/21/18 08:15 11/20/18 08:14 10/28/18 05:19 Acetaminophen/ Hydrocodone Bitart ([place] 10/325) 1 tab Q4H PRN ORAL For breakthrough pain 11/01/18 11:45 11/08/18 11:44 11/05/18 08:33 Artificial Tears (Lacri-Lube) 1 applic QIDPRN PRN BOTH EYES Dry Eyes 11/02/18 18:30 12/02/18 18:14 Dextrose (Dextrose 50%) 25 ml Q30M PRN IV Hypoglycemia 10/21/18 08:30 11/20/18 08:16 Dextrose (Dextrose 50%) 50 ml Q30M PRN IV hypoglycemia 10/21/18 08:30 11/20/18 08:29 Docusate Sodium (Colace) 100 mg THREE TIMES A DAY ORAL 10/21/18 18:00 11/20/18 17:59 11/05/18 08:33 Folic Acid (Folate) 3 mg DAILY ORAL 11/02/18 09:00 12/02/18 08:59 11/05/18 08:33 Heparin Sodium (Porcine) (Heparin 5000 units/ml) 5,000 units EVERY 12 HOURS SUBQ 10/21/18 09:00 11/20/18 08:59 11/05/18 08:36 Hydrogen Peroxide (Hydrogen Peroxide) 1 applic DAILY TOPIC 11/02/18 17:15 12/02/18 17:14 11/05/18 08:43 Ibuprofen (Motrin) 600 mg TID ORAL 10/24/18 18:00 11/23/18 17:59 11/05/18 08:32 Nitroglycerin (Ntg) 0.4 mg Q5M PRN SL Prn Chest Pain 10/21/18 08:15 11/20/18 08:14 Ondansetron HCl (Zofran) 4 mg Q6H PRN IVP Nausea & Vomiting 10/21/18 08:15 11/20/18 08:14 Pantoprazole (Protonix) 40 mg EVERY 12 HOURS ORAL 10/21/18 21:00 11/20/18 20:59 11/05/18 08:32 Polyethylene Glycol (Miralax) 17 gm DAILYPRN PRN ORAL Constipation 10/21/18 08:15 11/20/18 08:14 10/21/18 11:32 Potassium Chloride (K-Dur) 40 meq DAILY ORAL 10/25/18 09:00 11/24/18 08:59 11/05/18 08:33 Alberto Dumont MD Nov 05, 2018 11:56
[2018-11-05 12:05] VITALS: BP 105/64
--- NOTE | 2018-11-05 13:22 | NUR ---
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 97.9 HR 70 RR 18 B/P 105/64 RA 98% IS: PROTONIX PO HEPARIN SUBC K-DUR PO PLACEMENT PENDING MED/SURG STATUS
--- NOTE | 2018-11-05 13:24 | NUR ---
RD ASSESSMENT & RECOMMENDATIONS SEE CARE ACTIVITY FOR COMPLETE ASSESSMENT DAILY ESTIMATED NEEDS: Needs based on Wound/ 75.5kg 25-30 kcals/kg 4136-9893 total kcals 1.25-1.5 g protein/kg 95-113 g total protein 25-30 mL/kg 2231-4335 total fluid mLs NUTRITION DIAGNOSIS: * Increased protein intake needs R/T wound healing as evidenced by pt admitted w/ traumatic ulceration to the left sagastume. * Altered nutrition related lab values R/T pre-diabetes as evidenced by A1C of 6.4. CURRENT DIET: Now Regular PO DIET RECOMMEND[facility]: [facility] ADDITIONAL RECOMMENDATIONS: * Standing wt for accurate CBW / or calibrated bed scale * Wound healing: add MVI x 1, Vit C 250mg QD - add Martin 1pkt BID * Monitor BGs closely, need for hypoglycemics: A1C of 6.4 -> Rec carb controlled diet
--- NOTE | 2018-11-05 13:31 | Infectious Diseases Prog Note ---
Assessment/Plan Assessment/Plan A: 58 yo male who presnted to the ED on 10/19/18 with left leg cellulitis. Left foot cellulitis; improving -wound cx: MRSA, GAS, P. mirabilsi (Bassett S), C. freundi (R ancef, otherwise S), K. oxytoca (R amp, otherwise S) Leukocytosis ;SP Low grade fevers; SP -Tibia/fibula MRI: Negative for evidence of osteomyelitis. Evidence of superficial soft tissue ulcer, marked by a marker at the anteromedial sagastume region.Considerable subcutaneous fat edema. Given stated clinical history, probably on the basis of cellulitis. Correlate with clinical findings. No evidence of drainable abscess. -foot MRI: Extensive soft tissue edema, as described. This is in keeping with stated clinical history of cellulitis. No findings to suggest abscess Very superficial fluid collections likely relate to stated clinical history of dorsal blisters. No marrow abnormality to suggest acute osteomyelitis demonstrated. -ANkle MRI: Patchy areas of marrow edema, as described. Periarticular distribution of this is suggestive of arthropathy which may be degenerative, inflammatory, or, most likely, on the basis of Charcot-type changes. Per technologist, there are no ulcers in the area so osteomyelitis is deemed much less likely. Extensive edema of the subcutaneous fat. Given stated clinical history of cellulitis most likely on the basis of such. Correlate with clinical findings. No drainable abscess collection demonstrated. -Foot xray: No acute injury identified. Soft tissue swelling. Multiple incidental findings as described PLAN: - Continue to monitor off abx -11/04 SP Bactrim and Augmentin #6 -10/28 SP Cefepime #8, IV Vancomycin #8 - Monitor CBC and Temps -Podiatry f/u Subjective Allergies: Coded Allergies: No Known Allergies (Unverified , 10/20/18) Subjective afebrile no leukocytosis awaiting placement now off abx Objective Vital Signs Last 24 Hour Vital Signs Date Time Temp Pulse Resp B/P (MAP) Pulse Ox O2 Delivery O2 Flow Rate FiO2 11/05/18 12:05 97.9 70 18 105/64 (78) 98 11/05/18 08:16 Room Air 11/05/18 08:10 98.0 73 18 128/75 (92) 98 11/05/18 04:00 97.5 70 18 113/76 (88) 100 11/05/18 00:00 97.9 71 18 122/72 (89) 98 11/04/18 21:00 Room Air 11/04/18 20:00 97.9 84 20 132/69 (90) 96 11/04/18 17:33 98.4 11/04/18 16:43 98.4 11/04/18 15:41 98.4 86 16 110/74 (86) 96 Height (Feet): 6 Height (Inches): 1.00 Weight (Pounds): 155 Objective Gen: NAD HEENT: NCAT, MMM, EOMI, PERRL, No Oral lesion, no scleral icterus NECK: full range of motion, supple, no meningismus, No LAD, No JVD LUNGS: CTAB, No W/C, No Accessory muscle use CARDS: RRR, S1, S2, No M/R/G, ABD: Soft, NT, ND, No R/G, + BS, No HSM, No Masses : Deferred Ext: C/C/E, Pulses 2+ B/L (DP, Rad): LLE swelling with erythema and pain, Ulceration present with purulence. NEURO: A/O x 4, Strength and Sensation Grossly intact PSYCH: Normal mood and affect SKIN: Warm/dry, No rashes Laboratory Tests Test 11/05/18 05:20 White Blood Count 5.0 K/UL (4.8-10.8) Red Blood Count 4.01 M/UL (4.70-6.10) L Hemoglobin 12.1 G/DL (14.2-18.0) L Hematocrit 37.4 % (42.0-52.0) L Mean Corpuscular Volume 93 FL (80-99) Mean Corpuscular Hemoglobin 30.2 PG (27.0-31.0) Mean Corpuscular Hemoglobin Concent 32.4 G/DL (32.0-36.0) Red Cell Distribution Width 12.9 % (11.6-14.8) Platelet Count 365 K/UL (150-450) Mean Platelet Volume 5.2 FL (6.5-10.1) L Neutrophils (%) (Auto) 42.8 % (45.0-75.0) L Lymphocytes (%) (Auto) 42.2 % (20.0-45.0) Monocytes (%) (Auto) 12.1 % (1.0-10.0) H Eosinophils (%) (Auto) 1.9 % (0.0-3.0) Basophils (%) (Auto) 1.0 % (0.0-2.0) Sodium Level 137 MMOL/L (136-145) Potassium Level 4.5 MMOL/L (3.5-5.1) Chloride Level 102 MMOL/L (98-107) Carbon Dioxide Level 30 MMOL/L (21-32) Anion Gap 5 mmol/L (5-15) Blood Urea Nitrogen 18 mg/dL (7-18) Creatinine 1.1 MG/DL (0.55-1.30) Estimat Glomerular Filtration Rate > 60 mL/min (>60) Glucose Level 105 MG/DL (74-106) Calcium Level 9.4 MG/DL (8.5-10.1) Current Medications Medications (Trade) Dose Ordered Sig/Juan Route PRN Reason Start Time Stop Time Status Last Admin Dose Admin Acetaminophen (Tylenol) 650 mg Q4H PRN ORAL fever 10/21/18 08:15 11/20/18 08:14 10/28/18 05:19 Acetaminophen/ Hydrocodone Bitart ([place] 10/325) 1 tab Q4H PRN ORAL For breakthrough pain 11/01/18 11:45 11/08/18 11:44 11/05/18 12:26 Artificial Tears (Lacri-Lube) 1 applic QIDPRN PRN BOTH EYES Dry Eyes 11/02/18 18:30 12/02/18 18:14 Dextrose (Dextrose 50%) 25 ml Q30M PRN IV Hypoglycemia 10/21/18 08:30 11/20/18 08:16 Dextrose (Dextrose 50%) 50 ml Q30M PRN IV hypoglycemia 10/21/18 08:30 11/20/18 08:29 Docusate Sodium (Colace) 100 mg THREE TIMES A DAY ORAL 10/21/18 18:00 11/20/18 17:59 11/05/18 12:25 Folic Acid (Folate) 3 mg DAILY ORAL 11/02/18 09:00 12/02/18 08:59 11/05/18 08:33 Heparin Sodium (Porcine) (Heparin 5000 units/ml) 5,000 units EVERY 12 HOURS SUBQ 10/21/18 09:00 11/20/18 08:59 11/05/18 08:36 Hydrogen Peroxide (Hydrogen Peroxide) 1 applic DAILY TOPIC 11/02/18 17:15 12/02/18 17:14 11/05/18 08:43 Ibuprofen (Motrin) 600 mg TID ORAL 10/24/18 18:00 11/23/18 17:59 11/05/18 12:26 Nitroglycerin (Ntg) 0.4 mg Q5M PRN SL Prn Chest Pain 10/21/18 08:15 11/20/18 08:14 Ondansetron HCl (Zofran) 4 mg Q6H PRN IVP Nausea & Vomiting 10/21/18 08:15 11/20/18 08:14 Pantoprazole (Protonix) 40 mg EVERY 12 HOURS ORAL 10/21/18 21:00 11/20/18 20:59 11/05/18 08:32 Polyethylene Glycol (Miralax) 17 gm DAILYPRN PRN ORAL Constipation 10/21/18 08:15 11/20/18 08:14 10/21/18 11:32 Potassium Chloride (K-Dur) 40 meq DAILY ORAL 10/25/18 09:00 11/24/18 08:59 11/05/18 08:33 Fernanda Davison M.D. Nov 05, 2018 13:31
--- NOTE | 2018-11-05 13:31 | NUR ---
Social Service Note SW left a message for insurance advisor Sharon [phone] to address placement. Referred to the following facilities: Kathy santiago in-take for [facility] [phone]) [phone] (f) Anita at [place] [phone] (p) declined based on insurance Oliverio at [facility] [phone] (p) [phone] (f) Mati at [place] [phone] (p) [phone] (f) Iris at [place] [phone] (p) [phone] (f) Yesinia at [facility] [phone] (p) [phone] (f) Peaches at [facility] [phone] (p) [phone] (f) Moni at [facility] [phone]) [phone] (f) Betzy at [place] [phone] (p) Julisa at [facility] [phone] (p) [phone] (f)
--- NOTE | 2018-11-05 15:09 | NUR ---
*-* INSURANCE *-* UPDATED CLINICALS AND REVIEWS HAVE BEEN FAXED TO: [facility]: BRANT P- [phone]............REVIEW/CLINICAL
[2018-11-05 16:00] VITALS: BP 93/60
--- NOTE | 2018-11-05 19:19 | NUR ---
HAND-OFF: Report given to LON Mcnally., resting comfortably in bed, patient free from pain and injury lon reynolds
--- NOTE | 2018-11-05 19:28 | NUR ---
NURSE NOTES: Pt is in bed, awake and verbal. No acute distress noted. Vitas stable. Left leg dressing is dry and intact. Pain medication will be given as ordered PRN. Bed locked low in position,side rails up and call light within reach.
[2018-11-05 20:00] VITALS: BP 94/55
[2018-11-06] VITALS: BP 103/63
[2018-11-06] MEDS: HYDROcodone/Acetamin 10/325 tab ORAL PRN ×2 (02:22→06:31)
--- NOTE | 2018-11-06 05:33 | NUR ---
NURSE NOTES: Pt is in bed, asleep. No acute distress noted.
--- NOTE | 2018-11-06 07:10 | NUR ---
HAND-OFF: Report given to Aline Gentile RN.
--- NOTE | 2018-11-06 07:15 | NUR ---
NURSE NOTES: Received patient in bed, patient awake,alert x4,no sign of distress, HL patent, on fall precaution , discussed plan of care with pt, bed in lowest position call light within reach, bed in lowest position, left foot and leg dressing noted intact, elevate foot on pillow, kept clean and comfortable in bed, kaitlin reynolds
[2018-11-06 07:23] LABS: BASOPHILS % (AUTO) 0.8 % (0.0-2.0); HEMOGLOBIN 12.6 G/DL (14.2-18.0); LYMPHOCYTES % (AUTO) 41.2 % (20.0-45.0); MEAN CORPUSCULAR VOLUME 93 FL (80-99); MONOCYTES % (AUTO) 10.3 % (1.0-10.0); NEUTROPHILS % (AUTO) 45.7 % (45.0-75.0); PLATELET COUNT 334 K/UL (150-450); RED BLOOD COUNT 4.19 M/UL (4.70-6.10); RED CELL DISTRIBUTION WIDTH 12.6 % (11.6-14.8); WHITE BLOOD COUNT 4.4 K/UL (4.8-10.8)
[2018-11-06 07:33] LABS: ANION GAP 6 mmol/L (5-15); BLOOD UREA NITROGEN 17 mg/dL (7-18); CALCIUM 9.8 MG/DL (8.5-10.1); CARBON DIOXIDE 30 MMOL/L (21-32); CHLORIDE 102 MMOL/L (98-107); CREATININE 0.9 MG/DL (0.55-1.30); POTASSIUM 4.3 MMOL/L (3.5-5.1); SODIUM 138 MMOL/L (136-145)
[2018-11-06 08:00] VITALS: BP 118/63
[2018-11-06] MEDS: Docusate 100mg cap ORAL SCH ×3 (08:17→17:02)
[2018-11-06] MEDS: Heparin 5000 units/ml inj SUBQ SCH ×2 (08:21→21:09)
[2018-11-06] MEDS: Hydrogen Peroxide 473ml Bottle TOPIC SCH (08:21)
--- NOTE | 2018-11-06 10:22 | NUR ---
Social Service Note SW spoke with Sharon insurance [phone]. Sharon will discuss with [facility] to obtain approval for IV with [facility]. Sharon provided a list of contracted providers to also utilize. Faxed referral to the following providers: [facility] [phone] (p) [phone] (f) [facility] [phone] (p) [phone] (f) [facility] [phone] (p) [phone] (f) [place] [phone] (p) [phone] (f) [facility] [phone] (p) [phone] (f) [facility] [phone] (p) [phone] (f) [facility] [phone] (p) [phone] (f) [facility] [phone] (p) [phone] 9f) [facility] [phone] (p) [phone] (f) [facility] [phone] (p) [phone] (f)
--- NOTE | 2018-11-06 10:23 | Hematology/Onc Progress Note ---
Assessment/Plan Assessment/Plan Assessment/Recs: # Leukopenia with a decreased wbc 5-->4 --> obtain hepatitis and hiv lab draw --> imaging of the abd on prn basis --> neupogen for anc goal >1500 # Sepsis with cellulitis of left foot --> on antibiotics --> stable, progressing --> seen by id and currently is off antibiotics --> slowly improving # Hypokalemia --> KCl repleted # Hyponatremia --> ivf as needed --> per renal # IVDU --> recommend cessation Appreciate hospice care sales consultant recs Subjective HEENT: Denies: no symptoms, eye pain, blurred vision, tearing, double vision, ear pain, ear discharge, nose pain, nose congestion, throat pain, throat swelling, mouth pain, mouth swelling, other Cardiovascular: Denies: no symptoms, chest pain, edema, irregular heart rate, lightheadedness, palpitations, syncope, other Respiratory: Denies: no symptoms, cough, shortness of breath, SOB with excertion, SOB at rest, sputum, wheezing, other Gastrointestinal/Abdominal: Denies: no symptoms, abdomen distended, abdominal pain, black stools, tarry stools, blood in stool, constipated, diarrhea, difficulty swallowing, nausea, poor appetite, poor fluid intake, rectal bleeding , vomiting, other Genitourinary: Denies: no symptoms, burning, discharge, frequency, flank pain, hematuria, incontinence, pain, urgency, other Neurologic/Psychiatric: Denies: no symptoms, anxiety, depressed, emotional problems, headache, numbness, paresthesia, pre-existing deficit, seizure, tingling, tremors, weakness, other Endocrine: Denies: no symptoms, excessive sweating, flushing, intolerance to cold, intolerance to heat, increased hunger, increased thirst, increased urine, unexplained weight gain, unexplained weight loss, other Hematologic/Lymphatic: Denies: no symptoms, anemia, easy bleeding, easy bruising, adenopathy, other Allergies: Coded Allergies: No Known Allergies (Unverified , 10/20/18) Subjective 11/01: left leg still draining clearish fluid, otherwise no f/c, no night sweats 11/02: no issues reported, no fevers or chills, labs reviewed, lying in bed, a+o x4 11/03: no bleeding, no f/c, no night sweats, left diabetic foot with dressing 11/04: Dressing on L foot intact and dry. asymptomatic, no events 11/05: no fevers or chills, on heparin sq, no bleeding noted 11/06: is off antibiotics, without fevers, no chills noted, wbc remains low Objective Objective Current Medications Medications (Trade) Dose Ordered Sig/Juan Route PRN Reason Start Time Stop Time Status Last Admin Dose Admin Acetaminophen (Tylenol) 650 mg Q4H PRN ORAL fever 10/21/18 08:15 11/20/18 08:14 10/28/18 05:19 Acetaminophen/ Hydrocodone Bitart ([place] 10/325) 1 tab Q4H PRN ORAL For breakthrough pain 11/01/18 11:45 11/08/18 11:44 11/06/18 06:31 Artificial Tears (Lacri-Lube) 1 applic QIDPRN PRN BOTH EYES Dry Eyes 11/02/18 18:30 12/02/18 18:14 Dextrose (Dextrose 50%) 25 ml Q30M PRN IV Hypoglycemia 10/21/18 08:30 11/20/18 08:16 Dextrose (Dextrose 50%) 50 ml Q30M PRN IV hypoglycemia 10/21/18 08:30 11/20/18 08:29 Docusate Sodium (Colace) 100 mg THREE TIMES A DAY ORAL 10/21/18 18:00 11/20/18 17:59 11/06/18 08:17 Folic Acid (Folate) 3 mg DAILY ORAL 11/02/18 09:00 12/02/18 08:59 11/06/18 08:17 Heparin Sodium (Porcine) (Heparin 5000 units/ml) 5,000 units EVERY 12 HOURS SUBQ 10/21/18 09:00 11/20/18 08:59 11/06/18 08:21 Hydrogen Peroxide (Hydrogen Peroxide) 1 applic DAILY TOPIC 11/02/18 17:15 12/02/18 17:14 11/06/18 08:21 Ibuprofen (Motrin) 600 mg TID ORAL 10/24/18 18:00 11/23/18 17:59 11/06/18 08:16 Nitroglycerin (Ntg) 0.4 mg Q5M PRN SL Prn Chest Pain 10/21/18 08:15 11/20/18 08:14 Ondansetron HCl (Zofran) 4 mg Q6H PRN IVP Nausea & Vomiting 10/21/18 08:15 11/20/18 08:14 Pantoprazole (Protonix) 40 mg EVERY 12 HOURS ORAL 10/21/18 21:00 11/20/18 20:59 11/06/18 08:17 Polyethylene Glycol (Miralax) 17 gm DAILYPRN PRN ORAL Constipation 10/21/18 08:15 11/20/18 08:14 10/21/18 11:32 Potassium Chloride (K-Dur) 40 meq DAILY ORAL 10/25/18 09:00 11/24/18 08:59 11/06/18 08:17 Last 24 Hour Vital Signs Date Time Temp Pulse Resp B/P (MAP) Pulse Ox O2 Delivery O2 Flow Rate FiO2 11/06/18 08:15 Room Air 11/06/18 08:00 97.9 83 18 118/63 (81) 94 11/06/18 00:00 97.7 75 18 103/63 (76) 97 11/05/18 21:00 Room Air 11/05/18 20:00 97.9 79 18 94/55 (68) 97 11/05/18 16:00 97.5 71 18 93/60 (71) 100 11/05/18 12:05 97.9 70 18 105/64 (78) 98 11/05/18 08:16 Room Air 11/05/18 08:10 98.0 73 18 128/75 (92) 98 11/05/18 04:00 97.5 70 18 113/76 (88) 100 11/05/18 00:00 97.9 71 18 122/72 (89) 98 11/04/18 21:00 Room Air 11/04/18 20:00 97.9 84 20 132/69 (90) 96 11/04/18 17:33 98.4 11/04/18 16:43 98.4 11/04/18 15:41 98.4 86 16 110/74 (86) 96 11/04/18 11:37 97.7 86 18 129/87 (101) 99 Intake and Output 11/05/18 11/06/18 19:00 07:00 Intake Total 820 ml 800 ml Output Total 1200 ml Balance 820 ml -400 ml Intake Oral 820 ml 800 ml Output Urine Total 1200 ml # Voids 7 4 Labs Test 11/04/18 05:30 11/05/18 05:20 11/06/18 05:34 White Blood Count 4.7 K/UL (4.8-10.8) 5.0 K/UL (4.8-10.8) 4.4 K/UL (4.8-10.8) Red Blood Count 4.10 M/UL (4.70-6.10) 4.01 M/UL (4.70-6.10) 4.19 M/UL (4.70-6.10) Hemoglobin 12.3 G/DL (14.2-18.0) 12.1 G/DL (14.2-18.0) 12.6 G/DL (14.2-18.0) Hematocrit 38.2 % (42.0-52.0) 37.4 % (42.0-52.0) 39.0 % (42.0-52.0) Mean Corpuscular Volume 93 FL (80-99) 93 FL (80-99) 93 FL (80-99) Mean Corpuscular Hemoglobin 30.1 PG (27.0-31.0) 30.2 PG (27.0-31.0) 30.0 PG (27.0-31.0) Mean Corpuscular Hemoglobin Concent 32.3 G/DL (32.0-36.0) 32.4 G/DL (32.0-36.0) 32.2 G/DL (32.0-36.0) Red Cell Distribution Width 12.5 % (11.6-14.8) 12.9 % (11.6-14.8) 12.6 % (11.6-14.8) Platelet Count 400 K/UL (150-450) 365 K/UL (150-450) 334 K/UL (150-450) Mean Platelet Volume 5.0 FL (6.5-10.1) 5.2 FL (6.5-10.1) 5.4 FL (6.5-10.1) Neutrophils (%) (Auto) 49.3 % (45.0-75.0) 42.8 % (45.0-75.0) 45.7 % (45.0-75.0) Lymphocytes (%) (Auto) 33.8 % (20.0-45.0) 42.2 % (20.0-45.0) 41.2 % (20.0-45.0) Monocytes (%) (Auto) 14.5 % (1.0-10.0) 12.1 % (1.0-10.0) 10.3 % (1.0-10.0) Eosinophils (%) (Auto) 1.4 % (0.0-3.0) 1.9 % (0.0-3.0) 2.0 % (0.0-3.0) Basophils (%) (Auto) 1.0 % (0.0-2.0) 1.0 % (0.0-2.0) 0.8 % (0.0-2.0) Sodium Level 135 MMOL/L (136-145) 137 MMOL/L (136-145) 138 MMOL/L (136-145) Potassium Level 4.2 MMOL/L (3.5-5.1) 4.5 MMOL/L (3.5-5.1) 4.3 MMOL/L (3.5-5.1) Chloride Level 101 MMOL/L (98-107) 102 MMOL/L (98-107) 102 MMOL/L (98-107) Carbon Dioxide Level 27 MMOL/L (21-32) 30 MMOL/L (21-32) 30 MMOL/L (21-32) Anion Gap 7 mmol/L (5-15) 5 mmol/L (5-15) 6 mmol/L (5-15) Blood Urea Nitrogen 14 mg/dL (7-18) 18 mg/dL (7-18) 17 mg/dL (7-18) Creatinine 1.0 MG/DL (0.55-1.30) 1.1 MG/DL (0.55-1.30) 0.9 MG/DL (0.55-1.30) Estimat Glomerular Filtration Rate > 60 mL/min (>60) > 60 mL/min (>60) > 60 mL/min (>60) Glucose Level 91 MG/DL (74-106) 105 MG/DL (74-106) 102 MG/DL (74-106) Calcium Level 9.9 MG/DL (8.5-10.1) 9.4 MG/DL (8.5-10.1) 9.8 MG/DL (8.5-10.1) Height (Feet): 6 Height (Inches): 1.00 Weight (Pounds): 155 Objective HEENT: normal ENT inspection, normal alignment CV: normal peripheral pulses, normal rate, regular rhythm Resp: chest wall non-tender, lungs clear, normal breath sounds Abdomen: normal bowel sounds, non tender, soft Extremities: normal inspection Edema: trace edema Neurologic: motor weakness Skin: normal pigmentation, warm/dry, ++l foor sl red and swollen up to ankle Boogie Chirinos MD Nov 06, 2018 10:23
--- NOTE | 2018-11-06 10:59 | Pulmonology Progress Note ---
Assessment/Plan Problems: (1) Sepsis (2) Cellulitis of left foot Assessment/Plan improving doing better on abx check cultures wound care dvt prophylaxis. dc planning waiting for placement avoid IV narcotics Subjective ROS Limited/Unobtainable: No Constitutional: Reports: no symptoms HEENT: Repors: no symptoms Respiratory: Reports: no symptoms Allergies: Coded Allergies: No Known Allergies (Unverified , 10/20/18) Objective Last 24 Hour Vital Signs Date Time Temp Pulse Resp B/P (MAP) Pulse Ox O2 Delivery O2 Flow Rate FiO2 11/06/18 08:15 Room Air 11/06/18 08:00 97.9 83 18 118/63 (81) 94 11/06/18 00:00 97.7 75 18 103/63 (76) 97 11/05/18 21:00 Room Air 11/05/18 20:00 97.9 79 18 94/55 (68) 97 11/05/18 16:00 97.5 71 18 93/60 (71) 100 11/05/18 12:05 97.9 70 18 105/64 (78) 98 Intake and Output 11/05/18 11/06/18 19:00 07:00 Intake Total 820 ml 800 ml Output Total 1200 ml Balance 820 ml -400 ml Intake Oral 820 ml 800 ml Output Urine Total 1200 ml # Voids 7 4 Objective General Appearance: WD/WN HEENT: normocephalic, atraumatic Respiratory/Chest: chest wall non-tender, lungs clear, normal breath sounds Breasts: no masses Cardiovascular: normal peripheral pulses, normal rate Abdomen: normal bowel sounds, soft, non tender Genitourinary: normal external genitalia Extremities: no cyanosis, less edema Laboratory Tests 11/06/18 05:34: White Blood Count 4.4L, Red Blood Count 4.19L, Hemoglobin 12.6L, Hematocrit 39.0L, Mean Corpuscular Volume 93, Mean Corpuscular Hemoglobin 30.0, Mean Corpuscular Hemoglobin Concent 32.2, Red Cell Distribution Width 12.6, Platelet Count 334, Mean Platelet Volume 5.4L, Neutrophils (%) (Auto) 45.7, Lymphocytes ( %) (Auto) 41.2, Monocytes (%) (Auto) 10.3H, Eosinophils (%) (Auto) 2.0, Basophils (%) (Auto) 0.8, Sodium Level 138, Potassium Level 4.3, Chloride Level 102, Carbon Dioxide Level 30, Anion Gap 6, Blood Urea Nitrogen 17, Creatinine 0.9, Estimat Glomerular Filtration Rate > 60, Glucose Level 102, Calcium Level 9.8, Hepatitis A IgM Antibody [Pending], Hepatitis B Surface Antigen [Pending], Hepatitis B Core IgM Antibody [Pending], Hepatitis C Antibody [Pending], HIV (1& 2) Antibody Rapid [Pending] Current Medications Medications (Trade) Dose Ordered Sig/Juan Route PRN Reason Start Time Stop Time Status Last Admin Dose Admin Acetaminophen (Tylenol) 650 mg Q4H PRN ORAL fever 10/21/18 08:15 11/20/18 08:14 10/28/18 05:19 Acetaminophen/ Hydrocodone Bitart ([place] 10/325) 1 tab Q4H PRN ORAL For breakthrough pain 11/01/18 11:45 11/08/18 11:44 11/06/18 06:31 Artificial Tears (Lacri-Lube) 1 applic QIDPRN PRN BOTH EYES Dry Eyes 11/02/18 18:30 12/02/18 18:14 Dextrose (Dextrose 50%) 25 ml Q30M PRN IV Hypoglycemia 10/21/18 08:30 11/20/18 08:16 Dextrose (Dextrose 50%) 50 ml Q30M PRN IV hypoglycemia 10/21/18 08:30 11/20/18 08:29 Docusate Sodium (Colace) 100 mg THREE TIMES A DAY ORAL 10/21/18 18:00 11/20/18 17:59 11/06/18 08:17 Folic Acid (Folate) 3 mg DAILY ORAL 11/02/18 09:00 12/02/18 08:59 11/06/18 08:17 Heparin Sodium (Porcine) (Heparin 5000 units/ml) 5,000 units EVERY 12 HOURS SUBQ 10/21/18 09:00 11/20/18 08:59 11/06/18 08:21 Hydrogen Peroxide (Hydrogen Peroxide) 1 applic DAILY TOPIC 11/02/18 17:15 12/02/18 17:14 11/06/18 08:21 Ibuprofen (Motrin) 600 mg TID ORAL 10/24/18 18:00 11/23/18 17:59 11/06/18 08:16 Nitroglycerin (Ntg) 0.4 mg Q5M PRN SL Prn Chest Pain 10/21/18 08:15 11/20/18 08:14 Ondansetron HCl (Zofran) 4 mg Q6H PRN IVP Nausea & Vomiting 10/21/18 08:15 11/20/18 08:14 Pantoprazole (Protonix) 40 mg EVERY 12 HOURS ORAL 10/21/18 21:00 11/20/18 20:59 11/06/18 08:17 Polyethylene Glycol (Miralax) 17 gm DAILYPRN PRN ORAL Constipation 10/21/18 08:15 11/20/18 08:14 10/21/18 11:32 Potassium Chloride (K-Dur) 40 meq DAILY ORAL 10/25/18 09:00 11/24/18 08:59 11/06/18 08:17 Alberto Dumont MD Nov 06, 2018 10:59
--- NOTE | 2018-11-06 11:00 | NUR ---
WE[employer]CHANT Co-signature Notes: Reviewed patient's file. Reviewed and approved [employer] notes Addendum: 11/06/18 at 1100 by BRODIE ROBBINS PT,MG Amended: Links added.
--- NOTE | 2018-11-06 11:05 | Infectious Diseases Prog Note ---
Assessment/Plan Assessment/Plan A: 58 yo male who presnted to the ED on 10/19/18 with left leg cellulitis. Left foot cellulitis; improving -wound cx: MRSA, GAS, P. mirabilsi (Bassett S), C. freundi (R ancef, otherwise S), K. oxytoca (R amp, otherwise S) Leukocytosis ;SP Low grade fevers; SP -Tibia/fibula MRI: Negative for evidence of osteomyelitis. Evidence of superficial soft tissue ulcer, marked by a marker at the anteromedial sagastume region.Considerable subcutaneous fat edema. Given stated clinical history, probably on the basis of cellulitis. Correlate with clinical findings. No evidence of drainable abscess. -foot MRI: Extensive soft tissue edema, as described. This is in keeping with stated clinical history of cellulitis. No findings to suggest abscess Very superficial fluid collections likely relate to stated clinical history of dorsal blisters. No marrow abnormality to suggest acute osteomyelitis demonstrated. -ANkle MRI: Patchy areas of marrow edema, as described. Periarticular distribution of this is suggestive of arthropathy which may be degenerative, inflammatory, or, most likely, on the basis of Charcot-type changes. Per technologist, there are no ulcers in the area so osteomyelitis is deemed much less likely. Extensive edema of the subcutaneous fat. Given stated clinical history of cellulitis most likely on the basis of such. Correlate with clinical findings. No drainable abscess collection demonstrated. -Foot xray: No acute injury identified. Soft tissue swelling. Multiple incidental findings as described PLAN: - Continue to monitor off abx -11/04 SP Bactrim and Augmentin #6 -10/28 SP Cefepime #8, IV Vancomycin #8 - Monitor CBC and Temps -Podiatry f/u Subjective Allergies: Coded Allergies: No Known Allergies (Unverified , 10/20/18) Subjective afebrile no leukocytosis awaiting placement now off abx Objective Vital Signs Last 24 Hour Vital Signs Date Time Temp Pulse Resp B/P (MAP) Pulse Ox O2 Delivery O2 Flow Rate FiO2 11/06/18 08:15 Room Air 11/06/18 08:00 97.9 83 18 118/63 (81) 94 11/06/18 00:00 97.7 75 18 103/63 (76) 97 11/05/18 21:00 Room Air 11/05/18 20:00 97.9 79 18 94/55 (68) 97 11/05/18 16:00 97.5 71 18 93/60 (71) 100 11/05/18 12:05 97.9 70 18 105/64 (78) 98 Height (Feet): 6 Height (Inches): 1.00 Weight (Pounds): 155 Objective Gen: NAD HEENT: NCAT, MMM, EOMI, PERRL, No Oral lesion, no scleral icterus NECK: full range of motion, supple, no meningismus, No LAD, No JVD LUNGS: CTAB, No W/C, No Accessory muscle use CARDS: RRR, S1, S2, No M/R/G, ABD: Soft, NT, ND, No R/G, + BS, No HSM, No Masses : Deferred Ext: C/C/E, Pulses 2+ B/L (DP, Rad): LLE swelling with erythema and pain, Ulceration present with purulence. NEURO: A/O x 4, Strength and Sensation Grossly intact PSYCH: Normal mood and affect SKIN: Warm/dry, No rashes Laboratory Tests Test 11/06/18 05:34 White Blood Count 4.4 K/UL (4.8-10.8) L Red Blood Count 4.19 M/UL (4.70-6.10) L Hemoglobin 12.6 G/DL (14.2-18.0) L Hematocrit 39.0 % (42.0-52.0) L Mean Corpuscular Volume 93 FL (80-99) Mean Corpuscular Hemoglobin 30.0 PG (27.0-31.0) Mean Corpuscular Hemoglobin Concent 32.2 G/DL (32.0-36.0) Red Cell Distribution Width 12.6 % (11.6-14.8) Platelet Count 334 K/UL (150-450) Mean Platelet Volume 5.4 FL (6.5-10.1) L Neutrophils (%) (Auto) 45.7 % (45.0-75.0) Lymphocytes (%) (Auto) 41.2 % (20.0-45.0) Monocytes (%) (Auto) 10.3 % (1.0-10.0) H Eosinophils (%) (Auto) 2.0 % (0.0-3.0) Basophils (%) (Auto) 0.8 % (0.0-2.0) Sodium Level 138 MMOL/L (136-145) Potassium Level 4.3 MMOL/L (3.5-5.1) Chloride Level 102 MMOL/L (98-107) Carbon Dioxide Level 30 MMOL/L (21-32) Anion Gap 6 mmol/L (5-15) Blood Urea Nitrogen 17 mg/dL (7-18) Creatinine 0.9 MG/DL (0.55-1.30) Estimat Glomerular Filtration Rate > 60 mL/min (>60) Glucose Level 102 MG/DL (74-106) Calcium Level 9.8 MG/DL (8.5-10.1) Hepatitis A IgM Antibody Pending Hepatitis B Surface Antigen Pending Hepatitis B Core IgM Antibody Pending Hepatitis C Antibody Pending HIV (1&2) Antibody Rapid Negative (NEGATIVE) Current Medications Medications (Trade) Dose Ordered Sig/Juan Route PRN Reason Start Time Stop Time Status Last Admin Dose Admin Acetaminophen (Tylenol) 650 mg Q4H PRN ORAL fever 10/21/18 08:15 11/20/18 08:14 10/28/18 05:19 Acetaminophen/ Hydrocodone Bitart ([place] 5/325) 1 tab Q4H PRN ORAL Moderate Pain (Pain Scale 4-6) 11/06/18 11:00 11/13/18 10:59 Artificial Tears (Lacri-Lube) 1 applic QIDPRN PRN BOTH EYES Dry Eyes 11/02/18 18:30 12/02/18 18:14 Dextrose (Dextrose 50%) 25 ml Q30M PRN IV Hypoglycemia 10/21/18 08:30 11/20/18 08:16 Dextrose (Dextrose 50%) 50 ml Q30M PRN IV hypoglycemia 10/21/18 08:30 11/20/18 08:29 Docusate Sodium (Colace) 100 mg THREE TIMES A DAY ORAL 10/21/18 18:00 11/20/18 17:59 11/06/18 08:17 Folic Acid (Folate) 3 mg DAILY ORAL 11/02/18 09:00 12/02/18 08:59 11/06/18 08:17 Heparin Sodium (Porcine) (Heparin 5000 units/ml) 5,000 units EVERY 12 HOURS SUBQ 10/21/18 09:00 11/20/18 08:59 11/06/18 08:21 Hydrogen Peroxide (Hydrogen Peroxide) 1 applic DAILY TOPIC 11/02/18 17:15 12/02/18 17:14 11/06/18 08:21 Ibuprofen (Motrin) 600 mg TID ORAL 10/24/18 18:00 11/23/18 17:59 11/06/18 08:16 Nitroglycerin (Ntg) 0.4 mg Q5M PRN SL Prn Chest Pain 10/21/18 08:15 11/20/18 08:14 Ondansetron HCl (Zofran) 4 mg Q6H PRN IVP Nausea & Vomiting 10/21/18 08:15 11/20/18 08:14 Pantoprazole (Protonix) 40 mg EVERY 12 HOURS ORAL 10/21/18 21:00 11/20/18 20:59 11/06/18 08:17 Polyethylene Glycol (Miralax) 17 gm DAILYPRN PRN ORAL Constipation 10/21/18 08:15 11/20/18 08:14 10/21/18 11:32 Potassium Chloride (K-Dur) 40 meq DAILY ORAL 10/25/18 09:00 11/24/18 08:59 11/06/18 08:17 Fernanda Davison M.D. Nov 06, 2018 11:05
[2018-11-06 11:54] VITALS: BP 118/59
[2018-11-06] MEDS: HYDROcodone/Acetamin 5/325 tab ORAL PRN ×3 (12:19→21:02)
--- NOTE | 2018-11-06 13:11 | General Progress Note ---
Assessment/Plan Problem List: (1) Sepsis ICD Codes: A41.9 - Sepsis, unspecified organism SNOMED: 89814235 (2) Cellulitis of left foot ICD Codes: L03.116 - Cellulitis of left lower limb SNOMED: 633525111 Status: stable, progressing Assessment/Plan: wound care abx pain control cbc bmp am dc snf if clear Subjective Constitutional: Reports: weakness Allergies: Coded Allergies: No Known Allergies (Unverified , 10/20/18) All Systems: reviewed and negative except above Subjective sleepy calm Objective Last 24 Hour Vital Signs Date Time Temp Pulse Resp B/P (MAP) Pulse Ox O2 Delivery O2 Flow Rate FiO2 11/06/18 11:54 97.7 81 18 118/59 (78) 96 11/06/18 08:15 Room Air 11/06/18 08:00 97.9 83 18 118/63 (81) 94 11/06/18 00:00 97.7 75 18 103/63 (76) 97 11/05/18 21:00 Room Air 11/05/18 20:00 97.9 79 18 94/55 (68) 97 11/05/18 16:00 97.5 71 18 93/60 (71) 100 Intake and Output 11/05/18 11/06/18 19:00 07:00 Intake Total 820 ml 800 ml Output Total 1200 ml Balance 820 ml -400 ml Intake Oral 820 ml 800 ml Output Urine Total 1200 ml # Voids 7 4 Laboratory Tests 11/06/18 05:34: White Blood Count 4.4L, Red Blood Count 4.19L, Hemoglobin 12.6L, Hematocrit 39.0L, Mean Corpuscular Volume 93, Mean Corpuscular Hemoglobin 30.0, Mean Corpuscular Hemoglobin Concent 32.2, Red Cell Distribution Width 12.6, Platelet Count 334, Mean Platelet Volume 5.4L, Neutrophils (%) (Auto) 45.7, Lymphocytes ( %) (Auto) 41.2, Monocytes (%) (Auto) 10.3H, Eosinophils (%) (Auto) 2.0, Basophils (%) (Auto) 0.8, Sodium Level 138, Potassium Level 4.3, Chloride Level 102, Carbon Dioxide Level 30, Anion Gap 6, Blood Urea Nitrogen 17, Creatinine 0.9, Estimat Glomerular Filtration Rate > 60, Glucose Level 102, Calcium Level 9.8, Hepatitis A IgM Antibody [Pending], Hepatitis B Surface Antigen [Pending], Hepatitis B Core IgM Antibody [Pending], Hepatitis C Antibody [Pending], HIV (1& 2) Antibody Rapid Negative Height (Feet): 6 Height (Inches): 1.00 Weight (Pounds): 155 General Appearance: lethargic EENT: normal ENT inspection Neck: normal alignment Cardiovascular: normal peripheral pulses, normal rate, regular rhythm Respiratory/Chest: chest wall non-tender, lungs clear, normal breath sounds Abdomen: normal bowel sounds, non tender, soft Extremities: normal inspection Edema: trace edema Neurologic: motor weakness Skin: normal pigmentation, warm/dry Objective l foor sl red and swollen up to ankle Shaun Trejo DO Nov 06, 2018 13:11
--- NOTE | 2018-11-06 13:31 | NUR ---
FOOD TECHNOLOGISTHOSPITALITY AIDE SI: LEFT FOOT CELLULITIS T. 97.7 HR 81 RR 18 B/P 118/59 WBC 4.4 IS: HEPARIN SUBC PROTONIX PLACEMENT PENDING MED/SURG STATUS
--- NOTE | 2018-11-06 13:59 | NUR ---
GRAB OPERATOR NOTES RECEIVED A CALL FROM HILDA RAMON FROM INSURANCE, REQUESTED TO SEND REFERRAL TO [facility] TO [facility] [phone]. WILL FOLLOW UP WITH PLACEMENT.
--- NOTE | 2018-11-06 15:05 | NUR ---
*-* INSURANCE *-* UPDATED CLINICALS AND REVIEWS HAVE BEEN FAXED TO: [facility]: BRANT P- [phone] X [phone]............REVIEW/CLINICAL
[2018-11-06 16:00] VITALS: BP 109/65
--- NOTE | 2018-11-06 16:32 | Nephrology Progress Note ---
Assessment/Plan Problem List: (1) Cellulitis of left foot (2) Sepsis (3) Hyponatremia (4) Hypoalbuminemia Assessment Left foot cellulitis / Leukocytosis / No fever Low Na Low K Anemia High Lactic Low Albumin Plan Isotonic solution K supplement DC IV fluids monitor lytes avoid nephrotoxics urine tox screen positive for Amphetamines and Opiates per orders stable from renal stand if discharged Subjective ROS Limited/Unobtainable: No Constitutional: Reports: malaise Objective Objective Last 24 Hour Vital Signs Date Time Temp Pulse Resp B/P (MAP) Pulse Ox O2 Delivery O2 Flow Rate FiO2 11/06/18 11:54 97.7 81 18 118/59 (78) 96 11/06/18 08:15 Room Air 11/06/18 08:00 97.9 83 18 118/63 (81) 94 11/06/18 00:00 97.7 75 18 103/63 (76) 97 11/05/18 21:00 Room Air 11/05/18 20:00 97.9 79 18 94/55 (68) 97 Intake and Output 11/05/18 11/06/18 19:00 07:00 Intake Total 820 ml 800 ml Output Total 1200 ml Balance 820 ml -400 ml Intake Oral 820 ml 800 ml Output Urine Total 1200 ml # Voids 7 4 Laboratory Tests 11/06/18 05:34: White Blood Count 4.4L, Red Blood Count 4.19L, Hemoglobin 12.6L, Hematocrit 39.0L, Mean Corpuscular Volume 93, Mean Corpuscular Hemoglobin 30.0, Mean Corpuscular Hemoglobin Concent 32.2, Red Cell Distribution Width 12.6, Platelet Count 334, Mean Platelet Volume 5.4L, Neutrophils (%) (Auto) 45.7, Lymphocytes ( %) (Auto) 41.2, Monocytes (%) (Auto) 10.3H, Eosinophils (%) (Auto) 2.0, Basophils (%) (Auto) 0.8, Sodium Level 138, Potassium Level 4.3, Chloride Level 102, Carbon Dioxide Level 30, Anion Gap 6, Blood Urea Nitrogen 17, Creatinine 0.9, Estimat Glomerular Filtration Rate > 60, Glucose Level 102, Calcium Level 9.8, Hepatitis A IgM Antibody [Pending], Hepatitis B Surface Antigen [Pending], Hepatitis B Core IgM Antibody [Pending], Hepatitis C Antibody [Pending], HIV (1& 2) Antibody Rapid Negative Height (Feet): 6 Height (Inches): 1.00 Weight (Pounds): 155 General Appearance: other - leg pain + Objective no change Levar Conde MD Nov 06, 2018 16:32
[2018-11-06] MEDS ORDERED: COLACE100 MG ORAL ×2 (16:36→16:37)
[2018-11-06] MEDS ORDERED: MIRALAX17 G2 ORAL (16:37)
[2018-11-06] MEDS ORDERED: PROTONIX40 MG ORAL (16:38)
[2018-11-06] MEDS ORDERED: IBUPROFEN600 MG ORAL (16:38)
--- NOTE | 2018-11-06 16:38 | NUR ---
Social Service Note VI completed with LUPE Bassett. Patient will received skilled services. Patient accepted to room 11A. Nurse to call report prior to transfer [phone]. [facility] ambulance [phone] [id number].
[2018-11-06] MEDS ORDERED: FOLIC ACID1 MG ORAL (16:39)
--- NOTE | 2018-11-06 17:30 | NUR ---
nurse notes discharge to [facility] obtained, patient agreed with the plan of care, report given to Laura FORREST accordingly kaitlin reynolds
[2018-11-06] MEDS ORDERED: NORCO 5-325 TA1 EACH ORAL (18:52)
--- NOTE | 2018-11-06 19:30 | NUR ---
NURSE NOTES: Patient awake in bed, resting, not in respiratory distress. Waiting for ambulance picker packer. Will follow up accordingly. Call light and needs in reach. Bed in lowest position and lock engaged.
--- NOTE | 2018-11-06 19:32 | NUR ---
HAND-OFF: Report given to LON Dyson, resting comfortably in bed, patient free from pain and injury,still waiting for ambulance /picker operator, endorse accordingly lon reynolds.
--- NOTE | 2018-11-06 20:30 | NUR ---
NURSE NOTES: Called [facility] ambulance to follow up supervisor opening and picking. Per agent, in 15 mins.
--- NOTE | 2018-11-06 21:30 | NUR ---
NURSE NOTES: Still waiting for picker tender. Called [facility] ambulance again to follow up picker tender, per agent, in 30mins. Charge nurse made aware.
[2018-11-06 22:41] VITALS: BP 117/64
--- NOTE | 2018-11-06 22:42 | NUR ---
NURSE NOTES: [facility] ambulance is picking up the patient at this time. Belongings checked. Patient has no IV access.
--- NOTE | 2018-11-06 23:05 | NUR ---
NURSE NOTES: Patient was asking for 2 knives and a wire bound box machine operator that the airline security representative took from him on the day of admission. According to the belongings checklist, there were none listed. Called security and verified that there were no things like that was taken. Pt made aware and still claiming that somebody did. A airline security representative came up and talked to the patient. Green software product specialist that was stored in the nursing station was given back to the patient. Pt refused to sign belongings checklist sheet. Charge nurse made aware.
--- NOTE | 2018-11-06 23:10 | NUR ---
NURSE NOTES: Patient left with the ambulance personnel at 23:10.
--- NOTE | 2018-11-07 08:09 | Discharge Summary ---
Discharge Summary Discharge Summary _ DATE OF ADMISSION: 10/20/2018 DATE OF DISCHARGE: 11/06/2018 DISCHARGED BY: Dr. Trejo REASON FOR ADMISSION: 88 years old male, homeless, without major medical problem, presented to emergency department complaining of swelling and redness of his left food. Laboratory work-up revealed significant leukocytosis WBC 18.8, lactic acid 2.9. CRP 61. ESR 66. Sodium 131, potassium 3.1. EKG revealed sinus tachycardia with no acute ischemic changes. Chest x-ray demonstrated no acute cardiopulmonary pathology. Urinalysis revealed no evidence of urinary tract infection. Urine toxicology screen was positive for amphetamine Patient was diagnosed with sepsis, cellulitis, and admitted for further management. CONSULTANTS: pulmonary/critical care Dr. Dumont ID specialist Dr. Davison ophthalmic surgical assistant Dr. Conde can washer/oncologist Dr. Chirinos travel ot [facility] COURSE: Patient admitted to the hospital and started on empiric antibiotics as per ID specialist recommendation. Blood cultures were negative. Wound culture revealed Klebsiella, Citrobacter, Proteus, streptococci group A and MRSA. Pain management was addressed. DVT prophylaxis provided. X-ray of the left foot revealed no evidence of acute injury. Left tibia-fibula MRI revealed no evidence of osteomyelitis. Left foot MRI revealed extensive soft tissue edema, consistent with the clinical history of cellulitis. No findings to suggest abscess. No evidence of acute osteomyelitis. Ankle MRI revealed arthropathy , degenerative, inflammatory, or, most likely, on the basis of Charcot-type changes. No ulcers. Unlikely osteomyelitis. Extensive edema of the subcutaneous fat. Given stated clinical history of cellulitis, most likely on the basis of such. Correlate with clinical findings. No drainable abscess collection . Fur Mixer Operator followed. Wound care provided as per travel ot recommendation. Java Tech followed. Patient initially hydrated with IV fluids. Renal parameters and electrolytes were closely monitored. Electrolytes corrected as needed. Nephrotoxic's were avoided. Supportive care provided. Hemoglobin A1c 6.4. Blood sugar was closely [id number]. Patient was counseled to avoid concentrated sweets. Venous duplex bilateral lower extremity revealed no evidence of acute DVT. DVT prophylaxis provided. Patient completed course of antibiotics. Leukocytosis resolved, no fevers Infectious disease specialist recommended to keep patient off antibiotics. Echocardiogram revealed ejection fraction of 55% with mild left ventricular hypertrophy. No evidence of pericardial effusion. No evidence of wall motion abnormality. Grade 2 diastolic dysfunction. Right ventricular systolic pressure of 47 consistent with a moderate pulmonary hypertension. No evidence of vegetation Poker Supervisor followed. Patient noted to have mild leukopenia with WBC 4.4. Hepatitis panel revealed evidence of hepatitis C. HIV test was nonreactive. Patient was counseled on abstinence from illicit street drugs. Patient require placement for wound care. Placement was finally arranged to nursing home facility. 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 DISCHARGE INSTRUCTIONS: Patient was discharged to the nursing home facility. Follow up with medical doctor at the facility. I have been assigned to dictate discharge summary for this account. I was not involved in the patient's management. Kary Bonilla NP Nov 07, 2018 08:09
== END 2018-11-06 23:10 | DRG 720 ==
LOC: EDBD 19:57 → EMR 20:59 → 4E 22:56 → EDBEDREQ 23:18 → 4E 10-21 00:07
DX: A41.9 Sepsis, unspecified organism (principal); E87.1 Hypo-osmolality and hyponatremia; L03.116 Cellulitis of left lower limb; E88.09 Other disorders of plasma-protein metabolism, not elsewhere classified; E11.622 Type 2 diabetes mellitus with other skin ulcer; L97.829 Non-pressure chronic ulcer of other part of left lower leg with unspecified severity; D64.9 Anemia, unspecified; E87.6 Hypokalemia; Z59.0 Homelessness; B19.20 Unspecified viral hepatitis C without hepatic coma; F15.10 Other stimulant abuse, uncomplicated; E11.610 Type 2 diabetes mellitus with diabetic neuropathic arthropathy
CPT/HCPCS: 36415; 80048; 80053; 80061; 80076; 80202; 80307; 81001; 82140; 82607; 82728; 82746; 82962; 82977; 83036; 83540; 83550; 83605; 83690; 83735; 83880; 84100; 84443; 84550; 85007; 85025; 85610; 85651; 85730; 86140; 86703; 86705; 86709; 86803; 86850; 86900; 86901; 87040; 87070; 87081; 87181; 87205; 87340; 93005; 93306; 93970; 94664; 96361; 96365; 96366; 96367; 96375; 99285; J2405; J8499; S0077